=== PATIENT | male | born 1965 | race Caucasian/White ===

== ENCOUNTER → 2016-02-29 | Day surgery (SDC) | payer MEDICARE, OTHER ==
[2016-02-29 12:42] VITALS: BP 125/88; PULSE 89; RESP 16; TEMP 98.1
--- NOTE | 2016-02-29 13:18 | P.PN ---
Progress Note - Text PROCEDURE: Intrathecal pain pump analysis, programming and reprogramming, and intrathecal pain pump refill. PREOPERATIVE DIAGNOSES: 1. near empty intrathecal pain pump. 2. opioid tolerance 3. failed back surgery syndrome lumbar area POSTOPERATIVE DIAGNOSES: same ANESTHESIA: None. CONDITION: Stable. This is a 50-year-old patient with a long history of chronic pain secondary to postlaminectomy syndrome. Patient previously had an intrathecal pump placed, which is now close to empty, and patient presents for refill today. Patient denies any side effects of the intrathecal medication, including new weakness, new numbness, excessive drowsiness or sleepiness, nausea/vomiting, weight gain, or night sweats. Patient also denies suicidal ideation, and reports that the current pain medication is helping control the chronic pain and improve the patient's activities of daily living. Description of the procedure: After timeout to verify proper patient and allergies to medications, the intrathecal pain pump was analyzed electronically demonstrating that the patient currently has reservoir volume [7.5] mL. The patient is currently receiving medication morphine PF [6] mg/ ml, and bupivacaine concentration [4] mg/ml. Patient receiving daily dose of [3.1] mg/day and bupivacaine [2.07] mg/day. Pain has not been well-controlled at this dose recently, patient using medication for breakthrough pain [Percocet 10/325] orally no more than three times per day. The location of the pump (Left Buttock) was prepped with chlorhexidine x3. Then , the 22-gauge needle from [employer] was advanced through the pump port using blind technique, and a total of [11] ml was removed from the pump. The pump was then refilled with the new medication total volume [40] ml of a solution of morphine PF 6 mg/ml and bupivacaine 4 mg/ml after verification by physician and nursing staff.. We will increase the daily dose 10% to morphine [3.41] mg/day and bupivacaine [2.27] mg/day and patient will follow up with the pain clinic in approximately 2 months for refill; alarm date 05/04/2016. Plan: 1. Explanation: Opioid and psychological risk scores were reviewed. Diagnoses , prognoses, and multiple treatment options including but not limited to physical therapy, interventional therapies, adjuvant medical therapies, narcotic medication therapies, and surgery were discussed with the patient and all questions were answered to the patient's satisfaction. 2. Opioid agreement: Patient has previously signed narcotic agreement, and was orally counseled to not overuse, abuse, divert, or cell medications, and to take them as prescribed by only 1 healthcare provider. The patient was also counseled to store opioid medications in a safe and preferably locked location. Patient was also counseled against driving while using narcotic medications and also to not use alcohol or any illicit or recreational drugs. The patient verbalized understanding that lack of compliance with any of the above and likely result in failure to renew narcotic prescriptions, possible discharge from the clinic, and possible legal ramifications thereafter if indicated. 3. Counseling: The patient was counseled extensively on BODY MASS INDEX, EXERCISE. Specifically, the patient was instructed regarding the importance of obesity, and exercise in the context of both chronic pain and overall health. 4. Procedures: Intrathecal pump refilled today 5. Consultations: None 6. Investigations: none 7. Medications: Percocet #90 for March (1 month), pt counseled to use no more than 3 Percocet pills per day due to further risk of tolerance 8. Disposition: f/u for ITP refill 8-10 weeks. Residual volume has been higher than expected for last several refills, and patient complaining of increased pain today, but no bowel/bladder incontinence or worsening weakness. We will need to monitor residual volumes at next several pump fills. PQRS measures: 1-Patient's medications are documented in the chart. 2-Tobacco use is negative, counseling NOT given 3-Patient has had a pneumococcal vaccine. 4-Advanced care planning discussed, patient unable to give. 5-Opioid contract signed with the patient. 6-Pain positive, follow-up visit or procedure scheduled 7-Patient's blood pressure measured and documented, and patient will follow up with the primary care due to hypertension. 8-Patient's weight was measured, and body mass index within the normal limits. 9-Patient WAS NOT identified as an unhealthy alcohol user.
== END ==
LOC: PNWHC3 12:08
PROVIDERS: ATTEND Anesthesiology
DX: Z45.49 Encounter for adjustment and management of other implanted nervous system device (principal); G89.29 Other chronic pain; M96.1 Postlaminectomy syndrome, not elsewhere classified; Z79.891 Long term (current) use of opiate analgesic
CPT/HCPCS: 62367; 62370

== ENCOUNTER → 2016-04-25 | Day surgery (SDC) | payer MEDICARE, OTHER ==
[2016-04-25 11:41] VITALS: BP 122/82; PULSE 83; RESP 18; TEMP 98.3
--- NOTE | 2016-04-25 12:37 | P.PN ---
Progress Note - Text PROCEDURE: Intrathecal pain pump analysis, programming and reprogramming, and intrathecal pain pump refill. PREOPERATIVE DIAGNOSES: 1. near empty intrathecal pain pump. 2. opioid tolerance 3. failed back surgery syndrome lumbar area POSTOPERATIVE DIAGNOSES: same ANESTHESIA: None. CONDITION: Stable. This is a 50-year-old patient with a long history of chronic pain secondary to postlaminectomy syndrome. Patient previously had an intrathecal pump placed, which is now close to empty, and patient presents for refill today. Patient denies any side effects of the intrathecal medication, including new weakness, new numbness, excessive drowsiness or sleepiness, nausea/vomiting, weight gain, or night sweats. Patient also denies suicidal ideation, and reports that the current pain medication is helping control the chronic pain and improve the patient's activities of daily living. Description of the procedure: After timeout to verify proper patient and allergies to medications, the intrathecal pain pump was analyzed electronically demonstrating that the patient currently has reservoir volume [8.2] mL. The patient is currently receiving medication morphine PF [6] mg/ ml, and bupivacaine concentration [4] mg/ml. Patient receiving daily dose of [3.41] mg/day and bupivacaine [2.27] mg/day. Pain has not been well-controlled at this dose recently, patient using medication for breakthrough pain [Percocet 10/325] orally no more than three times per day. The location of the pump (Left Buttock) was prepped with chlorhexidine x3. Then , the 22-gauge needle from [employer] was advanced through the pump port using blind technique, and a total of [12] ml was removed from the pump. The pump was then refilled with the new medication total volume [40] ml of a solution of morphine PF 6 mg/ml and bupivacaine 4 mg/ml after verification by physician and nursing staff.. We will increase the daily dose 10% to morphine [3.74] mg/day and bupivacaine [2.5] mg/day and patient will follow up with the pain clinic in approximately 2 months for refill; alarm date 06/23/2016. Plan: 1. Explanation: Opioid and psychological risk scores were reviewed. Diagnoses , prognoses, and multiple treatment options including but not limited to physical therapy, interventional therapies, adjuvant medical therapies, narcotic medication therapies, and surgery were discussed with the patient and all questions were answered to the patient's satisfaction. 2. Opioid agreement: Patient has previously signed narcotic agreement, and was orally counseled to not overuse, abuse, divert, or cell medications, and to take them as prescribed by only 1 healthcare provider. The patient was also counseled to store opioid medications in a safe and preferably locked location. Patient was also counseled against driving while using narcotic medications and also to not use alcohol or any illicit or recreational drugs. The patient verbalized understanding that lack of compliance with any of the above and likely result in failure to renew narcotic prescriptions, possible discharge from the clinic, and possible legal ramifications thereafter if indicated. 3. Counseling: The patient was counseled extensively on BODY MASS INDEX, EXERCISE. Specifically, the patient was instructed regarding the importance of obesity, and exercise in the context of both chronic pain and overall health. 4. Procedures: Intrathecal pump refilled today 5. Consultations: None 6. Investigations: none 7. Medications: Percocet #90 for April (1 month), pt counseled to use no more than 3 Percocet pills per day due to further risk of tolerance 8. Disposition: will order CT scan of thoracic and lumbar spine to evaluate intrathecal pump and catheter tip given patient's worsening pain and increasing residual volumes (extra 3-3.5 ml for last several refills). Follow up one month ; patient may need dye study in the near future. PQRS measures: 1-Patient's medications are documented in the chart. 2-Tobacco use is negative, counseling NOT given 3-Patient has had a pneumococcal vaccine. 4-Advanced care planning discussed, patient unable to give. 5-Opioid contract signed with the patient. 6-Pain positive, follow-up visit or procedure scheduled 7-Patient's blood pressure measured and documented, and patient will follow up with the primary care due to hypertension. 8-Patient's weight was measured, and body mass index within the normal limits. 9-Patient WAS NOT identified as an unhealthy alcohol user.
[2016-04-25 13:49] LABS: Blood Urea Nitrogen 12 mg/dL (9-20); Non-African American GFR(MDRD) >60 (>60 ml/min/1.73 sqM)
--- NOTE | 2016-04-25 15:00 | CT ---
EXAMINATION TYPE: CT lumbar spine wo/w con DATE OF EXAM: 04/25/2016 2:48 PM COMPARISON: NONE HISTORY: Evaluate intrathecal cath and pump CT DLP: 2236 mGycm CONTRAST: Unenhanced CT of the lumbar spine is performed with IV Contrast, patient injected with of Omnipaque [address] of the lumbar spine was performed. Bone and soft tissue window settings are submitted as well as coronal and sagittal reconstructions. Intrathecal catheter is noted to enter the thecal sac at the L1 T12 level and extends cranially and i s only imaged for 2 cm. L1-L2: Normal disc space height. No disc herniation protrusion or central stenosis. No facet joint arthropathy. No evidence for foraminal encroachment. L2-L3: Mild to moderate degenerative disc space narrowing. Moderate circumferential disc bulge with e ffacement of the ventral thecal sac. There is hypertrophy of the ligamentum flavum and facet joint ar thropathy resulting in mild central stenosis. Spinal canal does appear to be congenitally diminutive in size. L3-L4: Mild to moderate degenerative disc space narrowing. Moderate circumferential disc bulge with e ffacement of the ventral thecal sac. There is hypertrophy of the ligamentum flavum and facet joint ar thropathy resulting in mild central stenosis. Spinal canal does appear to be congenitally diminutive in size. L4-L5: Changes of lumbar laminectomy with pedicular screws in place and intervertebral body spacers. Alignment appears anatomic. Streak artifact limits evaluation of this level. No obvious recurrent dis ease is seen with certainty at this time. L5-S1: Changes of lumbar laminectomy with pedicular screws in place and intervertebral body spacers. Alignment appears anatomic. Streak artifact limits evaluation of this level. No obvious recurrent dis ease is seen with certainty at this time. No paraspinal masses are identified. Lumbar segments are free if fracture. No pathologic enhancement identified. IMPRESSION: 1. Postoperative changes at L4-5 and L5-S1 as discussed above with anatomic alignment. Streak artifac t limits evaluation of these levels. 2. Degenerative disc disease with disc bulging at L2-3 and L3-4 with mild central stenosis present. S ee above.
== END ==
LOC: PNWHC3 11:13
PROVIDERS: ATTEND Anesthesiology
DX: Z45.1 Encounter for adjustment and management of infusion pump (principal); M96.1 Postlaminectomy syndrome, not elsewhere classified; Z79.891 Long term (current) use of opiate analgesic
CPT/HCPCS: 82565; 84520; 72133; 36415; 62370; Q9967

== ENCOUNTER → 2016-05-22 | Outpatient (CLI) | payer MEDICARE, OTHER ==
--- NOTE | 2016-06-12 08:16 | P.PN ---
Progress Note - Text Mr. Magana was not seen by a physician today. The MRI that was ordered to evaluate his pump covered only his lumbar spine and not his thoracic and lumbar spine. He was given a month's refill of his oral medications and will follow up to be seen after completion of the MRI of his thoracic spine.
== END ==
LOC: PNWHC3 13:28
PROVIDERS: ATTEND Anesthesiology

== ENCOUNTER → 2016-05-29 | Outpatient (CLI) | payer MEDICARE, OTHER ==
--- NOTE | 2016-05-30 08:36 | CT ---
EXAMINATION TYPE: CT thoracic spine wo/w con DATE OF EXAM: 05/29/2016 5:22 PM COMPARISON: NONE HISTORY: Per patient checking pain pump placement. Spondylosis without myelopathy or radiculopathy pe r order. CT DLP: 1278.8 mGycm Automated exposure control for dose reduction was used. CONTRAST: Performed without and with IV Contrast, patient injected with 100 mL of Omnipaque 300. FINDINGS: Localizer image shows surgical change in the mid to lower lumbar spine extending into the upper sacru m. There is partial visualization of pain pump overlying the left pelvis. Thoracic spine shows straightened alignment without evidence of acute fracture or dislocation. Verteb ral body heights and disc space heights are fairly well-maintained. Spinal canal is grossly preserved . There is a pain pump catheter entering the spinal canal at T12-L1 disc space posteriorly and ascendin g up the spinal canal along the anterior aspect with tip just posterior to the inferior T8 vertebra a re seen best on sagittal image 32. Catheter is also better seen on coronal images 34 and 35 coursing slightly to the left as it ascends. Because of small caliber of the catheter it is difficult to follo w but appears grossly intact. Significant artifact degradation is seen making evaluation suboptimal. Spinal canal is grossly preser ana. Visualized portion of both lungs is clear. Diffuse fatty infiltration of liver is present. Surgi kalyan sutures or clips epigastric region are seen. No worrisome fluid collection or enhancement is iden tified. Paraspinal muscle bulk is preserved. IMPRESSION: PAIN CATHETER POSITION DETAILED ABOVE
== END ==
LOC: RADCTMAIN 16:49
PROVIDERS: ATTEND Anesthesiology
DX: M47.814 Spondylosis without myelopathy or radiculopathy, thoracic region (principal); Z45.2 Encounter for adjustment and management of vascular access device
CPT/HCPCS: 72130; Q9967

== ENCOUNTER 2016-06-19 09:58 | Day surgery (SDC) | payer MEDICARE, OTHER ==
[2016-06-15 11:28] VITALS: BMI 38.4
[~2016-06-19 09:58] MED LIST: LACTATED RINGERS 1,000 ML IV SCH
[2016-06-19] MEDS ORDERED: LIDOCAINE 1% 20 ML VIAL (10MG/ML) FOR IV START INTRADERMA ONE (10:55)
[2016-06-19 10:58] LABS: Glucose,Whole Blood 158 mg/dL (75-99)
[2016-06-19 10:59] VITALS: RESP 18; TEMP 96.9
[2016-06-19] MEDS ORDERED: IOHEXOL 180 MG/ML 1 ML ML ONE (11:03)
--- NOTE | 2016-06-19 12:03 | FL ---
Fluoroscopy HISTORY: Pain 1 minute 33 seconds fluoroscopy time supplied to the referring clinician. 37 intraoperative C-arm im ages document the procedure. See dictated report from anesthesia.
[2016-06-19] MEDS ORDERED: IV FLUID CONTINUATION 1,000 ML IV ONE (12:10)
--- NOTE | 2016-06-19 12:15 | P.PCN ---
Date of Procedure: 06/19/16 Surgeon: Cheng Chen Pathology: none sent Condition: stable Disposition: PACU Description of Procedure: PROCEDURE: 1. Intrathecal pump analysis and myelogram (dye study). 2. Intrathecal pain pump analysis, programming and reprogramming, and intrathecal pain pump refill. PREOPERATIVE DIAGNOSES: 1. near empty intrathecal pain pump, possibly malfunctioning 2. opioid tolerance 3. failed back surgery syndrome lumbar area POSTOPERATIVE DIAGNOSES: same ANESTHESIA: None. CONDITION: Stable. This is a 50-year-old patient with a long history of chronic pain secondary to postlaminectomy syndrome. Patient previously had an intrathecal pump placed, which is now close to empty, and patient has been complaining of increasing pain over the last six months, and this has coincided with increasing residual volumes at each pump refill. CT scan of the thoracic and lumbar spine did not demonstrate any granuloma or catheter-tip mass. Thus, the patient presents today for pump evaluation via dye study and pump refill today. Patient denies any side effects of the intrathecal medication, including new weakness, new numbness, excessive drowsiness or sleepiness, nausea /vomiting, weight gain, or night sweats. Patient also denies suicidal ideation , and reports that the current pain medication is helping control the chronic pain and improve the patient's activities of daily living. Description of the procedure: The patient was seen and identified in the preoperative area. Risks, benefits, complications, and alternatives were discussed with the patient. The patient agreed to proceed with the procedure and signed the consent after all questions were answered. IV was started. Vital signs were stable throughout the procedure. The patient was brought to the procedure room. He was placed in the prone position on the procedure table. The location of the intrathecal pump (Left Buttock) was prepped with chlorhexidine x3 and draped with sterile towels. AP fluoroscopy was used to identify the intrathecal pump, which appeared to be intact, and AP fluoroscopy was also used to locate the catheter tip at approximately the T8 level. A sideport access kit was opened sterilely and a 24 -gauge 1.5 inch needle was inserted under fluoroscopic guidance into the side port of the pump. 2.5 ML's of clear fluid was extracted through the needle without any issues. Then, a total of 7 ml of Omnipaque 300 dye was injected through the catheter, and there was no extravasation of contrast surrounding the intrathecal pump itself. With the injection, an excellent myelogram was demonstrated in both AP and moreso lateral view in both the lumbar and thoracic spines. The catheter appeared to be intact and appeared to be functioning appropriately. A rotor study was then performed, which demonstrated appropriate counter clockwise rotation of the rotors in the intrathecal pump. The pump was then reprogrammed to deliver a priming bolus over 11 minutes and there was return to the regular settings as below After timeout to verify proper patient and allergies to medications, the intrathecal pain pump was analyzed electronically demonstrating that the patient currently has reservoir volume [5.9] mL. The patient is currently receiving medication morphine PF [6] mg/ ml, and bupivacaine concentration [4] mg/ml. Patient receiving daily dose of [3.74] mg/day and bupivacaine [2.5] mg/day. Pain has not been well-controlled at this dose recently, patient using medication for breakthrough pain [Percocet 10/325] orally no more than three times per day. Then, the 22-gauge needle from [employer] was advanced through the pump port using fluoroscopy, and a total of [10] ml was removed from the pump. The pump was then refilled with the new medication total volume [40] ml of a solution of morphine PF 6 mg/ml and bupivacaine 4 mg/ml after verification by physician and nursing staff.. We will continue the current dose of morphine [3.74] mg/day and bupivacaine [ 2.5] mg/day and patient will follow up with the pain clinic in approximately 2 months for refill; alarm date 08/17/2016. Plan: 1. Explanation: Opioid and psychological risk scores were reviewed. Diagnoses , prognoses, and multiple treatment options including but not limited to physical therapy, interventional therapies, adjuvant medical therapies, narcotic medication therapies, and surgery were discussed with the patient and all questions were answered to the patient's satisfaction. 2. Opioid agreement: Patient has previously signed narcotic agreement, and was orally counseled to not overuse, abuse, divert, or cell medications, and to take them as prescribed by only 1 healthcare provider. The patient was also counseled to store opioid medications in a safe and preferably locked location. Patient was also counseled against driving while using narcotic medications and also to not use alcohol or any illicit or recreational drugs. The patient verbalized understanding that lack of compliance with any of the above and likely result in failure to renew narcotic prescriptions, possible discharge from the clinic, and possible legal ramifications thereafter if indicated. 3. Counseling: The patient was counseled extensively on BODY MASS INDEX, EXERCISE. Specifically, the patient was instructed regarding the importance of obesity, and exercise in the context of both chronic pain and overall health. 4. Procedures: Intrathecal pump refilled today 5. Consultations: None 6. Investigations: none 7. Medications: Percocet #90 for June and July (2 months), pt counseled to use no more than 3 Percocet pills per day due to further risk of tolerance 8. Disposition: f/u for pump refill as scheduled, although patient has continued to complain of increased pain and has had increasing residual volumes in the pump. Dye and rotor studies were both normal. PQRS measures: 1-Patient's medications are documented in the chart. 2-Tobacco use is negative, counseling NOT given 3-Patient has had a pneumococcal vaccine. 4-Advanced care planning discussed, patient unable to give. 5-Opioid contract signed with the patient. 6-Pain positive, follow-up visit or procedure scheduled 7-Patient's blood pressure measured and documented, and patient will follow up with the primary care due to hypertension. 8-Patient's weight was measured, and body mass index within the normal limits. 9-Patient WAS NOT identified as an unhealthy alcohol user.
[2016-06-19 12:21] LABS: Glucose,Whole Blood 147 mg/dL (75-99)
[2016-06-19 12:33] VITALS: PULSE 75
[2016-06-19 13:06] VITALS: BP 122/81
== END 2016-06-19 13:22 | disposition home or self-care (01) ==
LOC: ORPAIN 09:58
PROVIDERS: ATTEND Anesthesiology
DX: Z45.49 Encounter for adjustment and management of other implanted nervous system device (principal); G89.29 Other chronic pain; M96.1 Postlaminectomy syndrome, not elsewhere classified; M54.5 Low back pain; Z79.891 Long term (current) use of opiate analgesic; Z88.1 Allergy status to other antibiotic agents; Z88.0 Allergy status to penicillin; Z88.8 Allergy status to other drugs, medicaments and biological substances; Z91.018 Allergy to other foods
CPT/HCPCS: 95990; Q9965

== ENCOUNTER → 2016-08-15 | Outpatient (CLI) | payer MEDICARE, OTHER ==
[2016-08-15 12:21] VITALS: BP 124/76; PULSE 87; RESP 16; TEMP 98.7
--- NOTE | 2016-08-15 12:49 | P.PN ---
Progress Note - Text PROCEDURE: Intrathecal pain pump analysis, programming and reprogramming, and intrathecal pain pump refill. PREOPERATIVE DIAGNOSES: 1. near empty intrathecal pain pump. 2. opioid tolerance 3. failed back surgery syndrome lumbar area POSTOPERATIVE DIAGNOSES: same ANESTHESIA: None. CONDITION: Stable. This is a 50-year-old patient with a long history of chronic pain secondary to postlaminectomy syndrome. Patient previously had an intrathecal pump placed, which is now close to empty, and patient presents for refill today. Patient denies any side effects of the intrathecal medication, including new weakness, new numbness, excessive drowsiness or sleepiness, nausea/vomiting, weight gain, or night sweats. Patient also denies suicidal ideation, and reports that the current pain medication is helping control the chronic pain and improve the patient's activities of daily living. Description of the procedure: After timeout to verify proper patient and allergies to medications, the intrathecal pain pump was analyzed electronically demonstrating that the patient currently has reservoir volume [4.4] mL. The patient is currently receiving medication morphine PF [6] mg/ ml, and bupivacaine concentration [4] mg/ml. Patient receiving daily dose of [3.74] mg/day and bupivacaine [2.5] mg/day. Pain has not been well-controlled at this dose recently, patient using medication for breakthrough pain [Percocet 10/325] orally no more than three times per day. The location of the pump (Left Buttock) was prepped with chlorhexidine x1. Then , the 22-gauge needle from [employer] was advanced through the pump port using blind technique, and a total of [9.8] ml was removed from the pump. The pump was then refilled with the new medication total volume [40] ml of a solution of morphine PF 6 mg/ml and bupivacaine 4 mg/ml after verification by physician and nursing staff.. We will continue the daily dose morphine [3.74] mg/day and bupivacaine [2.5] mg/day and patient will follow up with the pain clinic in approximately 2 months for refill; alarm date 10/13/2016. Plan: 1. Explanation: Opioid and psychological risk scores were reviewed. Diagnoses , prognoses, and multiple treatment options including but not limited to physical therapy, interventional therapies, adjuvant medical therapies, narcotic medication therapies, and surgery were discussed with the patient and all questions were answered to the patient's satisfaction. 2. Opioid agreement: Patient has previously signed narcotic agreement, and was orally counseled to not overuse, abuse, divert, or cell medications, and to take them as prescribed by only 1 healthcare provider. The patient was also counseled to store opioid medications in a safe and preferably locked location. Patient was also counseled against driving while using narcotic medications and also to not use alcohol or any illicit or recreational drugs. The patient verbalized understanding that lack of compliance with any of the above and likely result in failure to renew narcotic prescriptions, possible discharge from the clinic, and possible legal ramifications thereafter if indicated. 3. Counseling: The patient was counseled extensively on BODY MASS INDEX, EXERCISE. Specifically, the patient was instructed regarding the importance of weight control and exercise in the context of both chronic pain and overall health. 4. Procedures: intrathecal pump refilled today 5. Consultations: None 6. Investigations: none 7. Medications: Percocet 10/325 #90 with one refill 8. Disposition: Patient is still continuing to have high residual volumes but states that his pain has improved since pump study done previously. Will continue same dose and re-evaluate patient at next refill in two months. PQRS measures: 1-Patient's medications are documented in the chart. 2-Tobacco use is negative, counseling NOT given 3-Patient has had a pneumococcal vaccine. 4-Advanced care planning discussed, patient unable to give. 5-Opioid contract signed with the patient. 6-Pain positive, follow-up visit or procedure scheduled 7-Patient's blood pressure measured and documented, and patient will follow up with the primary care due to hypertension. 8-Patient's weight was measured, and body mass index > 35. Patient instructed to follow up with PCP re: weight loss strategies. 9-Patient WAS NOT identified as an unhealthy alcohol user.
== END | disposition home or self-care (01) ==
LOC: PNWHC3 11:38
PROVIDERS: ATTEND Anesthesiology
DX: M96.1 Postlaminectomy syndrome, not elsewhere classified (principal); G89.29 Other chronic pain; Z79.891 Long term (current) use of opiate analgesic; Z79.899 Other long term (current) drug therapy
CPT/HCPCS: 62370

== ENCOUNTER → 2016-10-03 | Day surgery (SDC) | payer MEDICARE, OTHER ==
[2016-10-03 12:40] VITALS: BP 115/74; PULSE 95; RESP 12; TEMP 98.6
--- NOTE | 2016-10-03 13:21 | P.PN ---
Progress Note - Text PROCEDURE: Intrathecal pain pump analysis, programming and reprogramming, and intrathecal pain pump refill. PREOPERATIVE DIAGNOSES: 1. near empty intrathecal pain pump. 2. opioid tolerance 3. failed back surgery syndrome lumbar area POSTOPERATIVE DIAGNOSES: same ANESTHESIA: None. CONDITION: Stable. This is a 50-year-old patient with a long history of chronic pain secondary to postlaminectomy syndrome. Patient previously had an intrathecal pump placed, which is now close to empty, and patient presents for refill today. Patient denies any side effects of the intrathecal medication, including new weakness, new numbness, excessive drowsiness or sleepiness, nausea/vomiting, weight gain, or night sweats. Patient also denies suicidal ideation, and reports that the current pain medication is helping control the chronic pain and improve the patient's activities of daily living. Description of the procedure: After timeout to verify proper patient and allergies to medications, the intrathecal pain pump was analyzed electronically demonstrating that the patient currently has reservoir volume [9.5] mL. The patient is currently receiving medication morphine PF [6] mg/ ml, and bupivacaine concentration [4] mg/ml. Patient receiving daily dose of [3.74] mg/day and bupivacaine [2.5] mg/day. Pain has not been well-controlled at this dose recently, patient using medication for breakthrough pain [Percocet 10/325] orally no more than three times per day. The location of the pump (Left Buttock) was prepped with chlorhexidine x1. Then , the 22-gauge needle from [employer] was advanced through the pump port using blind technique, and a total of [14] ml was removed from the pump. The pump was then refilled with the new medication total volume [40] ml of a solution of morphine PF 6 mg/ml and bupivacaine 4 mg/ml after verification by physician and nursing staff.. We will continue the daily dose morphine [3.74] mg/day and bupivacaine [2.5] mg/day and I will give the patient a 10% bolus today and patient will follow up with the pain clinic in approximately 2 months for refill; alarm date 2016. Plan: 1. Explanation: Opioid and psychological risk scores were reviewed. Diagnoses , prognoses, and multiple treatment options including but not limited to physical therapy, interventional therapies, adjuvant medical therapies, narcotic medication therapies, and surgery were discussed with the patient and all questions were answered to the patient's satisfaction. 2. Opioid agreement: Patient has previously signed narcotic agreement, and was orally counseled to not overuse, abuse, divert, or cell medications, and to take them as prescribed by only 1 healthcare provider. The patient was also counseled to store opioid medications in a safe and preferably locked location. Patient was also counseled against driving while using narcotic medications and also to not use alcohol or any illicit or recreational drugs. The patient verbalized understanding that lack of compliance with any of the above and likely result in failure to renew narcotic prescriptions, possible discharge from the clinic, and possible legal ramifications thereafter if indicated. 3. Counseling: The patient was counseled extensively on BODY MASS INDEX, EXERCISE. Specifically, the patient was instructed regarding the importance of weight control and exercise in the context of both chronic pain and overall health. 4. Procedures: intrathecal pump refilled today; will schedule right lumbar sympathetic block in 4 weeks for RLE CRPS after patient completes antibiotic course 5. Consultations: None 6. Investigations: none 7. Medications: Percocet 10/325 #90 with one refill 8. Disposition: Patient having severe R toe and left ankle pain and feels as though this pain is related to his CRPS. Will continue same dose, give IT bolus , and plan for right lumbar sympathetic block in 4 weeks; next refill in two months. PQRS measures: 1-Patient's medications are documented in the chart. 2-Tobacco use is negative 3-Patient has had a pneumococcal vaccine. 4-Advanced care planning discussed, patient unable to give. 5-Opioid contract signed with the patient. 6-Pain positive, follow-up visit or procedure scheduled 7-Patient's blood pressure measured and documented, and patient will follow up with the primary care due to hypertension. 8-Patient's weight was measured, and body mass index > 35. Patient instructed to follow up with PCP re: weight loss strategies. 9-Patient WAS NOT identified as an unhealthy alcohol user.
== END ==
LOC: PNWHC3 11:43
PROVIDERS: ATTEND Anesthesiology
DX: G89.29 Other chronic pain (principal); M96.1 Postlaminectomy syndrome, not elsewhere classified; Z79.891 Long term (current) use of opiate analgesic
CPT/HCPCS: 62370

== ENCOUNTER 2016-10-31 06:41 | Day surgery (SDC) | payer MEDICARE, OTHER ==
[2016-10-30 09:45] VITALS: BMI 37.3
[2016-10-31 07:21] VITALS: RESP 16; TEMP 98.8
[2016-10-31 07:27] LABS: Glucose,Whole Blood 137 mg/dL (75-99)
[2016-10-31] MEDS ORDERED: LIDOCAINE 1% 20 ML VIAL (10MG/ML) FOR IV START INTRADERMA ONE (07:29)
[2016-10-31] MEDS ORDERED: LACTATED RINGERS 1,000 ML IV ONE (07:29)
[2016-10-31] MEDS ORDERED: LACTATED RINGERS 1,000 ML IV SCH (07:30)
[2016-10-31 09:33] VITALS: BP 105/68; PULSE 89
[2016-10-31] MEDS ORDERED: IV FLUID CONTINUATION 1,000 ML IV ONE (09:40)
--- NOTE | 2016-10-31 10:08 | FL ---
Fluoroscopy HISTORY: Pain 47 seconds fluoroscopy time supplied to the referring clinician. 3 intraoperative C-arm images docum ent the procedure. See dictated report from anesthesia.
--- NOTE | 2016-10-31 11:07 | P.PCN ---
Date of Procedure: 10/31/16 Surgeon: Cheng Chen Pathology: none sent Condition: stable Disposition: PACU Description of Procedure: PREOPERATIVE DIAGNOSIS: complex regional pain syndrome. POSTOPERATIVE DIAGNOSIS: complex regional pain syndrome. PROCEDURE: right lumbar sympathetic block with fluoroscopic guidance. ANESTHESIA: Local with 1% lidocaine; IV sedation with Versed and fentanyl. EBL: None. PROCEDURE INDICATION: The patient with RLE CRPS with worsening pain uncontrolled by his intrathecal pump, who has had previous excellent relief from lumbar sympathetic blocks in the past. No use of blood thinners. PROCEDURE DESCRIPTION: The patient was seen and identified in the preoperative area. Risks, benefits, complications, and alternatives were discussed with the patient with risks including but not limited to bleeding, infection, nerve damage, incomplete pain relief, and allergic reactions to medications. The patient agreed to proceed with the procedure and signed the consent. IV was started, and vital signs were stable. Patient was taken to the OR and time out was completed to verify proper patient, laterality of pain, and allergies to medications. The patient was placed in the prone position on procedure table and a pillow was placed under the abdomen to reduce lumbar lordosis. The lumbosacral area was prepped and draped in the usual sterile fashion. Critical pause was taken. Vital signs were closely monitored during the procedure. Fluoroscopy was used to identify the L2 vertebra and target points were marked. 5 cc Lidocaine 1% was used with a 25 gauge needle to achieve adequate local anesthesia of the skin and subcutaneous tissue. A 22-gauge, 7-inch spinal needle was inserted through the skin at the lateral border of the L2 vertebral body and then advanced under fluoroscopic guidance in oblique, anterior, and lateral views. The needles were advanced to the karel-lateral border of the vertebra from the right side and 3cc of Omnipaque 300 was injected to confirm needle position. After satisfactory positioning of the needles, and negative aspiration of blood or CSF, 25 cc of 0.5 % preservative free bupivacaine and 1% lidocaine with epinephrine 1:200K was injected with intermittent aspiration. Needle was withdrawn intact. The temperature of the foot continued to rise. There was also vasodilatation in the RLE. COMPLICATIONS: None. COMMENTS: DISPOSITION / PLANS: The patient was placed in a supine position and transferred to the recovery area in a stable condition for observation and was discharged from the recovery room after meeting discharge criteria. Home discharge instructions given to the patient by the staff. The patient was reexamined prior to discharge and had significant relief. The patient will schedule a follow up in the clinic in 2-4 weeks for pump refill.
--- NOTE | 2016-11-02 16:01 | CDI ---
Dear Dr. Chen, More information is needed regarding the patient's diagnosis of complex regional pain syndrome. CRPS is divided into 2 categories: type I and type II. Does the patient have CRPS-I or CRPS-II? Please respond via an addendum to the encounter. Thank you Maggy OLSON
== END 2016-10-31 09:48 | disposition home or self-care (01) ==
LOC: ORPAIN 06:41
PROVIDERS: ATTEND Anesthesiology
DX: G90.521 Complex regional pain syndrome I of right lower limb (principal); Z79.891 Long term (current) use of opiate analgesic
CPT/HCPCS: 64520; J2250; J3301; Q9965; J3010; 62282; 99152; 99153

== ENCOUNTER → 2016-11-21 | Day surgery (SDC) | payer MEDICARE, OTHER ==
--- NOTE | 2016-11-21 12:20 | P.PN ---
Progress Note - Text Progress Note Date: 11/21/16 PROCEDURE: Intrathecal pain pump analysis, programming and reprogramming, and intrathecal pain pump refill. PREOPERATIVE DIAGNOSES: 1. near empty intrathecal pain pump. 2. opioid tolerance 3. failed back surgery syndrome lumbar area POSTOPERATIVE DIAGNOSES: same ANESTHESIA: None. CONDITION: Stable. This is a 50-year-old patient with a long history of chronic pain secondary to postlaminectomy syndrome. Patient previously had an intrathecal pump placed, which is now close to empty, and patient presents for refill today. Patient denies any side effects of the intrathecal medication, including new weakness, new numbness, excessive drowsiness or sleepiness, nausea/vomiting, weight gain, or night sweats. Patient also denies suicidal ideation, and reports that the current pain medication is helping control the chronic pain and improve the patient's activities of daily living. Patient had good relief from lumbar sympathetic block performed in October for two weeks. Description of the procedure: After timeout to verify proper patient and allergies to medications, the intrathecal pain pump was analyzed electronically demonstrating that the patient currently has reservoir volume [9.5] mL. The patient is currently receiving medication morphine PF [6] mg/ ml, and bupivacaine concentration [4] mg/ml. Patient receiving daily dose of [3.74] mg/day and bupivacaine [2.5] mg/day. Pain has not been well-controlled at this dose recently, patient using medication for breakthrough pain [Percocet 10/325] orally no more than three times per day. The location of the pump (Left Buttock) was prepped with chlorhexidine x1. Then , the 22-gauge needle from [employer] was advanced through the pump port using blind technique, and a total of [14.5] ml was removed from the pump. The pump was then refilled with the new medication total volume [40] ml of a solution of morphine PF 6 mg/ml and bupivacaine 4 mg/ml after verification by physician and nursing staff.. We will continue the daily dose morphine [3.74] mg/day and bupivacaine [2.5] mg/day and patient will follow up with the pain clinic in approximately 2 months for refill; alarm date 12/01/2016. Plan: 1. Explanation: Opioid and psychological risk scores were reviewed. Diagnoses , prognoses, and multiple treatment options including but not limited to physical therapy, interventional therapies, adjuvant medical therapies, narcotic medication therapies, and surgery were discussed with the patient and all questions were answered to the patient's satisfaction. 2. Opioid agreement: Patient has previously signed narcotic agreement, and was orally counseled to not overuse, abuse, divert, or cell medications, and to take them as prescribed by only 1 healthcare provider. The patient was also counseled to store opioid medications in a safe and preferably locked location. Patient was also counseled against driving while using narcotic medications and also to not use alcohol or any illicit or recreational drugs. The patient verbalized understanding that lack of compliance with any of the above and likely result in failure to renew narcotic prescriptions, possible discharge from the clinic, and possible legal ramifications thereafter if indicated. 3. Counseling: The patient was counseled extensively on BODY MASS INDEX, EXERCISE. Specifically, the patient was instructed regarding the importance of weight control and exercise in the context of both chronic pain and overall health. 4. Procedures: intrathecal pump refilled today 5. Consultations: None 6. Investigations: none 7. Medications: Percocet 10/325 #90 with one refill 8. Disposition: Patient continuing to have severe R toe and ankle pain and feels as though this pain is related to his CRPS. Will continue same dose, give IT bolus, and plan for repeat right lumbar sympathetic block in 4 weeks; next pump refill in two months. PQRS measures: 1-Patient's medications are documented in the chart. 2-Tobacco use is negative 3-Patient has had a pneumococcal vaccine. 4-Advanced care planning discussed, patient unable to give. 5-Opioid contract signed with the patient. 6-Pain positive, follow-up visit or procedure scheduled 7-Patient's blood pressure measured and documented, and patient will follow up with the primary care due to hypertension. 8-Patient's weight was measured, and body mass index > 35. Patient instructed to follow up with PCP re: weight loss strategies. 9-Patient WAS NOT identified as an unhealthy alcohol user.
== END ==
CPT/HCPCS: 62370

== ENCOUNTER → 2017-01-09 | Day surgery (SDC) | payer MEDICARE, OTHER ==
[2017-01-09 11:56] VITALS: BP 143/102; PULSE 92; RESP 16
--- NOTE | 2017-01-09 12:43 | P.PCN ---
Date of Procedure: 01/09/17 Preoperative Diagnosis: Failed back surgery syndrome Near empty intrathecal morphine pump Postoperative Diagnosis: Failed back surgery syndrome Procedure(s) Performed: refill and reprogramming of an intrathecal morphine pump Anesthesia: none Surgeon: Jennifer Horan Pathology: none sent Condition: stable Disposition: no change Description of Procedure: The patient assumed the right lateral decubitus position. The pump was palpated in the left upper buttock area and skin was prepped with ChloraPrep and draped in a sterile manner. 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 I used 22-gauge [employer] needle to go through the axis port of the pump and aspirated 13.5 MLS of the residual solution. I then injected a new 40 MLS of the new solution through a filter with increments of 5 MLS and frequent aspirations. The patient will be reprogrammed to provide 4 mg a day of morphine and also we will bolus with 0.2 mg over 30 minutes.
--- NOTE | 2017-01-09 12:45 | P.PN ---
Progress Note - Text Progress Note Date: 01/09/17 This is a 51-year-old male with history of failed back surgery syndrome and chronic lower back pain. The patient has possible complex regional pain syndrome in the right leg however he did not respond to lumbar sympathetic chain block previously. He has increasing lower back pain across his lower back but he denies any bowel or bladder dysfunction or any new weakness in his legs. By physical exam he is alert oriented 3 in no apparent distress. Neuro exam of the lower extremities showed decreased muscle strength bilaterally and symmetrically to 4 out of 5 for knee flexion and extension and hip flexion. He has normal hip adduction and abduction and normal ankle flexion and extension. He has decreased but symmetrical knee reflexes and absent ankle reflexes bilaterally. At this point I will reprogram his pump to infused 40 mg a day of morphine up from 3.7 mg a day and also will give him 0.2 mg bolus over the next 30 minutes. I will refill the patient's oral prescriptions I will see him 2 months from now.
== END ==
LOC: PNWHC3 11:39
PROVIDERS: ATTEND Anesthesiology
DX: G89.29 Other chronic pain (principal); Z45.1 Encounter for adjustment and management of infusion pump; M96.1 Postlaminectomy syndrome, not elsewhere classified; Z79.891 Long term (current) use of opiate analgesic
CPT/HCPCS: 62370

== ENCOUNTER → 2017-02-21 | Day surgery (SDC) | payer MEDICARE, OTHER ==
--- NOTE | 2017-02-21 13:34 | P.PCN ---
Date of Procedure: 02/21/17 Procedure(s) Performed: OPERATION: Intrathecal pain pump analysis, programming and reprogramming, and intrathecal pain pump refill. PREOPERATIVE DIAGNOSES: 1. near empty intrathecal pain pump time for refill. 2. opioid tolerance 3. failed back surgery syndrome lumbar area POSTOPERATIVE DIAGNOSES: 1. near empty intrathecal pain pump time for refill. 2. opioid tolerance 3. failed back surgery syndrome lumbar area ANESTHESIA: None. CONDITION: Stable. Description of the procedure; Intrathecal pain pump analysed ,it showed patient currently had reservoir txscon73.4 mL. The patient is receiving medication morphin 6 mg/ ml, and bupivacaine concentration [4 ] mg/ml. Patient receiving daily dose of 3.99 mg/day and bupivacaine [ 2.66 ] mg/day. Pain is well controlled , patient using medication for breakthrough pain [ percocet 10/325 ] orally . The location of the pump ( Left Buttuck ) Prepped with chlorhexidine x3 , then using 22-gauge needle [employer] kit advanced through the pump port, Total of 15 ml removed from the pump, the pump refills with the new medication total volume [40 ] ml . The concentration morphin sulfate 6 mg /ml , and the bupivacaine concentration [ 4 ] mg/ml. The patient will continue to see the daily dose morphin 3.99 mg/day and bupivacaine [ 2.66 ] mg/day and patient will follow up with the pain clinic in 3 months. Refill for Percocet 10/325 every 6 hours dispensed 90 with 2 refills given on Neurontin 800 mg 3 times a day dispense 90 with 2 refills.
[2017-02-21 16:39] VITALS: BP 142/82; PULSE 93; RESP 16
== END ==
LOC: PNWHC3 12:26
PROVIDERS: ATTEND Specialist
DX: M96.1 Postlaminectomy syndrome, not elsewhere classified (principal); Z45.1 Encounter for adjustment and management of infusion pump; Z79.891 Long term (current) use of opiate analgesic
CPT/HCPCS: 62370

== ENCOUNTER → 2017-04-10 | Day surgery (SDC) | payer MEDICARE, OTHER ==
[2017-04-10 12:27] VITALS: BP 153/93; PULSE 103; RESP 18
--- NOTE | 2017-04-10 12:57 | P.PN ---
Progress Note - Text Progress Note Date: 04/10/17 PROCEDURE: Intrathecal pain pump analysis, programming and reprogramming, and intrathecal pain pump refill. PREOPERATIVE DIAGNOSES: 1. near empty intrathecal pain pump. 2. opioid tolerance 3. failed back surgery syndrome lumbar area POSTOPERATIVE DIAGNOSES: same ANESTHESIA: None. CONDITION: Stable. This is a 51-year-old patient with a long history of chronic pain secondary to postlaminectomy syndrome. Patient previously had an intrathecal pump placed, which is now close to empty, and patient presents for refill today. Patient denies any side effects of the intrathecal medication, including new weakness, new numbness, excessive drowsiness or sleepiness, nausea/vomiting, weight gain, or night sweats. Patient also denies suicidal ideation, and reports that the current pain medication is helping control the chronic pain and improve the patient's activities of daily living. Patient had good relief from lumbar sympathetic block performed in October for two weeks. Description of the procedure: After timeout to verify proper patient and allergies to medications, the intrathecal pain pump was analyzed electronically demonstrating that the patient currently has reservoir volume [8.1] mL. The patient is currently receiving medication morphine PF [6] mg/ ml, and bupivacaine concentration [4] mg/ml. Patient receiving daily dose of [3.74] mg/day and bupivacaine [2.5] mg/day. Pain has not been well-controlled at this dose recently, patient using medication for breakthrough pain [Percocet 10/325] orally no more than three times per day. The location of the pump (Left Buttock) was prepped with chlorhexidine x1. Then , the 22-gauge needle from [employer] was advanced through the pump port using blind technique, and a total of [13] ml was removed from the pump. The pump was then refilled with the new medication total volume [40] ml of a solution of morphine PF 6 mg/ml and bupivacaine 4 mg/ml after verification by physician and nursing staff.. We will continue the daily dose morphine [3.99] mg/day and bupivacaine [2.98] mg/day and patient will follow up with the pain clinic in approximately 2 months for refill; alarm date 12/01/2016. Plan: 1. Explanation: Opioid and psychological risk scores were reviewed. Diagnoses , prognoses, and multiple treatment options including but not limited to physical therapy, interventional therapies, adjuvant medical therapies, narcotic medication therapies, and surgery were discussed with the patient and all questions were answered to the patient's satisfaction. 2. Opioid agreement: Patient has previously signed narcotic agreement, and was orally counseled to not overuse, abuse, divert, or cell medications, and to take them as prescribed by only 1 healthcare provider. The patient was also counseled to store opioid medications in a safe and preferably locked location. Patient was also counseled against driving while using narcotic medications and also to not use alcohol or any illicit or recreational drugs. The patient verbalized understanding that lack of compliance with any of the above and likely result in failure to renew narcotic prescriptions, possible discharge from the clinic, and possible legal ramifications thereafter if indicated. 3. Counseling: The patient was counseled extensively on BODY MASS INDEX, EXERCISE. Specifically, the patient was instructed regarding the importance of weight control and exercise in the context of both chronic pain and overall health. 4. Procedures: intrathecal pump refilled today 5. Consultations: None 6. Investigations: none 7. Medications: Percocet 10/325 #90 with one refill 8. Disposition: Patient with relief from previous LSB. Will continue same dose for now; next pump refill in two months. Residual volume today is 13 ml, 5 ml more than expected. PQRS measures: 1-Patient's medications are documented in the chart. 2-Tobacco use is negative 3-Patient has had a pneumococcal vaccine. 4-Advanced care planning discussed, patient unable to give. 5-Opioid contract signed with the patient. 6-Pain positive, follow-up visit or procedure scheduled 7-Patient's blood pressure measured and documented, and patient will follow up with the primary care due to hypertension. 8-Patient's weight was measured, and body mass index > 35. Patient instructed to follow up with PCP re: weight loss strategies. 9-Patient WAS NOT identified as an unhealthy alcohol user.
== END ==
LOC: PNWHC3 11:58
PROVIDERS: ATTEND Anesthesiology
DX: G89.29 Other chronic pain (principal); M96.1 Postlaminectomy syndrome, not elsewhere classified; Z45.1 Encounter for adjustment and management of infusion pump; Z79.891 Long term (current) use of opiate analgesic
CPT/HCPCS: 62370

== ENCOUNTER 2017-04-18 14:12 | Emergency (ER) | payer MEDICARE, OTHER ==
[2017-04-18 14:16] VITALS: BP 148/98; PULSE 102; RESP 18; TEMP 97.5
--- NOTE | 2017-04-18 14:39 | ED ---
General Adult HPI - General Chief complaint: Extremity Injury, Lower Stated complaint: Knee pain Time Seen by Provider: 04/18/17 14:24 Source: patient, RN notes reviewed Mode of arrival: ambulatory Limitations: no limitations - History of Present Illness Initial comments: Patient's a 51-year-old male who presents emergency room today with a chief complaint of right knee pain. He does admit that 2 days ago he was stepping a shower and his knee pop. He did go to the family doctor had x-rays obtained 2 days ago. Patient states that he's had pain and swelling locally to the right knee. He states he's had problems with this knee in the past. Patient states she's tried to see the orthopedic doctor but cannot get an appointment for 2 more weeks. Patient denies any other complaints or symptoms currently. Patient denies any recent fever, chills, shortness of breath, chest pain, back pain, abdominal pain, nausea or vomiting, numbness or tingling, headaches or visual changes, or any other complaints. - Related Data Home Medications Medication Instructions Recorded Confirmed Armodafinil [Nuvigil] 250 mg PO DAILY PRN 07/22/13 04/10/17 Esomeprazole Magnesium [NexIUM] 40 mg PO BID 07/22/13 04/10/17 Interthecal Pain Pump 4 mg INTRATHECA CONTINUOUS 07/22/13 04/10/17 Meclizine [Antivert] 12.5 mg PO BID 07/22/13 04/10/17 SUMAtriptan SUCCINATE [Imitrex] 100 mg PO BID PRN 07/22/13 04/10/17 levETIRAcetam [Keppra] 1,000 mg PO Q12HR 07/22/13 04/10/17 Multivitamins, Thera [Multivitamin] 1 tab PO DAILY 10/19/15 04/10/17 carBAMazepine [TEGretol] 200 mg PO BID 10/19/15 04/10/17 metFORMIN HCL [Glucophage] 500 mg PO BID 10/19/15 04/10/17 Aspirin 81 mg PO AC-BRKFST 04/25/16 04/10/17 [place]-3 Fatty Acids/Fish Oil [Fish 1 tab PO BID 04/25/16 04/10/17 Oil 1,000 mg Softgel] Previous Rx's Medication Instructions Recorded DULoxetine HCL [Cymbalta] 60 mg PO BID #180 capsule. 12/28/15 Gabapentin [Neurontin] 800 mg PO TID #90 tablet 11/21/16 oxyCODONE HCL/ACETAMINOPHEN 1 tab PO Q8HR PRN #90 tab 04/10/17 [Percocet 10-325 mg] oxyCODONE HCL/ACETAMINOPHEN 1 tab PO TID PRN #90 tab 04/10/17 [Percocet 10-325 mg] Allergies Allergy/AdvReac Type Severity Reaction Status Date / Time bupropion HCl Allergy Dyspnea Verified 04/18/17 14:16 [From Wellbutrin] cephalexin [Cephalexin] Allergy Dyspnea Verified 04/18/17 14:16 cephalexin monohydrate Allergy Dyspnea Verified 04/18/17 14:16 [From Keflex] penicillin G Allergy Rash/Hives Verified 04/18/17 14:16 onion Allergy Dyspnea Uncoded 04/18/17 14:16 Review of Systems ROS Statement: Those systems with pertinent positive or pertinent negative responses have been documented in the HPI. ROS Other: All systems not noted in ROS Statement are negative. 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 rt shoulder surgery x2, rt knee arthroscopy x2, rt clarical x 2 fron foot ball injury, Past Anesthesia/Blood Transfusion Reactions: Previous Problems w/ Anesthesia Additional Past Anesthesia/Blood Transfusion Reaction / Comment(s): "slow to come out due to narcolepsy" comes out with low oxygen level Past Psychological History: Anxiety Smoking Status: Never smoker Past Alcohol Use History: None Reported Past Drug Use History: None Reported - Past Family History Mother Family Medical History: Cancer Brother(s) Family Medical History: Deep Vein Thrombosis (DVT) General Exam - General Exam Comments Initial Comments: General: The patient is awake and alert, in no distress, and does not appear acutely ill. Neck: The neck is supple, there is no tenderness or JVD. Musculoskeletal: Patient does have moderate swelling to the right knee. He shows limited range of motion with extension -10-15 due to pain and swelling. There is no redness. Patient sensations are intact pulses equal bilaterally 2+. Neurological: A&O x 3. CN II-XII intact, There are no obvious motor or sensory deficits. Coordination appears grossly intact. Speech is normal. Skin: Skin is warm and dry and no rashes or lesions are noted. Psychiatric: Normal mood and affect. Limitations: no limitations Course Vital Signs 04/18/17 14:14 Temperature 97.5 F L Pulse Rate 102 H Respiratory 18 Rate Blood Pressure 148/98 O2 Sat by Pulse 98 Oximetry Procedures - Procedures Initial comment: Patient's right knee was prepped and cleaned with Betadine. 47-gauge needle was used to anesthetize with 1% lidocaine. 18-gauge was used to remove fluid. A total of 10 mL of clear fluid was removed. Patient admits to relief afterwards. Disposition Clinical Impression: Knee effusion, right Disposition: HOME SELF-CARE Condition: Good Instructions: Knee Pain (ED) Additional Instructions: Please continue ice elevate the affected area. Please follow-up orthopedics over the next 2 days. Please to the emergency room for any other concerns. Referrals: Renu Arias MD [Primary Care Provider] - 1-2 days Ligia Jackson DO [Doctor of Osteopathic Medicine] - 1-2 days Time of Disposition: 15:24
--- NOTE | 2017-04-18 15:47 | XR ---
EXAMINATION TYPE: XR knee complete RT DATE OF EXAM: 04/18/2017 CLINICAL HISTORY: Pain after slip and fall injury. TECHNIQUE: Three views of the right knee are obtained. COMPARISON: None. FINDINGS: There is no acute fracture/dislocation evident in right knee. There is mild joint space lo ss patellofemoral compartment. There is increased density suprapatellar level consistent with large s uprapatellar joint effusion. IMPRESSION: There is no acute fracture or dislocation in the right knee. Large suprapatellar joint e ffusion noted, nonspecific finding.
== END 2017-04-18 15:31 | disposition home or self-care (01) ==
LOC: EC 14:12
DX: M25.461 Effusion, right knee (principal); E11.9 Type 2 diabetes mellitus without complications; K21.9 Gastro-esophageal reflux disease without esophagitis; G47.30 Sleep apnea, unspecified; Z99.89 Dependence on other enabling machines and devices; F41.9 Anxiety disorder, unspecified; Z86.14 Personal history of Methicillin resistant Staphylococcus aureus infection; Z79.84 Long term (current) use of oral hypoglycemic drugs; Z79.82 Long term (current) use of aspirin; Z79.899 Other long term (current) drug therapy; Z88.1 Allergy status to other antibiotic agents; Z88.0 Allergy status to penicillin; Z88.8 Allergy status to other drugs, medicaments and biological substances; Z91.018 Allergy to other foods
CPT/HCPCS: 20610; 99283

== ENCOUNTER → 2017-07-17 | Day surgery (SDC) | payer MEDICARE, OTHER ==
[2017-07-17 12:33] VITALS: BP 153/104; PULSE 94; RESP 18; TEMP 98
--- NOTE | 2017-07-17 13:12 | P.PCN ---
Date of Procedure: 07/17/17 Anesthesia: none Surgeon: Jennifer Horan Description of Procedure: Description of Procedure: Procedure(s) Performed: OPERATION: Intrathecal pain pump analysis, programming and reprogramming, and intrathecal pain pump refill. PREOPERATIVE DIAGNOSES: 1. near empty intrathecal pain pump time for refill. 2. opioid tolerance 3. failed back surgery syndrome lumbar area POSTOPERATIVE DIAGNOSES: 1. near empty intrathecal pain pump time for refill. 2. opioid tolerance 3. failed back surgery syndrome lumbar area ANESTHESIA: None. CONDITION: Stable. Description of the procedure; Intrathecal pain pump analysed , expected volume was 8.1 mL actual reservoir volume was 12.1 mL. The patient is receiving medication morphine 6 mg/ ml, and bupivacaine concentration [4 ] mg/ml. Patient receiving daily dose of 3.99 mg/day and bupivacaine [ 2.66 ] mg/day. Pain is not as well controlled as it used to , patient using medication for breakthrough pain Percocet 10 mg/325 mg 6 times a day when necessary The location of the pump ( Lt Buttuck ) Prepped with chlorhexidine , then using 22-gauge needle [employer] kit advanced through the pump port, Total of 12.1 ml removed from the pump, the pump refills with the new medication total volume [40 ] ml . The concentration morphin sulfate 6 mg /ml , and the bupivacaine concentration [ 4 ] mg/ml. The patient will continue to see the daily dose morphin 3.99 mg/day and bupivacaine [ 2.66 ] mg/day and patient will follow up with the pain clinic in 3 months. And due to the higher than expected volume and the reservoir of the pump the patient may need pump study to rule out any malfunction or occlusion in the pump. Refill for Percocet 10/325 every 6 hours dispensed 90 with 2 refills.
--- NOTE | 2017-07-17 13:20 | P.PN ---
Subjective Progress Note Date: 07/17/17 Principal diagnosis: Lumbar post times a day pain syndrome This is a 51-year-old male with lumbar post of the pain syndrome and intrathecal morphine pump. The patient denies any new changes since last time he was in our clinic however he states that his pain has been getting worse lately. History he denies any new neurologic changes in the lower extremities or weakness. He denies any bowel or bladder dysfunction.. This pump refill today showed a 50% increase of the pump residual solution over expected. The same thing also happened with his last refill. Objective - Vital Signs Vital signs: Vital Signs Temp 98 F 07/17/17 12:26 Pulse 94 07/17/17 12:26 Resp 18 07/17/17 12:26 BP 153/104 07/17/17 12:26 Pulse Ox 94 L 07/17/17 12:26 Intake & Output 07/16/17 07/17/17 07/17/17 18:59 06:59 18:59 Weight 97.522 kg - Constitutional General appearance: Present: obese - EENT Eyes: Present: PERRLA - Respiratory Respiratory: bilateral: CTA - Cardiovascular Rhythm: regular - Neurologic Neurologic: Present: CNII-XII intact - Psychiatric Psychiatric: Present: appropriate affect, intact judgment & insight Assessment and Plan Plan: This is a 51-year-old male with lumbar post the pain syndrome and intrathecal morphine pump. We have been withdrawing more than expected of residual solution. With the patient complains of increasing pain I think we should plan on doing pump study in the near future. His pump refilled today and drawn at the same rate of morphine of 3.9 mg a day. However the patient had pump study one year ago which showed normal functioning. But given the above-mentioned information Galina to do a pump study one more time. The patient denies any neurologic changes in his lower extremities however if his pain continued to get worse then might need to order an MRI of the lumbar spine to rule out granuloma formation. For now we will schedule him for a pump study as soon as possible.
== END ==
LOC: PNWHC3 11:53
PROVIDERS: ATTEND Anesthesiology
DX: M96.1 Postlaminectomy syndrome, not elsewhere classified (principal); Z79.891 Long term (current) use of opiate analgesic
CPT/HCPCS: 62370

== ENCOUNTER 2017-09-04 08:48 | Day surgery (SDC) | payer MEDICARE, OTHER ==
[2017-09-02 12:29] VITALS: BMI 37.3
[2017-09-04 09:24] VITALS: RESP 16; TEMP 97.8
[2017-09-04] MEDS ORDERED: LIDOCAINE 1% 20 ML VIAL (10MG/ML) FOR IV START INTRADERMA ONE (09:32)
[2017-09-04 09:39] LABS: Glucose,Whole Blood 139 mg/dL (75-99)
[2017-09-04] MEDS ORDERED: IV FLUID CONTINUATION 1,000 ML IV ONE (10:56)
--- NOTE | 2017-09-04 11:22 | FL ---
Fluoroscopy HISTORY: Pain, pain pump study 1 minute 7 seconds fluoroscopy time supplied to the referring clinician. 4 intraoperative C-arm imag es document the procedure. See dictated report from anesthesia.
[2017-09-04 11:25] VITALS: BP 120/78; PULSE 94
--- NOTE | 2017-09-04 13:06 | P.PCN ---
Date of Procedure: 09/04/17 Procedure(s) Performed: OPERATION: Intrathecal pain pump analysis, programming and reprogramming, and intrathecal pain pump refill. Dye the of the intrathecal pain pump. Roller Study the intrathecal pain pump PREOPERATIVE DIAGNOSES: 1. near empty intrathecal pain pump time for refill. 2. opioid tolerance 3. failed back surgery syndrome lumbar area 4- malfunction of the intrathecal pain pump POSTOPERATIVE DIAGNOSES: 1. near empty intrathecal pain pump time for refill. 2. opioid tolerance 3. failed back surgery syndrome lumbar area. 4. migration (dislocation ) of the intrathecal pain pump catheter. ANESTHESIA: None. CONDITION: Stable. Description of the procedure; Intrathecal pain pump analysed , expected volume was 7.5 mL actual reservoir volume was 12.1 mL. The patient is receiving medication morphine 6 mg/ ml, and bupivacaine concentration [4 ] mg/ml. Patient receiving daily dose of 3.99 mg/day and bupivacaine [ 2.66 ] mg/day. Pain is not as well controlled as it used to , patient using medication for breakthrough pain Percocet 10 mg/325 mg 6 times a day when necessary The location of the pump ( Lt Buttuck ) Prepped with chlorhexidine , then using 22-gauge needle [employer] advanced through the pump port, Total of 12.1 ml removed from the pump, the pump refills with the new medication total volume [40 ] ml . The concentration morphin sulfate 6 mg /ml , and the bupivacaine concentration [ 4 ] mg/ml. The patient will continue to see the daily dose morphin 3.99 mg/day and bupivacaine [ 2.66 ] mg/day And due to the higher than expected volume and the reservoir of the pump the patient need pump dye study to rule out any malfunction or occlusion in the pump. Roller study description= fluoroscopy x-rays taken for the intrathecal pain pump that showed the location of the roller on the pump, and after 1 minute we compared the location of the roller , we compared the location of the liver which was different discussed that the intrathecal pain pump working appropriately. The dye study description= the buttock area prepped with with chlorhexidine 3 then under sterile technique using [employer] kit 22-gauge side-port. Advanced slowly under fluoroscopy and placed in the left side port. , Then I aspirated 3 ML of cerebrospinal fluid which was clear, then I injected 8 mL of Isovue 200 , which showed that the catheter was not in the intrathecal canal, the catheter located side the intrathecal canal,, and the patient to have intrathecal catheter revision, patient needs to be referred to neurosurgeon for revision of the catheter, and I kept the patient on the same does , patient currently has more withdrawal symptoms and is receiving a daily dose of morphine 3.9 mg per day, even though he is complaining of pain , but he has no withdrawal symptoms for this reason I will not change the daily dose, and the patient had the cast the revision and then we will reevaluate, patient will continue to use Percocet 10/625 for breakthrough pain
== END 2017-09-04 11:44 | disposition home or self-care (01) ==
LOC: ORPAIN 08:48
PROVIDERS: ATTEND Specialist
DX: T85.625A Displacement of other nervous system device, implant or graft, initial encounter (principal); M96.1 Postlaminectomy syndrome, not elsewhere classified
CPT/HCPCS: 62370; J2250; J3010; Q9966; 95991; 99152

== ENCOUNTER → 2017-10-29 | Outpatient (CLI) | payer MEDICARE, OTHER ==
--- NOTE | 2017-10-29 14:53 | CT ---
EXAMINATION TYPE: CT abdomen pelvis wo con DATE OF EXAM: 10/29/2017 HISTORY: Left lower quadrant pain. CT DLP: 1195 mGycm. Automated Exposure Control for Dose Reduction was Utilized. TECHNIQUE: CT scan of the abdomen and pelvis is performed with oral but without IV contrast. COMPARISON: CT abdomen pelvis January 28, 2012 FINDINGS: Within the limitations of a non-contrast study, the following observations are made. LUNG BASES: No significant abnormality is appreciated. LIVER/GB: Liver is diffusely low dense relative to spleen consistent with fatty infiltration. PANCREAS: No significant abnormality is seen. SPLEEN: No significant abnormality is seen. ADRENALS: No significant abnormality is seen. KIDNEYS: Left-sided pelvic phlebolith is redemonstrated. BOWEL: Oral contrast reaches level of cecum make evaluation distal bowel somewhat suboptimal. There i s no suspicious small or large bowel dilatation seen. There are few diverticula in the sigmoid colon. There is no CT evidence for acute diverticulitis. There is surgical change epigastric region at site of prior lap band. GENITAL ORGANS: No gross abnormality seen. LYMPH NODES: No greater than 1cm abdominal or pelvic lymph nodes are appreciated. OSSEOUS STRUCTURES: Postsurgical change L4-S1 levels is present. There is posterior stimulator device in the left gluteal region terminating in mid to lower anterior thoracic spinal canal. OTHER: There is mild calcified plaque of distal abdominal aorta extending into branch vessels. IMPRESSION: Interval removal of lap band. Mild sigmoid colonic diverticulosis without CT evidence for acute diverticulitis. Redemonstration of postsurgical changes lower lumbar spine. No new suspicious or acute finding identified to account for patient's symptoms of left lower quadrant pain.
== END | disposition home or self-care (01) ==
LOC: RADCTMAIN 12:33
PROVIDERS: ATTEND Family Medicine
DX: K57.30 Diverticulosis of large intestine without perforation or abscess without bleeding (principal); Z98.890 Other specified postprocedural states
CPT/HCPCS: 74176

== ENCOUNTER → 2017-12-04 | Day surgery (SDC) | payer MEDICARE, OTHER ==
[2017-12-03 15:38] VITALS: BMI 35.9
[2017-12-04 12:01] VITALS: BP 125/81; PULSE 79; RESP 19; TEMP 98.2
--- NOTE | 2017-12-04 12:47 | P.PCN ---
Date of Procedure: 12/04/17 Procedure(s) Performed: OPERATION: Intrathecal pain pump analysis, programming and reprogramming, and intrathecal pain pump refill. PREOPERATIVE DIAGNOSES: 1. near empty intrathecal pain pump time for refill. 2. opioid tolerance 3. failed back surgery syndrome lumbar area POSTOPERATIVE DIAGNOSES: Same as preoperative diagnosis. ANESTHESIA: None. CONDITION: Stable. Description of the procedure; Intrathecal pain pump analysed ,it showed patient currently had reservoir volume[7.2 ] mL. The patient is receiving medication morphine sulfate preservative free 6mg/ ml , and bupivacaine concentration 4 mg/ml. Patient receiving daily dose of [ 4 ] mg/day and bupivacaine [2.6 ] mg/day. Pain is not controlled , last procedure confirmed that the catheter outsid the intrathecal canal, and patient was referred to have a revision of intrathecal catheter to be done by neurosurgery, patient using medication Percocet 10/325 every 6 hours for breakthrough pain orally . The location of the pump ( Left Buttuck ) Prepped with chlorhexidine x3 , then using 22-gauge needle [employer] kit, advanced through the pump port, Total of [12 ] ml removed from the pump, the pump refills with the new medication total volume [40 ] ml . The concentration morphine sulfate[ 6] mg /ml , and the bupivacaine concentration [4 ] mg/ml. The patient will continue to see the daily dose [4.5 ] mg/day and bupivacaine [3 ] mg/day and patient will follow up with the pain clinic in 2 months. , and patient is already scheduled appointment with a neurosurgeon for revision of the intrathecal catheter, the intrathecal pump still have 21 months life expectancy Patient prescription refill for Percocet 10/325 every 8 hours dispense 90 with 1 refill
== END ==
LOC: PNWHC3 11:37
PROVIDERS: ATTEND Specialist
DX: M96.1 Postlaminectomy syndrome, not elsewhere classified (principal); Z45.1 Encounter for adjustment and management of infusion pump; Z79.891 Long term (current) use of opiate analgesic
CPT/HCPCS: 62370

== ENCOUNTER 2018-01-15 11:24 | Emergency (ER) | payer MEDICARE ==
[2018-01-15] MEDS ORDERED: MORPHINE SULFATE 4 MG/ML SYRINGE IVP PRN (11:54)
--- NOTE | 2018-01-15 11:57 | ED ---
General Adult HPI - General Chief complaint: Recheck/Abnormal Lab/Rx Stated complaint: morphine withdrawl Source: patient, EMS Mode of arrival: EMS Limitations: no limitations - History of Present Illness Initial comments: Dictation was produced using [employer] dictation software. please excuse any grammatical, word or spelling errors. Chief Complaint: 52-year-old male with past medical history of chronic pain, fibromyalgia, seizures, dyslipidemia presents with total body pain. History of Present Illness: Patient is a 52-year-old male presents with total body pain. Patient states he had a pain pump placed recently done in [place]. Patient presents today with papers. He states that he is having total body pain since yesterday. Patient states that procedure was performed successfully without any complications. He states that ever since the pain pump was placed he was weaned off pain medications. Patient states he has pain everywhere in his body from his legs only to his abdomen. Denies any numbness or paresthesias. Denies any constitutional symptoms. The ROS documented in this emergency department record has been reviewed and confirmed by me. Those systems with pertinent positive or negative responses have been documented in the HPI. All other systems are other negative and/or noncontributory. - Related Data Home Medications Medication Instructions Recorded Confirmed Armodafinil [Nuvigil] 250 mg PO DAILY PRN 07/22/13 12/04/17 Esomeprazole Magnesium [NexIUM] 40 mg PO BID 07/22/13 12/04/17 Interthecal Pain Pump 4 mg INTRATHECA CONTINUOUS 07/22/13 12/04/17 Meclizine [Antivert] 12.5 mg PO BID 07/22/13 12/04/17 SUMAtriptan SUCCINATE [Imitrex] 100 mg PO BID PRN 07/22/13 12/04/17 levETIRAcetam [Keppra] 1,000 mg PO Q12HR 07/22/13 12/04/17 Multivitamins, Thera [Multivitamin] 1 tab PO DAILY 10/19/15 12/04/17 carBAMazepine [TEGretol] 200 mg PO BID 10/19/15 12/04/17 metFORMIN HCL [Glucophage] 500 mg PO BID 10/19/15 12/04/17 Previous Rx's Medication Instructions Recorded DULoxetine HCL [Cymbalta] 60 mg PO BID #180 capsule. 12/28/15 Gabapentin [Neurontin] 800 mg PO TID #90 tablet 11/21/16 oxyCODONE HCL/ACETAMINOPHEN 1 tab PO Q8HR PRN #90 tab 04/10/17 [Percocet 10-325 mg] Allergies Allergy/AdvReac Type Severity Reaction Status Date / Time bupropion HCl Allergy Dyspnea Verified 12/04/17 11:56 [From Wellbutrin] cephalexin [Cephalexin] Allergy Dyspnea Verified 12/04/17 11:56 cephalexin monohydrate Allergy Dyspnea Verified 12/04/17 11:56 [From Keflex] penicillin G Allergy Rash/Hives Verified 12/04/17 11:56 onion Allergy Dyspnea Uncoded 12/04/17 11:56 Review of Systems ROS Statement: Those systems with pertinent positive or pertinent negative responses have been documented in the HPI. ROS Other: All systems not noted in ROS Statement are negative. 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 History of Any Multi-Drug Resistant Organisms: MRSA Date of last positivie culture/infection: 2008 MDRO Source:: wound in neck Past Surgical History: Adenoidectomy, Appendectomy, Back Surgery, Bariatric Surgery, Orthopedic Surgery, Tonsillectomy Additional Past Surgical History / Comment(s): Eyes/plastic surgery, tongue surgery, circumcision, Rt foot surgery, neck fusion, pain pump, lap band/later removed. rt shoulder surgery x2, rt knee arthroscopy x2, back surgery from previous football injury. Past Anesthesia/Blood Transfusion Reactions: Previous Problems w/ Anesthesia Additional Past Anesthesia/Blood Transfusion Reaction / Comment(s): "slow to come out due to narcolepsy" comes out with low oxygen level Past Psychological History: Anxiety Smoking Status: Never smoker Past Alcohol Use History: None Reported Past Drug Use History: None Reported - Past Family History Mother Family Medical History: Cancer Brother(s) Family Medical History: Deep Vein Thrombosis (DVT) General Exam - General Exam Comments Initial Comments: PHYSICAL EXAM: General Impression: Alert and oriented x3, not in acute distress HEENT: Normocephalic atraumatic, extra-ocular movements intact, pupils equal and reactive to light bilaterally, mucous membranes moist. Cardiovascular: Heart regular rate and rhythm, S1&S2 audible, no murmurs, rubs or gallops Chest: Lungs clear to auscultation bilaterally, no rhonchi, no wheeze, no rales Abdomen: Bowel sounds present, abdomen soft, non-tender, non-distended, no organomegaly Musculoskeletal: Pulses present and equal in all extremities, no peripheral edema Motor: Power 5/5 bilaterally, no focal deficits noted Neurological: CN II-XII grossly intact, no focal motor or sensory deficits noted Skin: Intact with no visualized rashes, surgical site clean dry and intact of his lower back and left gluteal region. Psych: Normal affect and mood Limitations: no limitations Course Vital Signs 01/15/18 11:34 Temperature 98.5 F Pulse Rate 92 Respiratory 20 Rate Blood Pressure 145/92 O2 Sat by Pulse 100 Oximetry Medical Decision Making - Medical Decision Making ED course: 52-year-old male presents with total body pain as a chief complaint. Patient had recent pain pump performed for his lower back. Mentation of the settings his pain pump were reviewed. Patient is of basal rate of bupivacaine and morphine. Vital signs upon arrival are within acceptable limits. Patient is afebrile. Clinical presentation is consistent with opiate withdrawal. Patient does have an appointment with his pain specialist tomorrow.Discussed patient case with Dr. Varela who is the pain specialist on his case. He directed me to call his pain clinic. They currently trying to return my call with the plan of care. He has a scheduled outpatient appointment tomorrow. He did arrive here by ambulance over his right just left to go to work. She has some IM morphine for control of his withdrawals. Discussed patient case with Dr. Varela and Dr. Jules. They request that he be sent to the clinic which is a short elevator ride upstairs. Patient understandable and agreeable to plan. He can have his pain pump adjusted upstairs. Disposition Clinical Impression: Opiate withdrawal Disposition: HOME SELF-CARE Condition: Good Additional Instructions: report directly to pain clinic upstairs Is patient prescribed a controlled substance at d/c from ED?: No Referrals: Renu Arias MD [Primary Care Provider] - 1-2 days Time of Disposition: 13:23
[2018-01-15] MEDS ORDERED: MORPHINE SULFATE 4 MG/ML SYRINGE IVP STA (12:24)
[2018-01-15] MEDS ORDERED: MORPHINE SULFATE 4 MG/ML SYRINGE IM STA (12:39)
[2018-01-15 14:01] VITALS: BP 150/90; PULSE 89; RESP 18; TEMP 99.8
== END 2018-01-15 13:57 | disposition home or self-care (01) ==
LOC: EC 11:24 → SUPCPDRO 11:24 → EC 13:57
DX: F11.23 Opioid dependence with withdrawal (principal); K21.9 Gastro-esophageal reflux disease without esophagitis; E11.9 Type 2 diabetes mellitus without complications; G40.909 Epilepsy, unspecified, not intractable, without status epilepticus; G47.30 Sleep apnea, unspecified; F41.9 Anxiety disorder, unspecified; Z88.0 Allergy status to penicillin; Z88.1 Allergy status to other antibiotic agents; Z88.8 Allergy status to other drugs, medicaments and biological substances; Z91.018 Allergy to other foods; Z79.84 Long term (current) use of oral hypoglycemic drugs; Z79.899 Other long term (current) drug therapy; Z86.14 Personal history of Methicillin resistant Staphylococcus aureus infection; Z97.8 Presence of other specified devices; Z98.1 Arthrodesis status; Z90.49 Acquired absence of other specified parts of digestive tract; Z98.84 Bariatric surgery status; Z98.890 Other specified postprocedural states; Z99.89 Dependence on other enabling machines and devices; Z53.8 Procedure and treatment not carried out for other reasons
CPT/HCPCS: 99284 ×2; 96372 ×2; 62370; J2270

== ENCOUNTER → 2018-02-06 | Outpatient (CLI) | payer MEDICARE ==
[2018-02-06 12:32] VITALS: BP 150/92; PULSE 105; RESP 20
--- NOTE | 2018-02-07 11:39 | P.PCN ---
Date of Procedure: 02/06/18 Procedure(s) Performed: Procedure: Intrathecal pump analysis and reprogramming, without pump refill Preoperative diagnosis: opioid tolerance, failed back surgery syndrome Postoperative diagnosis: Same Anesthesia: none Indication for procedure: This is a 52-year-old gentleman with a history of chronic pain who has is treated with intrathecal pump. He underwent revision of his intrathecal catheter recently, because catheter was outside the intrathecal canal, and previously we started him on low intrathecal infusion, and patient came in for follow-up visit to increase his intrathecal medication, the intrathecal pain pump analyzed and she'll patient currently on morphine sulfate concentration 6 mg per mL and bupivacaine concentration 4 mg per mL and patient receiving a daily dose of morphine 2.25 mg per day and bupivacaine 1.5 mg per day, patient denies any side effects of the medication but he reported that the current intrathecal dose is not controlling his pain at appropriately, he denies any motor or sensory deficits he denies any fever or night sweats, but the examination of the incision at the location of the catheter showed patient currently had some minimal redness but there is no discharge,, for this reason I gave the patient prescription for Levaquin 750 mg by mouth daily and local ointment as it does seem to be applied to over the back. The location of the catheter incision, patient reported that he will follow up with the neurosurgeon who implanted the pump, patient reported that he had the pain level about 5-6/10 for this reason I increase the intrathecal dose morphine sulfate 2.6 mg per day and the bupivacaine incresed to 1.73 mg per day .and this is equal to 16 percent increase in the daily dose of intrathecal medication
== END | disposition home or self-care (01) ==
LOC: PNWHC3 12:22
PROVIDERS: ATTEND Anesthesiology
DX: Z53.9 Procedure and treatment not carried out, unspecified reason (principal)

== ENCOUNTER → 2018-04-09 | Day surgery (SDC) | payer MEDICARE ==
[2018-04-09 13:13] VITALS: BP 144/65; PULSE 116; RESP 17; TEMP 98.3
--- NOTE | 2018-04-09 14:07 | P.PCN ---
Date of Procedure: 04/09/18 Surgeon: Eddie Jules Description of Procedure: Procedure: Intrathecal pump refill with analysis and reprogramming Preoperative diagnosis: Intractable chronic pain; low reservoir volume in intrathecal pump, history of previous back surgery and neck fusion Postoperative diagnosis: Same Surgeon: Eddie Jules M.D. Anesthesia: Skin local Indication for procedure:[] Procedure in detail: After potential risks and benefits reviewed the patient, the patient signed informed consent. The area over the intrathecal pump was then prepped and draped in the usual sterile fashion. The pump was accessed using the [employer] refill kit. Their refill protocol was followed. Contents of the pump were aspirated. The new solution was then verified in then injected through a bacteriostatic filter into the pump with aspiration occurring every 3-5 mL to confirm intrathecal placement. The needle was then withdrawn once the entire volume was injected and a Band-Aid was applied. Amount of fluid removed: 8.5 Current medications solution: Morphine 6 mg per mL Current medication dosage: bupivacaine 4 mg per mL Refill solution injected: 40 mL Elective replacement interval: 17 months Low reservoir refill date: 07/03/2018 Patient requested refills of his opiate medication, Percocet. I did review his maps report as well as his most recent urine drug screen and these revealed appropriate results therefore I have dispensed the refills.
== END ==
LOC: PNWHC3 12:47
PROVIDERS: ATTEND Pain Medicine Pain Medicine
DX: G89.29 Other chronic pain (principal); Z45.1 Encounter for adjustment and management of infusion pump; Z98.1 Arthrodesis status
CPT/HCPCS: 62370

== ENCOUNTER → 2018-06-25 | Day surgery (SDC) | payer MEDICARE, OTHER ==
[2018-06-25 10:59] VITALS: BP 138/86; PULSE 92; RESP 16
--- NOTE | 2018-06-25 11:28 | P.PCN ---
Date of Procedure: 06/25/18 Procedure(s) Performed: OPERATION: Intrathecal pain pump analysis, programming and reprogramming, and intrathecal pain pump refill. PREOPERATIVE DIAGNOSES: 1. near empty intrathecal pain pump time for refill. 2. opioid tolerance 3. failed back surgery syndrome lumbar area POSTOPERATIVE DIAGNOSES: 1. near empty intrathecal pain pump time for refill. 2. opioid tolerance 3. failed back surgery syndrome lumbar area ANESTHESIA: None. CONDITION: Stable. Description of the procedure; Intrathecal pain pump analysed ,it showed patient currently had reservoir volume 6.7 mL. The patient is receiving medication concentration [morphine 6 ] mg/ ml, and bupivacaine concentration 4 mg/ml. Patient receiving daily dose of 0.5 mg/day and bupivacaine 1.67 mg/day. Pain is well controlled , patient using medication for breakthrough pain Percocet 10/325 orally every 6 hours . The location of the pump ( Left Buttuck ) Prepped with chlorhexidine x3 then using 22-gauge needle [employer] kit advanced through the pump port, Total of [11 ] ml removed from the pump, the pump refills with the new medication total volume [40 ] ml . The concentration [morphine 6 ] mg /ml , and the bupivacaine concentration [4 ] mg/ml. The patient will continue to see the daily dose [2.6 ] mg/day and bupivacaine [1.73 ] mg/day and patient complaining of increased pain over the last few weeks he reported that his pain level always around 7/10, for this reason I will increase the intrathecal pain pump infusion to morphine 2.8 mg per day and bupivacaine 1.8 mg per day , Prescription refill for Percocet 10/325 every 6 hours dispense 90 with 1 refills, Patient will follow up with the pain clinic in 2 months
== END ==
LOC: PNWHC3 10:40
PROVIDERS: ATTEND Specialist
DX: Z45.1 Encounter for adjustment and management of infusion pump (principal)
CPT/HCPCS: 62370

== ENCOUNTER → 2018-09-10 | Day surgery (SDC) | payer MEDICARE, OTHER ==
[2018-09-10 11:59] VITALS: BP 123/75; PULSE 79; RESP 18
--- NOTE | 2018-09-10 13:23 | P.PCN ---
Date of Procedure: 09/10/18 Surgeon: Jennifer Horan Description of Procedure: OPERATION: Intrathecal pain pump analysis, programming and reprogramming, and intrathecal pain pump refill. PREOPERATIVE DIAGNOSES: 1. near empty intrathecal pain pump time for refill. 2. opioid tolerance 3. failed back surgery syndrome lumbar area POSTOPERATIVE DIAGNOSES: 1. near empty intrathecal pain pump time for refill. 2. opioid tolerance 3. failed back surgery syndrome lumbar area ANESTHESIA: None. CONDITION: Stable. Description of the procedure; Intrathecal pain pump analysed ,it showed patient currently had reservoir volume 4 mL. The patient is receiving medication concentration [morphine 6 ] mg/ ml, and bupivacaine concentration 4 mg/ml. Patient receiving daily dose of 2.8 mg/day and bupivacaine 1.67 mg/day. Pain is well controlled , patient using medication for breakthrough pain Percocet 10/325 orally every 6 hours . The location of the pump ( Left Buttuck ) Prepped with chlorhexidine x3 then using 22-gauge needle [employer] kit advanced through the pump port, Total of [8 ] ml removed from the pump, the pump refills with the new medication total volume [40 ] ml . The concentration [morphine 6 ] mg /ml , and the bupivacaine concentration [4 ] mg/ml. Due to the patient's increased pain will increase his daily dose of morphine to 2.9 mg a day and I will give him a bolus of 0.1 mg over 10 minutes today. Prescription refill for Percocet 10/325 every 6 hours dispense 90 with 1 refills, The patient denies any new weakness or paresthesia in the lower extremities. Patient will follow up with the pain clinic in 2 months His high residual volume is concerning to me, however the patient had a pump revision only a few months ago. If his pain continues to get worse over time then he might need to do a dye study on the pump.
== END ==
LOC: PNWHC3 11:36
PROVIDERS: ATTEND Anesthesiology
DX: Z45.49 Encounter for adjustment and management of other implanted nervous system device (principal); M96.1 Postlaminectomy syndrome, not elsewhere classified; Z79.891 Long term (current) use of opiate analgesic
CPT/HCPCS: 62370

== ENCOUNTER → 2018-11-20 | Day surgery (SDC) | payer MEDICARE, OTHER ==
[2018-11-20 11:40] VITALS: BP 169/85; PULSE 85; RESP 18
--- NOTE | 2018-11-20 12:15 | P.PCN ---
Description of Procedure: Patient Name: Dameon Magana Date of : 65 Attending Provider: Jennifer Horan Date: 11/20/18 Date of Procedure: 11/20/18 Surgeon: Jennifer Horan Description of Procedure: OPERATION: Intrathecal pain pump analysis, programming and reprogramming, and intrathecal pain pump refill. PREOPERATIVE DIAGNOSES: 1. near empty intrathecal pain pump time for refill. 2. opioid tolerance 3. failed back surgery syndrome lumbar area POSTOPERATIVE DIAGNOSES: 1. near empty intrathecal pain pump time for refill. 2. opioid tolerance 3. failed back surgery syndrome lumbar area ANESTHESIA: None. CONDITION: Stable. Description of the procedure; Intrathecal pain pump analysed ,it showed patient currently had reservoir volume 4 mL. The patient is receiving medication concentration [morphine 6 ] mg/ ml, and bupivacaine concentration 4 mg/ml. Patient receiving daily dose of 2.9 mg/day of morphine. Pain is well controlled , patient using medication for breakthrough pain Percocet 10/325 orally every 6 hours . The location of the pump ( Left Buttuck ) Prepped with chlorhexidine x3 then using 22-gauge needle [employer] kit advanced through the pump port, Total of [9 ] ml removed from the pump, the pump refills with the new medication total volume [40 ] ml . The concentration [morphine 6 ] mg /ml , and the bupivacaine concentration [4 ] mg/ml. Due to the patient's increased pain will increase his daily dose of morphine to 3 mg a day and I will give him a bolus of 0.1 mg over 10 minutes today. Prescription refill for Percocet 10/325 every 6 hours dispense 90 with 1 refills, The patient denies any new weakness or paresthesia in the lower extremities. Patient will follow up with the pain clinic in 2 months His high residual volume is concerning to me, however the patient had a pump revision only a few months ago. If his pain continues to get worse over time then he might need to do a dye study on the pump.
== END ==
LOC: PNWHC3 11:22
PROVIDERS: ATTEND Anesthesiology
DX: M96.1 Postlaminectomy syndrome, not elsewhere classified (principal); Z45.1 Encounter for adjustment and management of infusion pump; Z79.891 Long term (current) use of opiate analgesic
CPT/HCPCS: 62370

== ENCOUNTER → 2019-01-28 | Outpatient (CLI) | payer MEDICARE, OTHER ==
[2019-01-28 11:56] VITALS: BP 144/96; PULSE 94; RESP 18
--- NOTE | 2019-01-29 10:53 | P.PCN ---
Date of Procedure: 01/28/19 Procedure(s) Performed: OPERATION: Intrathecal pain pump analysis, programming and reprogramming, and intrathecal pain pump refill. PREOPERATIVE DIAGNOSES: 1. near empty intrathecal pain pump time for refill. 2. opioid tolerance 3. failed back surgery syndrome lumbar area POSTOPERATIVE DIAGNOSES: 1. near empty intrathecal pain pump time for refill. 2. opioid tolerance 3. failed back surgery syndrome lumbar area ANESTHESIA: None. CONDITION: Stable. Description of the procedure; Intrathecal pain pump analysed ,it showed patient currently had reservoir volume 5.6mL. The patient is receiving medication concentration [morphine 6 ] mg/ ml, and bupivacaine concentration 4 mg/ml. Patient receiving daily dose of 2.99 mg/day and bupivacaine 1.99 mg/day. Pain is well controlled , patient using medication for breakthrough pain Percocet 10/325 orally every 6 hours . The location of the pump ( Left Buttuck ) Prepped with chlorhexidine x3 then using 22-gauge needle [employer] kit advanced through the pump port, Total of [10 ] ml removed from the pump, the pump refills with the new medication total volume [40 ] ml . The concentration [morphine 6 ] mg /ml , and the bupivacaine concentration [4 ] mg/ml. The patient will continue to see the daily dose [3.3 ] mg/day and bupivacaine [2.19 ] mg/day and patient complaining of increased pain over the last few weeks he reported that his pain level always around 7/10, for this reason I increased the intrathecal pain pump infusion by 10 % Prescription refill for Percocet 10/325 every 6 hours dispense 90 with 1 refills,neurontin 800 mg po BID dispen #60 with one refile Patient will follow up with the pain clinic in 2 months - PQRS measures = - Patient's medications are documented in the chart. -Tobacco use is negative and counseling.Given. -Patient's has received pneumococcal vaccine. -Advanced care planning discussed, patient not eligible. -Opiate contract signed. -Pain positive and follow-up visit/procedure is scheduled. -Patient's blood pressure measured [ 144/96 ] elevated , and documented in the record ,and patient will follow up with the primary care. -Patient's weight was measured and body mass index [ 38 ] above the normal limits and counseling was done. and patient instructed to follow-up with the primary care physician. -Patient was not identified as an unhealthy alcohol user
== END | disposition home or self-care (01) ==
LOC: PNWHC3 11:39
PROVIDERS: ATTEND Specialist
DX: Z45.1 Encounter for adjustment and management of infusion pump (principal)
CPT/HCPCS: 62370

== ENCOUNTER → 2019-02-03 | Outpatient (CLI) | payer MEDICARE, OTHER ==
[2019-02-03 13:01] LABS: HCT 41.6 % (39.0-53.0); HGB 14.8 gm/dL (13.0-17.5); MCH 32.8 pg (25.0-35.0); MCHC 35.6 g/dL (31.0-37.0); MCV 92.2 fL (80.0-100.0); Mean Platelet Volume 6.7; Platelet Count 304 k/uL (150-450); RBC 4.51 m/uL (4.30-5.90); RDW 13.1 % (11.5-15.5); WBC 6.5 k/uL (3.8-10.6)
[2019-02-03 19:25] LABS: African American GFR (CKD) 124.9 (60.0-200.0); BUN/Creat Ratio 15.71 Ratio (12.00-20.00); Calcium 9.3 mg/dL (8.7-10.3); Carbon Dioxide 30.7 mmol/L (21.6-31.8); Chloride 96 mmol/L (96-109); Chol/HDL Ratio 11.06; Cholesterol 398 mg/dL (0-200); Glucose 264 mg/dL (70-110); Non-African American GFR(CKD) 107.7 (60.0-200.0); Potassium 4.4 mmol/L (3.5-5.5); Sodium 136 mmol/L (135-145); Triglycerides >1100.0 mg/dL (0.0-149.0)
[2019-02-03 19:26] LABS: ALT 35 U/L (10-49); AST 41 U/L (14-35)
[2019-02-03 22:26] LABS: Hemoglobin A1C 10.9 % (4.0-6.0)
== END | disposition home or self-care (01) ==
LOC: LABWHC1 12:06
PROVIDERS: ATTEND Nurse Practitioner
DX: E78.2 Mixed hyperlipidemia (principal); E11.9 Type 2 diabetes mellitus without complications
CPT/HCPCS: 36415; 80048; 80061; 83036; 83721; 84439; 84443; 84450; 84460; 85027

== ENCOUNTER → 2019-04-01 | Day surgery (SDC) | payer MEDICARE, OTHER ==
[2019-04-01 12:41] VITALS: BP 147/97; PULSE 92; RESP 18
--- NOTE | 2019-04-01 14:07 | P.PCN ---
Date of Procedure: 04/01/19 Procedure(s) Performed: OPERATION: Intrathecal pain pump analysis, programming and reprogramming, and intrathecal pain pump refill. PREOPERATIVE DIAGNOSES: 1. near empty intrathecal pain pump time for refill. 2. opioid tolerance 3. failed back surgery syndrome lumbar area POSTOPERATIVE DIAGNOSES: 1. near empty intrathecal pain pump time for refill. 2. opioid tolerance 3. failed back surgery syndrome lumbar area ANESTHESIA: None. CONDITION: Stable. Description of the procedure; Intrathecal pain pump analysed ,it showed patient currently had reservoir volume 5.4mL. The patient is receiving medication concentration [morphine 6 ] mg/ ml, and bupivacaine concentration 4 mg/ml. Patient receiving daily dose of 3.29 mg/day and bupivacaine 2.19 mg/day. Pain is well controlled , patient using medication for breakthrough pain Percocet 10/325 orally every 6 hours . The location of the pump ( Left Buttuck ) Prepped with chlorhexidine x3 then using 22-gauge needle [employer] kit advanced through the pump port, Total of [8 ] ml removed from the pump, the pump refills with the new medication total volume [40 ] ml . The concentration [morphine 6 ] mg /ml , and the bupivacaine concentration [4 ] mg/ml. I will increase the daily dose to [3.5 ] mg/day and bupivacaine [2.33 ] mg/day and patient complaining of increased pain over the last few weeks he reported that his pain level always around 7/10, which is equal to 6% increase Prescription refill for Percocet 10/325 every 6 hours dispense 90 with 1 refills,neurontin 800 mg po BID dispen #60 with one refile Patient will follow up with the pain clinic in 2 months - PQRS measures = - Patient's medications are documented in the chart. -Tobacco use is negative and counseling.Given. -Patient's has received pneumococcal vaccine. -Advanced care planning discussed, patient not eligible. -Opiate contract signed. -Pain positive and follow-up visit/procedure is scheduled. -Patient's blood pressure measured [ 147/97 ] elevated , and documented in the record ,and patient will follow up with the primary care. -Patient's weight was measured and body mass index [ 39.9 ] above the normal limits and counseling was done. and patient instructed to follow-up with the primary care physician. -Patient was not identified as an unhealthy alcohol user
== END ==
LOC: PNWHC3 11:52
PROVIDERS: ATTEND Specialist
DX: Z45.1 Encounter for adjustment and management of infusion pump (principal); M96.1 Postlaminectomy syndrome, not elsewhere classified; Z79.891 Long term (current) use of opiate analgesic; Z79.899 Other long term (current) drug therapy
CPT/HCPCS: 62370

== ENCOUNTER → 2019-05-19 | Day surgery (SDC) | payer MEDICARE, OTHER ==
[2019-05-18 14:46] VITALS: BMI 38.4
[2019-05-19 08:21] VITALS: BP 132/83; PULSE 84; RESP 16; TEMP 98.2
--- NOTE | 2019-05-19 09:02 | P.PCN ---
Date of Procedure: 05/19/19 Procedure(s) Performed: OPERATION: Intrathecal pain pump analysis, programming and reprogramming, and intrathecal pain pump refill. PREOPERATIVE DIAGNOSES: 1. near empty intrathecal pain pump time for refill. 2. opioid tolerance 3. failed back surgery syndrome lumbar area POSTOPERATIVE DIAGNOSES: 1. near empty intrathecal pain pump time for refill. 2. opioid tolerance 3. failed back surgery syndrome lumbar area ANESTHESIA: None. CONDITION: Stable. Description of the procedure; Intrathecal pain pump analysed ,it showed patient currently had reservoir volume 5.4mL. The patient is receiving medication concentration [morphine 6 ] mg/ ml, and bupivacaine concentration 4 mg/ml. Patient receiving daily dose of 3.5 mg/day and bupivacaine 2.33 mg/day. Pain is well controlled , patient using medication for breakthrough pain Percocet 10/325 orally every 6 hours . The location of the pump ( Left Buttuck ) Prepped with chlorhexidine x3 then using 22-gauge needle [employer] kit advanced through the pump port, Total of [15 ] ml removed from the pump, the pump refills with the new medication total volume [40 ] ml . The concentration [morphine 6 ] mg /ml , and the bupivacaine concentration [4 ] mg/ml. I will continue daily dose to [3.5 ] mg/day preservative-free morphine sulfate ,and bupivacaine [2.33 ] mg/day . Prescription refill for Percocet 10/325 every 6 hours dispense 90 with 1 refills,neurontin 800 mg po BID dispen #60 with one refile Patient will follow up with the pain clinic in 2 months
== END ==
LOC: PNWHC3 07:51
PROVIDERS: ATTEND Specialist
DX: Z45.1 Encounter for adjustment and management of infusion pump (principal); M96.1 Postlaminectomy syndrome, not elsewhere classified; Z79.891 Long term (current) use of opiate analgesic
CPT/HCPCS: 62370

== ENCOUNTER → 2019-07-16 | Day surgery (SDC) | payer MEDICARE, OTHER ==
--- NOTE | 2019-07-16 07:34 | P.PCN ---
Date of Procedure: 07/16/19 Procedure(s) Performed: OPERATION: Intrathecal pain pump analysis, programming and reprogramming, and intrathecal pain pump refill. PREOPERATIVE DIAGNOSES: 1. near empty intrathecal pain pump time for refill. 2. opioid tolerance 3. failed back surgery syndrome lumbar area POSTOPERATIVE DIAGNOSES: 1. near empty intrathecal pain pump time for refill. 2. opioid tolerance 3. failed back surgery syndrome lumbar area ANESTHESIA: None. CONDITION: Stable. Description of the procedure; Intrathecal pain pump analysed ,it showed patient currently had reservoir volume 6.3mL. The patient is receiving medication concentration [morphine 6 ] mg/ ml, and bupivacaine concentration 4 mg/ml. Patient receiving daily dose of 3.5 mg/day and bupivacaine 2.33 mg/day. Pain is well controlled , patient using medication for breakthrough pain Percocet 10/325 orally every 8 hours . The location of the pump ( Left Buttock ) Prepped with chlorhexidine x3 then using 22-gauge needle [employer] kit advanced through the pump port, Total of [9.3 ] ml removed from the pump, the pump refills with the new medication total volume [40 ] ml . The concentration [morphine 6 ] mg /ml , and the bupivacaine concentration [4 ] mg/ml. I will continue daily dose to [3.5 ] mg/day preservative-free morphine sulfate ,and bupivacaine [2.33 ] mg/day . Prescription refill for Percocet 10/325 every 8 hours dispense 90 with 2 refills, patient did not require Neurontin refilled today Patient will follow up with the pain clinic in 12 weeks
[2019-07-16 08:26] VITALS: BP 164/95; PULSE 77; RESP 16; TEMP 98.3
== END ==
LOC: PNWHC3 07:05
PROVIDERS: ATTEND Anesthesiology
DX: Z45.1 Encounter for adjustment and management of infusion pump (principal); M96.1 Postlaminectomy syndrome, not elsewhere classified; Z79.891 Long term (current) use of opiate analgesic
CPT/HCPCS: 62370

== ENCOUNTER → 2019-09-15 | Day surgery (SDC) | payer MEDICARE, OTHER ==
[2019-09-15 13:17] VITALS: BP 117/82; PULSE 73; RESP 20
--- NOTE | 2019-09-15 13:49 | P.PCN ---
Date of Procedure: 09/15/19 Procedure(s) Performed: OPERATION: Intrathecal pain pump analysis, programming and reprogramming, and intrathecal pain pump refill. PREOPERATIVE DIAGNOSES: 1. near empty intrathecal pain pump time for refill. 2. opioid tolerance 3. failed back surgery syndrome lumbar area POSTOPERATIVE DIAGNOSES: 1. near empty intrathecal pain pump time for refill. 2. opioid tolerance 3. failed back surgery syndrome lumbar area ANESTHESIA: None. CONDITION: Stable. Description of the procedure; Intrathecal pain pump analysed ,it showed patient currently had reservoir volume 4.4mL. The patient is receiving medication concentration [morphine 6 ] mg/ ml, and bupivacaine concentration 4 mg/ml. Patient receiving daily dose of 3.5 mg/day and bupivacaine 2.33 mg/day. Pain is well controlled , patient using medication for breakthrough pain Percocet 10/325 orally every 8 hours . The location of the pump ( Left Buttock ) Prepped with chlorhexidine x3 then using 22-gauge needle [employer] kit advanced through the pump port, Total of [7.5 ] ml removed from the pump, the pump refills with the new medication total volume [40 ] ml . The concentration [morphine 6 ] mg /ml , and the bupivacaine concentration [4 ] mg/ml. I will continue daily dose to [3.5 ] mg/day preservative-free morphine sulfate ,and bupivacaine [2.33 ] mg/day . Prescription refill for Percocet 10/325 every 8 hours dispense 90 with 2 refills, and Neurontin 800 mg two times a day with 2 refills given today Patient will follow up with the pain clinic in 12 weeks
== END ==
LOC: PNWHC3 12:40
PROVIDERS: ATTEND Anesthesiology
DX: Z45.1 Encounter for adjustment and management of infusion pump (principal); M96.1 Postlaminectomy syndrome, not elsewhere classified; Z79.891 Long term (current) use of opiate analgesic
CPT/HCPCS: 62370

== ENCOUNTER → 2019-11-18 | Day surgery (SDC) | payer MEDICARE, OTHER ==
[2019-11-18 12:19] VITALS: BP 112/71; PULSE 67; RESP 20; TEMP 97.8
--- NOTE | 2019-11-19 07:42 | P.PCN ---
Date of Procedure: 11/18/19 Procedure(s) Performed: OPERATION: Intrathecal pain pump analysis, programming and reprogramming, and intrathecal pain pump refill. PREOPERATIVE DIAGNOSES: 1. near empty intrathecal pain pump time for refill. 2. opioid tolerance 3. failed back surgery syndrome lumbar area POSTOPERATIVE DIAGNOSES: 1. near empty intrathecal pain pump time for refill. 2. opioid tolerance 3. failed back surgery syndrome lumbar area ANESTHESIA: None. CONDITION: Stable. Description of the procedure; Intrathecal pain pump analysed ,it showed patient currently had reservoir volume 2.9mL. The patient is receiving medication concentration [morphine 6 ] mg/ ml, and bupivacaine concentration 4 mg/ml. Patient receiving daily dose of 3.5 mg/day and bupivacaine 2.33 mg/day. Pain is well controlled , patient using medication for breakthrough pain Percocet 10/325 orally every 6 hours . The location of the pump ( Left Buttuck ) Prepped with chlorhexidine x3, then using 22-gauge needle [employer] kit advanced through the pump port, Total of [5 ] ml removed from the pump, the pump refills with the new medication total volume [40 ] ml . The concentration [morphine 6 ] mg /ml , and the bupivacaine concentration [4 ] mg/ml. I will continue daily dose to [3.5 ] mg/day preservative-free morphine sulfate ,and bupivacaine [2.33 ] mg/day . Prescription refill for Percocet 10/325 every 6 hours dispense 90 with 1 refills,neurontin 800 mg po BID dispen #60 with one refile Patient will follow up with the pain clinic next week ,he is scheduled for pain pump replacement
== END ==
LOC: PNWHC3 12:01
PROVIDERS: ATTEND Specialist
DX: Z45.1 Encounter for adjustment and management of infusion pump (principal); Z79.891 Long term (current) use of opiate analgesic; M96.1 Postlaminectomy syndrome, not elsewhere classified
CPT/HCPCS: 80307; 62370; G0482

== ENCOUNTER 2019-11-26 12:08 | Day surgery (SDC) | payer MEDICARE, OTHER ==
[2019-11-24 11:42] VITALS: BMI 35.4
[2019-11-26 12:28] VITALS: RESP 16; TEMP 97.7
[2019-11-26 12:39] LABS: Glucose,Whole Blood 133 mg/dL (75-99)
--- NOTE | 2019-11-26 12:41 | P.GSHP ---
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 migrianes, RSD rt leg and foot, History of Any Multi-Drug Resistant Organisms: MRSA Date of last positivie culture/infection: 2008 MDRO Source:: wound in neck Past Surgical History: Adenoidectomy, Appendectomy, Back Surgery, Bariatric Surgery, Orthopedic Surgery, Tonsillectomy Additional Past Surgical History / Comment(s): Eyes/plastic surgery, tongue surgery, circumcision, Rt foot surgeries(7) after injury, neck fusion, pain pump, lap band/later removed. rt shoulder surgery x 3, rt knee arthroscopy x2, multiple back surgeries from previous football injury. rt hand surgery rx fingers, left hand surgery for "cut tendons" Past Anesthesia/Blood Transfusion Reactions: Previous Problems w/ Anesthesia Additional Past Anesthesia/Blood Transfusion Reaction / Comment(s): "slow to come out due to narcolepsy" comes out with low oxygen level-pt denies this Smoking Status: Never smoker - Past Family History Mother Family Medical History: Cancer, Deep Vein Thrombosis (DVT), Pulmonary Embolus Brother(s) Family Medical History: Deep Vein Thrombosis (DVT) Medications and Allergies Home Medications Medication Instructions Recorded Confirmed Type Meclizine [Antivert] 12.5 mg PO TID 07/22/13 11/26/19 History levETIRAcetam [Keppra] 1,000 mg PO BID 07/22/13 11/26/19 History Morphine Pump 1 dose INTRATHECA CONTINUOUS MDD 01/15/18 11/26/19 History 2.3MG [place]-3 Fatty Acids/Fish Oil [Fish 1,000 mg PO BID 01/15/18 11/26/19 History Oil 1,000 mg Softgel] Testosterone [Androderm 4 mg Patch] 4 mg TRANSDERM Q24H 05/19/19 11/26/19 History Insulin Glargine,Hum.rec.anlog 24 unit SQ HS 07/16/19 11/26/19 History [Lantus Solostar] Gabapentin [Neurontin] 800 mg PO BID #60 tab 09/15/19 11/26/19 Rx LORazepam 0.5 mg PO BID 09/15/19 11/26/19 History carBAMazepine [TEGretol] 200 mg PO BID 09/15/19 11/26/19 History oxyCODONE HCL/ACETAMINOPHEN 1 tab PO Q8HR PRN 30 Days #90 tab 09/15/19 11/26/19 Rx [Percocet 10-325 mg] DULoxetine HCL [Cymbalta] 60 mg PO QAM 11/24/19 11/26/19 History Evolocumab [Repatha Syringe] 140 mg SQ Q14D 11/24/19 11/26/19 History Insulin Lispro [humaLOG Kwikpen] 0 units SQ AC-TID PRN 11/24/19 11/26/19 History Saxagliptin HCl [Onglyza] 5 mg PO QAM 11/24/19 11/26/19 History metFORMIN HCL [Glucophage] 500 mg PO TID 11/24/19 11/26/19 History Allergies Allergy/AdvReac Type Severity Reaction Status Date / Time bupropion HCl Allergy Dyspnea Verified 11/26/19 12:29 [From Wellbutrin] cephalexin [Cephalexin] Allergy Dyspnea Verified 11/26/19 12:29 cephalexin monohydrate Allergy Dyspnea,hiv Verified 11/26/19 12:29 [From Keflex] es penicillin G Allergy Rash/Hives Verified 11/26/19 12:29 onion Allergy Dyspnea,hiv Uncoded 11/26/19 12:29 es Surgical - Exam Vital Signs Temp Pulse Resp BP Pulse Ox 97.7 F 84 16 140/86 94 L 11/26/19 12:27 11/26/19 12:27 11/26/19 12:27 11/26/19 12:27 11/26/19 12:27 Physical Examinations : -Constitutiona : Cooperative , not in acute distress . -HEENT : nech : supple , no Lymphadenopathy , normal thyroid size . : eyes : no ptosis , no icterus, no photophobia . - Respiratory : Chest clear to auscultations Bilaterally , no wheezing , no Rhonchi . - Cardiovascula : regular rate and rhythem , S1 , S2 , no S3 , no S4. - Gastrointestina : abdomen soft no tenderness , bowel sounds , no organomegally . - Genitourinary : Defferred . - neurologic : Cranial nerve II to XII intact , no focal neurological deffecit . -psychatric : alert , oriented X 3 , appropriate affect , intact judgment and insight . -Lymphatic : no Lymphadenopathy . - musculoskeltal : Lumber spine moter stegnth lower extremities ,thigh and legs 5/5 Right side , 5/5 Left side Assessment and Plan Plan: Assessment and plan=5-jwy-ep-life of intrathecal pain pump time for placement we will replace the intrathecal pain pump today 2-opioid tolerance. 3-failed back surgery syndrome and lumbar area. Risk and benefit and alternatives of the procedure including but not limited to risk of infection ,bleeding, seromuscular formation, wound dehiscence discussed with the patient and he agreed with the preceding Time with Patient: Less than 30
[2019-11-26] MEDS ORDERED: PROPOFOL 10 MG/ML 20 ML VIAL IV ONE (13:47)
[2019-11-26] MEDS ORDERED: SUCCINYLCHOLINE CHLORIDE 100 MG/5 ML SYR IV ONE (13:47)
[2019-11-26] MEDS ORDERED: fentaNYL (PF) 50 MCG/ML 2 ML AMP ONE (13:47)
[2019-11-26] MEDS ORDERED: GLYCOPYRROLATE 0.2 MG/ML 2 ML VIAL ONE (13:47)
[2019-11-26] MEDS ORDERED: LIDOCAINE 1% INJ 10MG/ML (20 ML MDV) ONE (13:47)
[2019-11-26] MEDS ORDERED: PHENYLEPHRINE-0.9% NACL SYG 1 MG/10 ML SYRINGE ONE (13:47)
[2019-11-26] MEDS ORDERED: LIDOCAINE 1% INJ 10MG/ML (20 ML MDV) SQ ONE (13:51)
[2019-11-26] MEDS ORDERED: CLINDAMYCIN 150 MG/ML 4 ML VIAL IVPB ONE (14:07)
[2019-11-26 15:32] LABS: Glucose,Whole Blood 112 mg/dL (75-99)
[2019-11-26 16:23] VITALS: BP 124/82; PULSE 67
--- NOTE | 2019-11-26 18:25 | P.PCN ---
Date of Procedure: 11/26/19 Procedure(s) Performed: Procedure= 1-Replacement of permanent programmable intrathecal infusion pump. 2 -Electronic analysis of intrathecal pain pump. Preoperative diagnosis=1- end of life of programmable intrathecal pain pump and the 1-postlaminectomy pain syndrome lumbar area. 2-opioid tolerance. Postoperative diagnosis= same as preop diagnosis. Conditions= stable. Complications= none. Estimated blood loss= 5 ml Anesthesia= general endotracheal intubation. Indication for the procedure= patient with a history of chronic pain and history of postlaminectomy pain syndrome , patient failed conservative treatment, patient failed interventional pain management, patient had permanent intrathecal pain pump implanted several years ago , and now is the time to replace the programmable intrathecal pain pump because of end-of-life of the pump. Description of the procedure= patient was identified in the preop holding area risks and benefits and alternatives of the procedure discussed with the patient and her and they agreed with proceeding, all the questions answered, after induction of anesthesia, by anesthesia department, the patient was given 600 mg clindamycin of prophylactic antibiotics , patient placed in prone position, left buttock area prepped with the DuraPrep 3, then draped in the standard fashion, then local infiltration of the skin and subcu interstitial with the local infiltration with mixture of lidocaine 1 % 5 ml , the location of the pump , then after , he made skin incision ,dissection to the fascia under the skin, hemostasis obtained using cautery , and an adequate hemostasis obtained, using the cautery, and the old pump was removed, and the pocket area was irrigated with saline, a decreased hemostasis obtained using the cautery, and the new pump Medtronics II was filled with the medication that taken from the old pump and placed in the new pump, and a new pump placed in the old pocket in the left buttock area, there we made the connection between the catheter and the new pump, and after a aspirated 2 ml of cerebrospinal fluid from the catheter, ideally connected the catheter to the new Medtronic pump, ,, , then after that the pump pocket closed using 2-0 Vicryl for subcu 3-0 Vicryl and then, all this done after adequate hemostasis was obtained, was given priming bolus ,, patient seen in the recovery room and evaluated and she was in stable condition and for the awake and she was discharged home in stable condition and she will follow up in the pain clinic in a few days. Electronic analysis of intrathecal pain pump= then you'll intrathecal pain pump analyzed and short patient currently on intrathecal morphine concentration 6 mg per mL , bupivacaine 4 mg per mL , and patient receiving a daily dose of morphine 3.49 mg per day and daily dose of bupivacaine 2.33 mg per day and patient had residual volume 30 ML, patient giving priming bolus , and refill date will be 01/10/2020
== END 2019-11-26 16:36 | disposition home or self-care (01) ==
LOC: ORPAIN 12:08
PROVIDERS: ATTEND Specialist
DX: Z45.1 Encounter for adjustment and management of infusion pump (principal); G89.29 Other chronic pain; M96.1 Postlaminectomy syndrome, not elsewhere classified; Z79.891 Long term (current) use of opiate analgesic; G47.33 Obstructive sleep apnea (adult) (pediatric); M79.7 Fibromyalgia; G40.909 Epilepsy, unspecified, not intractable, without status epilepticus; G51.0 Bell's palsy; G43.909 Migraine, unspecified, not intractable, without status migrainosus; E11.9 Type 2 diabetes mellitus without complications; E78.5 Hyperlipidemia, unspecified; G47.419 Narcolepsy without cataplexy; Z88.1 Allergy status to other antibiotic agents; Z88.0 Allergy status to penicillin; Z88.8 Allergy status to other drugs, medicaments and biological substances; Z79.4 Long term (current) use of insulin; Z99.89 Dependence on other enabling machines and devices; Z79.890 Hormone replacement therapy; Z79.899 Other long term (current) drug therapy; Z90.49 Acquired absence of other specified parts of digestive tract; Z98.84 Bariatric surgery status; Z98.890 Other specified postprocedural states; Z86.14 Personal history of Methicillin resistant Staphylococcus aureus infection; Z98.1 Arthrodesis status; Z91.018 Allergy to other foods; Z82.49 Family history of ischemic heart disease and other diseases of the circulatory system; Z80.9 Family history of malignant neoplasm, unspecified
CPT/HCPCS: 62362; C1772; J2001; J3010; J2370; J0330; J2704

== ENCOUNTER → 2019-12-02 | Outpatient (CLI) | payer MEDICARE, OTHER ==
[2019-12-02 11:43] VITALS: BP 95/61; PULSE 86; RESP 18; TEMP 98.6
--- NOTE | 2019-12-02 11:48 | P.CON ---
Consult Note - . Consult date: 12/02/19 Assessment/Plan:: this is a 54-year-old gentleman with a history of failed back surgery syndrome and intrathecal morphine pump infusion for his chronic pain. The patient had his pump exchanged last week for end-of-life of the pump. He came today for a f ollow-up visit. the patient denies any fever, chills or any night sweats. he does feel mild pain around his new pump incision and itching. By physical exam he is alert oriented 3 in no apparent distress, his temperature is 98.6 today There is erythema around his incision but no drainage, although his old addressing was soaked as the nurse told me before she throws it away. wrist tenderness to palpation. The redness extends avout 1 inch from each side of the incision. I am concerned about the possibility of infection and a surgical point. I will try to get the patient in with an ID specialist today or at most tomorrow. the patient is to continue taking his antibiotics for now with no changes until he sees the ID specialist.
== END | disposition home or self-care (01) ==
LOC: PNWHC3 11:10
PROVIDERS: ATTEND Anesthesiology
DX: M96.1 Postlaminectomy syndrome, not elsewhere classified (principal); Z88.0 Allergy status to penicillin; Z88.1 Allergy status to other antibiotic agents
CPT/HCPCS: 62367

== ENCOUNTER → 2020-01-06 | Day surgery (SDC) | payer MEDICARE, OTHER ==
[2020-01-06 14:05] VITALS: BP 119/77; PULSE 78; RESP 18; TEMP 98.7
--- NOTE | 2020-01-06 14:19 | P.PCN ---
Date of Procedure: 01/06/20 Description of Procedure: OPERATION: Intrathecal pain pump analysis, programming and reprogramming, and intrathecal pain pump refill. PREOPERATIVE DIAGNOSES: 1. near empty intrathecal pain pump time for refill. 2. opioid tolerance 3. failed back surgery syndrome lumbar area POSTOPERATIVE DIAGNOSES: 1. near empty intrathecal pain pump time for refill. 2. opioid tolerance 3. failed back surgery syndrome lumbar area ANESTHESIA: None. CONDITION: Stable. Description of the procedure; Intrathecal pain pump analysed ,it showed patient currently had reservoir volume 5.9mL. The patient is receiving medication concentration [morphine 6 ] mg/ ml, and bupivacaine concentration 4 mg/ml. Patient receiving daily dose of 3.5 mg/day and bupivacaine 2.33 mg/day. Pain is well controlled , patient using medication for breakthrough pain Percocet 10/325 orally every 6 hours . The location of the pump ( Left Buttock ) Prepped with chlorhexidine x3, then using 22-gauge needle [employer] kit advanced through the pump port, Total of [5.9 ] ml removed from the pump, the pump refills with the new medication total volume [40 ] ml . The concentration [morphine 6 ] mg /ml , and the bupivacaine concentration [4 ] mg/ml. I will continue daily dose to [3.4927 ] mg/day preservative-free morphine sulfate ,and bupivacaine [2.33 ] mg/day . Prescription refill for Percocet 10/325 every 6 hours dispense 90 with 1 refills,neurontin 800 mg po BID dispen #60 with one refill Patient will follow up with the pain clinic next week ,he is scheduled for pain pump replacement
== END ==
LOC: PNWHC3 13:10
PROVIDERS: ATTEND Anesthesiology
DX: Z45.1 Encounter for adjustment and management of infusion pump (principal); M96.1 Postlaminectomy syndrome, not elsewhere classified; Z79.891 Long term (current) use of opiate analgesic
CPT/HCPCS: 62370

== ENCOUNTER → 2020-03-02 | Day surgery (SDC) | payer MEDICARE, OTHER ==
[2020-03-02 13:55] VITALS: BP 143/91; PULSE 74; RESP 18; TEMP 98
--- NOTE | 2020-03-02 15:15 | P.PCN ---
Date of Procedure: 03/02/20 Procedure(s) Performed: OPERATION: Intrathecal pain pump analysis, programming and reprogramming, and intrathecal pain pump refill. PREOPERATIVE DIAGNOSES: 1. near empty intrathecal pain pump time for refill. 2. opioid tolerance 3. failed back surgery syndrome lumbar area POSTOPERATIVE DIAGNOSES: 1. near empty intrathecal pain pump time for refill. 2. opioid tolerance 3. failed back surgery syndrome lumbar area ANESTHESIA: None. CONDITION: Stable. Description of the procedure; Intrathecal pain pump analysed ,it showed patient currently had reservoir volume 7.5 mL. The patient is receiving medication concentration [morphine 6 ] mg/ ml, and bupivacaine concentration 4 mg/ml. Patient receiving daily dose of 3.5 mg/day and bupivacaine 2.32 mg/day. Pain is well controlled , patient using medication for breakthrough pain Percocet 10/325 orally every 6 hours . The location of the pump ( Left Buttock ) Prepped with chlorhexidine x3, then using 22-gauge needle [employer] kit advanced through the pump port, Total of [7.5 ] ml removed from the pump, the pump refills with the new medication total volume [40 ] ml . The concentration [morphine 6 ] mg /ml , and the bupivacaine concentration [4 ] mg/ml. Patient complaining of increased pain and the I will increase daily dose to [3.73 ] mg/day preservative-free morphine sulfate ,and bupivacaine [2.49] mg/day . Which is equal to 70% increase Prescription refill for Percocet 10/325 every 6 hours dispense 90 with 1 refills,neurontin 800 mg po BID dispen #60 with one refill Patient will follow up with the pain clinic next week ,he is scheduled for pain pump replacement The incision over the pump area was appropriately there is no sign of infection no erythema and no discharge patient denies any side effects of the medication, patient denies any excessive drowsiness or sleepiness he denies any suicidal ideation. The labs was reviewed, and it was appropriate, prescription for 2 months After patient was discharged negative the phone call from the pharmacy at [facility], and they reported that the patient filled the prescription for Percocet on February 28, for this reason a cancel the prescription that is giving today, patient will have one prescription only for Percocet for the next month and then after that we'll see him next visit we will do urine drug screen
== END ==
LOC: PNWHC3 12:45
PROVIDERS: ATTEND Specialist
DX: Z45.1 Encounter for adjustment and management of infusion pump (principal); M96.1 Postlaminectomy syndrome, not elsewhere classified; Z79.891 Long term (current) use of opiate analgesic
CPT/HCPCS: 62370

== ENCOUNTER → 2020-04-27 | Day surgery (SDC) | payer MEDICARE, OTHER ==
[~2020-04-27] MED LIST changes: +BUPIVACAINE UP TO 8 MG/ML, 31-60 ML SYRINGE MC ONE; -LACTATED RINGERS 1,000 ML IV SCH; +MORPHINE FOR ANAZAO - PER 10 MG MISCELLANE ONE
--- NOTE | 2020-04-27 13:33 | P.PCN ---
Date of Procedure: 04/27/20 Description of Procedure: OPERATION: Intrathecal pain pump analysis, programming and reprogramming, and intrathecal pain pump refill. PREOPERATIVE DIAGNOSES: 1. near empty intrathecal pain pump time for refill. 2. opioid tolerance 3. failed back surgery syndrome lumbar area POSTOPERATIVE DIAGNOSES: 1. near empty intrathecal pain pump time for refill. 2. opioid tolerance 3. failed back surgery syndrome ANESTHESIA: None. CONDITION: Stable. Description of the procedure; Intrathecal pain pump analysed ,it showed patient currently had reservoir volume 7.5 mL. The patient is receiving medication concentration [morphine 6 ] mg/ ml, and bupivacaine concentration 4 mg/ml. Patient receiving daily dose of 3.73 mg/day and bupivacaine 2.49 mg/day. Pain is well controlled , patient using medication for breakthrough pain Percocet 10/325 orally every 6 hours . The location of the pump ( Left Buttock ) Prepped with chlorhexidine x3, then using 22-gauge needle [employer] kit advanced through the pump port, Total of [5 ] ml removed from the pump, the pump refills with the new medication total volume [40 ] ml . The concentration [morphine 6 ] mg /ml , and the bupivacaine concentration [4 ] mg/ml. Prescription refill for Percocet 10/325 every 6 hours dispense 90 with 1 refills,neurontin 800 mg po BID dispense #60 with one refill The incision over the pump area was appropriately there is no sign of infection no erythema and no discharge patient denies any side effects of the medication, patient denies any excessive drowsiness or sleepiness he denies any suicidal ideation. The labs was reviewed, and it was appropriate, prescription for 2 months
[2020-04-27 14:09] VITALS: BP 154/103; PULSE 101; RESP 16; TEMP 97.5
== END ==
LOC: PNWHC3 13:07
PROVIDERS: ATTEND Anesthesiology
DX: Z45.1 Encounter for adjustment and management of infusion pump (principal); Z79.891 Long term (current) use of opiate analgesic; M96.1 Postlaminectomy syndrome, not elsewhere classified
CPT/HCPCS: 80307; 62370; G0482; J2274

== ENCOUNTER → 2020-06-22 | Day surgery (SDC) | payer MEDICARE, OTHER ==
--- NOTE | 2020-06-22 13:34 | P.PCN ---
Date of Procedure: 06/22/20 Description of Procedure: OPERATION: Intrathecal pain pump analysis, programming and reprogramming, and intrathecal pain pump refill. PREOPERATIVE DIAGNOSES: 1. near empty intrathecal pain pump time for refill. 2. opioid tolerance 3. failed back surgery syndrome lumbar area POSTOPERATIVE DIAGNOSES: 1. near empty intrathecal pain pump time for refill. 2. opioid tolerance 3. failed back surgery syndrome ANESTHESIA: None. CONDITION: Stable. Description of the procedure; Intrathecal pain pump analysed ,it showed patient currently had reservoir volume 5.2mL. The patient is receiving medication concentration [morphine 6 ] mg/ ml, and bupivacaine concentration 4 mg/ml. Patient receiving daily dose of 3.73 mg/day and bupivacaine 2.49 mg/day. Pain is well controlled , patient using medication for breakthrough pain Percocet 10/325 orally every 6 hours . The location of the pump ( Left Buttock ) Prepped with chlorhexidine x3, then using 22-gauge needle [employer] kit advanced through the pump port, Total of [5.6 ] ml removed from the pump, the pump refills with the new medication total volume [40 ] ml . The concentration [morphine 6 ] mg /ml , and the bupivacaine concentration [4 ] mg/ml. Prescription refill for Percocet 10/325 every 6 hours dispense 90, neurontin 800 mg po BID dispense #60 The incision over the pump area was appropriately there is no sign of infection no erythema and no discharge patient denies any side effects of the medication, patient denies any excessive drowsiness or sleepiness he denies any suicidal ideation.
[2020-06-22 14:40] VITALS: BP 134/87; PULSE 88; RESP 18; TEMP 97.6
== END ==
LOC: PNWHC3 13:08
PROVIDERS: ATTEND Anesthesiology
DX: M96.1 Postlaminectomy syndrome, not elsewhere classified (principal); Z79.899 Other long term (current) drug therapy
CPT/HCPCS: 62370; J2274

== ENCOUNTER 2020-08-26 23:21 | Emergency (ER) | payer MEDICARE, OTHER ==
[2020-08-26 23:30] VITALS: TEMP 98.5
--- NOTE | 2020-08-27 00:08 | ED ---
Recheck HPI - General Chief Complaint: Recheck/Abnormal Lab/Rx Stated Complaint: Pain pump issues Time Seen by Provider: 08/26/20 23:32 Source: patient, RN notes reviewed, old records reviewed Mode of arrival: ambulatory - History of Present Illness Initial Comments: This is a 54-year-old male chronic pain patient has pain pump which has been beeping. He states the reason for the pain pump to stop and pain medication. He has been to this before. Patient's primary withdrawal. Patient here for pain control with no other complaints MD Complaint: wound re-check, medication refill request -: hour(s) Returns Today for: persistent/worsening pain related to initial visit Symptoms Since Prior Visit: worsening pain Context: ran out of medication Associated Symptoms: none Treatments Prior to Arrival: Given Pain Meds on - Related Data Home Medications Medication Instructions Recorded Confirmed Meclizine [Antivert] 12.5 mg PO TID 07/22/13 06/21/20 levETIRAcetam [Keppra] 1,000 mg PO BID 07/22/13 06/21/20 Morphine Pump 1 dose INTRATHECA CONTINUOUS MDD 01/15/18 06/21/20 2.3MG [place]-3 Fatty Acids/Fish Oil [Fish 1,000 mg PO BID 01/15/18 06/21/20 Oil 1,000 mg Softgel] Testosterone [Androderm 4 mg Patch] 4 mg TRANSDERM Q24H 05/19/19 06/21/20 Insulin Glargine,Hum.rec.anlog 25 unit SQ HS 07/16/19 06/21/20 [Lantus Solostar] LORazepam 0.5 mg PO BID 09/15/19 06/21/20 carBAMazepine [TEGretol] 200 mg PO BID 09/15/19 06/21/20 DULoxetine HCL [Cymbalta] 60 mg PO QAM 11/24/19 06/21/20 Evolocumab [Repatha Syringe] 140 mg SQ Q14D 11/24/19 06/21/20 Insulin Lispro [humaLOG Kwikpen] 0 units SQ AC-TID PRN 11/24/19 06/21/20 Saxagliptin HCl [Onglyza] 5 mg PO QAM 11/24/19 06/21/20 metFORMIN HCL [Glucophage] 500 mg PO TID 11/24/19 06/21/20 Previous Rx's Medication Instructions Recorded Gabapentin [Neurontin] 800 mg PO BID #60 tab 06/22/20 oxyCODONE HCL/ACETAMINOPHEN 1 tab PO Q8HR PRN 30 Days #90 tab 06/22/20 [Percocet 10-325 mg] oxyCODONE HCL/ACETAMINOPHEN 1 tab PO Q8HR PRN 30 Days #90 tab 06/22/20 [Percocet 10-325 mg] Allergies Allergy/AdvReac Type Severity Reaction Status Date / Time bupropion HCl Allergy Dyspnea Verified 08/26/20 23:30 [From Wellbutrin] cephalexin [Cephalexin] Allergy Dyspnea Verified 08/26/20 23:30 cephalexin monohydrate Allergy Dyspnea,hiv Verified 08/26/20 23:30 [From Keflex] es penicillin G Allergy Rash/Hives Verified 08/26/20 23:30 onion Allergy Dyspnea,hiv Uncoded 08/26/20 23:30 es Review of Systems ROS Statement: Those systems with pertinent positive or pertinent negative responses have been documented in the HPI. ROS Other: All systems not noted in ROS Statement are negative. 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 Past Anesthesia/Blood Transfusion Reactions: Previous Problems w/ Anesthesia Additional Past Anesthesia/Blood Transfusion Reaction / Comment(s): "slow to come out due to narcolepsy" comes out with low oxygen level-pt denies this Past Psychological History: No Psychological Hx Reported Smoking Status: Never smoker Past Alcohol Use History: None Reported Past Drug Use History: None Reported - Past Family History Mother Family Medical History: Cancer, Deep Vein Thrombosis (DVT), Pulmonary Embolus Brother(s) Family Medical History: Deep Vein Thrombosis (DVT) General Exam General appearance: alert, in no apparent distress Head exam: Present: atraumatic, normocephalic, normal inspection Eye exam: Present: normal appearance, PERRL, EOMI. Absent: scleral icterus, conjunctival injection, periorbital swelling ENT exam: Present: normal exam, mucous membranes moist Neck exam: Present: normal inspection. Absent: tenderness, meningismus, lymphadenopathy Respiratory exam: Present: normal lung sounds bilaterally. Absent: respiratory distress, wheezes, rales, rhonchi, stridor Cardiovascular Exam: Present: regular rate, normal rhythm, normal heart sounds. Absent: systolic murmur, diastolic murmur, rubs, gallop, clicks GI/Abdominal exam: Present: soft, normal bowel sounds. Absent: distended, tenderness, guarding, rebound, rigid Extremities exam: Present: normal inspection, full ROM, normal capillary refill. Absent: tenderness, pedal edema, joint swelling, calf tenderness Back exam: Present: normal inspection Neurological exam: Present: alert, oriented X3, CN II-XII intact Psychiatric exam: Present: normal affect, normal mood Skin exam: Present: warm, dry, intact, normal color. Absent: rash Course Vital Signs 08/26/20 08/27/20 23:23 01:00 Temperature 98.5 F Pulse Rate 100 90 Respiratory 17 18 Rate Blood Pressure 146/85 131/72 O2 Sat by Pulse 97 98 Oximetry - Reevaluation(s) Reevaluation #1: medical record is reviewed Patient symptoms are improved here in the ER Patient is in no acute distress In for results and questions have been answered Medical Decision Making - Medical Decision Making 54 male for pain management. Patient has history of chronic pain and thinks it is painful may be malfunctioning, patient given pain medication and discharged to follow-up with anesthesiology Disposition Clinical Impression: Chronic pain Disposition: HOME SELF-CARE Condition: Good Instructions (If sedation given, give patient instructions): Local Infusion Pain Management Pump (ED) Is patient prescribed a controlled substance at d/c from ED?: No Referrals: Austin Varela MD [STAFF PHYSICIAN] - 1-2 days
[2020-08-27] MEDS ORDERED: ACET/COD 300 MG/30 MG STARTER PACK 6 TAB BTL PO STA (00:53)
[2020-08-27 01:05] VITALS: BP 131/72; PULSE 90; RESP 18
== END 2020-08-27 01:00 | disposition home or self-care (01) ==
LOC: EC 23:21
DX: G89.29 Other chronic pain (principal); E11.9 Type 2 diabetes mellitus without complications; E78.5 Hyperlipidemia, unspecified; K21.9 Gastro-esophageal reflux disease without esophagitis; M79.7 Fibromyalgia; G25.81 Restless legs syndrome; Z79.4 Long term (current) use of insulin; Z79.899 Other long term (current) drug therapy; Z88.0 Allergy status to penicillin; Z88.1 Allergy status to other antibiotic agents
CPT/HCPCS: 99283

== ENCOUNTER → 2020-08-31 | Day surgery (SDC) | payer MEDICARE, OTHER ==
[2020-08-31 14:01] VITALS: BP 220/68; PULSE 68; RESP 20; TEMP 98.4
--- NOTE | 2020-08-31 14:32 | P.PCN ---
Date of Procedure: 08/31/20 Procedure(s) Performed: OPERATION: Intrathecal pain pump analysis, programming and reprogramming, and intrathecal pain pump refill. PREOPERATIVE DIAGNOSES: 1. empty intrathecal pain pump time for refill. 2. opioid tolerance 3. failed back surgery syndrome lumbar area POSTOPERATIVE DIAGNOSES: 1. near empty intrathecal pain pump time for refill. 2. opioid tolerance 3. failed back surgery syndrome lumbar area ANESTHESIA: None. CONDITION: Stable. Description of the procedure; Intrathecal pain pump analysed ,it showed patient currently had reservoir volume 0 mL. ( to report that pump Alarm was activated 3 days ago ) The patient is receiving medication concentration [morphine 6 ] mg/ ml, and bupivacaine concentration 4 mg/ml. Patient receiving daily dose of 3.73 mg/day and bupivacaine 2.49 mg/day. Pain is well controlled , patient using medication for breakthrough pain Percocet 10/325 orally every 6 hours . The location of the pump ( Left Buttock ) Prepped with chlorhexidine x3, then using 22-gauge needle [employer] kit advanced through the pump port, Total of [0 ] ml removed from the pump, the pump refills with the new medication total volume [40 ] ml . The concentration [morphine 6 ] mg /ml , and the bupivacaine concentration [4 ] mg/ml. Patient complaining of increased pain, over the last 3 days, because of the pump was empty, a gave the patient single bolus which is 0.75 mg of morphine, to be delivered over 10 minutes I will continue daily dose to [3.73 ] mg/day preservative-free morphine sulfate ,and bupivacaine [2.49] mg/day . Prescription refill for Percocet 10/325 every 6 hours dispense 90 with 1 refills,neurontin 800 mg po BID dispen #60 with one refill
== END ==
LOC: PNWHC3 13:52
PROVIDERS: ATTEND Specialist
DX: Z45.1 Encounter for adjustment and management of infusion pump (principal); M96.1 Postlaminectomy syndrome, not elsewhere classified; Z79.891 Long term (current) use of opiate analgesic
CPT/HCPCS: 62370; J2274

== ENCOUNTER → 2020-10-26 | Day surgery (SDC) | payer MEDICARE, OTHER ==
[2020-10-26 13:34] VITALS: BP 133/83; PULSE 85; RESP 18; TEMP 98.7
--- NOTE | 2020-10-26 14:11 | P.PCN ---
Date of Procedure: 10/26/20 Procedure(s) Performed: OPERATION: Intrathecal pain pump analysis, programming and reprogramming, and intrathecal pain pump refill. PREOPERATIVE DIAGNOSES: 1. near empty intrathecal pain pump time for refill. 2. opioid tolerance 3. failed back surgery syndrome lumbar area POSTOPERATIVE DIAGNOSES: 1. near empty intrathecal pain pump time for refill. 2. opioid tolerance 3. failed back surgery syndrome lumbar area ANESTHESIA: None. CONDITION: Stable. Description of the procedure; Intrathecal pain pump analysed ,it showed patient currently had reservoir volume 5.1mL. The patient is receiving medication concentration [morphine 6 ] mg/ ml, and bupivacaine concentration 4 mg/ml. Patient receiving daily dose of 3.73 mg/day and bupivacaine 2.49 mg/day. Pain is well controlled , patient using medication for breakthrough pain Percocet 10/325 orally every 6 hours . The location of the pump ( Left Buttuck ) Prepped with chlorhexidine x3 then using 22-gauge needle [employer] kit advanced through the pump port, Total of [5 ] ml removed from the pump, the pump refills with the new medication total volume [40 ] ml . The concentration [morphine 6 ] mg /ml , and the bupivacaine concentration [4 ] mg/ml. I will continue daily dose to [3.73 ] mg/day preservative-free morphine sulfate ,and bupivacaine [2.5 ] mg/day . Prescription refill for Percocet 10/325 every 6 hours dispense 90 with 1 refills,neurontin 800 mg po BID dispen #60 with one refile Patient will follow up with the pain clinic in 2 months
== END ==
LOC: PNWHC3 13:10
PROVIDERS: ATTEND Specialist
DX: Z45.1 Encounter for adjustment and management of infusion pump (principal); M96.1 Postlaminectomy syndrome, not elsewhere classified; Y83.8 Other surgical procedures as the cause of abnormal reaction of the patient, or of later complication, without mention of misadventure at the time of the procedure
CPT/HCPCS: 62370; J2274

== ENCOUNTER → 2020-12-22 | Day surgery (SDC) | payer MEDICARE, OTHER ==
[2020-12-20 15:15] VITALS: BMI 35.9
[~2020-12-22] MED LIST changes: +LACTATED RINGERS 1,000 ML IV SCH
[2020-12-22 10:53] VITALS: BP 140/81; PULSE 82; RESP 18; TEMP 972
[2020-12-22 10:54] LABS: Glucose,Whole Blood 219 mg/dL (75-99)
--- NOTE | 2020-12-22 11:33 | P.PCN ---
Date of Procedure: 12/22/20 Surgeon: Jennifer Horan Pathology: none sent Condition: stable Disposition: PACU Description of Procedure: Procedure: Intrathecal pain pump analysis, programming and reprogramming, intr athecal pain pump refill. PREOPERATIVE DIAGNOSES: 1. near empty intrathecal pain pump . 2. 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 failed back surgery syndrome lumbar area ANESTHESIA: None. CONDITION: Stable. Description of the procedure; The intrathecal opioid pump was analyzed and showed a current reservoir residual volume of 4.6 mls. Skin was prepped with ChloraPrep and draped in a sterile manner. I used 22- gauge needle found in the [employer] intrathecal access to go through the central pump port. 4 mls were withdrawn. Then the new medication was injected incrementally with frequent aspiration to ensure delivery of the new medication inside the pump reservoir. The new medication was infused inside the pump reservoir through a filter provided the [employer] kit. The new medication concentration is: Morphine 10 mg per mL and bupivacaine 4 mg per mL The pump then was reprogrammed for a new reservoir volume of 40 mls and the rate of morphine 4 mg/d. A bolus of 0.2 mg of morphine over 30 minutes was started. The patient tolerated the procedure well. The patient denies any new neurologic symptoms in the lower extremities.
== END ==
LOC: ORPAIN 10:03
PROVIDERS: ATTEND Anesthesiology
DX: Z45.1 Encounter for adjustment and management of infusion pump (principal); M96.1 Postlaminectomy syndrome, not elsewhere classified; Z79.891 Long term (current) use of opiate analgesic; Z88.0 Allergy status to penicillin; Z88.8 Allergy status to other drugs, medicaments and biological substances
CPT/HCPCS: 62370; J2274

== ENCOUNTER → 2021-03-17 | Day surgery (SDC) | payer MEDICARE, OTHER ==
[2021-03-08 16:06] VITALS: BMI 36.9
[~2021-03-17] MED LIST changes: -LACTATED RINGERS 1,000 ML IV SCH
--- NOTE | 2021-03-17 14:20 | P.PCN ---
Date of Procedure: 03/17/21 Procedure(s) Performed: Procedure: Intrathecal pain pump analysis, programming and reprogramming, intrathecal pain pump refill. PREOPERATIVE DIAGNOSES: 1. near empty intrathecal pain pump . 2. 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 failed back surgery syndrome lumbar area ANESTHESIA: None. CONDITION: Stable. Description of the procedure; The intrathecal opioid pump was analyzed and showed a current reservoir residual volume of 6 mls. Skin was prepped with ChloraPrep and draped in a sterile manner. I used 22- gauge needle found in the [employer] intrathecal access to go through the central pump port.6 mls were withdrawn. Then the new medication was injected incrementally with frequent aspiration to ensure delivery of the new medication inside the pump reservoir. The new medication was infused inside the pump reservoir through a filter provided the e-[employer] kit. The new medication concentration is: Morphine 10 mg per mL and bupivacaine 4 mg per mL The pump then was reprogrammed for a new reservoir volume of 40 mls and the rate of continue daily dose to morphin sulfate PF [3.73 ] mg/day ,and bupivacaine [2.5 ] mg/day . Prescription refill for Percocet 10/325 every 6 hours dispense 90 with 1 refills,neurontin 800 mg po BID dispen #60 with one refile Patient will follow up with the pain clinic in 3 months She denies any side effect of the medication and he reported the current seeking pain medication helping him to control his pain, and improve quality of life
== END ==
LOC: ORPAIN 03-14 10:14
PROVIDERS: ATTEND Specialist
DX: Z45.1 Encounter for adjustment and management of infusion pump (principal); M96.1 Postlaminectomy syndrome, not elsewhere classified; M79.7 Fibromyalgia; Z79.891 Long term (current) use of opiate analgesic; Z79.84 Long term (current) use of oral hypoglycemic drugs; Z79.4 Long term (current) use of insulin; Z79.899 Other long term (current) drug therapy; Z88.0 Allergy status to penicillin; Z88.8 Allergy status to other drugs, medicaments and biological substances
CPT/HCPCS: 62370; J2274

== ENCOUNTER → 2021-06-09 | Day surgery (SDC) | payer MEDICARE, OTHER ==
[2021-06-07 15:36] VITALS: BMI 36.9
[2021-06-09 10:40] VITALS: BP 136/77; PULSE 90; RESP 16; TEMP 96.8
--- NOTE | 2021-06-09 13:40 | P.PCN ---
Date of Procedure: 06/09/21 Procedure(s) Performed: Procedure: Intrathecal pain pump analysis, programming and reprogramming, intrathecal pain pump refill. PREOPERATIVE DIAGNOSES: 1. near empty intrathecal pain pump . 2. 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 failed back surgery syndrome lumbar area ANESTHESIA: None. CONDITION: Stable. Description of the procedure; The intrathecal opioid pump was analyzed and showed a current reservoir residual volume of 6.5 mls. Skin was prepped with ChloraPrep and draped in a sterile manner. I used 22- gauge needle found in the [employer] intrathecal access to go through the central pump port.7 mls were withdrawn. Then the new medication was injected incrementally with frequent aspiration to ensure delivery of the new medication inside the pump reservoir. The new medication was infused inside the pump reservoir through a filter provided the [employer] kit. The new medication concentration is: Morphine 10 mg per mL and bupivacaine 4 mg per mL The pump then was reprogrammed for a new reservoir volume of 40 mls and the rate of continue daily dose to morphin sulfate PF [3.73 ] mg/day ,and bupivacaine [2.5 ] mg/day . Prescription refill for Percocet 10/325 every 6 hours dispense 90 with 1 refills,neurontin 800 mg po BID dispen #60 with one refile Patient will follow up with the pain clinic in 3 months She denies any side effect of the medication and he reported the current seeking pain medication helping him to control his pain, and improve quality of life
== END ==
LOC: ORPAIN 10:09
PROVIDERS: ATTEND Specialist
DX: M54.50 Low back pain, unspecified (principal); Z98.890 Other specified postprocedural states
CPT/HCPCS: 62370; J2274

== ENCOUNTER 2021-09-01 11:18 | Day surgery (SDC) | payer MEDICARE, OTHER ==
[2021-08-31 12:14] VITALS: BMI 38.4
[2021-09-01] MEDS ORDERED: MORPHINE FOR ANAZAO - PER 10 MG MISCELLANE ONE (11:19)
[2021-09-01] MEDS ORDERED: BUPIVACAINE UP TO 8 MG/ML, 31-60 ML SYRINGE MC ONE (11:19)
[2021-09-01 11:34] VITALS: BP 140/92; PULSE 94; RESP 18; TEMP 97.2
[2021-09-01] MEDS ORDERED: LACTATED RINGERS 1,000 ML IV SCH (12:15)
--- NOTE | 2021-09-01 12:19 | P.PCN ---
Date of Procedure: 09/01/21 Description of Procedure: Preoperative diagnosis: Lumbar post laminectomy,, right lower extremity complex regional pain syndrome and chronic pain syndrome Status post intrathecal pump for chronic pain management Postoperative diagnosis: Lumbar post laminectomy, , right lower extremity complex pain regional syndrome and chronic pain syndrome Status post intrathecal pump for chronic pain management PROCEDURES: 1. Intrathecal pump analysis. 2. Intrathecal pump reprogramming. 3. Intrathecal pump refill ANESTHESIA: None. EBL: None. COMPLICATIONS: None. IV FLUIDS: None. PROCEDURE INDICATION: Patient is well known to pain clinic for management of intrathecal pump for chronic pain management. Patient denied any side effects with the medications. Rated his pain is 6-7 out of 10 in severity. On examination lower extremity muscle strength normal, no clonus. Patient came here for pump refill. PROCEDURE DESCRIPTION: The patient was seen and identified in the preoperative area. Risks, benefits, complications, and alternatives were discussed with the patient. The patient agreed to proceed with the procedure. Intrathecal pump was analyzed and displayed the following information: Type: SynchroMed Type II B Medication: Morphine 10mg /ml infusion at 3.997 mg/day Bupivacaine 4 MG per mL infusion at 1.5987 MG per day Pump Volume: 40 ml [place] Volume: 8 ml PTM: Disabled At this time, the area of the intrathecal pump was exposed, prepped with ChloraPrep x2 , and draped in the usual sterile fashion. After which, the [place] template was used to identify the area of the skin overlying the refill port. After which, a 22-gauge Schrader needle attached to an extension tubing, which was clamped, attached to a syringe and inserted through the skin into the refill port. At that point, 8 mL of clear fluid was aspirated. The tubing was reclamped. This was discarded. A new medication was then identified from pharmacy, . This was then attached to a filter, which was primed and subsequently injected into the pump in increments with intermittent aspiration to ensure placement into the intrathecal pump. At this point, the pump was reprogrammed. Type: SynchroMed Type II B Medication: Morphine 10mg /ml infusion at 3.997 mg/day Bupivacaine 5 MG per mL infusion at 1.5987 MG per day Pump Volume: 40 ml [place] Volume: 40 ml Lo [place] Alarm Date: 12 weeks PTM: Disabled The patient tolerated the procedure well and was sent home from the discharge area once meeting discharge criteria. Urine drug screen done today. We will follow-up for the confirmation test. Plan: The patient will follow up for further management and pump refills. Medications given : Neurontin 800 mg by mouth every 12 hours dispense 60 with 2 refills Percocet 10/325 by mouth every 12 hours to every 8 hours as needed dispense 90 with 2 refills Naloxone 4 mg intranasal for respiratory depression and dispense #2 Lorazepam 0.5 mg he woke every 8 hours 90 pills from her primary care physician for anxiety Had a lengthy discussion with the patient regarding narcotic medications, and lorazepam, intrathecal pain pump interactions. Discussed about all the complications including endocrinopathies, respiratory depression and . Patient clearly understood per patient he is taking this medicine for more than 10 years without any problem patient is well aware that he doesn't combine oral narcotic medication Neurontin along with lorazepam. Patient taken after 4 hours of the [place] & gabapentin dose. Patient counseled recommended to try gradually decreasing lorazepam, and oral narcotic medications. Patient counseled to decrease intrathecal pain pump medication patient refused at this time because his pain levels well controlled with the current pain medications. Currently has a better quality of life, unable to perform exercises, activities at home with the current pain resume.
== END 2021-09-01 11:52 | disposition home or self-care (01) ==
LOC: ORPAIN 11:18
DX: Z45.1 Encounter for adjustment and management of infusion pump (principal); M96.1 Postlaminectomy syndrome, not elsewhere classified; G90.50 Complex regional pain syndrome I, unspecified; F68.8 Other specified disorders of adult personality and behavior
CPT/HCPCS: 80307; 62370; G0482; J2274

== ENCOUNTER 2021-11-24 12:16 | Emergency (ER) | payer MEDICARE, OTHER ==
[2021-11-24 12:40] VITALS: RESP 18; TEMP 98.2
[2021-11-24 12:50] LABS: Glucose,Whole Blood 497 mg/dL (70-110)
[2021-11-24] MEDS ORDERED: SODIUM CHLORIDE 0.9% 1,000 ML IV STA (13:58)
[2021-11-24] MEDS ORDERED: INSULIN REGULAR 100 UNIT/ML VIAL (IM/SQ) SQ ONE ×2 (14:03→15:20)
[2021-11-24 15:11] LABS: Glucose,Whole Blood 383 mg/dL (70-110)
[2021-11-24 15:18] LABS: Basophils # (A) 0.1 k/uL (0-0.2); Basophils % (A) 1 %; Eosinophils # (A) 0.1 k/uL (0-0.7); Eosinophils % (A) 2 %; HCT 43.5 % (39.0-53.0); HGB 15.9 gm/dL (13.0-17.5); Lymphocytes % (A) 45 %; MCH 32.4 pg (25.0-35.0); MCHC 36.4 g/dL (31.0-37.0); Mean Platelet Volume 7.7; Monocytes # (A) 0.3 k/uL (0-1.0); Monocytes % (A) 4 %; Neutrophils # (A) 2.9 k/uL (1.3-7.7); Neutrophils % (A) 44 %; Platelet Count 298 k/uL (150-450); RBC 4.89 m/uL (4.30-5.90); RDW 13.3 % (11.5-15.5); WBC 6.6 k/uL (3.8-10.6)
[2021-11-24 15:22] LABS: Appearance,Urine Clear (Clear); Bilirubin,Urine Negative (Negative); Blood,Urine Negative (Negative); Color,Urine Light Yellow; Glucose,Urine (UA) 4+ (Negative); Ketones,Urine Trace (Negative); Leukocyte Esterase,Urine Negative (Negative); Nitrite,Urine Negative (Negative); PH, Urine 5.5 (5.0-8.0); Protein,Urine Negative (Negative); Specific Gravity,Urine 1.032 (1.001-1.035); Urobilinogen,Urine <2.0 mg/dL (<2.0)
[2021-11-24 15:30] LABS: ALT 31 U/L (4-49); AST 37 U/L (17-59); African American GFR (CKD) >90 (>60 ml/min/1.73 sqM); Alkaline Phosphatase 171 U/L (38-126); Anion Gap 16 mmol/L; Blood Urea Nitrogen 17 mg/dL (9-20); Calcium 9.8 mg/dL (8.4-10.2); Carbon Dioxide 23 mmol/L (22-30); Chloride 92 mmol/L (98-107); Glucose 430 mg/dL (74-99); Non-African American GFR(CKD) >90 (>60 ml/min/1.73 sqM); Potassium 4.8 mmol/L (3.5-5.1); Sodium 131 mmol/L (137-145); Total Bilirubin 0.4 mg/dL (0.2-1.3); Total Protein 7.5 g/dL (6.3-8.2)
--- NOTE | 2021-11-24 16:29 | ED ---
General Adult HPI - General Chief complaint: Recheck/Abnormal Lab/Rx Stated complaint: Blood sugar High Time Seen by Provider: 11/24/21 13:46 Source: patient Mode of arrival: ambulatory Limitations: no limitations - History of Present Illness Initial comments: A 56-year-old male with a past medical history of type 2 diabetes mellitus on insulin who presents since to the emergency department chief complaint elevated blood sugar. Patient was at [facility] this morning to get medication for his pain pump when his blood sugar was found to be in the 400s. Patient states he has been out of his diabetes medication for the past couple days. States he just m denise to the area and has not gotten a new primary care provider yet. Patient states he is currently filling out intake forms with a new primary care provider. Patient feels well and has no complaints besides increased thirst. He denies fever, chills, abdominal pain, nausea, vomiting, excessive urination. - Related Data Home Medications Medication Instructions Recorded Confirmed Meclizine [Antivert] 12.5 mg PO TID 07/22/13 11/24/21 Morphine Pump 1 dose INTRATHECA CONTINUOUS MDD 01/15/18 11/24/21 2.3MG Testosterone [Androderm 4 mg Patch] 1 patch TRANSDERM Q24H PRN 05/19/19 11/24/21 Insulin Glargine,Hum.rec.anlog 26 unit SQ HS 07/16/19 11/24/21 [Lantus Solostar] LORazepam 0.5 mg PO TID PRN 09/15/19 11/24/21 carBAMazepine [TEGretol] 200 mg PO BID 09/15/19 11/24/21 DULoxetine HCL [Cymbalta] 60 mg PO BID 11/24/19 11/24/21 Insulin Lispro [humaLOG Kwikpen] See Protocol SQ AC-TID PRN 11/24/19 11/24/21 Saxagliptin HCl [Onglyza] 5 mg PO DAILY 11/24/19 11/24/21 Multivitamins, Thera [Multivitamin 1 tab PO DAILY 10/21/20 11/24/21 (formulary)] levETIRAcetam [Keppra] 1,000 mg PO BID 11/24/21 11/24/21 Previous Rx's Medication Instructions Recorded oxyCODONE HCL/ACETAMINOPHEN 1 tab PO Q6HR PRN 30 Days #90 tab 06/09/21 [Percocet 10-325 mg] MDD 3 TABS Gabapentin [Neurontin] 800 mg PO BID 30 Days #60 tab 10/30/21 Insulin Aspart [NovoLOG] 4 units SQ ACHS 30 Days #6 ml 11/24/21 Insulin Glargine,Hum.rec.anlog 26 units SQ HS 30 Days #9 ml 11/24/21 [Insulin Glargine Solostar] Allergies Allergy/AdvReac Type Severity Reaction Status Date / Time bupropion HCl Allergy Dyspnea Verified 11/24/21 15:35 [From Wellbutrin] cephalexin [Cephalexin] Allergy Dyspnea Verified 11/24/21 15:35 cephalexin monohydrate Allergy Dyspnea,hiv Verified 11/24/21 15:35 [From Keflex] es penicillin G Allergy Rash/Hives Verified 11/24/21 15:35 onion Allergy Dyspnea,hiv Uncoded 11/24/21 11:27 es Review of Systems ROS Statement: Those systems with pertinent positive or pertinent negative responses have been documented in the HPI. ROS Other: All systems not noted in ROS Statement are negative. 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 RSD rt leg/feet, collapsed low back History of Any Multi-Drug Resistant Organisms: MRSA Date of last positivie culture/infection: 2008 MDRO Source:: wound in neck Past Surgical History: Adenoidectomy, Appendectomy, Back Surgery, Bariatric Surgery, Orthopedic Surgery, Tonsillectomy Additional Past Surgical History / Comment(s): Eyes/plastic surgery, tongue surgery, circumcision, Rt foot surgery, neck fusion, pain pump, lap band/later removed. 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 Past Anesthesia/Blood Transfusion Reactions: Previous Problems w/ Anesthesia Additional Past Anesthesia/Blood Transfusion Reaction / Comment(s): "slow to come out due to narcolepsy" comes out with low oxygen level-pt denies this Past Psychological History: No Psychological Hx Reported Smoking Status: Never smoker Past Alcohol Use History: None Reported Past Drug Use History: None Reported - Past Family History Father Family Medical History: CVA/TIA Additional Family Medical History / Comment(s): from "massive stroke" Mother Family Medical History: Cancer, Deep Vein Thrombosis (DVT), Pulmonary Embolus Brother(s) Family Medical History: Deep Vein Thrombosis (DVT) General Exam Limitations: no limitations General appearance: alert, in no apparent distress Head exam: Present: atraumatic, normocephalic, normal inspection ENT exam: Present: normal oropharynx, mucous membranes moist Respiratory exam: Present: normal lung sounds bilaterally. Absent: respiratory distress, wheezes, rales, rhonchi, stridor Cardiovascular Exam: Present: regular rate, normal rhythm, normal heart sounds. Absent: systolic murmur, diastolic murmur, rubs, gallop, clicks GI/Abdominal exam: Present: soft, normal bowel sounds. Absent: distended, tenderness, guarding, rebound, rigid Neurological exam: Present: alert, oriented X3, CN II-XII intact Psychiatric exam: Present: normal affect, normal mood Skin exam: Present: warm, dry, intact, normal color. Absent: rash Course Vital Signs 11/24/21 11/24/21 12:38 17:43 Temperature 98.2 F Pulse Rate 95 80 Respiratory 18 18 Rate Blood Pressure 129/76 125/7 O2 Sat by Pulse 95 95 Oximetry Medical Decision Making - Medical Decision Making This is a 56-year-old male presenting with hyperglycemia. Patient well-appe aring and in no apparent distress. Blood sugar initially 497. Laboratory studies obtained. No evidence of DKA. Patient was given insulin and fluids in the emergency department which improved blood sugar. Patient will be discharged with his insulin. He is encouraged to continue checking sugars at home. He is instructed to return to the emergency department for diabetes prescriptions if he is not able to see a primary care provider before they run out. He verbalizes understanding. Dr. Redd is my attending. - Lab Data Result diagrams: 11/24/21 14:25 11/24/21 14:25 Lab Results 11/24/21 11/24/21 11/24/21 Range/Units 12:38 14:25 14:25 WBC 6.6 (3.8-10.6) k/uL RBC 4.89 (4.30-5.90) m/uL Hgb 15.9 (13.0-17.5) gm/dL Hct 43.5 (39.0-53.0) % MCV 89.0 (80.0-100.0) fL MCH 32.4 (25.0-35.0) pg MCHC 36.4 (31.0-37.0) g/dL RDW 13.3 (11.5-15.5) % Plt Count 298 (150-450) k/uL MPV 7.7 Neutrophils % 44 % Lymphocytes % 45 % Monocytes % 4 % Eosinophils % 2 % Basophils % 1 % Neutrophils # 2.9 (1.3-7.7) k/uL Lymphocytes # 3.0 (1.0-4.8) k/uL Monocytes # 0.3 (0-1.0) k/uL Eosinophils # 0.1 (0-0.7) k/uL Basophils # 0.1 (0-0.2) k/uL Sodium (137-145) mmol/L Potassium (3.5-5.1) mmol/L Chloride (98-107) mmol/L Carbon Dioxide (22-30) mmol/L Anion Gap mmol/L BUN (9-20) mg/dL Creatinine (0.66-1.25) mg/dL Est GFR (CKD-EPI)AfAm (>60 ml/min/1.73 sqM) Est GFR (CKD-EPI)NonAf (>60 ml/min/1.73 sqM) Glucose (74-99) mg/dL POC Glucose (mg/dL) 497 H (70-110) mg/dL POC Glu [employer] ID Willing, Lesli Calcium (8.4-10.2) mg/dL Total Bilirubin (0.2-1.3) mg/dL AST (17-59) U/L ALT (4-49) U/L Alkaline Phosphatase (38-126) U/L Total Protein (6.3-8.2) g/dL Albumin (3.5-5.0) g/dL Urine Color Light Yellow Urine Appearance Clear (Clear) Urine pH 5.5 (5.0-8.0) Ur Specific [place] 1.032 (1.001-1.035) Urine Protein Negative (Negative) Urine Glucose (UA) 4+ H (Negative) Urine Ketones Trace H (Negative) Urine Blood Negative (Negative) Urine Nitrite Negative (Negative) Urine Bilirubin Negative (Negative) Urine Urobilinogen <2.0 (<2.0) mg/dL Ur Leukocyte Esterase Negative (Negative) Acetone, Qual (Negative) 11/24/21 11/24/21 11/24/21 Range/Units 14:25 15:10 16:34 WBC (3.8-10.6) k/uL RBC (4.30-5.90) m/uL Hgb (13.0-17.5) gm/dL Hct (39.0-53.0) % MCV (80.0-100.0) fL MCH (25.0-35.0) pg MCHC (31.0-37.0) g/dL RDW (11.5-15.5) % Plt Count (150-450) k/uL MPV Neutrophils % % Lymphocytes % % Monocytes % % Eosinophils % % Basophils % % Neutrophils # (1.3-7.7) k/uL Lymphocytes # (1.0-4.8) k/uL Monocytes # (0-1.0) k/uL Eosinophils # (0-0.7) k/uL Basophils # (0-0.2) k/uL Sodium 131 L (137-145) mmol/L Potassium 4.8 (3.5-5.1) mmol/L Chloride 92 L (98-107) mmol/L Carbon Dioxide 23 (22-30) mmol/L Anion Gap 16 mmol/L BUN 17 (9-20) mg/dL Creatinine 0.47 L (0.66-1.25) mg/dL Est GFR (CKD-EPI)AfAm >90 (>60 ml/min/1.73 sqM) Est GFR (CKD-EPI)NonAf >90 (>60 ml/min/1.73 sqM) Glucose 430 H (74-99) mg/dL POC Glucose (mg/dL) 383 H 351 H (70-110) mg/dL POC Glu [employer] Professional ID Ashley Barney Dylan Calcium 9.8 (8.4-10.2) mg/dL Total Bilirubin 0.4 (0.2-1.3) mg/dL AST 37 (17-59) U/L ALT 31 (4-49) U/L Alkaline Phosphatase 171 H (38-126) U/L Total Protein 7.5 (6.3-8.2) g/dL Albumin 4.0 (3.5-5.0) g/dL Urine Color Urine Appearance (Clear) Urine pH (5.0-8.0) Ur Specific [place] (1.001-1.035) Urine Protein (Negative) Urine Glucose (UA) (Negative) Urine Ketones (Negative) Urine Blood (Negative) Urine Nitrite (Negative) Urine Bilirubin (Negative) Urine Urobilinogen (<2.0) mg/dL Ur Leukocyte Esterase (Negative) Acetone, Qual Negative (Negative) 11/24/21 Range/Units 17:36 WBC (3.8-10.6) k/uL RBC (4.30-5.90) m/uL Hgb (13.0-17.5) gm/dL Hct (39.0-53.0) % MCV (80.0-100.0) fL MCH (25.0-35.0) pg MCHC (31.0-37.0) g/dL RDW (11.5-15.5) % Plt Count (150-450) k/uL MPV Neutrophils % % Lymphocytes % % Monocytes % % Eosinophils % % Basophils % % Neutrophils # (1.3-7.7) k/uL Lymphocytes # (1.0-4.8) k/uL Monocytes # (0-1.0) k/uL Eosinophils # (0-0.7) k/uL Basophils # (0-0.2) k/uL Sodium (137-145) mmol/L Potassium (3.5-5.1) mmol/L Chloride (98-107) mmol/L Carbon Dioxide (22-30) mmol/L Anion Gap mmol/L BUN (9-20) mg/dL Creatinine (0.66-1.25) mg/dL Est GFR (CKD-EPI)AfAm (>60 ml/min/1.73 sqM) Est GFR (CKD-EPI)NonAf (>60 ml/min/1.73 sqM) Glucose (74-99) mg/dL POC Glucose (mg/dL) 287 H (70-110) mg/dL POC Glu [employer] ID Ashley Barney Calcium (8.4-10.2) mg/dL Total Bilirubin (0.2-1.3) mg/dL AST (17-59) U/L ALT (4-49) U/L Alkaline Phosphatase (38-126) U/L Total Protein (6.3-8.2) g/dL Albumin (3.5-5.0) g/dL Urine Color Urine Appearance (Clear) Urine pH (5.0-8.0) Ur Specific [place] (1.001-1.035) Urine Protein (Negative) Urine Glucose (UA) (Negative) Urine Ketones (Negative) Urine Blood (Negative) Urine Nitrite (Negative) Urine Bilirubin (Negative) Urine Urobilinogen (<2.0) mg/dL Ur Leukocyte Esterase (Negative) Acetone, Qual (Negative) Disposition Clinical Impression: Hyperglycemia due to type 2 diabetes mellitus Disposition: HOME SELF-CARE Condition: Good Instructions (If sedation given, give patient instructions): Diabetic Hyperglycemia (ED) Additional Instructions: Take medication as directed. It is important to establish care with a new primary care provider as soon as possible who can manage your diabetes. If you are not able to visit with the primary care provider, please come back to the emergency department for more insulin before your prescription runs out. C ontinue checking blood sugar at home. Return to the emergency department experience new, concerning, or worsening symptoms. Prescriptions: Insulin Glargine,Hum.rec.anlog [Insulin Glargine Solostar] 26 units SQ HS 30 Days #9 ml Insulin Aspart [NovoLOG] 4 units SQ ACHS 30 Days #6 ml Is patient prescribed a controlled substance at d/c from ED?: No Referrals: None,Stated [Primary Care Provider] - 1-2 days Time of Disposition: 16:29
[2021-11-24 16:36] LABS: Glucose,Whole Blood 351 mg/dL (70-110)
[2021-11-24] MEDS ORDERED: INSULIN REGULAR 100 UNIT/ML VIAL (IV) IV ONE (16:42)
[2021-11-24 17:38] LABS: Glucose,Whole Blood 287 mg/dL (70-110)
[2021-11-24 17:50] VITALS: BP 125/7; PULSE 80
== END 2021-11-24 17:43 | disposition home or self-care (01) ==
LOC: EC 12:16
DX: E11.65 Type 2 diabetes mellitus with hyperglycemia (principal); K21.9 Gastro-esophageal reflux disease without esophagitis; E78.5 Hyperlipidemia, unspecified; Z88.8 Allergy status to other drugs, medicaments and biological substances; Z88.0 Allergy status to penicillin; Z91.018 Allergy to other foods; Z79.4 Long term (current) use of insulin
CPT/HCPCS: 36415; 80053; 81003; 82009; 85025; 96361; 96374; 99284

== ENCOUNTER 2022-02-16 10:58 | Day surgery (SDC) | payer MEDICARE, OTHER ==
[2022-02-16] MEDS ORDERED: BUPIVACAINE UP TO 8 MG/ML, 31-60 ML SYRINGE MC ONE (10:59)
[2022-02-16] MEDS ORDERED: MORPHINE FOR ANAZAO - PER 10 MG MISCELLANE ONE (10:59)
[2022-02-16 11:37] VITALS: BP 163/72; PULSE 92; RESP 18; TEMP 97
[2022-02-16 11:41] LABS: Glucose,Whole Blood 243 mg/dL (70-110)
--- NOTE | 2022-02-16 12:58 | P.PCN ---
Date of Procedure: 02/16/22 Anesthesia: none Surgeon: Jennifer Horan Pathology: none sent Condition: stable Disposition: PACU Description of Procedure: Procedure: Intrathecal pain pump analysis, programming and reprogramming, intrathecal pain pump refill. PREOPERATIVE DIAGNOSES: 1. near empty intrathecal pain pump . 2. 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 failed back surgery syndrome lumbar area ANESTHESIA: None. CONDITION: Stable. Description of the procedure; The intrathecal opioid pump was analyzed and showed a current reservoir residual volume of 6 mls. Skin was prepped with ChloraPrep and draped in a sterile manner. I used 22- gauge needle found in the [employer].fmtronic intrathecal access to go through the central pump port. 7 mls were withdrawn. Then the new medication was injected incrementally with frequent aspiration to ensure delivery of the new medication inside the pump reservoir. The new medication was infused inside the pump reservoir through a filter provided the Medtronic kit. The new medication concentration is: Preservative free Morphine 10 mg per mL and bupivacaine 4 mg per mL The pump then was reprogrammed for a new reservoir volume of 40 mls and the rate of morphine 4 mg/d. The patient tolerated the procedure well. The patient denies any new neurologic symptoms in the lower extremities. Oral opioids: Percocet 10 mg twice a day. The patient was given a prescription for 60 pills per month for 2 months. Patient also takes Neurontin 800 mg twice a day and he was given a prescription for 60 pills with 1 refill
== END 2022-02-16 13:06 | disposition home or self-care (01) ==
LOC: ORPAIN 10:58
PROVIDERS: ATTEND Anesthesiology
DX: T85.840A Pain due to nervous system prosthetic devices, implants and grafts, initial encounter (principal); F11.90 Opioid use, unspecified, uncomplicated; Z88.0 Allergy status to penicillin; Z88.8 Allergy status to other drugs, medicaments and biological substances; Z45.1 Encounter for adjustment and management of infusion pump
CPT/HCPCS: 62370; J2274

== ENCOUNTER 2022-05-11 10:50 | Day surgery (SDC) | payer MEDICARE, OTHER ==
[2022-05-11] MEDS ORDERED: MORPHINE FOR ANAZAO - PER 10 MG MISCELLANE ONE (10:51)
[2022-05-11] MEDS ORDERED: BUPIVACAINE UP TO 8 MG/ML, 31-60 ML SYRINGE MC ONE (10:51)
[2022-05-11 11:13] VITALS: BP 124/80; PULSE 94; RESP 16; TEMP 96
[2022-05-11 11:16] LABS: Glucose,Whole Blood 250 mg/dL (70-110)
--- NOTE | 2022-05-11 11:38 | P.PCN ---
Date of Procedure: 05/11/22 Procedure(s) Performed: Procedure: Intrathecal pain pump analysis, programming and reprogramming, intrathecal pain pump refill. PREOPERATIVE DIAGNOSES: 1. near empty intrathecal pain pump . 2. 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 failed back surgery syndrome lumbar area ANESTHESIA: None. CONDITION: Stable. Description of the procedure; The intrathecal opioid pump was analyzed and showed a current reservoir residual volume of 6.5 mls. Skin was prepped with ChloraPrep and draped in a sterile manner. I used 22- gauge needle found in the [employer] intrathecal access to go through the central pump port.7 mls were withdrawn. Then the new medication was injected incrementally with frequent aspiration to ensure delivery of the new medication inside the pump reservoir. The new medication was infused inside the pump reservoir through a filter provided the Datezr kit. The new medication concentration is: Morphine 10 mg per mL and bupivacaine 4 mg per mL The pump then was reprogrammed for a new reservoir volume of 40 mls and the rate of continue daily dose to morphin sulfate PF [4.2 ] mg/day ,and bupivacaine [1.71 ] mg/day . Prescription refill for Percocet 10/325 every 6 hours dispense 90 with 1 refills,neurontin 800 mg po BID dispen #60 with one refile Patient will follow up with the pain clinic in 3 months She denies any side effect of the medication and he reported the current seeking pain medication helping him to control his pain, and improve quality of life, showed complaining of significant increase of pain especially over the last few weeks for this reason I increase the intrathecal pain pump dose by 7%, and she was receiving a daily dose of morphine 3.9 mg per day and which was increased to 4.2 mg per day, and patient was receiving a daily dose of bupivacaine 1.59 mg per day and increased today to 1.7 mg per day
== END 2022-05-11 11:45 | disposition home or self-care (01) ==
LOC: ORPAIN 10:50
PROVIDERS: ATTEND Specialist
DX: T85.840A Pain due to nervous system prosthetic devices, implants and grafts, initial encounter (principal)
CPT/HCPCS: 62370; J2274

== ENCOUNTER 2022-08-03 11:18 | Day surgery (SDC) | payer MEDICARE, OTHER ==
[2022-08-03] MEDS ORDERED: MORPHINE FOR ANAZAO - PER 10 MG MISCELLANE ONE (11:19)
[2022-08-03] MEDS ORDERED: BUPIVACAINE UP TO 8 MG/ML, 31-60 ML SYRINGE MC ONE (11:19)
[2022-08-03 11:47] VITALS: BP 134/87; PULSE 94; RESP 16; TEMP 97.5
--- NOTE | 2022-08-03 12:01 | P.PCN ---
Date of Procedure: 08/03/22 Procedure(s) Performed: Procedure: Intrathecal pain pump analysis, programming and reprogramming, intrathecal pain pump refill. PREOPERATIVE DIAGNOSES: 1. near empty intrathecal pain pump . 2. 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 failed back surgery syndrome lumbar area ANESTHESIA: None. CONDITION: Stable. Description of the procedure; The intrathecal opioid pump was analyzed and showed a current reservoir residual volume of 4.1 mls. Skin was prepped with ChloraPrep and draped in a sterile manner. I used 22- gauge needle found in the [employer] intrathecal access to go through the central pump port.6 mls were withdrawn. Then the new medication was injected incrementally with frequent aspiration to ensure delivery of the new medication inside the pump reservoir. The new medication was infused inside the pump reservoir through a filter provided the [employer] kit. The new medication concentration is: Morphine 10 mg per mL and bupivacaine 4 mg per mL The pump then was reprogrammed for a new reservoir volume of 40 mls and the rate of continue daily dose to morphin sulfate PF [4.28 ] mg/day ,and bupivacaine [1.71 ] mg/day . Prescription refill for Percocet 10/325 every 6 hours dispense 90 with 1 refills,neurontin 800 mg po BID dispen #60 with one refile Patient will follow up with the pain clinic in 3 months Patient reported that he is complaining of increased low back pain with radiation to the lower extremity for this reason patient will be seen in the pain clinic in couple of weeks for evaluation, and will check if there is any need to do any MRI of the lumbar spine to evaluate that is any neurologic etiology causing his low back pain, because recently last visit we increased her ability to was by 7% and patient continued to have pain and numbness going to the lower extremity
== END 2022-08-03 11:58 | disposition home or self-care (01) ==
LOC: ORPAIN 11:18
PROVIDERS: ATTEND Specialist
DX: Z45.49 Encounter for adjustment and management of other implanted nervous system device (principal); M96.1 Postlaminectomy syndrome, not elsewhere classified; Z79.891 Long term (current) use of opiate analgesic
CPT/HCPCS: 62370; J2274

== ENCOUNTER → 2022-09-06 | Outpatient (CLI) | payer MEDICARE, OTHER ==
[2022-09-06 11:04] VITALS: BP 126/78; PULSE 87; RESP 16; TEMP 98.4
--- NOTE | 2022-09-06 14:04 | P.PAINPG ---
PQRS Measure Charge Sheet Comment: A 56 yr old male with a history of severe and chronic LBP secondary to lumbar DDD and spondylosis with facet arthropathy without myelopathy presents today for LBP. Pain level is provoked at 8/10 in intensity, constant, localized in the lumbar spine, sharp in character w shooting towards the R hip. Pain is provoked by bending, standing/ walking for periods of 10 min or more. Pain is alleviated with use of a cane for ambulatory assistance, medications, PT 13 yrs ago, heat, ice, repositioning and rest. Oswestry axial pain score at 35. Interventional pain procedures completed include LESIs, Morphine Pain Pump Patient is currently on Neurontin 800mg, Percocet 10/325mg #120 Patient denies any side effects of the medication(s), denies excessive drowsiness or sleepiness, denies suicidal ideation and reports that the current pain medication is helping to control the pain and improve activities of daily living. Patient denies any motor or sensory deficits. Patient denies any fever or night sweats, denies any change in the bowel movements or urination. Physical Examination: -Constitutional: Cooperative. Not in acute distress . - Neurologic: Cranial nerve II to XII intact. No focal neurological deficits. - Psychatric: Alert & oriented x 3. Matching mood & appropriate affect. Judgment and insight intact. - Musculoskeletal: Cervical spine: Muscle bulk/ tone/ strength in the bilateral upper extremities normal Vertebral body tenderness to palpation over Spurling test positive Distraction test positive Facet loading test positive TTP Thoracic spine Muscle bulk / tone/ strength in the bilateral paraspinal muscles normal Vertebral body tender to palpation over Facet loading test positive TTP Lumbar spine: Motor bulk/ tone/ strength lower extremities , thigh and legs : 5/5 Deep tendon reflexes : Normal Knee Jerk. Normal Ankle Jerk . Vertebral body tenderness to palpation over L3, L4, L5 Peña Test positive Lumbar Facet Loading Test positive Straight Leg Raise: positive at 30 degrees right side/ left side Gaenslen's Test positive Sacral spine : Severe tenderness over the Sacroiliac joint: right side / left side Range of motion: Flexion of the lumbar spine <60 degrees Range of motion: Extension of the lumbar spine <20 degrees Gaenslen's Test positive right side / left side Wilder test: positive right side / left side Thigh Thrust Test positive right side / left side Sacral Thrust Test positive right side / left side Assessment and plan: Chronic LBP secondary to lumbar DDD, spondylosis with facet arthropathy without myelopathy Chronic and current use of high-risk medication (Opioids). The patient was counseled about risk of opioid use, psychological risk associated with opioids and was orally counseled to not overuse , divert or sell medications. Pt is to store medication in a safe location. The patient is counseled against driving while using narcotic medications and also not to use alcohol or any illicit recreational drugs. Patient verbalized understanding that the lack of compliance will result in failure to renew narcotic prescription(s) as well as possible discharge from the clinic Diagnoses, prognosis and treatment options including but not limited to physical therapy, surgical interventions, interventional therapies and medication management including narcotics and adjuvant medication were discussed. All patient questions answered MAPS reviewed and it was appropriate. UDS collected today 09/06/22. Opiate / narcotic agreement signed . Prescription for Fentanyl 25mcg/hr 1 patch Q72H #10 w 1 RF. I have spent less than 30 minutes on patient care today. Dr Varela was available by phone for the evaluation of this patient. The time was used to review the medical records including relevant urine studies and Prescription history (MAPs), review of the available imaging, evaluation and examination of the patient, coordination of care with the medical staff and if applicable referring physicians, as well as creation of the medical record PQRS Narrative: Smoking Status Never smoker Narcotic Agreement Date Signed 10/26/20 Hx Alcohol Use (MH) No Home Medications: Ambulatory Orders Meclizine [Antivert] 12.5 mg PO TID 07/22/13 Morphine Pump 1 dose INTRATHECA CONTINUOUS MDD 2.3MG 01/15/18 LORazepam 0.5 mg PO TID PRN 09/15/19 carBAMazepine [TEGretol] 200 mg PO BID 09/15/19 DULoxetine HCL [Cymbalta] 60 mg PO BID 11/24/19 Insulin Lispro [humaLOG Kwikpen] See Protocol SQ AC-TID PRN 11/24/19 Saxagliptin HCl [Onglyza] 5 mg PO QAM 11/24/19 Multivitamins, Thera [Multivitamin (formulary)] 1 tab PO QAM 10/21/20 Insulin Glargine,Hum.rec.anlog [Insulin Glargine Solostar] 26 units SQ HS 30 Days #9 ml 11/24/21 levETIRAcetam [Keppra] 1,000 mg PO BID 11/24/21 Insulin Aspart [NovoLOG] 5 units SQ ACHS 05/10/22 Gabapentin [Neurontin] 800 mg PO BID 30 Days #60 tab 08/03/22 Testosterone [Testosterone 1.62% (2500 mg)] 2.5 gm TRANSDERM DAILY 08/03/22 oxyCODONE HCL/ACETAMINOPHEN [Percocet 10-325 mg Tablet] 1 each PO Q6HR PRN 30 Days #90 tab 08/03/22 oxyCODONE HCL/ACETAMINOPHEN [Percocet 10-325 mg] 1 tab PO Q6HR PRN 30 Days #90 tab 08/03/22 oxyCODONE HCL/ACETAMINOPHEN [Percocet 10-325 mg] 1 tab PO Q6HR PRN 30 Days #90 tab 08/03/22 oxyCODONE HCL/ACETAMINOPHEN [Percocet 10-325 mg] 1 tab PO Q6HR PRN 30 Days #90 tab MDD 3 TABS 08/03/22 fentaNYL 25MCG/HR PATCH [Duragesic 25MCG/HR] 25 mcg TRANSDERM Q72H 30 Days #10 patch 09/06/22 fentaNYL 25MCG/HR PATCH [Duragesic 25MCG/HR] 25 mcg TRANSDERM Q72H 30 Days #10 patch 09/06/22 Controlled Substance Measures - Controlled Substance Measures Is patient prescribed a controlled substance at discharge?: Yes When asked, does pt state using other controlled substances?: Yes If prescribed controlled substance>3 days was MAPS reviewed?: Yes If Rx opioid, was Start Talking consent form obtained?: Yes Was information provided regarding opioid addiction?: Yes
== END ==
LOC: PNWHC3 10:16
PROVIDERS: ATTEND Specialist
DX: M54.50 Low back pain, unspecified (principal); M51.36 Other intervertebral disc degeneration, lumbar region; M47.816 Spondylosis without myelopathy or radiculopathy, lumbar region; G89.29 Other chronic pain; Z79.891 Long term (current) use of opiate analgesic; Z88.1 Allergy status to other antibiotic agents; Z88.0 Allergy status to penicillin; Z91.018 Allergy to other foods; Z88.8 Allergy status to other drugs, medicaments and biological substances
CPT/HCPCS: 99212

== ENCOUNTER → 2022-10-26 | Day surgery (SDC) | payer MEDICARE, OTHER ==
[2022-10-26 11:23] LABS: Glucose,Whole Blood 248 mg/dL (70-110)
[2022-10-26 11:46] VITALS: BP 107/87; PULSE 107; RESP 16; TEMP 99.2
--- NOTE | 2022-10-29 09:24 | P.PCN ---
Date of Procedure: 10/26/22 Procedure(s) Performed: Procedure: Intrathecal pain pump analysis, programming and reprogramming, intrathecal pain pump refill. PREOPERATIVE DIAGNOSES: 1. near empty intrathecal pain pump . 2. 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 failed back surgery syndrome lumbar area ANESTHESIA: None. CONDITION: Stable. Description of the procedure; The intrathecal opioid pump was analyzed and showed a current reservoir residual volume of 4.1 mls. Skin was prepped with ChloraPrep and draped in a sterile manner. I used 22- gauge needle found in the [employer] intrathecal access to go through the central pump port.5 mls were withdrawn. Then the new medication was injected incrementally with frequent aspiration to ensure delivery of the new medication inside the pump reservoir. The new medication was infused inside the pump reservoir through a filter provided the [employer] kit. The new medication concentration is: Morphine 10 mg per mL and bupivacaine 4 mg per mL The pump then was reprogrammed for a new reservoir volume of 40 mls and the rate of continue daily dose to morphin sulfate PF [4.58 ] mg/day ,and bupivacaine [1.83 ] mg/day . , Which is increased 7% of ability does of intrathecal morphine because patient complaining of increased pain ,and also patient complaining of frequent muscle spasm, I will discontinue the fentanyl and patch to 25 g, patient was instructed to stop using the fentanyl patch, and a prescription for fentanyl patch was discontinued, patient will be started on Flexeril 5 mg every 8 hours. And for muscle spasm dispense 90 with 2 refills Prescription refill for Percocet 10/325 every 6 hours dispense 90 with 1 refills,neurontin 800 mg po BID dispen #60 with one refile Patient will follow up with the pain clinic in 3 months
== END ==
LOC: ORPAIN 11:02
PROVIDERS: ATTEND Specialist
DX: T85.695A Other mechanical complication of other nervous system device, implant or graft, initial encounter (principal); M96.1 Postlaminectomy syndrome, not elsewhere classified; F11.20 Opioid dependence, uncomplicated; Y83.8 Other surgical procedures as the cause of abnormal reaction of the patient, or of later complication, without mention of misadventure at the time of the procedure
CPT/HCPCS: 62370; J2274

== ENCOUNTER → 2023-01-15 | Day surgery (SDC) | payer MEDICARE, OTHER ==
[2023-01-15 15:10] VITALS: BP 116/58; PULSE 70; RESP 16; TEMP 97.6
[2023-01-15 15:14] LABS: Glucose,Whole Blood 232 mg/dL (70-110)
--- NOTE | 2023-01-15 15:43 | P.PCN ---
Description of Procedure: OPERATION: Intrathecal pain pump analysis, programming and reprogramming, and intrathecal pain pump refill. PREOPERATIVE DIAGNOSES: 1. near empty intrathecal pain pump time for refill. 2. opioid tolerance 3. failed back surgery syndrome lumbar area POSTOPERATIVE DIAGNOSES: Same as preoperative diagnosis. ANESTHESIA: None. CONDITION: Stable. Description of the procedure; Intrathecal pain pump analysed ,it showed patient currently had reservoir volume[ ] mL. The patient is receiving medication morphine sulfate/Dilaudid mg/ ml, and bupivacaine concentration mg/ml. Patient receiving daily dose of morphine sulfate mg/day and bupivacaine mg/day. Pain is well controlled , patient using medication for breakthrough pain orally . The location of the pump ( Left Buttuck ) Prepped with chlorhexidine x3 , then using 22-gauge needle [employer] kit advanced through the pump port, Total of 4 ml removed from the pump, expected volume2.9 ml , the pump refilled with the new medication total volume 40 ml . The concentration of morphine sulfate [10 ] mg /ml , and the bupivacaine concentration [4 ] mg/ml. The patient will continue to see the daily dose morphine sulfate [ ] mg/day and bupivacaine [ ] mg/day and patient will follow up with the pain clinic in 3 months. Prescription refill for was given to the patient
== END ==
LOC: ORPAIN 13:11
PROVIDERS: ATTEND Anesthesiology
DX: M96.1 Postlaminectomy syndrome, not elsewhere classified (principal)
CPT/HCPCS: 62367; J2274

== ENCOUNTER → 2023-04-11 | Day surgery (SDC) | payer MEDICARE, OTHER ==
[2023-04-11 10:20] LABS: Glucose,Whole Blood 211 mg/dL (70-110)
[2023-04-11 10:35] VITALS: BP 145/86; PULSE 99; RESP 18; TEMP 98.8
--- NOTE | 2023-04-11 11:08 | P.PCN ---
Date of Procedure: 04/11/23 Procedure(s) Performed: Procedure: Intrathecal pain pump analysis, programming and reprogramming, intrathecal pain pump refill. PREOPERATIVE DIAGNOSES: 1. near empty intrathecal pain pump . 2. 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 failed back surgery syndrome lumbar area ANESTHESIA: None. CONDITION: Stable. Description of the procedure; The intrathecal opioid pump was analyzed and showed a current reservoir residual volume of 0.7 mls. Skin was prepped with ChloraPrep and draped in a sterile manner. I used 22- gauge needle found in the [employer] intrathecal access to go through the central pump port.2 mls were withdrawn. Then the new medication was injected incrementally with frequent aspiration to ensure delivery of the new medication inside the pump reservoir. The new medication was infused inside the pump reservoir through a filter provided the [employer] kit. The new medication concentration is: Morphine 10 mg per mL and bupivacaine 4 mg per mL The pump then was reprogrammed for a new reservoir volume of 40 mls and the rate of continue daily dose to morphin sulfate PF [4.583 ] mg/day ,and bupivacaine [1.833 ] mg/day . Prescription refill for Percocet 10/325 every 6 hours dispense 90 with 2 refills,neurontin 800 mg po BID dispen #60 with 2 refile Patient will follow up with the pain clinic in 3 months
== END ==
LOC: ORPAIN 09:44
PROVIDERS: ATTEND Specialist
DX: Z51.81 Encounter for therapeutic drug level monitoring (principal); M96.1 Postlaminectomy syndrome, not elsewhere classified; Z88.0 Allergy status to penicillin; Z88.1 Allergy status to other antibiotic agents
CPT/HCPCS: 62367

== ENCOUNTER 2023-07-02 11:22 | Day surgery (SDC) | payer MEDICARE, OTHER ==
[2023-06-28 09:58] VITALS: BMI 36.9
[~2023-07-02 11:22] MED LIST changes: -BUPIVACAINE UP TO 8 MG/ML, 31-60 ML SYRINGE MC ONE; +LACTATED RINGERS 1,000 ML IV SCH; -MORPHINE FOR ANAZAO - PER 10 MG MISCELLANE ONE
[2023-07-02] MEDS ORDERED: BUPIVACAINE UP TO 8 MG/ML, 31-60 ML SYRINGE MC ONE (11:23)
[2023-07-02] MEDS ORDERED: MORPHINE FOR ANAZAO - PER 10 MG MISCELLANE ONE (11:23)
[2023-07-02 12:10] VITALS: BP 152/88; PULSE 69; RESP 18; TEMP 98.3
--- NOTE | 2023-07-02 12:45 | P.PCN ---
Date of Procedure: 07/02/23 Description of Procedure: PROCEDURE: Intrathecal pain pump analysis, programming and reprogramming, and intrathecal pain pump refill. PREOPERATIVE DIAGNOSES: 1. near empty intrathecal pain pump 2. opioid tolerance POSTOPERATIVE DIAGNOSES: 1. near empty intrathecal pain pump 2. opioid tolerance 3. failed back surgery syndrome lumbar area ANESTHESIA: None. CONDITION: Stable. DESCRIPTION OF PROCEDURE: Intrathecal pain pump analysed, it showed patient currently had reservoir volume 2.5 mL. The patient is receiving medication morphine 10mg/ ml, and bupivacaine concentration4 mg/ml. Patient receiving daily dose of 4.583 mg/day and bupivacaine 1.833 mg/day. Pain is well controlled , patient using medication for breakthrough pain The location of the pump left buttock Prepped with chlorhexidine x3 , then using 22-gauge needle [employer] kit advanced through the pump port, Total of 2.5 ml removed from the pump, the pump refills with the new medication total ml . The concentration 10mg /ml, and the bupivacaine concentration 4 mg/ml. The patient will continue to see the daily dose 4.583 mg/day and bupivacaine 1.8332 mg/day and patient will follow up with the pain clinic in 3 months.
[2023-07-02 13:15] LABS: Glucose,Whole Blood 282 mg/dL (70-110)
== END 2023-07-02 11:53 | disposition home or self-care (01) ==
LOC: ORPAIN 11:22
PROVIDERS: ATTEND Hospitalist
DX: Z51.81 Encounter for therapeutic drug level monitoring (principal); M96.1 Postlaminectomy syndrome, not elsewhere classified
CPT/HCPCS: 62370; J2274; 62367

== ENCOUNTER → 2023-08-14 | Outpatient (CLI) | payer MEDICARE, OTHER ==
[2023-08-14 12:59] VITALS: BP 125/83; PULSE 99; RESP 16
--- NOTE | 2023-08-14 14:52 | P.PAINPG ---
PQRS Measure Charge Sheet Comment: A 57 yr old male with a history of severe and chronic LBP secondary to lumbar DDD and spondylosis with facet arthropathy without myelopathy presents today for LBP. Pain level is provoked at 8/10 in intensity, constant, localized in the lumbar spine, sharp in character w shooting towards the R hip. Pain is provoked by bending, standing/ walking for periods of 10 min or more. Pain is alleviated with use of a cane for ambulatory assistance, medications, PT 13 yrs ago, heat, ice, repositioning and rest. Oswestry axial pain score at 35. Interventional pain procedures completed include LESIs, Morphine Pain Pump Patient is currently on Neurontin 800mg, Percocet 10/325mg #120 Patient denies any side effects of the medication(s), denies excessive drowsiness or sleepiness, denies suicidal ideation and reports that the current pain medication is helping to control the pain and improve activities of daily living. Patient denies any motor or sensory deficits. Patient denies any fever or night sweats, denies any change in the bowel movements or urination. Physical Examination: -Constitutional: Cooperative. Not in acute distress . - Neurologic: Cranial nerve II to XII intact. No focal neurological deficits. - Psychatric: Alert & oriented x 3. Matching mood & appropriate affect. Judgment and insight intact. - Musculoskeletal: Cervical spine: Muscle bulk/ tone/ strength in the bilateral upper extremities normal Vertebral body tenderness to palpation over Spurling test positive Distraction test positive Facet loading test positive TTP Thoracic spine Muscle bulk / tone/ strength in the bilateral paraspinal muscles normal Vertebral body tender to palpation over Facet loading test positive TTP Lumbar spine: Motor bulk/ tone/ strength lower extremities , thigh and legs : 5/5 Deep tendon reflexes : Normal Knee Jerk. Normal Ankle Jerk . Vertebral body tenderness to palpation over L3, L4, L5 Peña Test positive Lumbar Facet Loading Test positive Straight Leg Raise: positive at 30 degrees right side/ left side Gaenslen's Test positive Sacral spine : Severe tenderness over the Sacroiliac joint: right side / left side Range of motion: Flexion of the lumbar spine <60 degrees Range of motion: Extension of the lumbar spine <20 degrees Gaenslen's Test positive right side / left side Wilder test: positive right side / left side Thigh Thrust Test positive right side / left side Sacral Thrust Test positive right side / left side Assessment and plan: Chronic LBP secondary to lumbar DDD, spondylosis with facet arthropathy without myelopathy Chronic and current use of high-risk medication (Opioids). The patient was counseled about risk of opioid use, psychological risk associated with opioids and was orally counseled to not overuse , divert or sell medications. Pt is to store medication in a safe location. The patient is counseled against driving while using narcotic medications and also not to use alcohol or any illicit recreational drugs. Patient verbalized understanding that the lack of compliance will result in failure to renew narcotic prescription(s) as well as possible discharge from the clinic Diagnoses, prognosis and treatment options including but not limited to physical therapy, surgical interventions, interventional therapies and medication management including narcotics and adjuvant medication were discussed. All patient questions answered MAPS reviewed and it was appropriate. UDS collected today 08/14/23. Opiate / narcotic agreement signed today 08/14/23. Prescription for Percocet 10/325mg #90, Neruontin 800mg #90, Flexeril 10mg #60 w 1 RF. I have spent less than 30 minutes on patient care today. Dr Varela was available by phone for the evaluation of this patient. The time was used to review the medical records including relevant urine studies and Prescription history (MAPs), review of the available imaging, evaluation and examination of the patient, coordination of care with the medical staff and if applicable referring physicians, as well as creation of the medical record PQRS Narrative: Smoking Status Never smoker Narcotic Agreement Date Signed 02/16/22 Hx Alcohol Use (MH) No Home Medications: Ambulatory Orders Meclizine [Antivert] 12.5 mg PO TID 07/22/13 Morphine Pump 1 dose INTRATHECA CONTINUOUS MDD 2.3MG 01/15/18 LORazepam 0.5 mg PO TID PRN 09/15/19 carBAMazepine [TEGretol] 200 mg PO BID 09/15/19 Insulin Lispro [humaLOG Kwikpen] See Protocol SQ AC-TID PRN 11/24/19 Multivitamins, Thera [Multivitamin (formulary)] 1 tab PO QAM 10/21/20 levETIRAcetam [Keppra] 1,000 mg PO BID 11/24/21 Insulin Aspart [NovoLOG] 8 units SQ ACHS PRN 05/10/22 Testosterone [Testosterone 1.62% (2500 mg)] 2.5 gm TRANSDERM DAILY 08/03/22 DULoxetine HCL [Cymbalta] 60 mg PO BID 10/26/22 Ezetimibe [Zetia] 10 mg PO DAILY 10/26/22 Fish Oil/Dha/Epa [Fish Oil 1,200 mg Fish Oil] 1 each PO DAILY 10/26/22 Insulin Glargine,Hum.rec.anlog [Insulin Glargine Solostar] 90 units SQ HS 10/26/22 Saxagliptin HCl [Onglyza] 2.5 mg PO DAILY 10/26/22 clindamycin HCL [Cleocin] 150 mg PO Q6H 06/28/23 Clindamycin [Cleocin] 300 mg PO Q6H 07/02/23 Cyclobenzaprine [Flexeril] 5 mg PO TID PRN 30 Days #90 tablet 08/14/23 Gabapentin [Neurontin] 800 mg PO BID 30 Days #60 tab 08/14/23 oxyCODONE HCL/ACETAMINOPHEN [Percocet 10-325 mg] 1 tab PO TID PRN 30 Days #90 tab 08/14/23 oxyCODONE HCL/ACETAMINOPHEN [Percocet 10-325 mg] 1 tab PO TID PRN 30 Days #90 tab 08/14/23 Controlled Substance Measures - Controlled Substance Measures Is patient prescribed a controlled substance at discharge?: Yes When asked, does pt state using other controlled substances?: Yes If prescribed controlled substance>3 days was MAPS reviewed?: Yes If Rx opioid, was Start Talking consent form obtained?: Yes Was information provided regarding opioid addiction?: Yes
== END ==
LOC: PNWHC3 11:26
PROVIDERS: ATTEND Specialist
DX: M51.36 Other intervertebral disc degeneration, lumbar region (principal); M47.816 Spondylosis without myelopathy or radiculopathy, lumbar region; Z79.891 Long term (current) use of opiate analgesic; Z88.8 Allergy status to other drugs, medicaments and biological substances; Z88.1 Allergy status to other antibiotic agents; Z88.0 Allergy status to penicillin; Z91.018 Allergy to other foods
CPT/HCPCS: 99212

== ENCOUNTER → 2023-10-03 | Day surgery (SDC) | payer MEDICARE, OTHER ==
[~2023-10-03] MED LIST changes: +BUPIVACAINE UP TO 8 MG/ML, 31-60 ML SYRINGE MC ONE; -LACTATED RINGERS 1,000 ML IV SCH; +MORPHINE FOR ANAZAO - PER 10 MG MISCELLANE ONE
== END ==
LOC: ORPAIN 13:48
PROVIDERS: ATTEND Pain Medicine Interventional Pain Medicine
DX: M54.16 Radiculopathy, lumbar region (principal); M96.1 Postlaminectomy syndrome, not elsewhere classified; Z88.0 Allergy status to penicillin; Z88.1 Allergy status to other antibiotic agents; Z88.8 Allergy status to other drugs, medicaments and biological substances; Z91.018 Allergy to other foods
CPT/HCPCS: 62370

== ENCOUNTER → 2023-11-14 | Outpatient (CLI) | payer MEDICARE, OTHER ==
[2023-11-14 14:40] VITALS: BP 145/82; PULSE 77; RESP 16
--- NOTE | 2023-11-14 14:47 | P.PAINPG ---
Objective - Vital Signs Vital signs: Intake & Output 11/13/23 11/14/23 11/14/23 18:59 06:59 18:59 Weight 108.862 kg PQRS Measure Charge Sheet Comment: A 58 yr old male with a history of severe and chronic LBP secondary to radiculopathy, spondylosis with facet arthropathy without myelopathy presents today for medication refills. Pain level is provoked at 7 /10 in intensity, constant, localized in the lumbar spine, predominantly axial, sharp in character w shooting towards the R hip. Pain is provoked by bending, standing/ walking for periods of 10 min or more. Pain is alleviated with use of a cane for ambulatory assistance, medications, PT 13 yrs ago, heat, ice, repositioning and rest. Interventional pain procedures completed include LESIs, Morphine Pain Pump Patient is currently on Neurontin 800mg, Percocet 10/325mg #90 Patient denies any side effects of the medication(s), denies excessive drowsiness or sleepiness, denies suicidal ideation and reports that the current pain medication is helping to control the pain and improve activities of daily living. Patient denies any motor or sensory deficits. Patient denies any fever or night sweats, denies any change in the bowel movements or urination. Physical Examination: -Constitutional: Cooperative. Not in acute distress . - Neurologic: Cranial nerve II to XII intact. No focal neurological deficits. - Psychatric: Alert & oriented x 3. Matching mood & appropriate affect. Judgment and insight intact. - Musculoskeletal: Cervical spine: Muscle bulk/ tone/ strength in the bilateral upper extremities normal Vertebral body tenderness to palpation over Spurling test positive Distraction test positive Facet loading test positive TTP Thoracic spine Muscle bulk / tone/ strength in the bilateral paraspinal muscles normal Vertebral body tender to palpation over Facet loading test positive TTP Lumbar spine: Motor bulk/ tone/ strength lower extremities , thigh and legs : 5/5 Deep tendon reflexes : Normal Knee Jerk. Normal Ankle Jerk . Vertebral body tenderness to palpation over L3, L4, L5 Peña Test positive Lumbar Facet Loading Test positive Straight Leg Raise: positive at 30 degrees right side/ left side Gaenslen's Test positive Sacral spine : Severe tenderness over the Sacroiliac joint: right side / left side Range of motion: Flexion of the lumbar spine <60 degrees Range of motion: Extension of the lumbar spine <20 degrees Gaenslen's Test positive right side / left side Wilder test: positive right side / left side Thigh Thrust Test positive right side / left side Sacral Thrust Test positive right side / left side Assessment and plan: Chronic LBP secondary to radiculopathy, spondylosis with facet arthropathy without myelopathy Chronic and current use of high-risk medication (Opioids). The patient was counseled about risk of opioid use, psychological risk associated with opioids and was orally counseled to not overuse , divert or sell medications. Pt is to store medication in a safe location. The patient is counseled against driving while using narcotic medications and also not to use alcohol or any illicit recreational drugs. Patient verbalized understanding that the lack of compliance will result in failure to renew narcotic prescription(s) as well as possible discharge from the clinic Diagnoses, prognosis and treatment options including but not limited to physical therapy, surgical interventions, interventional therapies and medication management including narcotics and adjuvant medication were discussed. All patient questions answered MAPS reviewed and it was appropriate. UDS from 08/14/23 reviewed and consistent. Opiate / narcotic agreement signed today 08/14/23. Prescription for Percocet 10/325mg #90, Neurontin 800mg #90 w 1 RF. Wants Flexeril 10mg #60 discontinued. I have spent less than 30 minutes on patient care today. Dr Varela was available by phone for the evaluation of this patient. The time was used to review the medical records including relevant urine studies and Prescription history (MAPs), review of the available imaging, evaluation and examination of the patient, coordination of care with the medical staff and if applicable referring physicians, as well as creation of the medical record PQRS Narrative: Smoking Status Never smoker Narcotic Agreement Date Signed 08/14/23 Hx Alcohol Use (MH) No Home Medications: Ambulatory Orders Meclizine [Antivert] 12.5 mg PO TID 07/22/13 Morphine Pump 1 dose INTRATHECA CONTINUOUS MDD 2.3MG 01/15/18 LORazepam 0.5 mg PO TID PRN 09/15/19 carBAMazepine [TEGretol] 200 mg PO BID 09/15/19 levETIRAcetam [Keppra] 1,000 mg PO BID 11/24/21 Testosterone [Testosterone 1.62% (2500 mg)] 2.5 gm TRANSDERM DAILY 08/03/22 DULoxetine HCL [Cymbalta] 60 mg PO BID 10/26/22 Ezetimibe [Zetia] 10 mg PO DAILY 10/26/22 Cyclobenzaprine [Flexeril] 5 mg PO TID PRN 30 Days #90 tablet 11/14/23 DULoxetine HCL [Cymbalta] 60 % .ROUTE BID 11/14/23 Gabapentin [Neurontin] 800 mg PO BID 30 Days #60 tab 11/14/23 INSULIN LISPRO (For Pump) [humaLOG (For Pump)] 0.01 units SQ-PUMP CONTINUOUS 11/14/23 Ibuprofen 800 mg PO Q8H 11/14/23 Insulin Glargine [Lantus Vial] 100 % .ROUTE DAILY 11/14/23 Losartan [Cozaar] 25 % .ROUTE QID 11/14/23 Nystatin 100,000 Unit/gm Powd [Mycostatin Powder] 100,000 % BID 11/14/23 PARoxetine HCL [Paxil] 40 100ml.bag .ROUTE BID 11/14/23 carBAMazepine [Carbatrol] 200 11/14/23 oxyCODONE HCL/ACETAMINOPHEN [Percocet 10-325 mg] 1 tab PO TID PRN 30 Days #90 tab 11/14/23 oxyCODONE HCL/ACETAMINOPHEN [Percocet 10-325 mg] 1 tab PO TID PRN 30 Days #90 tab 11/14/23 Controlled Substance Measures - Controlled Substance Measures Is patient prescribed a controlled substance at discharge?: Yes When asked, does pt state using other controlled substances?: Yes If prescribed controlled substance>3 days was MAPS reviewed?: Yes
== END ==
LOC: PNWHC3 13:51
PROVIDERS: ATTEND Specialist
DX: M54.50 Low back pain, unspecified (principal); M54.16 Radiculopathy, lumbar region; M47.816 Spondylosis without myelopathy or radiculopathy, lumbar region; Z79.890 Hormone replacement therapy; Z88.8 Allergy status to other drugs, medicaments and biological substances; Z88.1 Allergy status to other antibiotic agents; Z88.0 Allergy status to penicillin; Z91.018 Allergy to other foods
CPT/HCPCS: 99211

== ENCOUNTER 2023-12-26 16:06 | Observation (INO) | payer MEDICARE, OTHER ==
[2023-12-26] MEDS ORDERED: DEXTROSE 50% SYRINGE 50 ML IVP PRN ×2 (16:53)
[2023-12-26] MEDS ORDERED: CYCLOBENZAPRINE 5 MG TAB PO PRN (17:12)
[2023-12-26 17:24] LABS: Glucose,Whole Blood 288 mg/dL (70-110)
--- NOTE | 2023-12-26 17:31 | P.HPIM ---
History of Present Illness H&P Date: 12/26/23 Chief Complaint: Morphine overdose This is a pleasant 58-year-old patient who follows with Dr. James Figueroa. Chronic stable medical conditions include diabetes, fibromyalgia, GERD, hyperlipidemia, seizure disorder, sleep apnea, restless leg syndrome, narcolepsy, RSD of the right leg. Patient does follow with Dr. Varela from pain management services. Has had a morphine pump for about 12 years. He came in for refill today. Dr. Adriano Griffin from anesthesia gave the patient about 40 cc of morphine concentrate. 10 mg /1 cc. There was extravasation. He managed to take out 22 cc. Patient has now been admitted in case patient has a morphine overdose. Close monitoring of vital signs. Patient is awake. Able to answer questions. Review of systems: GEN.: Tired EYES: None HEENT: None NECK: None RESPIRATORY: None CARDIOVASCULAR: None GASTROINTESTINAL: None GENITOURINARY: None MUSCULOSKELETAL: Right lateral extremity pain, some back] LYMPHATICS: None HEMATOLOGICAL: None PSYCHIATRY: None Social history: Lives alone. Denies any alcohol and smoking. Physical examination: VITAL SIGNS: Reviewed. BMI noted GENERAL: BMI 37.6, reclining in bed awake a bit tired. EYES: Pupils equal. Conjunctiva nawaf l. HEENT: External appearance of nose and ears normal, oral cavity grossly normal. NECK: JVD not raised; masses not palpable. HEART: First and second heart sounds are normal; no edema. LUNGS: Respiratory rate normal; clear to auscultation. ABDOMEN: Soft, nontender, liver spleen not palpable, no masses palpable. Morphine pain pump site lower back left PSYCH: Alert and oriented x3; mood and affect tired l. MUSCULOSKELETAL:No Clubbing/cyanosis;muscles-grossly intact NEUROLOGICAL: Cranial nerves grossly intact; no facial asymmetry, power and sensation grossly intact. LYMPHATICS: No lymph nodes palpable in the axilla and neck Investigations: CBC CMP pending Assessment plan: -Morphine IV form to be given intrathecally via pain pump extravasation. 40 cc were injected. 22 cc was removed. 18 cc at concentration of 10 mg/per cc. Since absorption of more physical to be erratic patient will be watched for change in mental status. If need be Narcan will be given. I did speak to Dr. Randolph from ICU, as a backup if need be. Currently no beds in the ICU. -Chronic pain syndrome including reflex sympathetic dystrophy Given morphine half-life is few hours and after discussion with Dr. Haily awad from pain management. Patient being started on fentanyl patch 50 mcg at 9 PM today. His procedure was done around 4 PM today. Patient has Percocet for as needed. Neurontin. Cymbalta -Chronic fibromyalgia with muscle spasms Flexeril as needed -Seizure disorder Keppra, carbamazepine -Essential hypertension Cozaar -Diabetes mellitus type 2, chronically insulin Lantus. Sliding scale with Humalog. -Hyperlipidemia Zetia -Full code Patient be placed into observation. Discussed with from anesthesia. He will follow along fall pain. Dr. Randolph from platform attendant, [facility]. 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 RSD rt leg/feet, collapsed VERTEBRA back, CURRENTLY ON ANTIBIOTICS FOR INFECTED TEETH History of Any Multi-Drug Resistant Organisms: MRSA Date of last positivie culture/infection: 2008 MDRO Source:: wound in neck Past Surgical History: Adenoidectomy, Appendectomy, Back Surgery, Bariatric Surgery, Orthopedic Surgery, Tonsillectomy Additional Past Surgical History / Comment(s): Eyes/plastic surgery, tongue surgery, circumcision, Rt foot surgeries, neck fusion, pain pump, lap band/later removed. 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 PAIN CLINIC PROCEDURES, Past Anesthesia/Blood Transfusion Reactions: Previous Problems w/ Anesthesia Additional Past Anesthesia/Blood Transfusion Reaction / Comment(s): "slow to c ome out due to narcolepsy" comes out with low oxygen level-pt denies this. Never had blood transfusion. Past Psychological History: No Psychological Hx Reported Additional Psychological History / Comment(s): Pt resides alone. Smoking Status: Never smoker Past Alcohol Use History: None Reported Past Drug Use History: None Reported - Past Family History Father Family Medical History: CVA/TIA Additional Family Medical History / Comment(s): from "massive stroke" Mother Family Medical History: Cancer, Deep Vein Thrombosis (DVT), Pulmonary Embolus Brother(s) Family Medical History: Deep Vein Thrombosis (DVT) Medications and Allergies Home Medications Medication Instructions Recorded Confirmed Type Meclizine [Antivert] 12.5 mg PO TID 07/22/13 12/26/23 History Morphine Pump 1 dose INTRATHECA CONTINUOUS MDD 01/15/18 12/26/23 History 2.3MG LORazepam 0.5 mg PO TID PRN 09/15/19 12/26/23 History carBAMazepine [TEGretol] 200 mg PO BID 09/15/19 12/26/23 History levETIRAcetam [Keppra] 800 mg PO BID 11/24/21 12/26/23 History Testosterone [Testosterone 1.62% 2.5 gm TRANSDERM DAILY 08/03/22 12/26/23 History (2500 mg)] DULoxetine HCL [Cymbalta] 60 mg PO BID 10/26/22 12/26/23 History Ezetimibe [Zetia] 10 mg PO DAILY 10/26/22 12/26/23 History Cyclobenzaprine [Flexeril] 5 mg PO TID PRN 30 Days #90 tablet 11/14/23 12/26/23 Rx Gabapentin [Neurontin] 800 mg PO BID 30 Days #60 tab 11/14/23 12/26/23 Rx Insulin Glargine [Lantus Vial] 90 units SQ 2230 11/14/23 12/26/23 History Losartan [Cozaar] 25 mg PO QID 11/14/23 12/26/23 History Nystatin 100,000 Unit/gm Powd 1 applic TOPICAL DIRECTED PRN 11/14/23 12/23/23 History [Mycostatin Powder] oxyCODONE HCL/ACETAMINOPHEN 1 tab PO TID PRN 30 Days #90 tab 11/14/23 12/26/23 Rx [Percocet 10-325 mg] INSULIN LISPRO (HumaLOG) [humaLOG] 50 units SQ 1730 12/23/23 12/26/23 History Allergies Allergy/AdvReac Type Severity Reaction Status Date / Time bupropion HCl Allergy Dyspnea Verified 12/26/23 13:17 [From Wellbutrin] cephalexin [Cephalexin] Allergy Dyspnea Verified 12/26/23 13:17 cephalexin monohydrate Allergy Dyspnea,hiv Verified 12/26/23 13:17 [From Keflex] es penicillin G Allergy Rash/Hives Verified 12/26/23 13:17 onion Allergy Dyspnea,hiv Uncoded 12/26/23 13:17 es Physical Exam Vitals: Intake and Output 12/26/23 12/26/23 12/26/23 06:59 14:59 22:59 Other: Weight 118.8 kg
[2023-12-26] MEDS: INSULIN ASPART (NovoLOG) 100 UNIT/ML VIAL SQ SCH ×2 (17:55→17:58)
[2023-12-26 17:59] LABS: HCT 48.8 % (39.0-53.0); HGB 16.2 gm/dL (13.0-17.5); MCH 31.1 pg (25.0-35.0); MCHC 33.1 g/dL (31.0-37.0); MCV 93.9 fL (80.0-100.0); Mean Platelet Volume 6.8; Platelet Count 265 k/uL (150-450); RDW 12.9 % (11.5-15.5); WBC 8.2 k/uL (3.8-10.6)
[2023-12-26] MEDS: LACTATED RINGERS 1,000 ML IV SCH (18:00)
[2023-12-26 18:09] LABS: ALT 54 U/L (4-49); AST 83 U/L (17-59); African American GFR (CKD) >90 (>60 ml/min/1.73 sqM); Albumin 3.9 g/dL (3.5-5.0); Alkaline Phosphatase 89 U/L (38-126); Anion Gap 8 mmol/L; Blood Urea Nitrogen 10 mg/dL (9-20); Calcium 9.3 mg/dL (8.4-10.2); Carbon Dioxide 27 mmol/L (22-30); Chloride 101 mmol/L (98-107); Glucose 330 mg/dL (74-99); Non-African American GFR(CKD) >90 (>60 ml/min/1.73 sqM); Potassium 4.4 mmol/L (3.5-5.1); Sodium 136 mmol/L (137-145); Total Bilirubin 0.5 mg/dL (0.2-1.3); Total Protein 7.2 g/dL (6.3-8.2)
[2023-12-26] MEDS: LOSARTAN 25 MG TAB PO SCH (18:57)
[2023-12-26] MEDS: NALOXONE 0.4 MG/ML 1 ML VIAL IVP PRN (19:42)
[2023-12-26 19:51] LABS: Glucose,Whole Blood 434 mg/dL (70-110)
[2023-12-26] MEDS: PROCHLORPERAZINE INJ 10 MG/2 ML VIAL IVP PRN (19:55)
[2023-12-26 20:26] LABS: Glucose,Whole Blood 283 mg/dL (70-110)
[2023-12-26] MEDS: NALOXONE (MDV) 2 MG in SODIUM CHLORIDE 0.9% 250 ML IV SCH (20:47)
[2023-12-26] MEDS: GABAPENTIN 400 MG CAP PO SCH (20:49)
[2023-12-26] MEDS: ONDANSETRON 4 MG/2 ML VIAL IVP PRN (20:57)
[2023-12-26] MEDS: INSULIN DETEMIR (LEVEMIR) 100 UNIT/ML SYR SQ SCH (21:42)
[2023-12-26] MEDS: MECLIZINE 12.5 MG TAB PO SCH (21:43)
[2023-12-26] MEDS: DULoxetine HCL 60 MG CAPSULE.DR PO SCH (23:16)
[2023-12-26] MEDS: carBAMazepine 200 MG TAB PO SCH (23:17)
[2023-12-26] MEDS: levETIRAcetam 500 MG TAB PO SCH (23:17)
[2023-12-26] MEDS: LORazepam 0.5 MG TAB PO PRN (23:19)
[2023-12-26] MEDS: oxyCODONE-APAP 10-325MG 1 EACH TAB PO PRN (23:37)
[2023-12-27 05:33] LABS: Basophils # (A) 0.1 k/uL (0-0.2); Basophils % (A) 1 %; Eosinophils # (A) 0.2 k/uL (0-0.7); Eosinophils % (A) 2 %; HCT 46.5 % (39.0-53.0); HGB 15.6 gm/dL (13.0-17.5); Lymphocytes # (A) 4.1 k/uL (1.0-4.8); Lymphocytes % (A) 44 %; MCHC 33.6 g/dL (31.0-37.0); MCV 92.1 fL (80.0-100.0); Monocytes # (A) 0.4 k/uL (0-1.0); Monocytes % (A) 4 %; Neutrophils # (A) 4.4 k/uL (1.3-7.7); Neutrophils % (A) 47 %; Platelet Count 258 k/uL (150-450); RBC 5.05 m/uL (4.30-5.90); RDW 13.2 % (11.5-15.5); WBC 9.3 k/uL (3.8-10.6)
[2023-12-27 05:50] LABS: African American GFR (CKD) >90 (>60 ml/min/1.73 sqM); Anion Gap 7 mmol/L; Blood Urea Nitrogen 11 mg/dL (9-20); Calcium 8.9 mg/dL (8.4-10.2); Carbon Dioxide 26 mmol/L (22-30); Chloride 102 mmol/L (98-107); Glucose 225 mg/dL (74-99); Non-African American GFR(CKD) >90 (>60 ml/min/1.73 sqM); Potassium 4.3 mmol/L (3.5-5.1); Sodium 135 mmol/L (137-145)
[2023-12-27 06:34] LABS: Glucose,Whole Blood 195 mg/dL (70-110)
[2023-12-27 09:01] VITALS: TEMP 98
[2023-12-27] MEDS: EZETIMIBE 10 MG TAB PO SCH (09:03)
[2023-12-27] MEDS: LOSARTAN 25 MG TAB PO SCH (09:03)
[2023-12-27] MEDS: ENOXAPARIN 40 MG/0.4 ML SYRINGE SQ SCH (09:04)
[2023-12-27] MEDS: TESTOSTERONE TRANSDERM SCH (09:05)
--- NOTE | 2023-12-27 09:21 | P.PAINCN ---
History of Present Illness - History of Present Illness Patient was admitted yesterday for observation following possible morphine tox icity. Please refer to my procedure note from 12/26/2023 Patient is sitting in the bed comfortably this morning. Vitals are stable. Complain of sedation or withdrawal. 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 RSD rt leg/feet, collapsed VERTEBRA back, CURRENTLY ON ANTIBIOTICS FOR INFECTED TEETH History of Any Multi-Drug Resistant Organisms: MRSA Year Discovered:: 2008 MDRO Source:: wound in neck Past Surgical History: Adenoidectomy, Appendectomy, Back Surgery, Bariatric Surgery, Orthopedic Surgery, Tonsillectomy Additional Past Surgical History / Comment(s): Eyes/plastic surgery, tongue surgery, circumcision, Rt foot surgeries, neck fusion, pain pump, lap band/later removed. 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 PAIN CLINIC PROCEDURES, Past Anesthesia/Blood Transfusion Reactions: Previous Problems w/ Anesthesia Additional Past Anesthesia/Blood Transfusion Reaction / Comm: "slow to come out due to narcolepsy" comes out with low oxygen level-pt denies this. Never had blood transfusion. Past Psychological History: No Psychological Hx Reported Additional Psychological History / Comment(s): Pt resides alone. Smoking Status: Never smoker Past Alcohol Use History: None Reported Past Drug Use History: None Reported - Past Family History Father Family Medical History: CVA/TIA Additional Family Medical History / Comment(s): from "massive stroke" Mother Family Medical History: Cancer, Deep Vein Thrombosis (DVT), Pulmonary Embolus Brother(s) Family Medical History: Deep Vein Thrombosis (DVT) Medications and Allergies Home Medications Medication Instructions Recorded Confirmed Type Meclizine [Antivert] 12.5 mg PO TID 07/22/13 12/26/23 History LORazepam 0.5 mg PO TID PRN 09/15/19 12/26/23 History carBAMazepine [TEGretol] 200 mg PO BID 09/15/19 12/26/23 History levETIRAcetam [Keppra] 1,000 mg PO BID 11/24/21 12/26/23 History DULoxetine HCL [Cymbalta] 60 mg PO BID 10/26/22 12/26/23 History Cyclobenzaprine [Flexeril] 5 mg PO TID PRN 30 Days #90 tablet 11/14/23 12/26/23 Rx Gabapentin [Neurontin] 800 mg PO BID 30 Days #60 tab 11/14/23 12/26/23 Rx Losartan [Cozaar] 25 mg PO DAILY 11/14/23 12/26/23 History oxyCODONE HCL/ACETAMINOPHEN 1 tab PO TID PRN 30 Days #90 tab 11/14/23 12/26/23 Rx [Percocet 10-325 mg] Insulin Glargine,Hum.rec.anlog 90 units SQ HS 12/26/23 12/26/23 History [Lantus Solostar Pen] Insulin Lispro [humaLOG Kwikpen] 40 unit SQ W/SUPPER 12/26/23 12/26/23 History Linagliptin [Tradjenta] 5 mg PO DAILY 12/26/23 12/26/23 History Patient Own Pump 0 bag 12/26/23 History Testosterone [Androgel 1.62%] 1 pump TRANSDERM DAILY 12/26/23 12/26/23 History Allergies Allergy/AdvReac Type Severity Reaction Status Date / Time bupropion HCl Allergy Dyspnea Verified 12/26/23 18:22 [From Wellbutrin] cephalexin [Cephalexin] Allergy Dyspnea Verified 12/26/23 18:22 cephalexin monohydrate Allergy Dyspnea,hiv Verified 12/26/23 18:22 [From Keflex] es penicillin G Allergy Rash/Hives Verified 12/26/23 18:22 onion Allergy Dyspnea,hiv Uncoded 12/26/23 13:17 es Physical Exam Vitals: Vital Signs Temp Pulse Pulse Resp BP BP Pulse Ox 12/27/23 08:00 98 F 76 12 121/79 94 L 12/27/23 07:00 84 23 129/78 96 12/27/23 06:00 81 14 111/63 94 L 12/27/23 05:00 87 13 138/80 95 12/27/23 04:00 98.0 F 95 13 146/80 96 12/27/23 03:00 84 12 134/74 95 12/27/23 02:00 101 H 12 141/80 95 12/27/23 01:00 100 11 L 132/92 95 12/27/23 00:00 99.5 F 104 H 14 140/81 95 12/26/23 23:30 110 H 15 87 L 12/26/23 23:00 105 H 19 155/96 94 L 12/26/23 22:30 97 13 148/88 95 12/26/23 22:00 98 13 132/74 95 12/26/23 21:30 96 10 L 143/75 96 12/26/23 21:00 94 13 161/93 91 L 12/26/23 20:47 10 L 12/26/23 20:30 99.0 F 100 14 161/93 91 L 12/26/23 19:46 101 H 10 L 114/81 97 12/26/23 19:42 10 L 12/26/23 19:06 120/78 12/26/23 18:36 86 120/83 12/26/23 18:21 92 13 111/77 94 L 12/26/23 18:06 79 14 131/83 95 12/26/23 17:51 85 15 124/84 95 12/26/23 17:27 97.7 F 76 17 143/74 98 Intake and Output 12/26/23 12/27/23 12/27/23 22:59 06:59 14:59 Intake Total 213 1158.75 530 Output Total 1000 825 Balance -787 333.75 530 Intake: IV 95 475 50 0.9% NS KVO 20 Lactated Ringers 1,000 ml 400 50 @ 50 mls/hr IV .Q20H [facility] Rx#:[id number] Naloxone (Mdv) 2 mg In 75 75 Sodium Chloride 0.9% 250 ml @ 0.6 MG/HR 75 mls/hr IV .Q3H20M [facility] Rx#: [id number] Intake, IV Titration 203.75 Amount Naloxone (Mdv) 2 mg In 203.75 Sodium Chloride 0.9% 250 ml @ 0.6 MG/HR 75 mls/hr IV .Q3H20M [facility] Rx#: [id number] Oral 118 480 480 Output: Urine 1000 825 Other: Voiding Method Urinal Urinal Weight 118.8 kg 118.8 kg Physical exam deferred at this time. - Constitutional Patient is awake, alert, oriented x 3 Results CBC & Chem 7: 12/27/23 05:08 12/27/23 05:08 Labs: Abnormal Lab Results - Last 24 Hours (Table) 12/26/23 12/26/23 12/26/23 Range/Units 17:23 17:43 19:50 Sodium 136 L (137-145) mmol/L Creatinine 0.48 L (0.66-1.25) mg/dL Glucose 330 H (74-99) mg/dL POC Glucose (mg/dL) 288 H 434 H (70-110) mg/dL AST 83 H (17-59) U/L ALT 54 H (4-49) U/L 12/26/23 12/27/23 12/27/23 Range/Units 20:25 05:08 06:32 Sodium 135 L (137-145) mmol/L Creatinine 0.52 L (0.66-1.25) mg/dL Glucose 225 H (74-99) mg/dL POC Glucose (mg/dL) 283 H 195 H (70-110) mg/dL AST (17-59) U/L ALT (4-49) U/L Assessment and Plan Assessment: Precautionary admission into the hospital secondary to anticipated opioid overdose. Plan: Patient did not go through opioid toxicity or withdrawal. He can go home this morning. As patient has chronic opioid dependence, to avoid going through withdrawal and pain controlled we will prescribe the following meds. Will give prescription for 1. Fentanyl transdermal patch 50 mcg/h to change every 3 days. 2. Percocet 10/325. 1 pill every 8 hours as needed. Patient was instructed to call pain clinic for refill of intrathecal pump. PQRS Measure Charge Sheet PQRS Narrative: Smoking Status Never smoker Narcotic Agreement Date Signed 08/14/23 Blood Pressure [Right Arm] 114/81 Blood Pressure 121/79 Pain Intensity [None] 0 Pain Intensity 8 Pain Scale Used Numeric (1 - 10) Scale Used Numeric (1 - 10) Hx Alcohol Use (MH) No Home Medications: Ambulatory Orders Meclizine [Antivert] 12.5 mg PO TID 07/22/13 LORazepam 0.5 mg PO TID PRN 09/15/19 carBAMazepine [TEGretol] 200 mg PO BID 09/15/19 levETIRAcetam [Keppra] 1,000 mg PO BID 11/24/21 DULoxetine HCL [Cymbalta] 60 mg PO BID 10/26/22 Cyclobenzaprine [Flexeril] 5 mg PO TID PRN 30 Days #90 tablet 11/14/23 Gabapentin [Neurontin] 800 mg PO BID 30 Days #60 tab 11/14/23 Losartan [Cozaar] 25 mg PO DAILY 11/14/23 oxyCODONE HCL/ACETAMINOPHEN [Percocet 10-325 mg] 1 tab PO TID PRN 30 Days #90 tab 11/14/23 Insulin Glargine,Hum.rec.anlog [Lantus Solostar Pen] 90 units SQ HS 12/26/23 Insulin Lispro [humaLOG Kwikpen] 40 unit SQ W/SUPPER 12/26/23 Linagliptin [Tradjenta] 5 mg PO DAILY 12/26/23 Patient Own Pump 0 bag 12/26/23 Testosterone [Androgel 1.62%] 1 pump TRANSDERM DAILY 12/26/23
[2023-12-27 13:02] VITALS: BP 137/86; PULSE 81; RESP 10
--- NOTE | 2023-12-27 14:21 | P.CNPUL ---
History of Present Illness Consult date: 12/27/23 Chief complaint: Morphine toxicity History of present illness: On 12/27/2023, the patient is being seen in consultation. I was involved in his care yesterday as the patient had an acute morphine toxicity/overdose. While having his morphine pump filled, the morphine infusion infiltrated under the skin and it was estimated that a total of 180 mg of morphine with subcutaneous. The patient felt drowsy. At that time, he had no significant respiratory suppression. He remains slightly drowsy. Overnight, the patient was given Narcan which resulted in significant nausea and dry heaving. Ultimately, the Narcan was discontinued and the patient is currently off Narcan. He is doing well. He is awake and alert. Pupils are round 5 mm in size and reactive. Breathing comfortable. Denies having any shortness of breath. 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 He also utilizes a combination of fentanyl patch 50 mcg every 72 hours and Percocets 10 3 times a day on an outpatient basis. He is known to have a combination of other comorbi dities. He states that he has obstructive sleep apnea and is not utilizing CPAP. He also states that he has narcolepsy and I do not see the patient on any treatment regarding this disorder. He has history of seizure disorder, currently inactive and stable. The patient has also chronic back pain, diabetes mellitus, fibromyalgia, acid reflux and hyperlipidemia. His white cell count is at 9.3, hemoglobin 15.6 and a platelet count of 258. BUN is 11 with a creatinine 0.5 and a sodium of is at 135. Awake and alert and communicating. Denies having any other new complaints for now. Review of Systems Constitutional: Reports daytime sleepiness, Reports fatigue, Reports weight gain Eyes: denies as per HPI, denies blurred vision, denies bulging eye, denies decreased vision, denies diplopia, denies discharge, denies dry eye, denies irritation, denies itching, denies pain, denies photophobia, denies loss of peripheral vision, denies loss of vision, denies tunnel vision/blind spots Ears: deny: decreased hearing, ear discharge, earache, tinnitus Ears, nose, mouth and throat: Reports as per HPI Breasts: absent: as per HPI, gynecomastia Cardiovascular: Reports as per HPI Respiratory: Reports as per HPI, Reports sleep apnea, Reports snoring Gastrointestinal: Reports as per HPI Genitourinary: Reports as per HPI Musculoskeletal: Reports as per HPI (Fibromyalgia, chronic pain, reflux sympathetic dystrophy over the right lower extremity with chronic pain), Reports low back pain, Reports shooting leg pain Musculoskeletal: absent: ankle pain, ankle stiffness, ankle swelling, as per HPI, elbow pain, elbow stiffness, elbow swelling, foot pain, foot stiffness, foot swelling, hand pain, hand stiffness, hand swelling, hip pain, hip stiffness, hip swelling, knee pain, knee stiffness, knee swelling, shoulder pain, shoulder stiffness, shoulder swelling, wrist pain, wrist stiffness, wrist swelling Integumentary: Reports as per HPI Neurological: Reports as per HPI Psychiatric: Reports as per HPI Endocrine: Reports as per HPI, Reports fatigue Hematologic/Lymphatic: Reports as per HPI Allergic/Immunologic: Reports as per HPI Past Medical History Past Medical History: Diabetes Mellitus, Fibromyalgia, GERD/Reflux, Hyperlipidemia, Seizure Disorder, Sleep Apnea/CPAP/BIPAP Additional Past Medical History / Comment(s): bells palsy, 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 RSD rt leg/feet, collapsed VERTEBRA back, CURRENTLY ON ANTIBIOTICS FOR INFECTED TEETH History of Any Multi-Drug Resistant Organisms: MRSA Date of last positivie culture/infection: 2008 MDRO Source:: wound in neck Past Surgical History: Adenoidectomy, Appendectomy, Back Surgery, Bariatric Surgery, Orthopedic Surgery, Tonsillectomy Additional Past Surgical History / Comment(s): Eyes/plastic surgery, tongue surgery, circumcision, Rt foot surgeries, neck fusion, pain pump, lap band/later removed. 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 PAIN CLINIC PROCEDURES, Past Anesthesia/Blood Transfusion Reactions: Previous Problems w/ Anesthesia Additional Past Anesthesia/Blood Transfusion Reaction / Comment(s): "slow to co me out due to narcolepsy" comes out with low oxygen level-pt denies this. Never had blood transfusion. Past Psychological History: No Psychological Hx Reported Additional Psychological History / Comment(s): Pt resides alone. Smoking Status: Never smoker Past Alcohol Use History: None Reported Past Drug Use History: None Reported - Past Family History Father Family Medical History: CVA/TIA Additional Family Medical History / Comment(s): from "massive stroke" Mother Family Medical History: Cancer, Deep Vein Thrombosis (DVT), Pulmonary Embolus Brother(s) Family Medical History: Deep Vein Thrombosis (DVT) Medications and Allergies Home Medications Medication Instructions Recorded Confirmed Type Meclizine [Antivert] 12.5 mg PO TID 07/22/13 12/26/23 History LORazepam 0.5 mg PO TID PRN 09/15/19 12/26/23 History carBAMazepine [TEGretol] 200 mg PO BID 09/15/19 12/26/23 History levETIRAcetam [Keppra] 1,000 mg PO BID 11/24/21 12/26/23 History DULoxetine HCL [Cymbalta] 60 mg PO BID 10/26/22 12/26/23 History Cyclobenzaprine [Flexeril] 5 mg PO TID PRN 30 Days #90 tablet 11/14/23 12/26/23 Rx Gabapentin [Neurontin] 800 mg PO BID 30 Days #60 tab 11/14/23 12/26/23 Rx Losartan [Cozaar] 25 mg PO DAILY 11/14/23 12/26/23 History oxyCODONE HCL/ACETAMINOPHEN 1 tab PO TID PRN 30 Days #90 tab 11/14/23 12/26/23 Rx [Percocet 10-325 mg] Insulin Glargine,Hum.rec.anlog 90 units SQ HS 12/26/23 12/26/23 History [Lantus Solostar Pen] Insulin Lispro [humaLOG Kwikpen] 40 unit SQ W/SUPPER 12/26/23 12/26/23 History Linagliptin [Tradjenta] 5 mg PO DAILY 12/26/23 12/26/23 History Patient Own Pump 0 bag 12/26/23 History Testosterone [Androgel 1.62%] 1 pump TRANSDERM DAILY 12/26/23 12/26/23 History Ezetimibe [Zetia] 10 mg PO DAILY tab 12/27/23 Rx fentaNYL 50MCG/HR PATCH [Duragesic 1 patch TRANSDERM Q72H patch 12/27/23 Rx 50MCG/HR] Allergies Allergy/AdvReac Type Severity Reaction Status Date / Time bupropion HCl Allergy Dyspnea Verified 12/26/23 18:22 [From Wellbutrin] cephalexin [Cephalexin] Allergy Dyspnea Verified 12/26/23 18:22 cephalexin monohydrate Allergy Dyspnea,hiv Verified 12/26/23 18:22 [From Keflex] es penicillin G Allergy Rash/Hives Verified 12/26/23 18:22 onion Allergy Dyspnea,hiv Uncoded 12/26/23 13:17 es Physical Exam Vitals: Vital Signs Temp Pulse Pulse Resp BP BP Pulse Ox 12/27/23 08:00 98 F 76 12 121/79 94 L 12/27/23 07:00 84 23 129/78 96 12/27/23 06:00 81 14 111/63 94 L 12/27/23 05:00 87 13 138/80 95 12/27/23 04:00 98.0 F 95 13 146/80 96 12/27/23 03:00 84 12 134/74 95 12/27/23 02:00 101 H 12 141/80 95 12/27/23 01:00 100 11 L 132/92 95 12/27/23 00:00 99.5 F 104 H 14 140/81 95 12/26/23 23:30 110 H 15 87 L 12/26/23 23:00 105 H 19 155/96 94 L 12/26/23 22:30 97 13 148/88 95 12/26/23 22:00 98 13 132/74 95 12/26/23 21:30 96 10 L 143/75 96 12/26/23 21:00 94 13 161/93 91 L 12/26/23 20:47 10 L 12/26/23 20:30 99.0 F 100 14 161/93 91 L 12/26/23 19:46 101 H 10 L 114/81 97 12/26/23 19:42 10 L 12/26/23 19:06 120/78 12/26/23 18:36 86 120/83 12/26/23 18:21 92 13 111/77 94 L 12/26/23 18:06 79 14 131/83 95 12/26/23 17:51 85 15 124/84 95 12/26/23 17:27 97.7 F 76 17 143/74 98 Intake and Output 12/26/23 12/27/23 12/27/23 22:59 06:59 14:59 Intake Total 213 1158.75 630 Output Total 1000 825 Balance -787 333.75 630 Intake: IV 95 475 150 0.9% NS KVO 20 Lactated Ringers 1,000 ml 400 150 @ 50 mls/hr IV .Q20H REJI Rx#:[id number] Naloxone (Mdv) 2 mg In 75 75 Sodium Chloride 0.9% 250 ml @ 0.6 MG/HR 75 mls/hr IV .Q3H20M REJI Rx#: [id number] Intake, IV Titration 203.75 Amount Naloxone (Mdv) 2 mg In 203.75 Sodium Chloride 0.9% 250 ml @ 0.6 MG/HR 75 mls/hr IV .Q3H20M REJI Rx#: [id number] Oral 118 480 480 Output: Urine 1000 825 Other: Voiding Method Urinal Urinal Weight 118.8 kg 118.8 kg The patient appeared well nourished and normally developed. Vital signs as documented. The patient carries a body mass index of 37.6 Head exam is unremarkable. No scleral icterus or corneal arcus noted. Neck is without jugular venous distension, thyromegaly, or carotid bruits. Carotid upstrokes are brisk bilaterally. The patient has a Mallampati class IV with significant degree posterior pharynx Lungs are clear to auscultation and percussion. Cardiac exam reveals the PMI to be normally sized and situated. Rhythm is regular. First and second heart sounds normal. No murmurs, rubs or gallops. Abdominal exam reveals normal bowel sounds, no masses, no organomegaly and no aortic enlargement. A morphine pump is located over his left flank area Extremities are nonedematous and both femoral and pedal pulses are normal. Examination of the skin revealed no evidence of significant rashes, suspicious appearing nevi or other concerning lesions. Neurologically, the patient is awake and alert and the patient does not have any focal neurological deficit. Cranial nerves are essentially intact. Pupils are 5 mm in size, reactive to light Results - Laboratory Findings CBC and BMP: 12/27/23 05:08 12/27/23 05:08 Abnormal lab findings: Abnormal Labs 12/26/23 12/26/23 12/26/23 17:23 17:43 19:50 Sodium 136 L Creatinine 0.48 L Glucose 330 H POC Glucose (mg/dL) 288 H 434 H AST 83 H ALT 54 H 12/26/23 12/27/23 12/27/23 20:25 05:08 06:32 Sodium 135 L Creatinine 0.52 L Glucose 225 H POC Glucose (mg/dL) 283 H 195 H AST ALT - Diagnostic Findings Chest x-ray: image reviewed Assessment and Plan Plan: Acute morphine toxicity related to examination of morphine into the subcutaneous tissue while filling the morphine pump. Estimated morphine extravasation is in the order of 180 mg. The patient had 40 cc of morphine concentrate infused and 22 cc was suctioned back. The morphine concentrate was 10 mg/cc. Narcan was given with side effects, probably causing some withdrawal symptoms as the patient experienced nausea Diminished level of consciousness, recovered and the patient is back to normal mentation. Pupils are equal reactive to light at around 5 mm. No signs of any respiratory suppression. Breathing comfortably, communicating, denies having any other new complaints. The patient is currently off Narcan. Chronic pain syndrome involving chronic back pain and reflexive leg dystrophy maintained on a combination of morphine pump, fentanyl patches 50 mcg and Percocet on outpatient basis. The patient is also on a combination of Neurontin and Cymbalta Fibromyalgia Seizure disorder maintained on a combination of Keppra and Tegretol Hypertension Diabetes mellitus type 2 Hyperlipidemia Obstructive sleep apnea, not utilizing CPAP therapy Questionable history of narcolepsy Plan Clinically stable, hemodynamically stable, neurologically stable. No signs of any clinical morphine toxicity. The patient can be moved out of the intensive care unit. Home medications have been resumed. Percocet and fentanyl patches have been resumed. CPAP therapy may need to be readdressed at a later stage should the patient has a confirmed diagnosis of obstructive sleep apnea.
--- NOTE | 2023-12-27 19:20 | P.DS ---
Providers Date of admission: 12/26/23 16:11 Expected date of discharge: 12/27/23 Attending physician: Lukas Westfall Consults: 12/26/23 16:44 Consult Physician Routine Consulting Provider: Hernandez Randolph Consult Reason/Comments: morphine overdose Do you want consulting provider notified?: Already Contacted Placement Type Exists?: Yes 12/26/23 17:20 Consult Physician Routine Consulting Provider: Yanick Johansen Consult Reason/Comments: Pain management Do you want consulting provider notified?: Already Contacted Primary care physician: James Figueroa [facility] Course: Chief Complaint: Morphine overdose This is a pleasant 58-year-old patient who follows with Dr. James Figueroa. Chronic stable medical conditions include diabetes, fibromyalgia, GERD, hyperlipidemia, seizure disorder, sleep apnea, restless leg syndrome, narcolepsy, RSD of the right leg. Patient does follow with Dr. Varela from pain management services. Has had a morphine pump for about 12 years. He came in for refill today. Dr. Adriano Griffin from anesthesia gave the patient about 40 cc of morphine concentrate. 10 mg /1 cc. There was extravasation. He managed to take out 22 cc. Patient has now been admitted in case patient has a morphine overdose. Close monitoring of vital signs. Patient is awake. Able to answer questions. December 26: Yesterday evening and went to see the patient again. Having sick with significant nausea vomiting. Bit lethargic. Because of intensity of nursing requirement patient had to be moved to the ICU. Patient then got a Narcan drip. Then had morphine withdrawal. Was given Percocet. And patient settle down. Patient doing well this morning. Fentanyl patch 50 as ordered by anesthesia. Did discuss with Dr. Randolph and anesthesia. Patient will return outpatient to have his morphine pump refilled [place]. No other change in medications. Discussion and discharge planning more than 35 minutes Social history: Lives alone. Denies any alcohol and smoking. Physical examination: VITAL SIGNS: 81, 10, 126 x 79, 96% room air GENERAL: BMI 37.6,, comfortable, awake EYES: Pupils equal. Conjunctiva nawaf l. HEENT: External appearance of nose and ears normal, oral cavity grossly normal. NECK: JVD not raised; masses not palpable. HEART: First and second heart sounds are normal; no edema. LUNGS: Respiratory rate normal; clear to auscultation. ABDOMEN: Soft, nontender, liver spleen not palpable, no masses palpable. Morphine pain pump site lower back left PSYCH: Alert and oriented x3; mood and affect tired l. MUSCULOSKELETAL:No Clubbing/cyanosis;muscles-grossly intact Investigations: White count 9.3 hemoglobin 15.6 platelets 258 potassium 4.3 creatinine 0.52 Assessment plan: -Morphine IV form to be given intrathecally via pain pump extravasation. 40 cc were injected. 22 cc was removed. 18 cc at concentration of 10 mg/per cc. Since absorption of more physical to be erratic patient will be watched for change in mental status. If need be Narcan will be given. I did speak to Dr. Randolph from ICU, as a backup if need be. Currently no beds in the ICU. Overnight patient did get a Narcan drip. Then went into morphine withdrawal. Then given Percocet. Resolved. -Chronic pain syndrome including reflex sympathetic dystrophy Given morphine half-life is few hours and after discussion with Dr. Haily awad from pain management. Patient being started on fentanyl patch 50 mcg at 9 PM today. His procedure was done around 4 PM today. Patient has Percocet for as needed. Neurontin. Cymbalta Being discharged on fentanyl patch 50 mcg. Will follow-up with anesthesia outpatient for morphine pump to be refilled. Medication [place] -Chronic fibromyalgia with muscle spasms Flexeril as needed -Seizure disorder Keppra, carbamazepine -Essential hypertension Cozaar -Diabetes mellitus type 2, chronically insulin Lantus. Sliding scale with Humalog. -Hyperlipidemia Zetia -Narcolepsy clinical diagnosis done by neurologist Dr. Cristina Rolon. No formal testing has been done. 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 RSD rt leg/feet, collapsed VERTEBRA back, CURRENTLY ON ANTIBIOTICS FOR INFECTED TEETH History of Any Multi-Drug Resistant Organisms: MRSA Date of last positivie culture/infection: 2009 MDRO Source:: wound in neck Past Surgical History: Adenoidectomy, Appendectomy, Back Surgery, Bariatric Surgery, Orthopedic Surgery, Tonsillectomy Additional Past Surgical History / Comment(s): Eyes/plastic surgery, tongue surgery, circumcision, Rt foot surgeries, neck fusion, pain pump, lap band/later removed. 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 PAIN CLINIC PROCEDURES, Past Anesthesia/Blood Transfusion Reactions: Previous Problems w/ Anesthesia Additional Past Anesthesia/Blood Transfusion Reaction / Comment(s): "slow to come out due to narcolepsy" comes out with low oxygen level-pt denies this. Never had blood transfusion. Past Psychological History: No Psychological Hx Reported Additional Psychological History / Comment(s): Pt resides alone. Smoking Status: Never smoker Past Alcohol Use History: None Reported Past Drug Use History: None Reported Plan - Discharge Summary Discharge Rx Participant: No New Discharge Prescriptions: New fentaNYL 50MCG/HR PATCH [Duragesic 50MCG/HR] 1 patch TRANSDERM Q72H patch Ezetimibe [Zetia] 10 mg PO DAILY tab Continue Meclizine [Antivert] 12.5 mg PO TID carBAMazepine [TEGretol] 200 mg PO BID LORazepam 0.5 mg PO TID PRN PRN Reason: Anxiety levETIRAcetam [Keppra] 1,000 mg PO BID DULoxetine HCL [Cymbalta] 60 mg PO BID Cyclobenzaprine [Flexeril] 5 mg PO TID PRN 30 Days #90 tablet PRN Reason: Muscle Spasm Gabapentin [Neurontin] 800 mg PO BID 30 Days #60 tab oxyCODONE HCL/ACETAMINOPHEN [Percocet 10-325 mg] 1 tab PO TID PRN 30 Days #90 tab PRN Reason: Pain Losartan [Cozaar] 25 mg PO DAILY Linagliptin [Tradjenta] 5 mg PO DAILY Testosterone [Androgel 1.62%] 1 pump TRANSDERM DAILY Insulin Glargine,Hum.rec.anlog [Lantus Solostar Pen] 90 units SQ HS Insulin Lispro [humaLOG Kwikpen] 40 unit SQ W/SUPPER Patient Own Pump 0 bag Discharge Medication List Meclizine [Antivert] 12.5 mg PO TID 07/22/13 [History] LORazepam 0.5 mg PO TID PRN 09/15/19 [History] carBAMazepine [TEGretol] 200 mg PO BID 09/15/19 [History] levETIRAcetam [Keppra] 1,000 mg PO BID 11/24/21 [History] DULoxetine HCL [Cymbalta] 60 mg PO BID 10/26/22 [History] Cyclobenzaprine [Flexeril] 5 mg PO TID PRN 30 Days #90 tablet 11/14/23 [Rx] Gabapentin [Neurontin] 800 mg PO BID 30 Days #60 tab 11/14/23 [Rx] Losartan [Cozaar] 25 mg PO DAILY 11/14/23 [History] oxyCODONE HCL/ACETAMINOPHEN [Percocet 10-325 mg] 1 tab PO TID PRN 30 Days #90 tab 11/14/23 [Rx] Insulin Glargine,Hum.rec.anlog [Lantus Solostar Pen] 90 units SQ HS 12/26/23 [History] Insulin Lispro [humaLOG Kwikpen] 40 unit SQ W/SUPPER 12/26/23 [History] Linagliptin [Tradjenta] 5 mg PO DAILY 12/26/23 [History] Patient Own Pump 0 bag 12/26/23 [History] Testosterone [Androgel 1.62%] 1 pump TRANSDERM DAILY 12/26/23 [History] Ezetimibe [Zetia] 10 mg PO DAILY tab 12/27/23 [Rx] fentaNYL 50MCG/HR PATCH [Duragesic 50MCG/HR] 1 patch TRANSDERM Q72H patch 12/27/23 [Rx] Follow up Appointment(s)/Referral(s): James Figueroa MD [Primary Care Provider] - 1 Week Patient Instructions/Handouts: Narcotic Safety (DC), Local Infusion Pain Management Pump (DC) Discharge Disposition: HOME SELF-CARE
== END 2023-12-27 17:00 | disposition home or self-care (01) ==
LOC: INTOOBSV 16:11 → 3SCARD 16:11 → 2SICU 20:14
PROVIDERS: ADMIT Hospitalist; ATTEND Hospitalist
DX: T40.2X1A Poisoning by other opioids, accidental (unintentional), initial encounter (principal); T85.9XXA Unspecified complication of internal prosthetic device, implant and graft, initial encounter; Y92.538 Other ambulatory health services establishments as the place of occurrence of the external cause; F11.23 Opioid dependence with withdrawal; G90.521 Complex regional pain syndrome I of right lower limb; E11.9 Type 2 diabetes mellitus without complications; G25.81 Restless legs syndrome; G47.419 Narcolepsy without cataplexy; G40.A09 Absence epileptic syndrome, not intractable, without status epilepticus; G47.33 Obstructive sleep apnea (adult) (pediatric); K21.9 Gastro-esophageal reflux disease without esophagitis; E78.5 Hyperlipidemia, unspecified; M79.7 Fibromyalgia; M54.9 Dorsalgia, unspecified; I10 Essential (primary) hypertension; Z79.4 Long term (current) use of insulin; Z79.84 Long term (current) use of oral hypoglycemic drugs; Z79.899 Other long term (current) drug therapy; Z88.0 Allergy status to penicillin; Z88.1 Allergy status to other antibiotic agents; Z88.8 Allergy status to other drugs, medicaments and biological substances; Z91.018 Allergy to other foods
CPT/HCPCS: 96375 ×2; 96372; 96365; 96366; 80053; 80048; 85025; 85027; G0378 ×4; J0780; J2310 ×2; J2405; J1650

== ENCOUNTER → 2023-12-26 | Day surgery (SDC) | payer MEDICARE, OTHER ==
[2023-12-26 13:23] LABS: Glucose,Whole Blood 422 mg/dL (70-110)
[2023-12-26 13:25] VITALS: TEMP 97.8
[2023-12-26 15:47] LABS: Glucose,Whole Blood 356 mg/dL (70-110)
--- NOTE | 2023-12-26 15:55 | P.PCN ---
Description of Procedure: OPERATION: Intrathecal pain pump analysis, programming and reprogramming, and intrathecal pain pump refill. PREOPERATIVE DIAGNOSES: 1. near empty intrathecal pain pump time for refill. 2. opioid tolerance 3. failed back surgery syndrome lumbar area POSTOPERATIVE DIAGNOSES: Same as preoperative diagnosis. ANESTHESIA: None. CONDITION: Stable. Description of the procedure; Intrathecal pain pump analysed ,it showed patient currently had reservoir volume[1 ] mL. The patient is receiving medication morphine sulfate mg/ ml, and bupivacaine concentration mg/ml. Patient receiving daily dose of morphine [id number] mg/day and bupivacaine 4 mg/day. Pain is well controlled , patient using medication for breakthrough pain orally . The location of the pump ( Left Buttuck ) Prepped with chlorhexidine x3 , then using 22-gauge needle [employer] kit advanced through the pump port, Total of 0 ml removed from the pump, expected volume 1 ml , the pump refilled with the new medication total volume 40 ml . The concentration of morphine sulfate [10 ] mg /ml , and the bupivacaine concentration [4 ] mg/ml. After infusing all 40 mL solution, noticed some subcutaneous swelling. At this point my suspicion was some of the medications has gone outside the pump into the tissue. Patient also complained some tension in the pump area. At this point I did an ultrasound scan over the pump and noticed fluid in between subcutaneous tissue In the pump. Out of 40 cc injected before. Under ultrasound, I aspirated fluid from subcutaneous tissue which was clear fluid about 19 mL in volume. I kept the documentation of ultrasound before and after aspiration. Then I introduced after sterile preparation needle through the pump port and withdrawal about 3 cc of clear solution. So, total 22 cc of solution was retrieved out of 40 mL injected earlier. I suspect remaining 18 mL of solution is subcutaneous and intra tissue in worst case scenario, if not within the pump This amount of solution will contain 180 mg of morphine. Considering this is a significant dose of morphine decided to admit the patient. Discussed the case with hospitalist and rim turning machine operator. It was decided to admit the patient under hospitalist in telemetry unit with close observation. If needed patient can be transferred to the ICU.
[2023-12-26 16:19] LABS: Basophils # (A) 0.1 k/uL (0-0.2); Basophils % (A) 1 %; Eosinophils # (A) 0.2 k/uL (0-0.7); Eosinophils % (A) 3 %; HCT 48.3 % (39.0-53.0); Lymphocytes # (A) 3.2 k/uL (1.0-4.8); Lymphocytes % (A) 47 %; MCH 30.7 pg (25.0-35.0); MCHC 33.2 g/dL (31.0-37.0); MCV 92.3 fL (80.0-100.0); Mean Platelet Volume 7.3; Monocytes # (A) 0.3 k/uL (0-1.0); Monocytes % (A) 5 %; Neutrophils # (A) 2.9 k/uL (1.3-7.7); Neutrophils % (A) 42 %; Platelet Count 253 k/uL (150-450); RBC 5.23 m/uL (4.30-5.90); RDW 13.3 % (11.5-15.5); WBC 6.8 k/uL (3.8-10.6)
[2023-12-26 16:43] LABS: ALT 52 U/L (4-49); AST 88 U/L (17-59); African American GFR (CKD) >90 (>60 ml/min/1.73 sqM); Albumin 3.8 g/dL (3.5-5.0); Alkaline Phosphatase 90 U/L (38-126); Anion Gap 7 mmol/L; Blood Urea Nitrogen 11 mg/dL (9-20); Calcium 9.2 mg/dL (8.4-10.2); Carbon Dioxide 26 mmol/L (22-30); Chloride 101 mmol/L (98-107); Glucose 368 mg/dL (74-99); Non-African American GFR(CKD) >90 (>60 ml/min/1.73 sqM); Potassium 4.7 mmol/L (3.5-5.1); Sodium 134 mmol/L (137-145); Total Bilirubin 0.6 mg/dL (0.2-1.3)
[2023-12-26 18:03] VITALS: RESP 14
[2023-12-26 18:06] VITALS: BP 98/62; PULSE 82
== END ==
LOC: ORPAIN 12:38
PROVIDERS: ATTEND Pain Medicine Interventional Pain Medicine
DX: Z45.1 Encounter for adjustment and management of infusion pump (principal); M96.1 Postlaminectomy syndrome, not elsewhere classified
CPT/HCPCS: 80053; 85025; 62370; J2274

== ENCOUNTER → 2023-12-31 | Day surgery (SDC) | payer MEDICARE, OTHER ==
[2023-12-31 14:34] VITALS: BP 147/94; PULSE 90; RESP 16; TEMP 97.8
[2023-12-31] MEDS: INSULIN ASPART (NovoLOG) 100 UNIT/ML VIAL SQ ONE (14:44)
[2023-12-31 14:52] LABS: Glucose,Whole Blood 318 mg/dL (70-110)
--- NOTE | 2023-12-31 15:13 | P.PCN ---
Date of Procedure: 12/31/23 Procedure(s) Performed: Procedure: Intrathecal pain pump analysis, programming and reprogramming, intrathecal pain pump refill. PREOPERATIVE DIAGNOSES: 1. near empty intrathecal pain pump . 2. 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 failed back surgery syndrome lumbar area ANESTHESIA: None. CONDITION: Stable. Description of the procedure; The intrathecal opioid pump was analyzed and showed a current reservoir residual volume of (7.7 ) mls. Skin was prepped with ChloraPrep and draped in a sterile manner. I used 22- gauge needle found in the [email or web address] intrathecal access to go through the central pump port.7.5 mls were withdrawn. Then the new medication was injected incrementally with frequent aspiration to ensure delivery of the new medication inside the pump reservoir. The new medication was infused inside the pump reservoir through a filter provided the [employer] kit. The new medication concentration is: Morphine 10 mg per mL and bupivacaine 4 mg per mL The pump then was reprogrammed for a new reservoir volume of 40 mls and the rate of continue daily dose to morphin sulfate PF [ 3 ] mg/day ,and bupivacaine [1.2 ] mg/day . Prescription refill for Percocet 10/325 every 6 hours ,neurontin 800 mg po Patient will follow up with the pain clinic in 10 days. Last visit patient had incident when they filled up the pump it was filled in the subcu tissue for this reason they removed the intrathecal pump medications and patient was eating infusion of normal saline in the pump, instead of morphine sulfate, patient was getting fentanyl patch 50 mcg every 72 hours, for this reason I decreased the intrathecal pain pump medication to 3 mg/day, previous dose was 4.5 mg/day, and patient will be seen in the pain clinic in 10 days for reevaluation and adjustment of intrathecal pain pump medications, patient was instructed to remove the end the Duragesic patch, and he can continue to use Percocet 10/325 as needed, and patient discharged home in stable condition
== END ==
LOC: ORPAIN 14:01
PROVIDERS: ATTEND Specialist
DX: M96.1 Postlaminectomy syndrome, not elsewhere classified (principal); F11.20 Opioid dependence, uncomplicated
CPT/HCPCS: 62370

== ENCOUNTER → 2024-01-09 | Outpatient (CLI) | payer MEDICARE, OTHER ==
[2024-01-09 13:13] VITALS: BP 100/66; PULSE 87; RESP 16
--- NOTE | 2024-01-09 14:21 | P.PAINPG ---
PQRS Measure Charge Sheet Comment: A 58 yr old male with a history of severe and chronic LBP secondary to radiculopathy, spondylosis with facet arthropathy without myelopathy presents today for medication refills. Pain level is provoked at 7 /10 in intensity, constant, localized in the lumbar spine, predominantly axial, sharp in character w shooting towards the R hip. Pain is provoked by bending, standing/ walking for periods of 10 min or more. Pain is alleviated with use of a cane for ambulatory assistance, medications, PT 13 yrs ago, heat, ice, repositioning and rest. Interventional pain procedures completed include LESIs, Morphine Pain Pump Patient is currently on Neurontin 800mg, Percocet 10/325mg #90 Patient denies any side effects of the medication(s), denies excessive drowsiness or sleepiness, denies suicidal ideation and reports that the current pain medication is helping to control the pain and improve activities of daily living. Patient denies any motor or sensory deficits. Patient denies any fever or night sweats, denies any change in the bowel movements or urination. Physical Examination: -Constitutional: Cooperative. Not in acute distress . - Neurologic: Cranial nerve II to XII intact. No focal neurological deficits. - Psychatric: Alert & oriented x 3. Matching mood & appropriate affect. Judgment and insight intact. - Musculoskeletal: Cervical spine: Muscle bulk/ tone/ strength in the bilateral upper extremities normal Vertebral body tenderness to palpation over Spurling test positive Distraction test positive Facet loading test positive TTP Thoracic spine Muscle bulk / tone/ strength in the bilateral paraspinal muscles normal Vertebral body tender to palpation over Facet loading test positive TTP Lumbar spine: Motor bulk/ tone/ strength lower extremities , thigh and legs : 5/5 Deep tendon reflexes : Normal Knee Jerk. Normal Ankle Jerk . Vertebral body tenderness to palpation over L3, L4, L5 Peña Test positive Lumbar Facet Loading Test positive Straight Leg Raise: positive at 30 degrees right side/ left side Gaenslen's Test positive Sacral spine : Severe tenderness over the Sacroiliac joint: right side / left side Range of motion: Flexion of the lumbar spine <60 degrees Range of motion: Extension of the lumbar spine <20 degrees Gaenslen's Test positive right side / left side Wilder test: positive right side / left side Thigh Thrust Test positive right side / left side Sacral Thrust Test positive right side / left side Assessment and plan: Chronic LBP secondary to radiculopathy, spondylosis with facet arthropathy without myelopathy Chronic and current use of high-risk medication (Opioids). The patient was counseled about risk of opioid use, psychological risk associated with opioids and was orally counseled to not overuse , divert or sell medications. Pt is to store medication in a safe location. The patient is counseled against driving while using narcotic medications and also not to use alcohol or any illicit recreational drugs. Patient verbalized understanding that the lack of compliance will result in failure to renew narcotic prescription(s) as well as possible discharge from the clinic Diagnoses, prognosis and treatment options including but not limited to physical therapy, surgical interventions, interventional therapies and medication management including narcotics and adjuvant medication were discussed. All patient questions answered MAPS reviewed and it was appropriate. UDS from 08/14/23 reviewed and consistent. Opiate / narcotic agreement signed 08/14/23. Prescription for Percocet 10/325mg #90, Neurontin 800mg #90 w 1 RF. I have spent less than 30 minutes on patient care today. Dr Varela was available by phone for the evaluation of this patient. The time was used to review the medical records including relevant urine studies and Prescription history (MAPs), review of the available imaging, evaluation and examination of the patient, coordination of care with the medical staff and if applicable referring physicians, as well as creation of the medical record PQRS Narrative: Smoking Status Never smoker Narcotic Agreement Date Signed 08/14/23 Hx Alcohol Use (MH) No Home Medications: Ambulatory Orders Meclizine [Antivert] 12.5 mg PO TID 07/22/13 LORazepam 0.5 mg PO TID PRN 09/15/19 carBAMazepine [TEGretol] 200 mg PO BID 09/15/19 levETIRAcetam [Keppra] 1,000 mg PO BID 11/24/21 DULoxetine HCL [Cymbalta] 60 mg PO BID 10/26/22 Cyclobenzaprine [Flexeril] 5 mg PO TID PRN 30 Days #90 tablet 11/14/23 Losartan [Cozaar] 25 mg PO DAILY 11/14/23 Insulin Glargine,Hum.rec.anlog [Lantus Solostar Pen] 90 units SQ HS 12/26/23 Insulin Lispro [humaLOG Kwikpen] 40 unit SQ W/SUPPER 12/26/23 Linagliptin [Tradjenta] 5 mg PO DAILY 12/26/23 Patient Own Pump 0 bag 12/26/23 Testosterone [Androgel 1.62%] 1 pump TRANSDERM DAILY 12/26/23 Ezetimibe [Zetia] 10 mg PO DAILY tab 12/27/23 fentaNYL 50MCG/HR PATCH [Duragesic 50MCG/HR] 1 patch TRANSDERM Q72H patch 12/27/23 fentaNYL 50MCG/HR PATCH [Duragesic 50MCG/HR] 1 patch TRANSDERM Q72H 3 Days #1 patch 12/30/23 fentaNYL 50MCG/HR PATCH [Duragesic 50MCG/HR] 50 mcg TRANSDERM Q72H 3 Days #1 patch 12/30/23 Gabapentin [Neurontin] 800 mg PO BID 30 Days #60 tab 01/09/24 oxyCODONE HCL/ACETAMINOPHEN [Percocet 10-325 mg] 1 tab PO TID PRN 30 Days #90 tab 01/09/24 oxyCODONE HCL/ACETAMINOPHEN [Percocet 10-325 mg] 1 tab PO TID PRN 30 Days #90 tab 01/09/24 Controlled Substance Measures - Controlled Substance Measures Is patient prescribed a controlled substance at discharge?: Yes When asked, does pt state using other controlled substances?: Yes If prescribed controlled substance>3 days was MAPS reviewed?: Yes
== END ==
LOC: PNWHC3 12:44
PROVIDERS: ATTEND Specialist
DX: M47.26 Other spondylosis with radiculopathy, lumbar region (principal); Z79.891 Long term (current) use of opiate analgesic; Z88.8 Allergy status to other drugs, medicaments and biological substances; Z88.1 Allergy status to other antibiotic agents; Z88.0 Allergy status to penicillin; Z91.018 Allergy to other foods
CPT/HCPCS: 99211

== ENCOUNTER 2024-02-14 12:21 | Inpatient (IN) | payer MEDICARE, OTHER ==
[2024-02-14] MEDS: SODIUM CHLORIDE 0.9% 1,000 ML IV STA ×2 (14:48→14:49)
[2024-02-14 15:08] LABS: Basophils % (A) 0 %; Eosinophils # (A) 0.2 k/uL (0-0.7); Eosinophils % (A) 2 %; HCT 48.7 % (39.0-53.0); HGB 16.7 gm/dL (13.0-17.5); Lymphocytes # (A) 1.1 k/uL (1.0-4.8); Lymphocytes % (A) 12 %; MCH 31.4 pg (25.0-35.0); MCHC 34.2 g/dL (31.0-37.0); MCV 91.8 fL (80.0-100.0); Mean Platelet Volume 6.6; Monocytes # (A) 0.3 k/uL (0-1.0); Monocytes % (A) 3 %; Neutrophils # (A) 7.6 k/uL (1.3-7.7); Neutrophils % (A) 82 %; Platelet Count 282 k/uL (150-450); RBC 5.31 m/uL (4.30-5.90); RDW 12.7 % (11.5-15.5); WBC 9.2 k/uL (3.8-10.6)
--- NOTE | 2024-02-14 15:19 | XR ---
EXAMINATION TYPE: XR chest 2V DATE OF EXAM: 02/14/2024 3:01 PM COMPARISON: 07/08/2012 CLINICAL INDICATION: Male, 58 years old with history of pneumonia, , TECHNIQUE: PA and lateral views FINDINGS: Heart limits of normal in size. Mild interstitial density. Some minimal strandy density at the periph nara of the left base, likely atelectasis. Partially visualized ACDF hardware. No pleural effusion. IMPRESSION: Mild interstitial density could reflect bronchitis, asthma, or subtle underlying atypical pneumonia. [facility], , 02/14/2024 3:17 PM
[2024-02-14 15:33] LABS: ALT 52 U/L (4-49); AST 161 U/L (17-59); African American GFR (CKD) >90 (>60 ml/min/1.73 sqM); Albumin 4.3 g/dL (3.5-5.0); Alkaline Phosphatase 113 U/L (38-126); Anion Gap 9 mmol/L; Blood Urea Nitrogen 13 mg/dL (9-20); C Reactive Protein 3.1 mg/dL (<1.0); Calcium 9.2 mg/dL (8.4-10.2); Carbon Dioxide 26 mmol/L (22-30); Chloride 99 mmol/L (98-107); Glucose 370 mg/dL (74-99); Non-African American GFR(CKD) >90 (>60 ml/min/1.73 sqM); Potassium 4.4 mmol/L (3.5-5.1); Sodium 134 mmol/L (137-145); Total Bilirubin 0.6 mg/dL (0.2-1.3); Total Protein 7.5 g/dL (6.3-8.2)
[2024-02-14] MEDS ORDERED: VANCOMYCIN IV PER PHARMACY 1 EACH MISC MISCELLANE PRN (15:49)
[2024-02-14 15:52] LABS: Mucus,Urine Rare /hpf; RBC,Urine <1 /hpf (0-5); WBC,Urine <1 /hpf (0-5)
[2024-02-14 16:04] LABS: Appearance,Urine Clear (Clear); Bilirubin,Urine Negative (Negative); Blood,Urine Negative (Negative); Color,Urine Light Yellow; Glucose,Urine (UA) 4+ (Negative); Ketones,Urine 1+ (Negative); Leukocyte Esterase,Urine Negative (Negative); Nitrite,Urine Negative (Negative); PH, Urine 5.5 (5.0-8.0); Protein,Urine 1+ (Negative); Specific Gravity,Urine 1.041 (1.001-1.035); Urobilinogen,Urine <2.0 mg/dL (<2.0)
[2024-02-14] MEDS: IBUPROFEN 600 MG TAB PO STA (16:13)
--- NOTE | 2024-02-14 16:23 | CT ---
EXAMINATION TYPE: CT abdomen pelvis w con DATE OF EXAM: 02/14/2024 4:17 PM COMPARISON: CT abdomen pelvis most recent from 10/29/2017 CLINICAL INDICATION: Male, 58 years old with history of fluctuance around pain pump site; Fluctuance around pain pump site. TECHNIQUE: Axial CT abdomen pelvis w con;Sagittal and coronal reformats were created on a separate w orkstation. Contrast used:100 ml mL of Isovue 300 with IV Contrast, (none if empty) Oral contrast used: without Oral Contrast (none if empty) CT DLP: 2526.5 mGycm, Automated exposure control for dose reduction was used. FINDINGS: LOWER CHEST: Unremarkable ABDOMEN LIVER: Diffusely hypoattenuating parenchyma. GALLBLADDER AND BILE DUCTS: The gallbladder without evidence for cholelithiasis. PANCREAS: Unremarkable. SPLEEN: Unremarkable. ADRENAL GLANDS: Unremarkable. KIDNEYS AND URETERS: Nonobstructing left 3 mm calculus no right renal calculi. PELVIS BLADDER: No evidence for wall thickening or mass given limitations of exam. REPRODUCTIVE: Unremarkable. ABDOMEN & PELVIS STOMACH AND BOWEL: No evidence of bowel obstruction. PERITONEUM/RETROPERITONEUM: No evidence of pneumoperitoneum or free fluid. VASCULATURE: No evidence of aortic aneurysm. MUSCULOSKELETAL: No acute osseous abnormalities, postsurgical changes to the L4-L5 and S1 vertebral l evels which appear intact. LYMPH NODES: No gross evidence for lymphadenopathy. SOFT TISSUE/ABDOMINAL WALL: Pain pump with poor visualization of the subcutaneous superficial soft ti ssues due to streak artifact. Cord terminates in the spine. IMPRESSION: 1. Pain pump with poor visualization of the soft tissues surrounding it due to streak artifact. Cons ider ultrasound evaluation. 2. No acute abdominal process. 3. Nonobstructing left renal calculus. 4. Moderate to severe hepatic steatosis. 5. Colonic diverticulosis. [facility], , 02/14/2024 4:20 PM
[2024-02-14] MEDS: VANCOMYCIN 2,000 MG in SODIUM CHLORIDE 0.9% 500 ML 500 ML IVPB STA (16:28)
[2024-02-14] MEDS: ONDANSETRON 4 MG/2 ML VIAL IVP STA (17:34)
--- NOTE | 2024-02-14 18:05 | ED ---
General Adult HPI - General Chief complaint: Skin/Abscess/Foreign Body Stated complaint: Fever Time Seen by Provider: 02/14/24 12:40 Source: patient Mode of arrival: wheelchair Limitations: no limitations - History of Present Illness Initial comments: 58-year-old male with past medical history of back pain with pain pump, diabetes, seizure disorder who presents emergency department with fever. He is currently under the care of Dr. Gilliland. He had his pain pump last filled 5 weeks ago. He reports that some of the medication went subcu and he required hospitalization for Narcan. Ever since then he has had some tenderness and redness around the site. He has been taking care of by the wound care clinic and his anesthesiologist. The anesthesiologist had him on Levaquin as he does have allergies to Rocephin. Patient is supposed to finish the medication today but noted that he had a high fever at home. He is unsure if this was due to infection from the pain pump site. He does admit that he is also had a cough and some shortness of breath. He denies any chest pain. No abdominal pain. No changes in his bowel or bladder habits. Denies any sick contacts with similar symptoms. He did not take any Motrin or Tylenol today for his fever. He called his anesthesiologist who recommended that he come to the hospital for evalua tion. - Related Data Home Medications Medication Instructions Recorded Confirmed Meclizine [Antivert] 12.5 mg PO TID 07/22/13 02/14/24 LORazepam 0.5 mg PO TID PRN 09/15/19 02/14/24 carBAMazepine [TEGretol] 200 mg PO BID 09/15/19 02/14/24 levETIRAcetam [Keppra] 1,000 mg PO BID 11/24/21 02/14/24 DULoxetine HCL [Cymbalta] 60 mg PO BID 10/26/22 02/14/24 Losartan [Cozaar] 25 mg PO DAILY 11/14/23 02/14/24 Insulin Glargine,Hum.rec.anlog 90 units SQ HS 12/26/23 02/14/24 [Lantus Solostar Pen] Insulin Lispro [humaLOG Kwikpen] 40 unit SQ W/SUPPER 12/26/23 02/14/24 Linagliptin [Tradjenta] 5 mg PO DAILY 12/26/23 02/14/24 Patient Own Pump 0 bag 12/26/23 Testosterone [Androgel 1.62%] 1 pump TRANSDERM DAILY 12/26/23 12/31/23 Previous Rx's Medication Instructions Recorded Cyclobenzaprine [Flexeril] 5 mg PO TID PRN 30 Days #90 tablet 11/14/23 Gabapentin 800 mg PO BID 30 Days #60 tab 01/09/24 oxyCODONE HCL/ACETAMINOPHEN 1 tab PO TID PRN 30 Days #90 tab 01/09/24 [Percocet 10-325 mg] Allergies Allergy/AdvReac Type Severity Reaction Status Date / Time bupropion HCl Allergy Dyspnea Verified 02/14/24 15:48 [From Wellbutrin] cephalexin [Cephalexin] Allergy Dyspnea Verified 02/14/24 15:48 cephalexin monohydrate Allergy Dyspnea,hiv Verified 02/14/24 15:48 [From Keflex] es penicillin G Allergy Rash/Hives Verified 02/14/24 15:48 onion Allergy Dyspnea,hiv Uncoded 02/14/24 15:48 es Review of Systems ROS Statement: Those systems with pertinent positive or pertinent negative responses have been documented in the HPI. ROS Other: All systems not noted in ROS Statement are negative. 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 RSD rt leg/feet, collapsed VERTEBRA back History of Any Multi-Drug Resistant Organisms: MRSA Date of last positivie culture/infection: 2008 MDRO Source:: wound in neck Past Surgical History: Adenoidectomy, Appendectomy, Back Surgery, Bariatric Surgery, Orthopedic Surgery, Tonsillectomy Additional Past Surgical History / Comment(s): Eyes/plastic surgery, tongue surgery, circumcision, Rt foot surgeries, neck fusion, pain pump, lap band/later removed. 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 PAIN CLINIC PROCEDURES, Past Anesthesia/Blood Transfusion Reactions: Previous Problems w/ Anesthesia Additional Past Anesthesia/Blood Transfusion Reaction / Comment(s): "slow to come out due to narcolepsy" comes out with low oxygen level-pt denies this. Never had blood transfusion. Past Psychological History: No Psychological Hx Reported Smoking Status: Never smoker Past Alcohol Use History: None Reported Past Drug Use History: None Reported - Past Family History Father Family Medical History: CVA/TIA Additional Family Medical History / Comment(s): from "massive stroke" Mother Family Medical History: Cancer, Deep Vein Thrombosis (DVT), Pulmonary Embolus Brother(s) Family Medical History: Deep Vein Thrombosis (DVT) General Exam Limitations: no limitations General appearance: alert, in no apparent distress Head exam: Present: atraumatic, normocephalic, normal inspection Eye exam: Present: normal appearance, PERRL, EOMI. Absent: scleral icterus, conjunctival injection, periorbital swelling ENT exam: Present: normal exam, mucous membranes moist Neck exam: Present: normal inspection. Absent: tenderness, meningismus, lymphadenopathy Respiratory exam: Present: normal lung sounds bilaterally. Absent: respiratory distress, wheezes, rales, rhonchi, stridor Cardiovascular Exam: Present: regular rate, normal rhythm, normal heart sounds. Absent: systolic murmur, diastolic murmur, rubs, gallop, clicks GI/Abdominal exam: Present: soft, normal bowel sounds, other (Patient has pain pump noted to his left flank. Overlying skin is erythematous. No fluctuance is appreciated. No drainage from the area). Absent: distended, tenderness, guarding, rebound, rigid Extremities exam: Present: normal inspection, full ROM, normal capillary refill. Absent: tenderness, pedal edema, joint swelling, calf tenderness Back exam: Present: normal inspection Neurological exam: Present: alert, oriented X3, CN II-XII intact Psychiatric exam: Present: normal affect, normal mood Skin exam: Present: warm, dry, intact, normal color. Absent: rash Course Vital Signs 02/14/24 02/14/24 02/14/24 12:37 17:21 19:56 Temperature 100.1 F H 100.7 F H 98.8 F Pulse Rate 133 H 120 H Respiratory 20 20 Rate Blood Pressure 118/81 111/71 O2 Sat by Pulse 94 L 96 Oximetry 02/14/24 02/15/24 02/15/24 21:56 01:00 02:20 Temperature Pulse Rate 110 H 105 H 108 H Respiratory 20 18 18 Rate Blood Pressure 104/60 124/70 144/85 O2 Sat by Pulse 90 L 99 90 L Oximetry 02/15/24 02/15/24 02/15/24 06:00 09:41 13:14 Temperature 98.8 F Pulse Rate 100 87 85 Respiratory 16 16 17 Rate Blood Pressure 114/68 130/71 128/80 O2 Sat by Pulse 95 97 96 Oximetry 02/15/24 17:28 Temperature 99.8 F H Pulse Rate 96 Respiratory 19 Rate Blood Pressure 136/78 O2 Sat by Pulse 95 Oximetry Medical Decision Making - Medical Decision Making Was pt. sent in by a medical professional or institution (, PA, SPECIAL PROJECTS MANAGER, urgent care, hospital, or skilled nursing...) When possible be specific @ -Patient sent in under the direction of Dr. Reid Did you speak to anyone other than the patient for history (EMS, parent, family, police, friend...)? What history was obtained from this source @ -Spoke with Dr. Reid who presents to the emergency department to evaluate the patient Did you review nursing and triage notes (agree or disagree)? Why? @ -I reviewed and agree with nursing and triage notes Were old charts reviewed (outside hosp., previous admission, EMS record, old EKG, old radiological studies, urgent care reports/EKG's, skilled nursing records)? Report findings @ -No old charts were reviewed Differential Diagnosis (chest pain, altered mental status, abdominal pain women, abdominal pain men, vaginal bleeding, weakness, fever, dyspnea, syncope, headache, dizziness, GI bleed, back pain, seizure, CVA, palpatations, mental health, musculoskeletal)? @ -Differential Fever: Pneumonia, viral URI, endocarditis, myocarditis, pericarditis, otitis, sinusitis, peritonsillar Abscess, retropharyngeal Abscess, epiglottitis, peritonitis, appendicitis, Mei cystitis, diverticulitis, hepatitis, colitis, UTI, PID, TOA, pyelonephritis, prostatitis, epididymitis, meningitis, encephalitis, pulmonary embolism, CVA, thyroid storm, pancreatitis, adrenal crisis, cavernous sinus thrombosis, this is not meant to be an all-inclusive list. EKG interpreted by me (3pts min.). @ -Not done X-rays interpreted by me (1pt min.). @ -Yes which demonstrates possible pneumonia on the chest x-ray CT interpreted by me (1pt min.). @ -Yes which does not demonstrate any intra-abdominal process or organized fluid collection around the pain pump site U/S interpreted by me (1pt. min.). @ -Does not demonstrate fluid collection around pain pump site What testing was considered but not performed or refused? (CT, X-rays, U/S, labs)? Why? @ -None What meds were considered but not given or refused? Why? @ -None Did you discuss the management of the patient with other professionals (professionals i.e. DrAleks, PA, SPECIAL PROJECTS MANAGER, lab, RT, psych nurse, social director, analyst market intelligence, teacher, credit risk review officer, machine adjuster leader case trim)? Give summary @ -Dr. Gilliland sent to the emergency department and evaluates the patient. He does not feel as if the infection is specifically coming from the area of the pain pump and therefore he does recommend a broader workup for infection Was smoking cessation discussed for >3mins.? @ -No Was critical care preformed (if so, how long)? @ -No Were there social determinants of health that impacted care today? How? (Homelessness, low income, unemployed, alcoholism, drug addiction, transportation, low edu. Level, literacy, decrease access to med. care, retirement, rehab)? @ -No Was there de-escalation of care discussed even if they declined (Discuss DNR or withdrawal of care, Hospice)? DNR status @ -No What co-morbidities impacted this encounter? (DM, HTN, Smoking, COPD, CAD, Cancer, CVA, ARF, Chemo, Hep., AIDS, mental health diagnosis, sleep apnea, morbid obesity)? @ -Chronic back pain Was patient admitted / discharged? Hospital course, mention meds given and route, prescriptions, significant lab abnormalities, going to OR and other pertinent info. @ -Upon arrival patient seen and evaluated in hallway 10. Dr. Jak Garcia does present to the ER and evaluated the patient. He recommends further workup for other signs of infection. Chest x-ray, laboratory studies and urinalysis are performed. Results of the testing are discussed with the patient. He does have allergies to Keflex and penicillin. Patient will be treated with vancomycin, aztreonam and azithromycin for possible lung and skin sources of his infection. Source of his infection is identified at 1519. He was initiated on 130 cc of normal saline per hour. He did not meet septic shock criteria. patient will be admitted with Dr. Zamarripa to consult. Spoke with dr singh for admission Undiagnosed new problem with uncertain prognosis? @ -No Drug Therapy requiring intensive monitoring for toxicity (Heparin, Nitro, Insulin, Cardizem)? @ -No Were any procedures done? @ -No Diagnosis/symptom? @ -Acute pyrexia, possible pneumonia, possible cellulitis overlying pain pump Acute, or Chronic, or Acute on Chronic? @ -Acute Uncomplicated (without systemic symptoms) or Complicated (systemic symptoms)? @ -Complicated Side effects of treatment? @ -No Exacerbation, Progression, or Severe Exacerbation? @ -No Poses a threat to life or bodily function? How? (Chest pain, [place], [place], pneumonia, PE, COPD, DKA, ARF, appy, cholecystitis, CVA, Diverticulitis, Homicidal, Suicidal, threat to staff... and all critical care pts) @ -No - Lab Data Result diagrams: 02/14/24 14:32 02/15/24 04:29 Lab Results 02/14/24 02/14/24 02/14/24 Range/Units 14:32 14:32 14:32 WBC 9.2 (3.8-10.6) k/uL RBC 5.31 (4.30-5.90) m/uL Hgb 16.7 (13.0-17.5) gm/dL Hct 48.7 (39.0-53.0) % MCV 91.8 (80.0-100.0) fL MCH 31.4 (25.0-35.0) pg MCHC 34.2 (31.0-37.0) g/dL RDW 12.7 (11.5-15.5) % Plt Count 282 (150-450) k/uL MPV 6.6 Neutrophils % 82 % Lymphocytes % 12 % Monocytes % 3 % Eosinophils % 2 % Basophils % 0 % Neutrophils # 7.6 (1.3-7.7) k/uL Lymphocytes # 1.1 (1.0-4.8) k/uL Monocytes # 0.3 (0-1.0) k/uL Eosinophils # 0.2 (0-0.7) k/uL Basophils # 0.0 (0-0.2) k/uL Sodium 134 L (137-145) mmol/L Potassium 4.4 (3.5-5.1) mmol/L Chloride 99 (98-107) mmol/L Carbon Dioxide 26 (22-30) mmol/L Anion Gap 9 mmol/L BUN 13 (9-20) mg/dL Creatinine 0.49 L (0.66-1.25) mg/dL Est GFR (CKD-EPI)AfAm >90 (>60 ml/min/1.73 sqM) Est GFR (CKD-EPI)NonAf >90 (>60 ml/min/1.73 sqM) Glucose 370 H (74-99) mg/dL Lactic Ac Sepsis Rflx Plasma Lactic Acid Mina (0.7-2.0) mmol/L Calcium 9.2 (8.4-10.2) mg/dL Total Bilirubin 0.6 (0.2-1.3) mg/dL AST 161 H (17-59) U/L ALT 52 H (4-49) U/L Alkaline Phosphatase 113 (38-126) U/L C-Reactive Protein 3.1 H (<1.0) mg/dL Total Protein 7.5 (6.3-8.2) g/dL Albumin 4.3 (3.5-5.0) g/dL Procalcitonin (0.02-0.50) ng/mL Urine Color Urine Appearance (Clear) Urine pH (5.0-8.0) Ur Specific [place] (1.001-1.035) Urine Protein (Negative) Urine Glucose (UA) (Negative) Urine Ketones (Negative) Urine Blood (Negative) Urine Nitrite (Negative) Urine Bilirubin (Negative) Urine Urobilinogen (<2.0) mg/dL Ur Leukocyte Esterase (Negative) Urine RBC (0-5) /hpf Urine WBC (0-5) /hpf Urine Mucus (None) /hpf Carbamazepine (4.0-12.0) UG/ML Heterophile Antibody Negative (Negative) Influenza Type A (PCR) (Not Detectd) Influenza Type B (PCR) (Not Detectd) Urine Legionella Ag (Negative) RSV (PCR) (Not Detectd) SARS-CoV-2 (PCR) (Not Detectd) 02/14/24 02/14/24 02/14/24 Range/Units 14:32 14:32 14:32 WBC (3.8-10.6) k/uL RBC (4.30-5.90) m/uL Hgb (13.0-17.5) gm/dL Hct (39.0-53.0) % MCV (80.0-100.0) fL MCH (25.0-35.0) pg MCHC (31.0-37.0) g/dL RDW (11.5-15.5) % Plt Count (150-450) k/uL MPV Neutrophils % % Lymphocytes % % Monocytes % % Eosinophils % % Basophils % % Neutrophils # (1.3-7.7) k/uL Lymphocytes # (1.0-4.8) k/uL Monocytes # (0-1.0) k/uL Eosinophils # (0-0.7) k/uL Basophils # (0-0.2) k/uL Sodium (137-145) mmol/L Potassium (3.5-5.1) mmol/L Chloride (98-107) mmol/L Carbon Dioxide (22-30) mmol/L Anion Gap mmol/L BUN (9-20) mg/dL Creatinine (0.66-1.25) mg/dL Est GFR (CKD-EPI)AfAm (>60 ml/min/1.73 sqM) Est GFR (CKD-EPI)NonAf (>60 ml/min/1.73 sqM) Glucose (74-99) mg/dL Lactic Ac Sepsis Rflx Plasma Lactic Acid Mina 2.9 H* (0.7-2.0) mmol/L Calcium (8.4-10.2) mg/dL Total Bilirubin (0.2-1.3) mg/dL AST (17-59) U/L ALT (4-49) U/L Alkaline Phosphatase (38-126) U/L C-Reactive Protein (<1.0) mg/dL Total Protein (6.3-8.2) g/dL Albumin (3.5-5.0) g/dL Procalcitonin (0.02-0.50) ng/mL Urine Color Light Yellow Urine Appearance Clear (Clear) Urine pH 5.5 (5.0-8.0) Ur Specific [place] 1.041 H (1.001-1.035) Urine Protein 1+ H (Negative) Urine Glucose (UA) 4+ H (Negative) Urine Ketones 1+ H (Negative) Urine Blood Negative (Negative) Urine Nitrite Negative (Negative) Urine Bilirubin Negative (Negative) Urine Urobilinogen <2.0 (<2.0) mg/dL Ur Leukocyte Esterase Negative (Negative) Urine RBC <1 (0-5) /hpf Urine WBC <1 (0-5) /hpf Urine Mucus Rare H (None) /hpf Carbamazepine (4.0-12.0) UG/ML Heterophile Antibody (Negative) Influenza Type A (PCR) Not Detected (Not Detectd) Influenza Type B (PCR) Not Detected (Not Detectd) Urine Legionella Ag (Negative) RSV (PCR) Not Detected (Not Detectd) SARS-CoV-2 (PCR) Not Detected (Not Detectd) 02/14/24 02/14/24 02/14/24 Range/Units 14:32 14:32 14:32 WBC (3.8-10.6) k/uL RBC (4.30-5.90) m/uL Hgb (13.0-17.5) gm/dL Hct (39.0-53.0) % MCV (80.0-100.0) fL MCH (25.0-35.0) pg MCHC (31.0-37.0) g/dL RDW (11.5-15.5) % Plt Count (150-450) k/uL MPV Neutrophils % % Lymphocytes % % Monocytes % % Eosinophils % % Basophils % % Neutrophils # (1.3-7.7) k/uL Lymphocytes # (1.0-4.8) k/uL Monocytes # (0-1.0) k/uL Eosinophils # (0-0.7) k/uL Basophils # (0-0.2) k/uL Sodium (137-145) mmol/L Potassium (3.5-5.1) mmol/L Chloride (98-107) mmol/L Carbon Dioxide (22-30) mmol/L Anion Gap mmol/L BUN (9-20) mg/dL Creatinine (0.66-1.25) mg/dL Est GFR (CKD-EPI)AfAm (>60 ml/min/1.73 sqM) Est GFR (CKD-EPI)NonAf (>60 ml/min/1.73 sqM) Glucose (74-99) mg/dL Lactic Ac Sepsis Rflx Plasma Lactic Acid Mina (0.7-2.0) mmol/L Calcium (8.4-10.2) mg/dL Total Bilirubin (0.2-1.3) mg/dL AST (17-59) U/L ALT (4-49) U/L Alkaline Phosphatase (38-126) U/L C-Reactive Protein (<1.0) mg/dL Total Protein (6.3-8.2) g/dL Albumin (3.5-5.0) g/dL Procalcitonin 0.56 H (0.02-0.50) ng/mL Urine Color Urine Appearance (Clear) Urine pH (5.0-8.0) Ur Specific [place] (1.001-1.035) Urine Protein (Negative) Urine Glucose (UA) (Negative) Urine Ketones (Negative) Urine Blood (Negative) Urine Nitrite (Negative) Urine Bilirubin (Negative) Urine Urobilinogen (<2.0) mg/dL Ur Leukocyte Esterase (Negative) Urine RBC (0-5) /hpf Urine WBC (0-5) /hpf Urine Mucus (None) /hpf Carbamazepine 6.2 (4.0-12.0) UG/ML Heterophile Antibody (Negative) Influenza Type A (PCR) (Not Detectd) Influenza Type B (PCR) (Not Detectd) Urine Legionella Ag Negative (Negative) RSV (PCR) (Not Detectd) SARS-CoV-2 (PCR) (Not Detectd) 02/14/24 02/14/24 02/14/24 Range/Units 15:24 17:51 18:27 WBC (3.8-10.6) k/uL RBC (4.30-5.90) m/uL Hgb (13.0-17.5) gm/dL Hct (39.0-53.0) % MCV (80.0-100.0) fL MCH (25.0-35.0) pg MCHC (31.0-37.0) g/dL RDW (11.5-15.5) % Plt Count (150-450) k/uL MPV Neutrophils % % Lymphocytes % % Monocytes % % Eosinophils % % Basophils % % Neutrophils # (1.3-7.7) k/uL Lymphocytes # (1.0-4.8) k/uL Monocytes # (0-1.0) k/uL Eosinophils # (0-0.7) k/uL Basophils # (0-0.2) k/uL Sodium (137-145) mmol/L Potassium (3.5-5.1) mmol/L Chloride (98-107) mmol/L Carbon Dioxide (22-30) mmol/L Anion Gap mmol/L BUN (9-20) mg/dL Creatinine (0.66-1.25) mg/dL Est GFR (CKD-EPI)AfAm (>60 ml/min/1.73 sqM) Est GFR (CKD-EPI)NonAf (>60 ml/min/1.73 sqM) Glucose (74-99) mg/dL Lactic Ac Sepsis Rflx Y Y Plasma Lactic Acid Mina 3.9 H* (0.7-2.0) mmol/L Calcium (8.4-10.2) mg/dL Total Bilirubin (0.2-1.3) mg/dL AST (17-59) U/L ALT (4-49) U/L Alkaline Phosphatase (38-126) U/L C-Reactive Protein (<1.0) mg/dL Total Protein (6.3-8.2) g/dL Albumin (3.5-5.0) g/dL Procalcitonin (0.02-0.50) ng/mL Urine Color Urine Appearance (Clear) Urine pH (5.0-8.0) Ur Specific [place] (1.001-1.035) Urine Protein (Negative) Urine Glucose (UA) (Negative) Urine Ketones (Negative) Urine Blood (Negative) Urine Nitrite (Negative) Urine Bilirubin (Negative) Urine Urobilinogen (<2.0) mg/dL Ur Leukocyte Esterase (Negative) Urine RBC (0-5) /hpf Urine WBC (0-5) /hpf Urine Mucus (None) /hpf Carbamazepine (4.0-12.0) UG/ML Heterophile Antibody (Negative) Influenza Type A (PCR) (Not Detectd) Influenza Type B (PCR) (Not Detectd) Urine Legionella Ag (Negative) RSV (PCR) (Not Detectd) SARS-CoV-2 (PCR) (Not Detectd) Disposition Clinical Impression: Pyrexia, Pneumonia Disposition: ADMITTED IP TO THIS HOSP Condition: Stable Is patient prescribed a controlled substance at d/c from ED?: No Time of Disposition: 18:04 Decision to Admit Reason: Admit from EC Decision Date: 02/14/24 Decision Time: 18:04
[2024-02-14] MEDS ORDERED: IPRATROPIUM-ALBUTEROL 3 ML NEB INHALATION PRN (18:36)
[2024-02-14] MEDS ORDERED: PNEUMONIA PROTOCOL UTILIZED 1 EACH MISC PO PRN (18:36)
[2024-02-14] MEDS: SODIUM CHLORIDE 0.9% 2,000 ML IV STA (18:45)
[2024-02-14] MEDS: ACETAMINOPHEN TAB 500 MG TAB PO STA (18:45)
[2024-02-14 19:42] LABS: Glucose,Whole Blood 262 mg/dL (70-110)
[2024-02-14] MEDS: INSULIN ASPART (NovoLOG) 100 UNIT/ML VIAL SQ SCH (19:49)
[2024-02-14] MEDS: AZTREONAM 2 GM in SODIUM CHLORIDE 0.9% 100 ML IVPB STA (19:50)
--- NOTE | 2024-02-14 20:09 | US ---
EXAMINATION TYPE: US mass soft tissue chest/back DATE OF EXAM: 02/14/2024 COMPARISON: NONE CLINICAL INDICATION: Male, 58 years old with history of left flank pain pump site for fluid collectio n; Right lower back lump at morphine pump site. TECHNIQUE: FINDINGS: No fluid collection visualized. However, exam severely limited due to artifact. IMPRESSION: No sonographic evidence of pathology in the region of interest within the limitations described above . [facility], , 02/14/2024 8:06 PM
[2024-02-14] MEDS: levETIRAcetam 500 MG TAB PO SCH (21:06)
[2024-02-14] MEDS: carBAMazepine 200 MG TAB PO SCH (21:06)
[2024-02-14] MEDS: DULoxetine HCL 60 MG CAPSULE.DR PO SCH (21:07)
[2024-02-14] MEDS: GABAPENTIN 400 MG CAP PO SCH (21:07)
[2024-02-14] MEDS: MECLIZINE 12.5 MG TAB PO SCH (21:07)
[2024-02-14] MEDS: oxyCODONE-APAP 10-325MG 1 EACH TAB PO PRN (21:12)
[2024-02-14] MEDS: AZITHROMYCIN 500 MG in SODIUM CHLORIDE 0.9% 250 ML IVPB STA (21:45)
[2024-02-14] MEDS: INSULIN DETEMIR (LEVEMIR) 100 UNIT/ML SYR SQ SCH (22:36)
[2024-02-15] MEDS: VANCOMYCIN 1,750 MG in SODIUM CHLORIDE 0.9% 500 ML 500 ML IVPB SCH (00:25)
[2024-02-15] MEDS: CYCLOBENZAPRINE 5 MG TAB PO PRN (00:32)
[2024-02-15] MEDS: LORazepam 0.5 MG TAB PO PRN (00:32)
[2024-02-15] MEDS: AZTREONAM 2 GM in SODIUM CHLORIDE 0.9% 100 ML IVPB SCH ×2 (05:22→23:00)
[2024-02-15 05:38] LABS: African American GFR (CKD) >90 (>60 ml/min/1.73 sqM); Non-African American GFR(CKD) >90 (>60 ml/min/1.73 sqM)
--- NOTE | 2024-02-15 07:38 | XR ---
EXAMINATION TYPE: XR chest 2V DATE OF EXAM: 02/15/2024 5:06 AM COMPARISON: Chest radiograph from one day prior. CLINICAL INDICATION: Male, 58 years old with history of pneumonia; TECHNIQUE: XR chest 2V Frontal and lateral views of the chest. FINDINGS: Lungs/Pleura: There is no evidence of pleural effusion, focal consolidation, or pneumothorax. Pulmonary vascularity: Unremarkable. Heart/mediastinum: Cardiomediastinal silhouette is unremarkable. Musculoskeletal: No acute osseous pathology. There is fixation hardware in the lower cervical spine. IMPRESSION: Stable exam no significant change.. [facility], , 02/15/2024 7:36 AM
[2024-02-15] MEDS: LINAGLIPTIN 5 MG TABLET PO SCH (09:45)
[2024-02-15] MEDS: LOSARTAN 25 MG TAB PO SCH (09:45)
[2024-02-15 09:47] LABS: Glucose,Whole Blood 146 mg/dL (70-110)
[2024-02-15] MEDS: NON FORMULARY DRUG (Testosterone [Androgel 1.62%] 75 GM Gel.Md.Pmp) TRANSDERM SCH (09:47)
[2024-02-15] MEDS ORDERED: DEXTROSE 50% SYRINGE 50 ML IVP PRN ×2 (15:59)
[2024-02-15 16:50] LABS: Glucose,Whole Blood 231 mg/dL (70-110)
[2024-02-15] MEDS: INSULIN ASPART (NovoLOG) 100 UNIT/ML VIAL SQ SCH (17:27)
[2024-02-15] MEDS: AZITHROMYCIN 500 MG in SODIUM CHLORIDE 0.9% 250 ML IVPB SCH (20:37)
[2024-02-15] MEDS: HEPARIN SODIUM,PORCINE 5,000 UNIT/ML 1 ML VIAL SQ SCH (20:39)
[2024-02-15 20:51] LABS: Glucose,Whole Blood 215 mg/dL (70-110)
[2024-02-15] MEDS: ONDANSETRON 4 MG/2 ML VIAL IVP PRN (23:40)
[2024-02-16] MEDS: VANCOMYCIN 1,750 MG in SODIUM CHLORIDE 0.9% 500 ML 500 ML IVPB SCH (02:56)
[2024-02-16 06:34] LABS: Glucose,Whole Blood 139 mg/dL (70-110)
[2024-02-16 07:14] LABS: African American GFR (CKD) >90 (>60 ml/min/1.73 sqM); Anion Gap 5 mmol/L; Blood Urea Nitrogen 8 mg/dL (9-20); Calcium 8.4 mg/dL (8.4-10.2); Carbon Dioxide 32 mmol/L (22-30); Chloride 101 mmol/L (98-107); Glucose 145 mg/dL (74-99); Non-African American GFR(CKD) >90 (>60 ml/min/1.73 sqM); Potassium 4.1 mmol/L (3.5-5.1); Sodium 138 mmol/L (137-145)
--- NOTE | 2024-02-16 07:17 | P.CONS ---
History of Present Illness - Reason for Consult Consult date: 02/15/24 Atypical pyrexia possible pneumonia Requesting physician: Gina Keane - Chief Complaint Pain redness to the pain pump site x 1 day - History of Present Illness Patient is a 58-year-old male with a past medical history significant for diabetes mellitus hyperlipidemia seizure disorder fibromyalgia patient did have a chronic lower back pain for which the patient did have a pain pump placement patient apparently had recently did have extravasation of the pain medication while attempting to fill of the pain pump and requiring multiple aspiration to remove the extravasated medication, patient subsequently developing more pain swelling to the pain pump site for the patient presented to the hospital patient was also complaining of some shortness of breath patient denies having any chest pain or significant cough denies having any URI symptoms no nausea no vomiting no abdominal pain or diarrhea patient describing pain to the pain pump site to be mostly sharp moderate intensity without any radiation patient did have a temperature of 100.7 F on arrival to the ER patient was tachycardic but not hypotensive mildly hypoxic currently on 2 L nasal cannula o xygen patient did have a white count of 9.2 creatinine 0.49 liver isms mildly elevated urine has been negative influenza RSV COVID testing negative patient did have allergy to penicillin and Keflex has been started on Zithromax history of M and vancomycin infectious he was consulted for further management of antibiotic therapy patient did have a chest x-ray mild insufficient density could reflect bronchitis asthma or underlying atypical pneumonia abdominal pelvis CT lower chest was unremarkable pain pump with poor visualization of the soft tissue surrounding it due to streak artifact no acute abdominal process Review of Systems Positive point and negatives has been mentioned in the HPI, complete review of systems was performed and all other systems are negative Past Medical History Past Medical History: Diabetes Mellitus, Fibromyalgia, GERD/Reflux, Hyperlipidemia, Seizure Disorder, Sleep Apnea/CPAP/BIPAP Additional Past Medical History / Comment(s): bells palsy, 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 RSD rt leg/feet, collapsed VERTEBRA back History of Any Multi-Drug Resistant Organisms: MRSA Year Discovered:: 2008 MDRO Source:: wound in neck Past Surgical History: Adenoidectomy, Appendectomy, Back Surgery, Bariatric Surgery, Orthopedic Surgery, Tonsillectomy Additional Past Surgical History / Comment(s): Eyes/plastic surgery, tongue surgery, circumcision, Rt foot surgeries, neck fusion, pain pump, lap band/later removed. 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 PAIN CLINIC PROCEDURES, Past Anesthesia/Blood Transfusion Reactions: Previous Problems w/ Anesthesia Additional Past Anesthesia/Blood Transfusion Reaction / Comm: "slow to come out due to narcolepsy" comes out with low oxygen level-pt denies this. Never had blood transfusion. Past Psychological History: No Psychological Hx Reported Smoking Status: Never smoker Past Alcohol Use History: None Reported Past Drug Use History: None Reported - Past Family History Father Family Medical History: CVA/TIA Additional Family Medical History / Comment(s): from "massive stroke" Mother Family Medical History: Cancer, Deep Vein Thrombosis (DVT), Pulmonary Embolus Brother(s) Family Medical History: Deep Vein Thrombosis (DVT) Medications and Allergies Home Medications Medication Instructions Recorded Confirmed Type Meclizine [Antivert] 12.5 mg PO TID 07/22/13 02/14/24 History LORazepam 0.5 mg PO TID PRN 09/15/19 02/14/24 History carBAMazepine [TEGretol] 200 mg PO BID 09/15/19 02/14/24 History levETIRAcetam [Keppra] 1,000 mg PO BID 11/24/21 02/14/24 History DULoxetine HCL [Cymbalta] 60 mg PO BID 10/26/22 02/14/24 History Cyclobenzaprine [Flexeril] 5 mg PO TID PRN 30 Days #90 tablet 11/14/23 02/14/24 Rx Losartan [Cozaar] 25 mg PO DAILY 11/14/23 02/14/24 History Insulin Glargine,Hum.rec.anlog 90 units SQ HS 12/26/23 02/14/24 History [Lantus Solostar Pen] Insulin Lispro [humaLOG Kwikpen] 40 unit SQ W/SUPPER 12/26/23 02/14/24 History Linagliptin [Tradjenta] 5 mg PO DAILY 12/26/23 02/14/24 History Patient Own Pump 0 bag 12/26/23 History Testosterone [Androgel 1.62%] 1 pump TRANSDERM DAILY 12/26/23 12/31/23 History Gabapentin 800 mg PO BID 30 Days #60 tab 01/09/24 02/14/24 Rx oxyCODONE HCL/ACETAMINOPHEN 1 tab PO TID PRN 30 Days #90 tab 01/09/24 02/14/24 Rx [Percocet 10-325 mg] Allergies Allergy/AdvReac Type Severity Reaction Status Date / Time bupropion HCl Allergy Dyspnea Verified 02/14/24 15:48 [From Wellbutrin] cephalexin [Cephalexin] Allergy Dyspnea Verified 02/14/24 15:48 cephalexin monohydrate Allergy Dyspnea,hiv Verified 02/14/24 15:48 [From Keflex] es penicillin G Allergy Rash/Hives Verified 02/14/24 15:48 onion Allergy Dyspnea,hiv Uncoded 02/14/24 15:48 es Physical Exam Vitals: Vital Signs Temp Pulse Resp BP Pulse Ox 02/15/24 09:41 98.8 F 87 16 130/71 97 02/15/24 06:00 100 16 114/68 95 02/15/24 02:20 108 H 18 144/85 90 L 02/15/24 01:00 105 H 18 124/70 99 02/14/24 21:56 110 H 20 104/60 90 L 02/14/24 19:56 98.8 F 02/14/24 17:21 100.7 F H 120 H 20 111/71 96 02/14/24 12:37 100.1 F H 133 H 20 118/81 94 L GENERAL DESCRIPTION: Middle-aged male lying in bed, no distress. No tachypnea or accessory muscle of respiration use. HEENT: Shows Pallor , no scleral icterus. Oral mucous membrane is dry. NECK: Trachea central, no thyromegaly. LUNGS: Unlabored breathing. Decreased breath sound at the base HEART: S1, S2, regular rate and rhythm. No loud murmur ABDOMEN: Soft, no tenderness , guarding or rigidity, no organomegaly EXTREMITIES: No edema of feet. SKIN: Lower back pain pump site with minimal swelling and erythema NEUROLOGICAL: The patient is awake, alert, oriented x3, mood and affect normal. Results CBC & Chem 7: 02/14/24 14:32 02/15/24 04:29 Labs: Abnormal Lab Results - Last 24 Hours (Table) 02/14/24 02/14/24 02/14/24 Range/Units 14:32 14:32 14:32 Sodium 134 L (137-145) mmol/L Creatinine 0.49 L (0.66-1.25) mg/dL Glucose 370 H (74-99) mg/dL POC Glucose (mg/dL) (70-110) mg/dL Plasma Lactic Acid Mina 2.9 H* (0.7-2.0) mmol/L AST 161 H (17-59) U/L ALT 52 H (4-49) U/L C-Reactive Protein 3.1 H (<1.0) mg/dL Procalcitonin (0.02-0.50) ng/mL Ur Specific [place] 1.041 H (1.001-1.035) Urine Protein 1+ H (Negative) Urine Glucose (UA) 4+ H (Negative) Urine Ketones 1+ H (Negative) Urine Mucus Rare H (None) /hpf 02/14/24 02/14/24 02/14/24 Range/Units 14:32 17:51 19:41 Sodium (137-145) mmol/L Creatinine (0.66-1.25) mg/dL Glucose (74-99) mg/dL POC Glucose (mg/dL) 262 H (70-110) mg/dL Plasma Lactic Acid Mina 3.9 H* (0.7-2.0) mmol/L AST (17-59) U/L ALT (4-49) U/L C-Reactive Protein (<1.0) mg/dL Procalcitonin 0.56 H (0.02-0.50) ng/mL Ur Specific [place] (1.001-1.035) Urine Protein (Negative) Urine Glucose (UA) (Negative) Urine Ketones (Negative) Urine Mucus (None) /hpf 02/14/24 02/15/24 02/15/24 Range/Units 21:24 00:14 04:29 Sodium (137-145) mmol/L Creatinine 0.48 L (0.66-1.25) mg/dL Glucose (74-99) mg/dL POC Glucose (mg/dL) (70-110) mg/dL Plasma Lactic Acid Mina 4.0 H* 2.4 H* (0.7-2.0) mmol/L AST (17-59) U/L ALT (4-49) U/L C-Reactive Protein (<1.0) mg/dL Procalcitonin (0.02-0.50) ng/mL Ur Specific [place] (1.001-1.035) Urine Protein (Negative) Urine Glucose (UA) (Negative) Urine Ketones (Negative) Urine Mucus (None) /hpf 02/15/24 02/15/24 Range/Units 04:29 09:45 Sodium (137-145) mmol/L Creatinine (0.66-1.25) mg/dL Glucose (74-99) mg/dL POC Glucose (mg/dL) 146 H (70-110) mg/dL Plasma Lactic Acid Mina 2.4 H* (0.7-2.0) mmol/L AST (17-59) U/L ALT (4-49) U/L C-Reactive Protein (<1.0) mg/dL Procalcitonin (0.02-0.50) ng/mL Ur Specific [place] (1.001-1.035) Urine Protein (Negative) Urine Glucose (UA) (Negative) Urine Ketones (Negative) Urine Mucus (None) /hpf Assessment and Plan (1) Cellulitis Current Visit: Yes Status: Acute Code(s): L03.90 - CELLULITIS, UNSPECIFIED SNOMED Code(s): 613742587 (2) Allergy to multiple antibiotics Current Visit: Yes Status: Acute Code(s): Z88.1 - ALLERGY STATUS TO OTHER ANTIBIOTIC AGENTS SNOMED Code(s): 257727144 (3) Pyrexia Current Visit: Yes Status: Acute Code(s): R50.9 - FEVER, UNSPECIFIED SNOMED Code(s): 539095581 Plan: 1patient presented to hospital with increasing pain and swelling to his pain pu mp site with associated shortness of breath concerning for cellulitis at the pain pump site in this patient who recently did have extravasation of the medication 1 trying to fill up the pain pump with subsequent multiple aspiration noticed to have some erythema CT abdominal pelvis did not show any evidence of abscess and no need to cover for the gram-positive skin wayne to the likely pathogen clinically doubt pneumonia 2-patient with multiple antibiotic ALLERGIES that would limit the number of a ntibiotic safe to use 3-we will empirically cover with vancomycin pharmacy to dose and Azactam while waiting for the culture to finalize We will follow on clinical condition and cultures to further adjust medication if needed Thank you for this consultation we will follow the patient along with you Dictation was produced using [employer] dictation software. please excuse any grammatical, word or spelling errors. Time with Patient: Greater than 30
[2024-02-16] MEDS: VANCOMYCIN TROUGH DUE 1 EACH MISC MISCELLANE ONE (09:08)
[2024-02-16 09:54] LABS: Basophils # (A) 0.03 X 10*3/uL (0.00-0.10); Basophils % (A) 0.5 %; Eosinophils # (A) 0.16 X 10*3/uL (0.04-0.35); Eosinophils % (A) 2.6 %; HCT 45.1 % (39.6-50.0); HGB 14.7 g/dL (13.0-17.0); Lymphocytes # (A) 2.54 X 10*3/uL (0.90-5.00); Lymphocytes % (A) 41.9 %; MCH 30.5 pg (27.0-32.0); MCHC 32.6 g/dL (32.0-37.0); MCV 93.6 FL (80.0-97.0); Mean Platelet Volume 9.2 FL (9.5-12.2); Monocytes # (A) 0.72 X 10*3/uL (0.20-1.00); Monocytes % (A) 11.9 %; NRBC Per 100 WBC 0 X 10*3/uL (0.00-0.01); Neutrophils # (A) 2.59 X 10*3/uL (1.80-7.70); Neutrophils % (A) 42.8 %; Platelet Count 255 X 10*3/uL (140-440); RBC 4.82 X 10*6/uL (4.40-5.60); RDW 12.9 % (11.5-14.5); WBC 6.06 X 10*3/uL (4.50-10.00)
[2024-02-16] MEDS: VANCOMYCIN 1,500 MG in SODIUM CHLORIDE 0.9% 500 ML 500 ML IVPB SCH (10:54)
[2024-02-16 11:26] LABS: Glucose,Whole Blood 228 mg/dL (70-110)
--- NOTE | 2024-02-16 13:47 | US ---
EXAMINATION TYPE: US mass soft tissue chest/back DATE OF EXAM: 02/16/2024 COMPARISON: US 2 days prior CLINICAL INDICATION: Male, 58 years old with history of lower back for infection pain pump; worsening symptoms from scan two days prior TECHNIQUE: several images taken at area of concern with grayscale and color Doppler imaging. FINDINGS: there is skin thickening and edema noted around the pump. Soundwaves unable to penetrate t hrough the pump to visualize beneath it. Limited study. no fluid collections seen IMPRESSION: Phlegmonous change with subjacent edema no discrete organizing fluid collection at this t [facility], , 02/16/2024 1:44 PM
--- NOTE | 2024-02-16 14:55 | P.PN ---
Subjective Progress Note Date: 02/16/24 Principal diagnosis: Reason for follow-up is fever/pain pump site cellulitis Patient is a 58-year-old male with a past medical history significant for diabetes mellitus hyperlipidemia seizure disorder fibromyalgia patient did have a chronic lower back pain for which the patient did have a pain pump with recent extravasation followed by repeat aspiration now presented to hospital with increasing pain swelling redness to the pain pump site along with shortness of breath. On today's evaluation that is 02/16/2024, Patient did have resolution of his fever and is afebrile this morning patient is currently on room air and breathing more comfortably no chest pain shortness of breath or cough no abdominal pain or diarrhea still complaining of pain to the lower back pain pump site. Patient white count is 6.06, creatinine 0.48 Objective - Vital Signs Vital signs: Vital Signs Temp 98.3 F 02/16/24 12:39 Pulse 67 02/16/24 12:39 Resp 16 02/16/24 12:39 BP 143/78 02/16/24 12:39 Pulse Ox 94 L 02/16/24 12:39 FiO2 Intake & Output 02/15/24 02/16/24 02/16/24 18:59 06:59 18:59 Intake Total 1560 Balance 1560 Weight 120.202 kg Intake: Oral 1560 Other: Voiding Method Toilet # Voids 3 - Exam GENERAL DESCRIPTION: Middle-age male lying in bed in no distress RESPIRATORY SYSTEM: Unlabored breathing , decreased breath sounds at bases HEART: S1 S2 regular rate and rhythm , ABDOMEN: Soft , no tenderness SKIN: No open back pain pump site did have erythema but no drainage EXTREMITIES: No edema feet - Labs CBC & Chem 7: 02/16/24 06:33 02/16/24 06:33 Labs: Abnormal Lab Results - Last 24 Hours (Table) 02/15/24 02/15/24 02/16/24 Range/Units 16:49 20:49 06:32 MPV (9.5-12.2) FL Carbon Dioxide (22-30) mmol/L BUN (9-20) mg/dL Creatinine (0.66-1.25) mg/dL Glucose (74-99) mg/dL POC Glucose (mg/dL) 231 H 215 H 139 H (70-110) mg/dL Hemoglobin A1c (<=6.0) % 02/16/24 02/16/24 02/16/24 Range/Units 06:33 06:33 06:33 MPV 9.2 L (9.5-12.2) FL Carbon Dioxide 32 H (22-30) mmol/L BUN 8 L (9-20) mg/dL Creatinine 0.48 L (0.66-1.25) mg/dL Glucose 145 H (74-99) mg/dL POC Glucose (mg/dL) (70-110) mg/dL Hemoglobin A1c 11.9 H (<=6.0) % 02/16/24 Range/Units 11:25 MPV (9.5-12.2) FL Carbon Dioxide (22-30) mmol/L BUN (9-20) mg/dL Creatinine (0.66-1.25) mg/dL Glucose (74-99) mg/dL POC Glucose (mg/dL) 228 H (70-110) mg/dL Hemoglobin A1c (<=6.0) % Microbiology - Last 24 Hours (Table) 02/14/24 14:32 Blood Culture - Preliminary Blood 02/14/24 14:32 Blood Culture - Preliminary Blood Assessment and Plan (1) Cellulitis Current Visit: Yes Status: Acute Code(s): L03.90 - CELLULITIS, UNSPECIFIED SNOMED Code(s): 296521929 (2) Allergy to multiple antibiotics Current Visit: Yes Status: Acute Code(s): Z88.1 - ALLERGY STATUS TO OTHER ANTIBIOTIC AGENTS SNOMED Code(s): 177162107 (3) Pyrexia Current Visit: Yes Status: Acute Code(s): R50.9 - FEVER, UNSPECIFIED SNOMED Code(s): 223000129 Plan: 1patient presented to hospital with increasing pain and swelling to his pain pump site with associated shortness of breath concerning for cellulitis at the pain pump site in this patient who recently did have extravasation of the medication 1 trying to fill up the pain pump with subsequent multiple aspiration noticed to have some erythema CT abdominal pelvis did not show any evidence of abscess and no need to cover for the gram-positive skin wayne to the likely pathogen clinically doubt pneumonia 2-patient with multiple antibiotic ALLERGIES that would limit the number of antibiotic safe to use 3-patient did have ultrasound of the brain from slightly shows phlegmon changes but no drainable abscess if the area started to drain less is appropriate culture for now continue with the azithromycin and vancomycin he should 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 dictation software. please excuse any grammatical, word or spelling errors. Time with Patient: Less than 30
[2024-02-16 16:24] LABS: Glucose,Whole Blood 281 mg/dL (70-110)
[2024-02-16 20:10] LABS: Glucose,Whole Blood 247 mg/dL (70-110)
[2024-02-17 06:37] LABS: Glucose,Whole Blood 173 mg/dL (70-110)
--- NOTE | 2024-02-17 09:09 | HP ---
HISTORY AND PHYSICAL CHIEF COMPLAINT: Fever. HISTORY OF PRESENT ILLNESS: This is a 58-year-old gentleman with a past medical history of diabetes type 2, is on insulin drip. The patient is complaining of fever and possible pneumonia. The patient also has some erythema of the left flank, pain at pump site. There is no history of any fever, rigors, or chills at this time. PAST MEDICAL HISTORY: Reviewed included diabetes mellitus type 2, fibromyalgia. Rest of the chart is also reviewed. HOME MEDICATIONS: Reviewed include Ativan pain pump. Doses and the rest of the medications are reviewed. ALLERGIES: Reviewed include cephalexin. FAMILY HISTORY: History of DVT, family. SOCIAL HISTORY: No history of smoking or alcohol. REVIEW OF SYSTEMS: Fourteen-point review of systems is negative except as mentioned earlier. PHYSICAL EXAMINATION: VITAL SIGNS: Pulse is 85, blood pressure n, respirations 17. HEENT: Conjunctivae normal. NECK: No JVD. CARDIOVASCULAR: S1, S2. RESPIRATIONS: Breath sounds diminished at the bases. ABDOMEN: Soft, obese. LEGS: No edema. NERVOUS SYSTEM: Nonfocal. LABORATORY DATA: Lactic acid is 4, glucose 370. ASSESSMENT: 1. Fever, possible pneumonia. 2. Rule out pain pump site infection. 3. Diabetes mellitus type 2, uncontrolled, hyperglycemia. 4. Morbid obesity. 5. Elevated lactic acid. 6. Fibromyalgia. 7. Seizure disorder. 8. History of bariatric surgery. 9. Multiple complex medical issues. RECOMMENDATIONS AND DISCUSSION: This is a 58-year-old gentleman who presented with multiple complex medical issues, we will monitor the patient closely. The patient most likely with some infection, either pneumonia or pain pump site infection. Aztreonam has been initiated. We will closely monitor. Obtain cultures. Monitor blood sugars closely. Infectious Disease evaluation. Prognosis guarded because of multiple complex medical conditions. Chest x- ray reviewed personally. See orders for details. DVT prophylaxis. MMODL / IJN: [id number] / MTDD
[2024-02-17 09:19] LABS: Basophils # (A) 0.03 X 10*3/uL (0.00-0.10); Basophils % (A) 0.5 %; Eosinophils # (A) 0.29 X 10*3/uL (0.04-0.35); Eosinophils % (A) 4.9 %; HGB 14.1 g/dL (13.0-17.0); Lymphocytes # (A) 2.86 X 10*3/uL (0.90-5.00); Lymphocytes % (A) 48.1 %; MCH 30.9 pg (27.0-32.0); MCHC 33.6 g/dL (32.0-37.0); MCV 92.1 FL (80.0-97.0); Monocytes # (A) 0.55 X 10*3/uL (0.20-1.00); Monocytes % (A) 9.3 %; NRBC Per 100 WBC 0 X 10*3/uL (0.00-0.01); Neutrophils # (A) 2.19 X 10*3/uL (1.80-7.70); Neutrophils % (A) 36.9 %; Platelet Count 240 X 10*3/uL (140-440); RBC 4.56 X 10*6/uL (4.40-5.60); RDW 12.9 % (11.5-14.5); WBC 5.94 X 10*3/uL (4.50-10.00)
[2024-02-17 09:45] LABS: Blood Urea Nitrogen 7.3 mg/dL (9.0-27.0); Calcium 8.3 mg/dL (8.7-10.3); Carbon Dioxide 29.2 mmol/L (21.6-31.8); Chloride 102 mmol/L (96-109); Glucose 230 mg/dL (70-110); Potassium 4.3 mmol/L (3.5-5.5); Sodium 140 mmol/L (135-145)
--- NOTE | 2024-02-17 09:53 | PN ---
PROGRESS NOTE DATE OF SERVICE: 02/16/2024 SUBJECTIVE: This is a 58-year-old gentleman, who was admitted with significant infection and sepsis, is being closely monitored. The patient is on broad-spectrum IV antibiotics. The cultures are negative. Dr. Zamarripa recommended ultrasound also. PAST MEDICAL HISTORY: Reviewed. REVIEW OF SYSTEMS: A 14-point review of systems is negative. CURRENT MEDICATIONS: Reviewed. PHYSICAL EXAMINATION: VITAL SIGNS: Pulse is 67, blood pressure n respirations 16. CHEST: scattered rhonchi. ABDOMEN: Soft. NERVOUS SYSTEM: Nonfocal erythema present. LABORATORY DATA: Accu-Cheks noted. ASSESSMENT: 1. Possible sepsis from pain from insertion site infection and cellulitis. 2. Diabetes mellitus, type 2, uncontrolled. 3. Fibromyalgia. 4. Hyperlipidemia. 5. Seizure disorder. 7. Multiple complex medical issues. RECOMMENDATIONS: 1. This 58-year-old gentleman presented with multiple complex medical issues, we will monitor the patient closely, continue the current medications, symptomatic treatment, otherwise, at this time, I would also recommend closely follow . 2. We will evaluate to rule out the possibility of pneumonia as well. Prognosis guarded. Further recommendations to follow. MMODL / IJN: [id number] / MTDD
[2024-02-17 11:08] LABS: Glucose,Whole Blood 240 mg/dL (70-110)
[2024-02-17 14:24] VITALS: BMI 39.1
[2024-02-17 16:17] LABS: Glucose,Whole Blood 250 mg/dL (70-110)
--- NOTE | 2024-02-17 20:07 | P.PN ---
Progress Note - Text Progress Note Date: 02/17/24 This 58 years old male with the very well-known to the pain services, patient had intrathecal pain pump implanted more than 10 years ago, and over the last few weeks patient developed cellulitis at the pump site, no drainage at the pump area, there is some redness at the medial border of the pump area, patient had allergy to cephalexin and he is currently on antibiotics as per infectious disease services and he is currently on vancomycin and aztreonam, blood culture is negative for 48 hours, patient currently on infusion through intrathecal pain pump, and he is currently also on Percocet 10/325 for breakthrough pain and Neurontin 800 mg twice a day and Flexeril 5 mg 3 times daily, patient reported that his pain under control and he denies any side effect of the pain medication, patient was admitted to [facility] secondary to fever, possible pneumonia, and currently under 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
[2024-02-17 20:52] LABS: Glucose,Whole Blood 255 mg/dL (70-110)
--- NOTE | 2024-02-17 21:44 | PN ---
PROGRESS NOTE DATE OF SERVICE: 02/17/2024 This is a 58-year-old gentleman who was admitted with fever and possible pneumonia. He is also being evaluated for to rule out the possibility of pain pump site infection with phlegmonous changes noted. PHYSICAL EXAMINATION: VITAL SIGNS: Pulse is 75, blood pressure /91, respirations 16. CARDIOVASCULAR: S1, S2. ABDOMEN: Soft, obese. LEGS: No edema. NERVOUS SYSTEM: Nonfocal. LABS: CBC normal. ASSESSMENT: 1. Fever, possibly pneumonia. 2. Possible pain pump site infection with phlegmon. 3. Diabetes mellitus, type 2, uncontrolled with hyperglycemia. 4. Morbid obesity. 5. Elevated lactic acid. 6. Multiple medical issues. RECOMMENDATIONS: Recommend to continue current management and symptomatic treatment. Dr. Varela has inserted the pain pump. We will closely follow with Infectious Disease. Antibiotics. Cultures are negative so far. Guarded prognosis. Further recommendations to follow. MMODL / IJN: [id number] /
[2024-02-18 06:53] LABS: Glucose,Whole Blood 276 mg/dL (70-110)
[2024-02-18 08:53] LABS: African American GFR (CKD) >90 (>60 ml/min/1.73 sqM); Non-African American GFR(CKD) >90 (>60 ml/min/1.73 sqM)
[2024-02-18 09:19] LABS: ALT 32 U/L (10-49); AST 40 U/L (14-35); Albumin 3.3 g/dL (3.8-4.9); Albumin/Globulin Ratio 1.32 Ratio (1.60-3.17); Alkaline Phosphatase 80 U/L (41-126); Bilirubin, Conjugated <0.20 mg/dL (0.20-0.40); Bilirubin,Unconjugated >0 mg/dL (0.20-1.00); Blood Urea Nitrogen 7.8 mg/dL (9.0-27.0); Calcium 8.4 mg/dL (8.7-10.3); Chloride 99 mmol/L (96-109); Globulin 2.5 g/dL (1.6-3.3); Glucose 268 mg/dL (70-110); Potassium 3.8 mmol/L (3.5-5.5); Sodium 137 mmol/L (135-145); Total Bilirubin 0.2 mg/dL (0.3-1.2); Total Protein 5.8 g/dL (6.2-8.2)
[2024-02-18] MEDS: VANCOMYCIN TROUGH DUE 1 EACH MISC MISCELLANE ONE (10:51)
[2024-02-18 11:25] LABS: Glucose,Whole Blood 252 mg/dL (70-110)
--- NOTE | 2024-02-18 12:49 | P.PN ---
Subjective This is a pleasant 58 years old male who presents with pain pump infection at his bedside, his pain today is 4/10, he is dressing in place Denies any other complaint pain medicine are following with also the patient Currently patient has been covered with antibiotics per ID team with his return home and IV vancomycin given his drug allergy His proCalcitonin was elevated 0.56 on admission Blood cultures pending Soft ultrasound showing no abscess Chest x-ray is negative for acute process CT of the abdomen pelvis showing pain pump with poor visualized area Objective - Vital Signs Vital signs: Vital Signs Temp 97.8 F 02/18/24 07:05 Pulse 77 02/18/24 07:05 Resp 18 02/18/24 07:05 BP 130/73 02/18/24 07:05 Pulse Ox 92 L 02/18/24 07:05 FiO2 Intake & Output 02/17/24 02/18/24 02/18/24 18:59 06:59 18:59 Weight 120.202 kg Other: Voiding Method Toilet # Voids 5 5 # Bowel Movements 2 - Exam GENERAL: The patient is alert and oriented x3, not in any acute distress. Well developed, well nourished. HEENT: Pupils are round and equally reacting to light. EOMI. No scleral icterus. No conjunctival pallor. Normocephalic, atraumatic. No pharyngeal erythema. No thyromegaly. CARDIOVASCULAR: S1 and S2 present. No murmurs, rubs, or gallops. PULMONARY: Chest is clear to auscultation, no wheezing , no crackles. ABDOMEN: Soft, nontender, nondistended, normoactive bowel sounds. No palpable organomegaly. -MUSCULOSKELETAL: No joint swelling or deformity. Left lower back infection site at the pain pump site with a dressing in place EXTREMITIES: No cyanosis, clubbing, or pedal edema. NEUROLOGICAL: Gross neurological examination did not reveal any focal deficits. SKIN: No rashes. no petechiae. - Labs CBC & Chem 7: 02/17/24 03:47 02/18/24 08:34 Labs: Abnormal Lab Results - Last 24 Hours (Table) 02/17/24 02/17/24 02/18/24 Range/Units 16:15 20:50 02:47 BUN 7.8 L (9.0-27.0) mg/dL Creatinine 0.5 L (0.6-1.5) mg/dL Glucose 268 H (70-110) mg/dL POC Glucose (mg/dL) 250 H 255 H (70-110) mg/dL Calcium 8.4 L (8.7-10.3) mg/dL Total Bilirubin 0.2 L (0.3-1.2) mg/dL Unconjugated Bilirubin >0 L (0.20-1.00) mg/dL AST 40 H (14-35) U/L Total Protein 5.8 L (6.2-8.2) g/dL Albumin 3.3 L (3.8-4.9) g/dL Albumin/Globulin Ratio 1.32 L (1.60-3.17) Ratio 02/18/24 02/18/24 02/18/24 Range/Units 06:51 08:34 11:23 BUN (9.0-27.0) mg/dL Creatinine 0.44 L (0.6-1.5) mg/dL Glucose (70-110) mg/dL POC Glucose (mg/dL) 276 H 252 H (70-110) mg/dL Calcium (8.7-10.3) mg/dL Total Bilirubin (0.3-1.2) mg/dL Unconjugated Bilirubin (0.20-1.00) mg/dL AST (14-35) U/L Total Protein (6.2-8.2) g/dL Albumin (3.8-4.9) g/dL Albumin/Globulin Ratio (1.60-3.17) Ratio Microbiology - Last 24 Hours (Table) 02/14/24 14:32 Blood Culture - Preliminary Blood 02/14/24 14:32 Blood Culture - Preliminary Blood Assessment and Plan Assessment: Acute cellulitis of the pump site in the left lower back History of seizure Obesity with BMI 39.1 Plan: Continue with IV antibiotics per ID team, currently on aztreonam and IV vancomycin Pain medicine consult Pain management uncontrolled Follow-up blood culture results Labs and medication were reviewed.. Continue same treatment. Continue with symptomatic treatment. Resume home medication. Monitor labs and vitals. DVT and GI prophylaxis. Further recommendations as per clinical course of the patient DVT prophylaxis: Subcutaneous heparin GI Prophylaxis: Pepcid Prognosis is guarded
--- NOTE | 2024-02-18 16:15 | P.PN ---
Subjective Progress Note Date: 02/17/24 Principal diagnosis: Reason for follow-up is fever/pain pump site cellulitis Patient is a 58-year-old male with a past medical history significant for diabetes mellitus hyperlipidemia seizure disorder fibromyalgia patient did have a chronic lower back pain for which the patient did have a pain pump with recent extravasation followed by repeat aspiration now presented to hospital with increasing pain swelling redness to the pain pump site along with shortness of breath. On today's evaluation that is 02/17/2024, patient has been afebrile, patient is breathing comfortably and is currently on room air, patient denies having any significant cough no chest pain, patient denies nausea vomiting or diarrhea and no abdominal pain, the patient pain to the lower back at the pain pump site has decreased in intensity. Patient did have a white count of 5.94, creatinine 0.5 Objective - Vital Signs Vital signs: Vital Signs Temp 97.6 F 02/17/24 07:22 Pulse 69 02/17/24 07:22 Resp 15 02/17/24 07:22 BP 131/78 02/17/24 07:22 Pulse Ox 93 L 02/17/24 07:22 FiO2 Intake & Output 02/16/24 02/17/24 02/17/24 18:59 06:59 18:59 Intake Total 300 2397 Balance 300 2397 Intake: Oral 300 2397 Other: Voiding Method Toilet Toilet # Voids 3 6 - Exam GENERAL DESCRIPTION: Middle-age male lying in bed in no distress RESPIRATORY SYSTEM: Unlabored breathing , decreased breath sounds at bases HEART: S1 S2 regular rate and rhythm , ABDOMEN: Soft , no tenderness SKIN: No open back pain pump site did have erythema but no drainage EXTREMITIES: No edema feet - Labs CBC & Chem 7: 02/17/24 03:47 02/18/24 08:34 Labs: Abnormal Lab Results - Last 24 Hours (Table) 02/16/24 02/16/24 02/17/24 Range/Units 16:22 20:09 03:47 MPV 9.0 L (9.5-12.2) FL BUN (9.0-27.0) mg/dL Creatinine (0.6-1.5) mg/dL Glucose (70-110) mg/dL POC Glucose (mg/dL) 281 H 247 H (70-110) mg/dL Calcium (8.7-10.3) mg/dL 02/17/24 02/17/24 02/17/24 Range/Units 03:47 06:36 11:06 MPV (9.5-12.2) FL BUN 7.3 L (9.0-27.0) mg/dL Creatinine 0.5 L (0.6-1.5) mg/dL Glucose 230 H (70-110) mg/dL POC Glucose (mg/dL) 173 H 240 H (70-110) mg/dL Calcium 8.3 L (8.7-10.3) mg/dL Microbiology - Last 24 Hours (Table) 02/14/24 14:32 Blood Culture - Preliminary Blood 02/14/24 14:32 Blood Culture - Preliminary Blood Assessment and Plan (1) Cellulitis Current Visit: Yes Status: Acute Code(s): L03.90 - CELLULITIS, UNSPECIFIED SNOMED Code(s): 248491266 (2) Allergy to multiple antibiotics Current Visit: Yes Status: Acute Code(s): Z88.1 - ALLERGY STATUS TO OTHER ANTIBIOTIC AGENTS SNOMED Code(s): 346520985 (3) Pyrexia Current Visit: Yes Status: Acute Code(s): R50.9 - FEVER, UNSPECIFIED SNOMED Code(s): 999032157 Plan: 1patient presented to hospital with increasing pain and swelling to his pain pump site with associated shortness of breath concerning for cellulitis at the pain pump site in this patient who recently did have extravasation of the medication 1 trying to fill up the pain pump with subsequent multiple aspiration noticed to have some erythema CT abdominal pelvis did not show any evidence of abscess and no need to cover for the gram-positive skin wayne to the likely pathogen clinically doubt pneumonia 2-patient with multiple antibiotic ALLERGIES that would limit the number of antibiotic safe to use 3-patient did have ultrasound of the brain from slightly shows phlegmon changes but no drainable abscess, for now continue with Azactam and the vancomycin await evaluation by the pain specialist Dictation was produced using [employer] dictation software. please excuse any grammatical, word or spelling errors. Time with Patient: Less than 30
--- NOTE | 2024-02-18 16:16 | P.PN ---
Subjective Progress Note Date: 02/18/24 Principal diagnosis: Reason for follow-up is fever/pain pump site cellulitis Patient is a 58-year-old male with a past medical history significant for diabetes mellitus hyperlipidemia seizure disorder fibromyalgia patient did have a chronic lower back pain for which the patient did have a pain pump with recent extravasation followed by repeat aspiration now presented to hospital with increasing pain swelling redness to the pain pump site along with shortness of breath. On today's evaluation that is 02/18/2024, Patient is afebrile this morning patient denies having any chest pain shortness of breath or cough, the patient is currently on room air, patient denies any abdominal pain no diarrhea no nausea no vomiting, the patient pain to the pain pump site has decreased in intensity and denies having any drainage. Patient did have a creatinine 0.44 no CBC was done today culture has been negative Objective - Vital Signs Vital signs: Vital Signs Temp 98.2 F 02/18/24 13:40 Pulse 74 02/18/24 13:40 Resp 18 02/18/24 13:40 BP 137/78 02/18/24 13:40 Pulse Ox 93 L 02/18/24 13:40 FiO2 Intake & Output 02/17/24 02/18/24 02/18/24 18:59 06:59 18:59 Weight 120.202 kg Other: Voiding Method Toilet # Voids 5 5 # Bowel Movements 2 - Exam GENERAL DESCRIPTION: Middle-age male lying in bed in no distress RESPIRATORY SYSTEM: Unlabored breathing , decreased breath sounds at bases HEART: S1 S2 regular rate and rhythm , ABDOMEN: Soft , no tenderness SKIN: No open back pain pump site did have erythema but no drainage EXTREMITIES: No edema feet - Labs CBC & Chem 7: 02/17/24 03:47 02/18/24 08:34 Labs: Abnormal Lab Results - Last 24 Hours (Table) 02/17/24 02/17/24 02/18/24 Range/Units 16:15 20:50 02:47 BUN 7.8 L (9.0-27.0) mg/dL Creatinine 0.5 L (0.6-1.5) mg/dL Glucose 268 H (70-110) mg/dL POC Glucose (mg/dL) 250 H 255 H (70-110) mg/dL Calcium 8.4 L (8.7-10.3) mg/dL Total Bilirubin 0.2 L (0.3-1.2) mg/dL Unconjugated Bilirubin >0 L (0.20-1.00) mg/dL AST 40 H (14-35) U/L Total Protein 5.8 L (6.2-8.2) g/dL Albumin 3.3 L (3.8-4.9) g/dL Albumin/Globulin Ratio 1.32 L (1.60-3.17) Ratio 02/18/24 02/18/24 02/18/24 Range/Units 06:51 08:34 11:23 BUN (9.0-27.0) mg/dL Creatinine 0.44 L (0.6-1.5) mg/dL Glucose (70-110) mg/dL POC Glucose (mg/dL) 276 H 252 H (70-110) mg/dL Calcium (8.7-10.3) mg/dL Total Bilirubin (0.3-1.2) mg/dL Unconjugated Bilirubin (0.20-1.00) mg/dL AST (14-35) U/L Total Protein (6.2-8.2) g/dL Albumin (3.8-4.9) g/dL Albumin/Globulin Ratio (1.60-3.17) Ratio Microbiology - Last 24 Hours (Table) 02/14/24 14:32 Blood Culture - Preliminary Blood 02/14/24 14:32 Blood Culture - Preliminary Blood Assessment and Plan (1) Cellulitis Current Visit: Yes Status: Acute Code(s): L03.90 - CELLULITIS, UNSPECIFIED SNOMED Code(s): 330259967 (2) Allergy to multiple antibiotics Current Visit: Yes Status: Acute Code(s): Z88.1 - ALLERGY STATUS TO OTHER ANTIBIOTIC AGENTS SNOMED Code(s): 906799912 (3) Pyrexia Current Visit: Yes Status: Acute Code(s): R50.9 - FEVER, UNSPECIFIED SNOMED Code(s): 874864922 Plan: 1patient presented to hospital with increasing pain and swelling to his pain pump site with associated shortness of breath concerning for cellulitis at the pain pump site in this patient who recently did have extravasation of the medication 1 trying to fill up the pain pump with subsequent multiple aspiration noticed to have some erythema CT abdominal pelvis did not show any evidence of abscess and no need to cover for the gram-positive skin wayne to the likely pathogen clinically doubt pneumonia 2-patient with multiple antibiotic ALLERGIES that would limit the number of antibiotic safe to use 3-patient did have ultrasound of the brain from slightly shows phlegmon changes but no drainable abscess, has been evaluated by pain specialist and not recommending any intervention at this point 4I will continue the patient on vancomycin however discontinue Azactam Dictation was produced using [employer] dictation software. please excuse any grammatical, word or spelling errors. Time with Patient: Less than 30
[2024-02-18 16:44] LABS: Glucose,Whole Blood 231 mg/dL (70-110)
[2024-02-18 20:32] LABS: Glucose,Whole Blood 180 mg/dL (70-110)
[2024-02-18] MEDS: FAMOTIDINE 20 MG/2 ML VIAL IV SCH (21:08)
[2024-02-18] MEDS: VANCOMYCIN 1,500 MG in SODIUM CHLORIDE 0.9% 500 ML 500 ML IVPB SCH (22:45)
[2024-02-19 06:23] LABS: Glucose,Whole Blood 214 mg/dL (70-110)
[2024-02-19 11:22] LABS: Glucose,Whole Blood 262 mg/dL (70-110)
[2024-02-19] MEDS: polyethylene glycoL 3350 17 GM POWD.PACK PO STA (14:34)
--- NOTE | 2024-02-19 15:59 | P.PN ---
Subjective Progress Note Date: 02/19/24 Principal diagnosis: Reason for follow-up is fever/pain pump site cellulitis Patient is a 58-year-old male with a past medical history significant for diabetes mellitus hyperlipidemia seizure disorder fibromyalgia patient did have a chronic lower back pain for which the patient did have a pain pump with recent extravasation followed by repeat aspiration now presented to hospital with increasing pain swelling redness to the pain pump site along with shortness of breath. On today's evaluation that is 02/19/2024,the patient denies any fever or any chills, patient is breathing comfortably on room air, the patient denies chest pain shortness of breath and no significant cough, patient denies abdominal pain, no nausea vomiting or diarrhea. Patient pain to the lower back the site of the pain pump is decreased in intensity no drainage. No new lab has been obtained today blood culture currently pending Objective - Vital Signs Vital signs: Vital Signs Temp 98.3 F 02/19/24 13:03 Pulse 71 02/19/24 13:03 Resp 17 02/19/24 13:03 BP 138/86 02/19/24 13:03 Pulse Ox 94 L 02/19/24 13:03 FiO2 Intake & Output 02/18/24 02/19/24 02/19/24 18:59 06:59 18:59 Intake Total 2740 Balance 2740 Intake: Oral 2740 Other: # Voids 2 5 - Exam GENERAL DESCRIPTION: Middle-age male lying in bed in no distress RESPIRATORY SYSTEM: Unlabored breathing , decreased breath sounds at bases HEART: S1 S2 regular rate and rhythm , ABDOMEN: Soft , no tenderness SKIN: No open back pain pump site did have erythema but no drainage EXTREMITIES: No edema feet - Labs CBC & Chem 7: 02/17/24 03:47 02/18/24 08:34 Labs: Abnormal Lab Results - Last 24 Hours (Table) 02/18/24 02/18/24 02/19/24 Range/Units 16:43 20:29 06:21 POC Glucose (mg/dL) 231 H 180 H 214 H (70-110) mg/dL 02/19/24 Range/Units 11:21 POC Glucose (mg/dL) 262 H (70-110) mg/dL Assessment and Plan (1) Cellulitis Current Visit: Yes Status: Acute Code(s): L03.90 - CELLULITIS, UNSPECIFIED SNOMED Code(s): 981902854 (2) Allergy to multiple antibiotics Current Visit: Yes Status: Acute Code(s): Z88.1 - ALLERGY STATUS TO OTHER ANTIBIOTIC AGENTS SNOMED Code(s): 046047409 (3) Pyrexia Current Visit: Yes Status: Acute Code(s): R50.9 - FEVER, UNSPECIFIED SNOMED Code(s): 131588274 Plan: 1patient presented to hospital with increasing pain and swelling to his pain pump site with associated shortness of breath concerning for cellulitis at the pain pump site in this patient who recently did have extravasation of the medication 1 trying to fill up the pain pump with subsequent multiple aspiration noticed to have some erythema CT abdominal pelvis did not show any evidence of abscess and no need to cover for the gram-positive skin wayne to the likely pathogen clinically doubt pneumonia 2-patient with multiple antibiotic ALLERGIES that would limit the number of antibiotic safe to use 3-patient did have ultrasound of the brain from slightly shows phlegmon changes but no drainable abscess, has been evaluated by pain specialist and not recommending any intervention at this point 4patient be continued vancomycin follow-up 24-hour before transition to oral antibiotic Dictation was produced using [employer] dictation software. please excuse any gra mmatical, word or spelling errors. Time with Patient: Less than 30
[2024-02-19 16:24] LABS: Glucose,Whole Blood 299 mg/dL (70-110)
--- NOTE | 2024-02-19 19:57 | P.PN ---
Subjective This is a pleasant 58 years old male who presents with pain pump infection at his bedside, his pain today is 4/10, he is dressing in place Denies any other complaint pain medicine are following with also the patient Currently patient has been covered with antibiotics per ID team with his return home and IV vancomycin given his drug allergy His proCalcitonin was elevated 0.56 on admission Blood cultures pending Soft ultrasound showing no abscess Chest x-ray is negative for acute process CT of the abdomen pelvis showing pain pump with poor visualized area 02/19/24 Patient was seen walking in the hallway with no difficulty Still complaining from lower back pain at the infection site rated about 6-7/10 in severity Remains on azithromycin and IV vancomycin Objective - Vital Signs Vital signs: Vital Signs Temp 98.3 F 02/19/24 13:03 Pulse 71 02/19/24 13:03 Resp 17 02/19/24 13:03 BP 138/86 02/19/24 13:03 Pulse Ox 94 L 02/19/24 13:03 FiO2 Intake & Output 02/19/24 02/19/24 02/20/24 06:59 18:59 06:59 Intake Total 2740 Balance 2740 Intake: Oral 2740 Other: # Voids 5 3 - Exam GENERAL: The patient is alert and oriented x3, not in any acute distress. Well developed, well nourished. HEENT: Pupils are round and equally reacting to light. EOMI. No scleral icterus. No conjunctival pallor. Normocephalic, atraumatic. No pharyngeal erythema. No thyromegaly. CARDIOVASCULAR: S1 and S2 present. No murmurs, rubs, or gallops. PULMONARY: Chest is clear to auscultation, no wheezing , no crackles. ABDOMEN: Soft, nontender, nondistended, normoactive bowel sounds. No palpable o rganomegaly. -MUSCULOSKELETAL: No joint swelling or deformity. Left lower back infection site at the pain pump site with a dressing in place EXTREMITIES: No cyanosis, clubbing, or pedal edema. NEUROLOGICAL: Gross neurological examination did not reveal any focal deficits. SKIN: No rashes. no petechiae. - Labs CBC & Chem 7: 02/17/24 03:47 02/18/24 08:34 Labs: Abnormal Lab Results - Last 24 Hours (Table) 02/18/24 02/19/2425 Range/Units 20:29 06:21 11:21 POC Glucose (mg/dL) 180 H 214 H 262 H (70-110) mg/dL 02/19/24 Range/Units 16:17 POC Glucose (mg/dL) 299 H (70-110) mg/dL Assessment and Plan Assessment: Acute cellulitis of the pump site in the left lower back History of seizure Obesity with BMI 39.1 Plan: Continue with IV antibiotics per ID team, currently on aztreonam and IV vancomycin Pain medicine consult Pain management uncontrolled Follow-up blood culture results Labs and medication were reviewed.. Continue same treatment. Continue with symptomatic treatment. Resume home medication. Monitor labs and vitals. DVT and GI prophylaxis. Further recommendations as per clinical course of the blanca goel DVT prophylaxis: Subcutaneous heparin GI Prophylaxis: Pepcid Prognosis is guarded
[2024-02-19 20:52] LABS: Glucose,Whole Blood 258 mg/dL (70-110)
[2024-02-19] MEDS: DOCUSATE 100 MG CAP PO SCH (21:55)
[2024-02-20 06:21] LABS: Glucose,Whole Blood 208 mg/dL (70-110)
[2024-02-20 08:02] VITALS: RESP 18
[2024-02-20 09:22] LABS: Basophils # (A) 0.07 X 10*3/uL (0.00-0.10); Eosinophils # (A) 0.27 X 10*3/uL (0.04-0.35); HCT 40.2 % (39.6-50.0); HGB 13.7 g/dL (13.0-17.0); Lymphocytes # (A) 3.72 X 10*3/uL (0.90-5.00); Lymphocytes % (A) 54.5 %; MCH 30.7 pg (27.0-32.0); MCHC 34.1 g/dL (32.0-37.0); MCV 90.1 FL (80.0-97.0); Mean Platelet Volume 8.8 FL (9.5-12.2); Monocytes # (A) 0.46 X 10*3/uL (0.20-1.00); Monocytes % (A) 6.7 %; NRBC Per 100 WBC 0 X 10*3/uL (0.00-0.01); Neutrophils # (A) 2.26 X 10*3/uL (1.80-7.70); Neutrophils % (A) 33.2 %; Platelet Count 275 X 10*3/uL (140-440); RBC 4.46 X 10*6/uL (4.40-5.60); RDW 12.5 % (11.5-14.5); WBC 6.82 X 10*3/uL (4.50-10.00)
[2024-02-20 09:38] LABS: ALT 44 U/L (10-49); AST 50 U/L (14-35); Albumin 3.5 g/dL (3.8-4.9); Albumin/Globulin Ratio 1.25 Ratio (1.60-3.17); Alkaline Phosphatase 85 U/L (41-126); Blood Urea Nitrogen 8.5 mg/dL (9.0-27.0); Calcium 9.2 mg/dL (8.7-10.3); Carbon Dioxide 30.9 mmol/L (21.6-31.8); Chloride 99 mmol/L (96-109); Globulin 2.8 g/dL (1.6-3.3); Glucose 246 mg/dL (70-110); Potassium 4.2 mmol/L (3.5-5.5); Sodium 139 mmol/L (135-145); Total Bilirubin <0.2 mg/dL (0.3-1.2); Total Protein 6.3 g/dL (6.2-8.2)
[2024-02-20 10:49] LABS: Erythrocyte Sedimentation Rate 27 mm/Hr (0-20)
[2024-02-20 11:46] LABS: Glucose,Whole Blood 256 mg/dL (70-110)
[2024-02-20 15:25] VITALS: BP 128/79; PULSE 69; TEMP 98
[2024-02-20] MEDS ORDERED: NYSTAT-TRIAMCIN 100,000-0.1 UNIT/GM-% CREAM 30 GM TUBE TOPICAL SCH (15:28)
--- NOTE | 2024-02-20 15:32 | P.PN ---
Subjective Progress Note Date: 02/20/24 Principal diagnosis: Reason for follow-up is fever/pain pump site cellulitis Patient is a 58-year-old male with a past medical history significant for diabetes mellitus hyperlipidemia seizure disorder fibromyalgia patient did have a chronic lower back pain for which the patient did have a pain pump with recent extravasation followed by repeat aspiration now presented to hospital with increasing pain swelling redness to the pain pump site along with shortness of breath. On today's evaluation that is 02/20/2024,the patient remains to be afebrile, patient is on room air not requiring supplemental oxygen and denies any shortness of breath no chest pain or cough.Patient denies having any nausea or vomiting, no abdominal pain and no diarrhea and pain to the left lower back site of the pain, pain decreased. Blood culture have been negative white count 6.82 creatinine 0.5 Objective - Vital Signs Vital signs: Vital Signs Temp 98.0 F 02/20/24 14:38 Pulse 69 02/20/24 14:38 Resp 18 02/20/24 14:38 BP 128/79 02/20/24 14:38 Pulse Ox 92 L 02/20/24 14:38 FiO2 Intake & Output 02/19/24 02/20/24 02/20/24 18:59 06:59 18:59 Output Total 1 Balance -1 Output: Stool 1 Other: # Voids 3 3 - Exam GENERAL DESCRIPTION: Middle-age male lying in bed in no distress RESPIRATORY SYSTEM: Unlabored breathing , decreased breath sounds at bases HEART: S1 S2 regular rate and rhythm , ABDOMEN: Soft , no tenderness SKIN: No open back pain pump site did have erythema but no drainage EXTREMITIES: No edema feet - Labs CBC & Chem 7: 02/20/24 04:23 02/20/24 04:23 Labs: Abnormal Lab Results - Last 24 Hours (Table) 02/19/24 02/19/24 02/20/24 Range/Units 16:17 20:51 04:23 MPV 8.8 L (9.5-12.2) FL ESR 27 H (0-20) mm/Hr BUN (9.0-27.0) mg/dL Creatinine (0.6-1.5) mg/dL Glucose (70-110) mg/dL POC Glucose (mg/dL) 299 H 258 H (70-110) mg/dL Total Bilirubin (0.3-1.2) mg/dL AST (14-35) U/L Albumin (3.8-4.9) g/dL Albumin/Globulin Ratio (1.60-3.17) Ratio 02/20/24 02/20/24 02/20/24 Range/Units 04:23 06:20 11:45 MPV (9.5-12.2) FL ESR (0-20) mm/Hr BUN 8.5 L (9.0-27.0) mg/dL Creatinine 0.5 L (0.6-1.5) mg/dL Glucose 246 H (70-110) mg/dL POC Glucose (mg/dL) 208 H 256 H (70-110) mg/dL Total Bilirubin <0.2 L (0.3-1.2) mg/dL AST 50 H (14-35) U/L Albumin 3.5 L (3.8-4.9) g/dL Albumin/Globulin Ratio 1.25 L (1.60-3.17) Ratio Microbiology - Last 24 Hours (Table) 02/19/24 00:55 Gram Stain - Preliminary Sputum Sputum Culture - Preliminary 02/14/24 14:32 Blood Culture - Final Blood 02/14/24 14:32 Blood Culture - Final Blood Assessment and Plan (1) Cellulitis Current Visit: Yes Status: Acute Code(s): L03.90 - CELLULITIS, UNSPECIFIED SNOMED Code(s): 767201780 (2) Allergy to multiple antibiotics Current Visit: Yes Status: Acute Code(s): Z88.1 - ALLERGY STATUS TO OTHER ANTIBIOTIC AGENTS SNOMED Code(s): 069130859 (3) Pyrexia Current Visit: Yes Status: Acute Code(s): R50.9 - FEVER, UNSPECIFIED SNOMED Code(s): 453985268 Plan: 1patient presented to hospital with increasing pain and swelling to his pain pump site with associated shortness of breath concerning for cellulitis at the pain pump site in this patient who recently did have extravasation of the medication 1 trying to fill up the pain pump with subsequent multiple aspiration noticed to have some erythema CT abdominal pelvis did not show any evidence of abscess and no need to cover for the gram-positive skin wayne to the likely pathogen clinically doubt pneumonia 2-patient with multiple antibiotic ALLERGIES that would limit the number of antibiotic safe to use 3-patient did have ultrasound of the pain pump site shows phlegmon changes but no drainable abscess, has been evaluated by pain specialist and not recommending any intervention at this point 4patient currently on vancomycin finishing therapy with the doxycycline and we will apply Mycolog cream to the area and close outpatient follow-up prescription sent Dictation was produced using [employer] dictation software. please excuse any grammatical, word or spelling errors. Time with Patient: Less than 30
[2024-02-20] MEDS: NYSTATIN 100,000UNIT/GM CREAM 30 GM TUBE TOPICAL SCH (16:59)
[2024-02-20] MEDS: TRIAMCINOLONE 0.1% CREAM 80 GM TUBE TOPICAL SCH (16:59)
--- NOTE | 2024-02-20 22:58 | P.DS ---
Providers Date of admission: 02/14/24 18:36 Attending physician: Monty Wilcox MD Consults: 02/14/24 18:36 Consult Physician Routine Consulting Provider: Austin Varela Consult Reason/Comments: back pain with pain pump Do you want consulting provider notified?: Already Contacted 02/14/24 18:37 Consult Physician Routine Consulting Provider: Alise Felix Consult Reason/Comments: acute pyrexia, possible pneumonia, possible pain pump site infection Do you want consulting provider notified?: Yes Primary care physician: James Figueroa Hospital Course: Diagnoses: Acute cellulitis of the pump site in the left lower back History of seizure Obesity with BMI 39.1 Hospital course: This is a pleasant 58 years old male who presents with pain pump infection at his bedside, his pain today is 4/10, he is dressing in place Denies any other complaint pain medicine are following with also the patient Currently patient has been covered with antibiotics per ID team with his return home and IV vancomycin given his drug allergy His proCalcitonin was elevated 0.56 on admission Blood cultures show no growth Patient showed interval improvement Clinically doing well with no new symptom Patient agreeable to be discharged home Patient was cleared for discharge by ID team. He will be discharged on 10 days of doxycycline as per ID team Pain management service evaluated the patient, pain pump was discontinued Pain is controlled with current pain management Patient agreeable for discharge Problems and management plan were discussed with the patient and he verbalized understanding and acceptance Patient was found stable and can be discharged home in guarded prognosis however he needs follow-up as an outpatient. Patient was instructed to follow up with PCP Dr. Figueroa within one week and patient agrees Patient was instructed to follow-up with Dr. Felix from ID in 1 week as well as with pain service in 1 week as an outpatient basis and he agrees to call and make appointment Physical exam Gen: patient is a AAOx3, no distress CVS: S1-S2, RRR, no murmur Lungs: B/L CTA, no wheezing Abdomen: soft, no distention, no tenderness, positive bowel sounds Extremity: no leg edema or induration Time spent more than 35 minutes on Patient Condition at Discharge: Stable Plan - Discharge Summary Discharge Rx Participant: No New Discharge Prescriptions: New Docusate [Colace] 100 mg PO BID 7 Days #14 cap Ondansetron [Zofran] 4 mg PO Q8HR PRN 10 Days #3 tab PRN Reason: Nausea And Vomiting Doxycycline [Vibramycin] 100 mg PO BID 10 Days #20 capsule Nystatin/Triamcin Cream [Mycolog 100,000-0.1 Unit/gm-% Cream] 1 applic TOPICAL Q12HR #15 gm Continue Meclizine [Antivert] 12.5 mg PO TID carBAMazepine [TEGretol] 200 mg PO BID LORazepam 0.5 mg PO TID PRN PRN Reason: Anxiety levETIRAcetam [Keppra] 1,000 mg PO BID DULoxetine HCL [Cymbalta] 60 mg PO BID Cyclobenzaprine [Flexeril] 5 mg PO TID PRN 30 Days #90 tablet PRN Reason: Muscle Spasm Losartan [Cozaar] 25 mg PO DAILY Linagliptin [Tradjenta] 5 mg PO DAILY Testosterone [Androgel 1.62%] 1 pump TRANSDERM DAILY Insulin Glargine,Hum.rec.anlog [Lantus Solostar Pen] 90 units SQ HS Insulin Lispro [humaLOG Kwikpen] 40 unit SQ W/SUPPER oxyCODONE HCL/ACETAMINOPHEN [Percocet 10-325 mg] 1 tab PO TID PRN 30 Days #90 tab PRN Reason: Pain Gabapentin 800 mg PO BID 30 Days #60 tab Discontinued Patient Own Pump 0 bag Discharge Medication List Meclizine [Antivert] 12.5 mg PO TID 07/22/13 [History] LORazepam 0.5 mg PO TID PRN 09/15/19 [History] carBAMazepine [TEGretol] 200 mg PO BID 09/15/19 [History] levETIRAcetam [Keppra] 1,000 mg PO BID 11/24/21 [History] DULoxetine HCL [Cymbalta] 60 mg PO BID 10/26/22 [History] Cyclobenzaprine [Flexeril] 5 mg PO TID PRN 30 Days #90 tablet 11/14/23 [Rx] Losartan [Cozaar] 25 mg PO DAILY 11/14/23 [History] Insulin Glargine,Hum.rec.anlog [Lantus Solostar Pen] 90 units SQ HS 12/26/23 [History] Insulin Lispro [humaLOG Kwikpen] 40 unit SQ W/SUPPER 12/26/23 [History] Linagliptin [Tradjenta] 5 mg PO DAILY 12/26/23 [History] Testosterone [Androgel 1.62%] 1 pump TRANSDERM DAILY 12/26/23 [History] Gabapentin 800 mg PO BID 30 Days #60 tab 01/09/24 [Rx] oxyCODONE HCL/ACETAMINOPHEN [Percocet 10-325 mg] 1 tab PO TID PRN 30 Days #90 tab 01/09/24 [Rx] Docusate [Colace] 100 mg PO BID 7 Days #14 cap 02/20/24 [Rx] Doxycycline [Vibramycin] 100 mg PO BID 10 Days #20 capsule 02/20/24 [Rx] Nystatin/Triamcin Cream [Mycolog 100,000-0.1 Unit/gm-% Cream] 1 applic TOPICAL Q12HR #15 gm 02/20/24 [Rx] Ondansetron [Zofran] 4 mg PO Q8HR PRN 10 Days #3 tab 02/20/24 [Rx] Follow up Appointment(s)/Referral(s): James Figueroa MD [Primary Care Provider] - 1-2 days Alise Felix MD [STAFF PHYSICIAN] - 1 Week Activity/Diet/Wound Care/Special Instructions: Heart healthy diet Activity as tolerated Discharge Disposition: HOME SELF-CARE
== END 2024-02-20 17:15 | disposition home or self-care (01) | DRG 91 ==
LOC: EC 12:21 → 5NMEDONC 18:36 → 3SCARD 02-15 03:09 → 4SSUR 02-15 11:04
PROVIDERS: ADMIT Internal Medicine; ATTEND Internal Medicine
DX: T85.738A Infection and inflammatory reaction due to other nervous system device, implant or graft, initial encounter (principal); A41.9 Sepsis, unspecified organism; E87.20 Acidosis, unspecified; L03.312 Cellulitis of back [any part except buttock and flank]; E11.65 Type 2 diabetes mellitus with hyperglycemia; E66.01 Morbid (severe) obesity due to excess calories; E78.5 Hyperlipidemia, unspecified; G25.81 Restless legs syndrome; Y83.1 Surgical operation with implant of artificial internal device as the cause of abnormal reaction of the patient, or of later complication, without mention of misadventure at the time of the procedure; M79.7 Fibromyalgia; Z68.39 Body mass index [BMI] 39.0-39.9, adult; Z79.4 Long term (current) use of insulin; Z79.84 Long term (current) use of oral hypoglycemic drugs; Z79.899 Other long term (current) drug therapy; Z88.1 Allergy status to other antibiotic agents; Z98.84 Bariatric surgery status
CPT/HCPCS: 36415; 71046; 74177; 80048; 80053; 80076; 80156; 80202; 81001; 82565; 83036; 83605; 84145; 85025; 85652; 86140; 86308; 87040; 87070; 87205; 87449; 87636; 96361; 96365; 96366; 96367; 96368; 96375; 99285

== ENCOUNTER 2024-04-10 13:36 | Day surgery (SDC) | payer MEDICARE, OTHER ==
[2024-04-07 12:21] VITALS: BMI 37.6
[2024-04-10] MEDS ORDERED: BUPIVACAINE UP TO 8 MG/ML, 31-60 ML SYRINGE MC ONE (13:37)
[2024-04-10] MEDS ORDERED: MORPHINE FOR ANAZAO - PER 10 MG MISCELLANE ONE (13:37)
[2024-04-10 14:31] VITALS: BP 154/79; PULSE 92; RESP 16; TEMP 97.4
[2024-04-10 14:32] LABS: Glucose,Whole Blood 351 mg/dL (70-110)
[2024-04-10] MEDS: INSULIN LISPRO (HumaLOG) 100 UNIT/ML 10 mL VL SQ ONE (14:43)
[2024-04-10 15:26] LABS: Glucose,Whole Blood 316 mg/dL (70-110)
--- NOTE | 2024-04-10 16:13 | P.PCN ---
Date of Procedure: 04/10/24 Procedure(s) Performed: Procedure: Intrathecal pain pump analysis, programming and reprogramming, intrathecal pain pump refill. PREOPERATIVE DIAGNOSES: 1. near empty intrathecal pain pump . 2. 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 failed back surgery syndrome lumbar area ANESTHESIA: None. CONDITION: Stable. Description of the procedure; The intrathecal opioid pump was analyzed and showed a current reservoir residual volume of (9.7) mls. Skin was prepped with ChloraPrep and draped in a sterile manner. I used 22- gauge needle found in the [employer] intrathecal access to go through the central pump port.8 mls were withdrawn. Then the new medication was injected incrementally with frequent aspiration to ensure delivery of the new medication inside the pump reservoir. The new medication was infused inside the pump reservoir through a filter provided the [employer] kit. The new medication concentration is: Morphine 10 mg per mL and bupivacaine 4 mg per mL The pump then was reprogrammed for a new reservoir volume of 40 mls and the rate of continue daily dose to morphin sulfate PF [ 3 ] mg/day ,and bupivacaine [1.2 ] mg/day . Patient will continue to use Percocet 10/325 every 6 hours ,neurontin 800 mg po Patient will follow up with the pain clinic in 3 months. Patient continued to have redness on the skin area around the pump, has been following the infectious disease specialist, and he was antibiotic for few weeks and currently he is stopped taking an antibiotic patient denies any fever or night sweats
== END 2024-04-10 15:27 | disposition home or self-care (01) ==
LOC: ORPAIN 13:36
PROVIDERS: ATTEND Specialist
DX: Z45.1 Encounter for adjustment and management of infusion pump (principal); M96.1 Postlaminectomy syndrome, not elsewhere classified
CPT/HCPCS: 62370

== ENCOUNTER → 2024-05-25 | Outpatient (CLI) | payer MEDICARE, OTHER ==
[2024-05-25 14:04] VITALS: BP 176/90; PULSE 72; RESP 16
--- NOTE | 2024-05-25 15:56 | P.PAINPG ---
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 Pain level is provoked at 7 /10 in intensity, constant, localized in the lumbar spine, predominantly axial, sharp in character w shooting towards the R hip. Pain is provoked by bending, standing/ walking for periods of 10 min or more. Pain is alleviated with use of a cane for ambulatory assistance, medications, PT 13 yrs ago, heat, ice, repositioning and rest. Interventional pain procedures completed include LESIs, Morphine Pain Pump Patient is currently on Ibu 800mg #90, Neurontin 800mg #90, Percocet 10/325mg #90 Patient denies any side effects of the medication(s), denies excessive drowsiness or sleepiness, denies suicidal ideation and reports that the current pain medication is helping to control the pain and improve activities of daily living. Patient denies any motor or sensory deficits. Patient denies any fever or night sweats, denies any change in the bowel movements or urination. Physical Examination: -Constitutional: Cooperative. Not in acute distress . - Neurologic: Cranial nerve II to XII intact. No focal neurological deficits. - Psychatric: Alert & oriented x 3. Matching mood & appropriate affect. Judgment and insight intact. - Musculoskeletal: Cervical spine: Muscle bulk/ tone/ strength in the bilateral upper extremities normal Vertebral body tenderness to palpation over Spurling test positive Distraction test positive Facet loading test positive TTP Thoracic spine Muscle bulk / tone/ strength in the bilateral paraspinal muscles normal Vertebral body tender to palpation over Facet loading test positive TTP Lumbar spine: Motor bulk/ tone/ strength lower extremities , thigh and legs : 5/5 Deep tendon reflexes : Normal Knee Jerk. Normal Ankle Jerk . Vertebral body tenderness to palpation over L3, L4, L5 Peña Test positive Lumbar Facet Loading Test positive Straight Leg Raise: positive at 30 degrees right side/ left side Gaenslen's Test positive Sacral spine : Severe tenderness over the Sacroiliac joint: right side / left side Range of motion: Flexion of the lumbar spine <60 degrees Range of motion: Extension of the lumbar spine <20 degrees Gaenslen's Test positive right side / left side Wilder test: positive right side / left side Thigh Thrust Test positive right side / left side Sacral Thrust Test positive right side / left side Assessment and plan: Chronic LBP secondary to radiculopathy, spondylosis with facet arthropathy without myelopathy Chronic and current use of high-risk medication (Opioids). The patient was counseled about risk of opioid use, psychological risk associated with opioids and was orally counseled to not overuse , divert or sell medications. Pt is to store medication in a safe location. The patient is counseled against driving while using narcotic medications and also not to use alcohol or any illicit recreational drugs. Patient verbalized understanding that the lack of compliance will result in failure to renew narcotic prescription(s) as well as possible discharge from the clinic Diagnoses, prognosis and treatment options including but not limited to physical therapy, surgical interventions, interventional therapies and medication management including narcotics and adjuvant medication were discussed. All patient questions answered MAPS reviewed and it was appropriate. UDS from 03/30/24 reviewed and consistent. Opiate / narcotic agreement signed 08/14/23. Prescription for Percocet 10/325mg #90, Neurontin 800mg #90, Ibu 800mg #90 w 1 RF I have spent less than 30 minutes on patient care today. Dr Varela was available by phone for the evaluation of this patient. The time was used to review the medical records including relevant urine studies and Prescription history (MAPs), review of the available imaging, evaluation and examination of the patient, coordination of care with the medical staff and if applicable referring physicians, as well as creation of the medical record - Pain Location Bilateral Lower Back Non-Pharmacological Interventions: Ice, Inactivity, Position/Reposition, Sitting Pharmacological Interventions: Block, Epidural, Pain Pump, Scheduled Medication, Topical Medication PQRS Narrative: Smoking Status Never smoker Narcotic Agreement Date Signed 08/14/23 Blood Pressure 176/90 Pain Intensity [Bilateral 6 Lower Back] Scale Used Numeric (1 - 10) Hx Alcohol Use (MH) No Home Medications: Ambulatory Orders Meclizine [Antivert] 12.5 mg PO TID 07/22/13 LORazepam 0.5 mg PO TID PRN 09/15/19 carBAMazepine [TEGretol] 200 mg PO BID 09/15/19 levETIRAcetam [Keppra] 1,000 mg PO BID 11/24/21 DULoxetine HCL [Cymbalta] 60 mg PO BID 10/26/22 Cyclobenzaprine [Flexeril] 5 mg PO TID PRN 30 Days #90 tablet 11/14/23 Losartan [Cozaar] 25 mg PO DAILY 11/14/23 Insulin Glargine,Hum.rec.anlog [Lantus Solostar Pen] 90 units SQ HS 12/26/23 Insulin Lispro [humaLOG Kwikpen] 40 unit SQ W/SUPPER 12/26/23 Linagliptin [Tradjenta] 5 mg PO DAILY 12/26/23 Testosterone [Androgel 1.62%] 1 pump TRANSDERM DAILY 12/26/23 Docusate [Colace] 100 mg PO BID 7 Days #14 cap 02/20/24 Doxycycline [Vibramycin] 100 mg PO BID 10 Days #20 capsule 02/20/24 Nystatin/Triamcin Cream [Mycolog 100,000-0.1 Unit/gm-% Cream] 1 applic TOPICAL Q12HR #15 gm 02/20/24 Ondansetron [Zofran] 4 mg PO Q8HR PRN 10 Days #3 tab 02/20/24 Pain Pump 04/07/24 Gabapentin [Neurontin] 800 mg PO BID 30 Days #60 tab 05/25/24 Ibuprofen 800 mg PO Q8H PRN 30 Days #90 tab 05/25/24 oxyCODONE-APAP 10-325MG [Percocet 10-325 mg] 1 tab PO Q8HR PRN 30 Days #90 tab 05/25/24 Controlled Substance Measures - Controlled Substance Measures Is patient prescribed a controlled substance at discharge?: Yes When asked, does pt state using other controlled substances?: No If prescribed controlled substance>3 days was MAPS reviewed?: Yes
== END ==
LOC: PNWHC3 13:49
PROVIDERS: ATTEND Specialist
DX: M47.26 Other spondylosis with radiculopathy, lumbar region (principal); Z88.8 Allergy status to other drugs, medicaments and biological substances; Z91.018 Allergy to other foods; Z88.0 Allergy status to penicillin; Z88.1 Allergy status to other antibiotic agents; Z79.891 Long term (current) use of opiate analgesic
CPT/HCPCS: 99211

== ENCOUNTER 2024-06-09 14:04 | Inpatient (IN) | payer MEDICARE, OTHER ==
[2024-06-09 15:38] LABS: Basophils # (A) 0.08 10*3/uL (0.00-0.10); Basophils % (A) 1.1 %; Eosinophils # (A) 0.13 10*3/uL (0.04-0.35); Eosinophils % (A) 1.7 %; HCT 44.3 % (39.6-50.0); HGB 15.9 g/dL (13.0-17.0); Lymphocytes # (A) 2.48 10*3/uL (0.90-5.00); Lymphocytes % (A) 33.1 %; MCH 30.9 pg (27.0-32.0); MCHC 35.9 g/dL (32.0-37.0); MCV 86.2 fL (80.0-97.0); Mean Platelet Volume 8.6 fL (9.5-12.2); Monocytes # (A) 0.44 10*3/uL (0.20-1.00); Monocytes % (A) 5.9 %; Neutrophils # (A) 4.34 10*3/uL (1.80-7.70); Neutrophils % (A) 57.8 %; Platelet Count 325 10*3/uL (140-440); RBC 5.14 10*6/uL (4.40-5.60); RDW 12.4 % (11.5-14.5)
--- NOTE | 2024-06-09 15:40 | ED ---
General Adult HPI - General Source: patient Mode of arrival: ambulatory <GoodCarmita macedo - Last Filed: 06/09/24 20:56> <Gavin Stephens - Last Filed: 06/12/24 19:45> - General Chief complaint: Recheck/Abnormal Lab/Rx Stated complaint: Fever,Dizziness Time Seen by Provider: 06/09/24 14:28 - History of Present Illness Initial comments: 58-year-old male with past medical history of diabetes, hyperlipidemia, seizure disorder, fibromyalgia, chronic pain with pain pump placed by Dr. Varela, presents to the ER with pain and swelling surrounding. Patient reports he had a fever for the last 2 days. Patient reports this happened before in January and he was admitted for IV antibiotics. Denies any other complaints at this time. (Carmita Good) - Related Data Home Medications Medication Instructions Recorded Confirmed Meclizine [Antivert] 12.5 mg PO TID 07/22/13 06/09/24 LORazepam 0.5 mg PO TID 09/15/19 06/09/24 carBAMazepine [TEGretol] 200 mg PO BID 09/15/19 06/09/24 levETIRAcetam [Keppra] 1,000 mg PO BID 11/24/21 06/09/24 DULoxetine HCL [Cymbalta] 60 mg PO BID 10/26/22 06/09/24 Losartan [Cozaar] 25 mg PO HS 11/14/23 06/09/24 Insulin Glargine,Hum.rec.anlog 90 units SQ HS@2230 12/26/23 06/09/24 [Lantus Solostar Pen] Insulin Lispro [humaLOG Kwikpen] 30 unit SQ W/SUPPER@1730 12/26/23 06/09/24 Linagliptin [Tradjenta] 5 mg PO DAILY 12/26/23 06/09/24 Testosterone [Androgel 1.62%] 1 pump TRANSDERM DAILY 12/26/23 06/09/24 Chlorhexidine Gluconate [Peridex] 15 ml PO BID 06/09/24 06/09/24 Cyclobenzaprine [Flexeril] 5 mg PO TID 06/09/24 06/09/24 Nystatin 100,000 Unit/gm Powd 1 applic TOPICAL BID 06/09/24 06/09/24 [Mycostatin Powder] Patient Own Pump 0 bag 06/09/24 06/09/24 oxyCODONE-APAP 10-325MG [Percocet 1 tab PO TID 06/09/24 06/09/24 10-325 mg] Previous Rx's Medication Instructions Recorded Gabapentin [Neurontin] 800 mg PO BID 30 Days #60 tab 06/12/24 Ibuprofen [Motrin] 800 mg PO TID PRN #0 tab 06/12/24 fentaNYL 50MCG/HR PATCH [Duragesic 1 patch TRANSDERM Q72H 30 Days #10 06/12/24 50MCG/HR] patch Allergies Allergy/AdvReac Type Severity Reaction Status Date / Time bupropion HCl Allergy Dyspnea Verified 06/09/24 17:44 [From Wellbutrin] cephalexin [Cephalexin] Allergy Dyspnea Verified 06/09/24 17:44 cephalexin monohydrate Allergy Dyspnea,hiv Verified 06/09/24 17:44 [From Keflex] es penicillin G Allergy Rash/Hives Verified 06/09/24 17:44 onion Allergy Dyspnea,hiv Uncoded 06/09/24 17:44 es Review of Systems ROS Other: All systems not noted in ROS Statement are negative. Constitutional: Reports: fever. Denies: chills Respiratory: Denies: cough, dyspnea, wheezes Cardiovascular: Denies: chest pain, palpitations Gastrointestinal: Denies: abdominal pain, nausea, vomiting <Carmita Good - Last Filed: 06/09/24 20:56> ROS Other: All systems not noted in ROS Statement are negative. <Gavin Stephens - Last Filed: 06/12/24 19:45> ROS Statement: Those systems with pertinent positive or pertinent negative responses have been documented in the HPI. 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 RSD rt leg/feet, collapsed VERTEBRA back, STILL SOME REDNESS AROUND PAIN PUMP INSERTION SITE History of Any Multi-Drug Resistant Organisms: MRSA Date of last positivie culture/infection: 2008 MDRO Source:: wound in neck Past Surgical History: Adenoidectomy, Appendectomy, Back Surgery, Bariatric Surgery, Orthopedic Surgery, Tonsillectomy Additional Past Surgical History / Comment(s): Eyes/plastic surgery, tongue surgery, circumcision, Rt foot surgeries, neck fusion, pain pump, lap band/later removed. 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 PAIN CLINIC PROCEDURES, Past Anesthesia/Blood Transfusion Reactions: Previous Problems w/ Anesthesia Additional Past Anesthesia/Blood Transfusion Reaction / Comment(s): "slow to come out due to narcolepsy" comes out with low oxygen level-pt denies this. Never had blood transfusion. Past Psychological History: No Psychological Hx Reported Smoking Status: Never smoker Past Alcohol Use History: None Reported Past Drug Use History: None Reported - Past Family History Father Family Medical History: CVA/TIA Additional Family Medical History / Comment(s): from "massive stroke" Mother Family Medical History: Cancer, Deep Vein Thrombosis (DVT), Pulmonary Embolus Brother(s) Family Medical History: Deep Vein Thrombosis (DVT) <FlorentinoCarmita - Last Filed: 06/09/24 20:56> General Exam General appearance: alert, in no apparent distress (11) Back exam: Present: tenderness (Left flank surrounding pain location), other (Erythema surrounding location of pain pump, no fluctuance or drainage noted) Neurological exam: Present: alert, oriented X3 Psychiatric exam: Present: normal affect, normal mood <FlorentinoCarmita - Last Filed: 06/09/24 20:56> Course Vital Signs 06/09/24 06/09/24 06/09/24 14:20 16:30 18:34 Temperature 98.5 F 97.8 F Pulse Rate 105 H 77 80 Respiratory 18 18 18 Rate Blood Pressure 135/84 137/76 146/91 O2 Sat by Pulse 96 94 L 98 Oximetry 06/10/24 06/10/24 06/10/24 00:00 02:00 04:00 Temperature 98.8 F Pulse Rate 89 78 69 Respiratory 18 18 18 Rate Blood Pressure 126/96 149/81 161/88 O2 Sat by Pulse 98 97 98 Oximetry 06/10/24 05:34 Temperature Pulse Rate 72 Respiratory 18 Rate Blood Pressure 135/72 O2 Sat by Pulse 95 Oximetry Medical Decision Making - Lab Data Result diagrams: 06/09/24 15:19 06/09/24 15:19 <Carmita Good - Last Filed: 06/09/24 20:56> - Lab Data Result diagrams: 06/12/24 03:47 06/12/24 03:47 <Gavin Stephens - Last Filed: 06/12/24 19:45> - Medical Decision Making Was pt. sent in by a medical professional or institution (, [facility], AQUATIC INSTRUCTOR, urgent care, hospital, or fci...) When possible be specific @ -No Did you speak to anyone other than the patient for history (EMS, parent, family, police, friend...)? What history was obtained from this source @ -No Did you review nursing and triage notes (agree or disagree)? Why? @ -I reviewed and agree with nursing and triage notes Were old charts reviewed (outside hosp., previous admission, EMS record, old EKG, old radiological studies, urgent care reports/EKG's, fci records)? Report findings @ -No old charts were reviewed Differential Diagnosis? @ -Cellulitis, bacteremia, pain pump malfunction EKG interpreted by me (3pts min.). @ -As above X-rays interpreted by me (1pt min.). @ -None done CT interpreted by me (1pt min.). @ -None done U/S interpreted by me (1pt. min.). @ -None done What testing was considered but not performed or refused? (CT, X-rays, U/S, labs)? Why? @ -None What meds were considered but not given or refused? Why? @ -None Did you discuss the management of the patient with other professionals (anitha treviño i.e. , PA, AQUATIC INSTRUCTOR, lab, RT, psych nurse, administrator social welfare, drop forger helper, teacher, aoc director intelligence officer, keycase assembler)? Give summary @ -Case was discussed with the ED attending Dr. Stephens. Was smoking cessation discussed for >3mins.? @ -No Was critical care preformed (if so, how long)? @ -No Were there social determinants of health that impacted care today? How? (Homelessness, low income, unemployed, alcoholism, drug addiction, transportation, low edu. Level, literacy, decrease access to med. care, nursing home, rehab)? @ -No Was there de-escalation of care discussed even if they declined (Discuss DNR or withdrawal of care, Hospice)? DNR status @ -No What co-morbidities impacted this encounter? (DM, HTN, Smoking, COPD, CAD, Cancer, CVA, ARF, Chemo, Hep., AIDS, mental health diagnosis, sleep apnea, morbi d obesity)? @ -None Was patient admitted / discharged? Hospital course, mention meds given and route , prescriptions, significant lab abnormalities, going to OR and other pertinent info. @ -Patient received broad-spectrum antibiotics in the ER. Case was discussed with [facility] DAV[facility] Boykin who accepted admission. Dr. Varela was consulted. Infectious disease was consulted. Undiagnosed new problem with uncertain prognosis? @ -No Drug Therapy requiring intensive monitoring for toxicity (Heparin, Nitro, Insulin, Cardizem)? @ -No Were any procedures done? @ -No Diagnosis/symptom? @ -Cellulitis surrounding pain pump, pyrexia Acute, or Chronic, or Acute on Chronic? @ -Acute Uncomplicated (without systemic symptoms) or Complicated (systemic symptoms)? @ -Default Side effects of treatment? @ -No Exacerbation, Progression, or Severe Exacerbation? @ -No Poses a threat to life or bodily function? How? (Chest pain, USA, VT, pneumonia, PE, COPD, DKA, ARF, appy, cholecystitis, CVA, Diverticulitis, Homicidal, Suicidal, threat to staff... and all critical care pts) @ -No (Carmita Good) I personally saw the patient and performed the critical portion of the service. I discussed the patient care with the resident. I directed management, care planning and final disposition of the patient. This includes, but not limited to, review of all lab work, radiological studies, EKG's, consultations, vital signs, and nursing notes. EKG interpreted by me (3pts min.) @As above X-Rays interpreted by me (1 pt min.) @None CT interpreted by me ( 1pt min.) @None U/S interpreted by me (1 pt min.) @None Critical care time of 0 minutes excluding separately billable procedures was spent in conjunction with critical care activities provided by the Resident and Attending simultaneously. I was present during no procedures for all critical portions of the procedure and as immediately available to furnish service during the entire procedure. (Gavin Stephens) - Lab Data Lab Results 06/09/24 06/09/24 06/09/24 Range/Units 15:19 15:19 15:19 WBC 7.50 (4.50-10.00) 10*3/uL RBC 5.14 (4.40-5.60) 10*6/uL Hgb 15.9 (13.0-17.0) g/dL Hct 44.3 (39.6-50.0) % MCV 86.2 (80.0-97.0) fL MCH 30.9 (27.0-32.0) pg MCHC 35.9 (32.0-37.0) g/dL Plt Count 325 (140-440) 10*3/uL MPV 8.6 L (9.5-12.2) fL Immature Gran % (Auto) 0.4 % Neutrophils % 57.8 % Lymphocytes % 33.1 % Monocytes % 5.9 % Eosinophils % 1.7 % Basophils % 1.1 % Immature Gran # 0.03 (0.00-0.04) 10*3/uL Neutrophils # 4.34 (1.80-7.70) 10*3/uL Lymphocytes # 2.48 (0.90-5.00) 10*3/uL Monocytes # 0.44 (0.20-1.00) 10*3/uL Eosinophils # 0.13 (0.04-0.35) 10*3/uL Basophils # 0.08 (0.00-0.10) 10*3/uL Sodium 138 (137-145) mmol/L Potassium 4.0 (3.5-5.1) mmol/L Chloride 100 (98-107) mmol/L Carbon Dioxide 29 (22-30) mmol/L Anion Gap 9 mmol/L BUN 10 (9-20) mg/dL Creatinine 0.56 L (0.66-1.25) mg/dL Est GFR (CKD-EPI)AfAm >90 (>60 ml/min/1.73 sqM) Est GFR (CKD-EPI)NonAf >90 (>60 ml/min/1.73 sqM) Glucose 272 H (74-99) mg/dL Plasma Lactic Acid Mina 3.0 H* (0.7-2.0) mmol/L Calcium 10.2 (8.4-10.2) mg/dL Total Bilirubin 0.6 (0.2-1.3) mg/dL AST 51 (17-59) U/L ALT 34 (4-49) U/L Alkaline Phosphatase 110 (38-126) U/L Total Protein 8.0 (6.3-8.2) g/dL Albumin 4.4 (3.5-5.0) g/dL Lipase 59 (23-300) U/L Disposition Decision Date: 06/09/24 Decision Time: 18:00 <Carmita Good - Last Filed: 06/09/24 20:56> <Gavin Stephens - Last Filed: 06/12/24 19:45> Clinical Impression: Pyrexia, Cellulitis Disposition: ADMITTED IP TO THIS HOSP
[2024-06-09 15:48] LABS: ALT 34 U/L (4-49); AST 51 U/L (17-59); African American GFR (CKD) >90 (>60 ml/min/1.73 sqM); Albumin 4.4 g/dL (3.5-5.0); Alkaline Phosphatase 110 U/L (38-126); Anion Gap 9 mmol/L; Blood Urea Nitrogen 10 mg/dL (9-20); Calcium 10.2 mg/dL (8.4-10.2); Carbon Dioxide 29 mmol/L (22-30); Chloride 100 mmol/L (98-107); Glucose 272 mg/dL (74-99); Lipase 59 U/L (23-300); Non-African American GFR(CKD) >90 (>60 ml/min/1.73 sqM); Sodium 138 mmol/L (137-145); Total Bilirubin 0.6 mg/dL (0.2-1.3)
[2024-06-09] MEDS ORDERED: NALOXONE 0.4 MG/ML 1 ML VIAL IV PRN (16:17)
[2024-06-09] MEDS: SODIUM CHLORIDE 0.9% 1,000 ML IV ONE (16:32)
[2024-06-09 16:36] LABS: Appearance,Urine Clear (Clear); Bilirubin,Urine Negative (Negative); Blood,Urine Negative (Negative); Color,Urine Light Yellow; Glucose,Urine (UA) 4+ (Negative); Hyaline Casts,Urine 3 /lpf (0-2); Ketones,Urine Negative (Negative); Leukocyte Esterase,Urine Negative (Negative); Mucus,Urine Rare /hpf; Nitrite,Urine Negative (Negative); PH, Urine 5.5 (5.0-8.0); Protein,Urine 2+ (Negative); RBC,Urine <1 /hpf (0-5); Specific Gravity,Urine 1.017 (1.001-1.035); Urobilinogen,Urine <2.0 mg/dL (<2.0); WBC,Urine <1 /hpf (0-5)
[2024-06-09] MEDS ORDERED: VANCOMYCIN IV PER PHARMACY 1 EACH MISC MISCELLANE PRN (17:23)
[2024-06-09] MEDS: LEVOFLOXACIN 750MG-D5W PMX 750 MG in DEXTROSE/WATER 1 150ML.BAG IVPB STA (18:31)
[2024-06-09 19:31] LABS: Glucose,Whole Blood 217 mg/dL (70-110)
[2024-06-09] MEDS: VANCOMYCIN 2,000 MG in SODIUM CHLORIDE 0.9% 500 ML 500 ML IVPB ONE (20:47)
[2024-06-10 04:08] LABS: African American GFR (CKD) >90 (>60 ml/min/1.73 sqM); Non-African American GFR(CKD) >90 (>60 ml/min/1.73 sqM)
[2024-06-10] MEDS: VANCOMYCIN 1,500 MG in SODIUM CHLORIDE 0.9% 500 ML 500 ML IVPB SCH (06:04)
[2024-06-10 06:19] LABS: Glucose,Whole Blood 154 mg/dL (70-110)
[2024-06-10] MEDS: ACETAMINOPHEN TAB 325 MG TAB PO PRN (06:27)
[2024-06-10] MEDS: ENOXAPARIN 40 MG/0.4 ML SYRINGE SQ SCH (08:20)
[2024-06-10] MEDS ORDERED: DEXTROSE 50% SYRINGE 50 ML IVP PRN ×2 (09:56)
[2024-06-10] MEDS: LINAGLIPTIN 5 MG TABLET PO SCH (10:21)
[2024-06-10] MEDS: levETIRAcetam 500 MG TAB PO SCH (10:21)
[2024-06-10] MEDS: CYCLOBENZAPRINE 5 MG TAB PO SCH (10:21)
[2024-06-10] MEDS: GABAPENTIN 400 MG CAP PO SCH (10:21)
[2024-06-10] MEDS: DULoxetine HCL 60 MG CAPSULE.DR PO SCH (10:21)
[2024-06-10 11:53] LABS: Glucose,Whole Blood 263 mg/dL (70-110)
[2024-06-10] MEDS: NYSTATIN 100,000 UNIT/GM POWD 15 GM TOPICAL SCH (12:49)
[2024-06-10] MEDS: carBAMazepine 200 MG TAB PO SCH (12:50)
[2024-06-10] MEDS: INSULIN LISPRO (HumaLOG) 100 UNIT/ML 10 mL VL SQ SCH ×2 (12:50→17:47)
--- NOTE | 2024-06-10 12:55 | US ---
EXAMINATION TYPE: US mass soft tissue chest/back DATE OF EXAM: 06/10/2024 COMPARISON: NONE CLINICAL INDICATION: Male, 58 years old with history of Left lower back, rule out fluid collection; Scott weinstein has history of pain pump in left lower back, he has developed large swollen, bruised area sinc e Jan 2024, pain superior to pump TECHNIQUE: Soft tissue scan FINDINGS: Soft tissue swelling superior and inferior to pump, at the site of pump there is a mild po cket of free fluid seen, unknown if that is normal for procedure versus other etiology. The source of this is uncertain. It is unclear whether this could be related to the procedure such as hematoma or if this is fluid from the pump itself. This appears anechoic without a discrete wall sug gesting abscess to be less likely. IMPRESSION: There is a hypoechoic collection which appears to be fluid at the level of the pump site . [facility], Workstation: [facility], 06/10/2024 12:53 PM
--- NOTE | 2024-06-10 15:42 | P.HPIM ---
History of Present Illness H&P Date: 06/10/24 This is a pleasant 58-year-old male with medical history significant for diabetes mellitus, fibromyalgia, acid reflux, hyperlipidemia, seizure disorder, sleep apnea. Patient also with history of narcolepsy and multiple orthopedic surgeries. Patient has had a pain pump implanted in his left lower back states that Dr. Varela did the surgery around 13 years ago. Patient was sent over to the hospital from his family doctor with concerns for redness and swelling at the pain pump implantation site with a area of induration towards the spine on the left lower back. There is tenderness to touch. Patient denies having any fever and chills. He does note that he has had numbness in his 5th and 4th digit on his right hand over the last week and states that he is having some difficulty with [id number] rotation of his neck. We will do an cervical x-ray to evaluate this. Dr. Jackson is his surgeon. Per medical records patient had his pain pump filled back in March [address] Varela there was evidence at that time per the note that the patient had redness on the skin area around the pump. Patient had soft tissue ultrasound of the left lower back showing a hypoechoic collection appears to fluid at the level of the pump site. Unsure whether this is normal for procedure or fluid from the pump itself versus other. Appears to be less likely of an abscess. White blood cell count is 7.50, BUN of 10 creatinine of 0.56. Blood glucose is significant elevated in the 200s lactic acid of 3.0. Urinalysis is not suggestive of infection. Patient was admitted to the hospital for consult placed to infectious disease and anesthesia services for evaluation of the pain pump. He was started empirically on IV antibiotics in the form of vancomycin. Patient did receive a dose of levo floxacin while in the ER as well as a 1 L fluid bolus. REVIEW OF SYSTEMS: CONSTITUTIONAL: No fever, no malaise, no fatigue. HEENT: No recent visual problems or hearing problems. Denied any sore throat. CARDIOVASCULAR: No chest pain, orthopnea, PND, no palpitations, no syncope. PULMONARY: No shortness of breath, no cough, no hemoptysis. GASTROINTESTINAL: No diarrhea, no nausea, no vomiting, no abdominal pain. NEUROLOGICAL: No headaches, no weakness, no numbness. HEMATOLOGICAL: Denies any bleeding or petechiae. GENITOURINARY: Denies any burning micturition, frequency, or urgency. MUSCULOSKELETAL/RHEUMATOLOGICAL: Denies any joint pain, swelling, or any muscle pain. ENDOCRINE: Denies any polyuria or polydipsia. The rest of the 14-point review of systems is negative. PHYSICAL EXAMINATION: GENERAL: The patient is alert and oriented x3, not in any acute distress. Well developed, well nourished. HEENT: Pupils are round and equally reacting to light. EOMI. No scleral icterus. No conjunctival pallor. Normocephalic, atraumatic. No pharyngeal erythema. No thyromegaly. CARDIOVASCULAR: S1 and S2 present. No murmurs, rubs, or gallops. PULMONARY: Chest is clear to auscultation, no wheezing or crackles. ABDOMEN: Soft, nontender, nondistended, normoactive bowel sounds. No palpable organomegaly. MUSCULOSKELETAL: No joint swelling or deformity. EXTREMITIES: No cyanosis, clubbing, or pedal edema. NEUROLOGICAL: Gross neurological examination did not reveal any focal deficits. SKIN: No rashes. Redness surrounding the pain pump with area of induration Assessment and Plan Cellulitis of the left lower back at the site of pain pump Parasthesias of the right 4 and 5 digit likely a cervical radiculopathy hx of lumbar spine stenosis with failed lumbar surgery and continued pain Lactic acidosis History of seizure disorder Diabetes Mellitus type 2 with hyperglycemia Fibromyalgia History of bariatric surgery Gastroesophageal reflux disease Sleep apnea Narcolepsy Restless leg syndrome DVT prophylaxis Lovenox Full Code Plan ID consultation Cervical neck xray resume home medications Patient has been started empirically on IV vancomycin Pending blood cultures Pending consultation from Dr Varela regarding the cellulitis at the pain pump site The impression and plan of care has been dictated by Ellie Rea Nurse Practitioner as directed. Dr. Geronimo MD I have performed a history and physical examination and medical decision making of this patient, discussed the same with the dictator, and agree with the dictators assessment and plan as written, documented as a scribe. Based on total visit time, I have performed more than 50% of this visit. 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 RSD rt leg/feet, collapsed VERTEBRA back, STILL SOME REDNESS AROUND PAIN PUMP INSERTION SITE History of Any Multi-Drug Resistant Organisms: MRSA Date of last positivie culture/infection: 2008 MDRO Source:: wound in neck Past Surgical History: Adenoidectomy, Appendectomy, Back Surgery, Bariatric Surgery, Orthopedic Surgery, Tonsillectomy Additional Past Surgical History / Comment(s): Eyes/plastic surgery, tongue surgery, circumcision, Rt foot surgeries, neck fusion, pain pump, lap band/later removed. 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 PAIN CLINIC PROCEDURES, Past Anesthesia/Blood Transfusion Reactions: Previous Problems w/ Anesthesia Additional Past Anesthesia/Blood Transfusion Reaction / Comment(s): "slow to come out due to narcolepsy" comes out with low oxygen level-pt denies this. Never had blood transfusion. Past Psychological History: No Psychological Hx Reported Additional Psychological History / Comment(s): Pt resides alone. Smoking Status: Never smoker Past Alcohol Use History: None Reported Past Drug Use History: None Reported - Past Family History Father Family Medical History: CVA/TIA Additional Family Medical History / Comment(s): from "massive stroke" Mother Family Medical History: Cancer, Deep Vein Thrombosis (DVT), Pulmonary Embolus Brother(s) Family Medical History: Deep Vein Thrombosis (DVT) Medications and Allergies Home Medications Medication Instructions Recorded Confirmed Type Meclizine [Antivert] 12.5 mg PO TID 07/22/13 06/09/24 History LORazepam 0.5 mg PO TID 09/15/19 06/09/24 History carBAMazepine [TEGretol] 200 mg PO BID 09/15/19 06/09/24 History levETIRAcetam [Keppra] 1,000 mg PO BID 11/24/21 06/09/24 History DULoxetine HCL [Cymbalta] 60 mg PO BID 10/26/22 06/09/24 History Losartan [Cozaar] 25 mg PO HS 11/14/23 06/09/24 History Insulin Glargine,Hum.rec.anlog 90 units SQ HS@2230 12/26/23 06/09/24 History [Lantus Solostar Pen] Insulin Lispro [humaLOG Kwikpen] 30 unit SQ W/SUPPER@1730 12/26/23 06/09/24 History Linagliptin [Tradjenta] 5 mg PO DAILY 12/26/23 06/09/24 History Testosterone [Androgel 1.62%] 1 pump TRANSDERM DAILY 12/26/23 06/09/24 History Gabapentin [Neurontin] 800 mg PO BID 30 Days #60 tab 05/25/24 06/09/24 Rx Chlorhexidine Gluconate [Peridex] 15 ml PO BID 06/09/24 06/09/24 History Cyclobenzaprine [Flexeril] 5 mg PO TID 06/09/24 06/09/24 History Ibuprofen 800 mg PO TID 06/09/24 06/09/24 History Nystatin 100,000 Unit/gm Powd 1 applic TOPICAL BID 06/09/24 06/09/24 History [Mycostatin Powder] Patient Own Pump 0 bag 06/09/24 06/09/24 History oxyCODONE-APAP 10-325MG [Percocet 1 tab PO TID 06/09/24 06/09/24 History 10-325 mg] Allergies Allergy/AdvReac Type Severity Reaction Status Date / Time bupropion HCl Allergy Dyspnea Verified 06/09/24 17:44 [From Wellbutrin] cephalexin [Cephalexin] Allergy Dyspnea Verified 06/09/24 17:44 cephalexin monohydrate Allergy Dyspnea,hiv Verified 06/09/24 17:44 [From Keflex] es penicillin G Allergy Rash/Hives Verified 06/09/24 17:44 onion Allergy Dyspnea,hiv Uncoded 06/09/24 17:44 es Physical Exam Vitals: Vital Signs Temp Pulse Pulse Resp BP BP Pulse Ox 06/10/24 07:03 98.7 F 73 19 158/88 97 06/10/24 06:08 98.1 F 75 18 156/105 97 06/10/24 05:34 72 18 135/72 95 06/10/24 04:00 69 18 161/88 98 06/10/24 02:00 78 18 149/81 97 06/10/24 00:00 98.8 F 89 18 126/96 98 06/09/24 18:34 80 18 146/91 98 06/09/24 16:30 97.8 F 77 18 137/76 94 L 06/09/24 14:20 98.5 F 105 H 18 135/84 96 Intake and Output 06/09/24 06/10/24 06/10/24 22:59 06:59 14:59 Intake Total 240 Output Total 1340 Balance -1100 Intake: Oral 240 Output: Urine 1340 Other: Voiding Method Toilet Urinal Weight 113.398 kg Results CBC & Chem 7: 06/09/24 15:19 06/10/24 03:22 Labs: Abnormal Lab Results - Last 24 Hours (Table) 06/09/24 06/09/24 06/09/24 Range/Units 15:19 15:19 15:19 MPV 8.6 L (9.5-12.2) fL Creatinine 0.56 L (0.66-1.25) mg/dL Glucose 272 H (74-99) mg/dL POC Glucose (mg/dL) (70-110) mg/dL Plasma Lactic Acid Mina 3.0 H* (0.7-2.0) mmol/L Urine Protein (Negative) Urine Glucose (UA) (Negative) Hyaline Casts (0-2) /lpf Urine Mucus (None) /hpf 06/09/24 06/09/24 06/09/24 Range/Units 15:57 18:20 19:29 MPV (9.5-12.2) fL Creatinine (0.66-1.25) mg/dL Glucose (74-99) mg/dL POC Glucose (mg/dL) 217 H (70-110) mg/dL Plasma Lactic Acid Mina 2.8 H* (0.7-2.0) mmol/L Urine Protein 2+ H (Negative) Urine Glucose (UA) 4+ H (Negative) Hyaline Casts 3 H (0-2) /lpf Urine Mucus Rare H (None) /hpf 06/09/24 06/10/24 06/10/24 Range/Units 21:39 00:25 03:22 MPV (9.5-12.2) fL Creatinine 0.47 L (0.66-1.25) mg/dL Glucose (74-99) mg/dL POC Glucose (mg/dL) (70-110) mg/dL Plasma Lactic Acid Mina 2.7 H* 2.4 H* (0.7-2.0) mmol/L Urine Protein (Negative) Urine Glucose (UA) (Negative) Hyaline Casts (0-2) /lpf Urine Mucus (None) /hpf 06/10/24 Range/Units 06:17 MPV (9.5-12.2) fL Creatinine (0.66-1.25) mg/dL Glucose (74-99) mg/dL POC Glucose (mg/dL) 154 H (70-110) mg/dL Plasma Lactic Acid Mina (0.7-2.0) mmol/L Urine Protein (Negative) Urine Glucose (UA) (Negative) Hyaline Casts (0-2) /lpf Urine Mucus (None) /hpf Thrombosis Risk Factor Assmnt - Choose All That Apply Each Factor Represents 1 point: Age 41-60 years, Obesity (BMI >25) Other Risk Factors: No Other congenital or acquired thrombophilia - If yes, enter type in comment: No Thrombosis Risk Factor Assessment Total Risk Factor Score: 2 Thrombosis Risk Factor Assessment Level: Low Risk Assessment and Plan Time with Patient: Less than 30
--- NOTE | 2024-06-10 15:50 | XR ---
EXAMINATION TYPE: XR cervical spine comp DATE OF EXAM: 06/10/2024 3:46 PM INDICATION: Patient age:Male; 58 years old; Reason for study: parasthesias right hand; PHH, pain COMPARISON: None TECHNIQUE: The cervical spine was imaged in 4 projections. Frontal, lateral, odontoid and bilateral o blique. FINDINGS: Straightening of the cervical spine. Post surgical changes from ACDF C4-C6. Hardware appears intact w ith appropriate alignment. Large anterior osteophytosis at C3-C4 and C6-C7. Mild disc space narrowing at these levels. Pedicles are intact. Soft tissues are within normal limits. The odontoid appears i ntact. IMPRESSION: 1. No fracture or dislocation. 2. Postsurgical changes from ACDF C4-C6. Hardware appears intact. 3. Mild to moderate degenerative disc disease above and below the fusion. [facility], , 06/10/2024 3:48 PM
[2024-06-10 16:54] LABS: Glucose,Whole Blood 299 mg/dL (70-110)
[2024-06-10 20:37] LABS: Glucose,Whole Blood 205 mg/dL (70-110)
[2024-06-10] MEDS: LOSARTAN 25 MG TAB PO SCH (20:54)
[2024-06-10] MEDS: IBUPROFEN 800 MG TAB PO PRN (20:55)
[2024-06-10] MEDS: INSULIN GLARGINE (LANTUS) 100 UNIT/ML SYR SQ SCH (22:36)
[2024-06-10] MEDS: oxyCODONE-APAP 10-325MG 1 EACH TAB PO PRN (22:36)
[2024-06-11] MEDS: VANCOMYCIN TROUGH DUE 1 EACH MISC MISCELLANE ONE (05:35)
[2024-06-11 06:18] LABS: Glucose,Whole Blood 178 mg/dL (70-110)
[2024-06-11 06:50] LABS: African American GFR (CKD) >90 (>60 ml/min/1.73 sqM); Anion Gap 12 mmol/L; Blood Urea Nitrogen 12 mg/dL (9-20); Calcium 9.3 mg/dL (8.4-10.2); Carbon Dioxide 23 mmol/L (22-30); Chloride 99 mmol/L (98-107); Glucose 185 mg/dL (74-99); Non-African American GFR(CKD) >90 (>60 ml/min/1.73 sqM); Potassium 4.1 mmol/L (3.5-5.1); Sodium 134 mmol/L (137-145)
--- NOTE | 2024-06-11 07:50 | P.CONS ---
History of Present Illness - Reason for Consult Consult date: 06/10/24 Cellulitis at pain pump site Requesting physician: Carmita Good - Chief Complaint Pain and swelling at the pain pump site x days - History of Present Illness Patient is a 58-year-old male with a past medical history significant for Diabetes Mellitus, Fibromyalgia, GERD/Reflux, Hyperlipidemia, Seizure Disorder, Sleep Apnea/CPAP/BIPAP did have a pain pump to the lower back area previous admission to the hospital with cellulitis/infiltration of the medication into the pain pump subcutaneous area that was treated with oral by therapy and the patient did well patient pain pump has been filled about a month ago and is now present to the hospital complaining of increasing pain swelling and redness of the pain pump site of the last few days and the patient mention has been running a fever at home as high as 101 F patient describes the pain to be mostly dull aching to sharp moderate to severe intensity without any radiation with associated swelling there has been no drainage on presentation to the hospital the patient was afebrile and no fever have been called subsequently patient was nontachycardic hypotensive or hypoxic patient did have a white count of 7.50 creatinine 0.56 lactic acid was 2.7 subsequent normalized liver enzymes were normal blood cultures obtained which are currently pending, patient was started on vancomycin infectious disease was consulted for further management of antibiotic therapy Review of Systems Positive point and negatives has been mentioned in the HPI, complete review of systems was performed and all other systems are negative Past Medical History Past Medical History: Diabetes Mellitus, Fibromyalgia, GERD/Reflux, Hyperlipidemia, Seizure Disorder, Sleep Apnea/CPAP/BIPAP Additional Past Medical History / Comment(s): bells palsy, 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 RSD rt leg/feet, collapsed VERTEBRA back, STILL SOME REDNESS AROUND PAIN PUMP INSERTION SITE History of Any Multi-Drug Resistant Organisms: MRSA Year Discovered:: 2008 MDRO Source:: wound in neck Past Surgical History: Adenoidectomy, Appendectomy, Back Surgery, Bariatric Surgery, Orthopedic Surgery, Tonsillectomy Additional Past Surgical History / Comment(s): Eyes/plastic surgery, tongue surgery, circumcision, Rt foot surgeries, neck fusion, pain pump, lap band/later removed. 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 PAIN CLINIC PROCEDURES, Past Anesthesia/Blood Transfusion Reactions: Previous Problems w/ Anesthesia Additional Past Anesthesia/Blood Transfusion Reaction / Comm: "slow to come out due to narcolepsy" comes out with low oxygen level-pt denies this. Never had blood transfusion. Past Psychological History: No Psychological Hx Reported Additional Psychological History / Comment(s): Pt resides alone. Smoking Status: Never smoker Past Alcohol Use History: None Reported Past Drug Use History: None Reported - Past Family History Father Family Medical History: CVA/TIA Additional Family Medical History / Comment(s): from "massive stroke" Mother Family Medical History: Cancer, Deep Vein Thrombosis (DVT), Pulmonary Embolus Brother(s) Family Medical History: Deep Vein Thrombosis (DVT) Medications and Allergies Home Medications Medication Instructions Recorded Confirmed Type Meclizine [Antivert] 12.5 mg PO TID 07/22/13 06/09/24 History LORazepam 0.5 mg PO TID 09/15/19 06/09/24 History carBAMazepine [TEGretol] 200 mg PO BID 09/15/19 06/09/24 History levETIRAcetam [Keppra] 1,000 mg PO BID 11/24/21 06/09/24 History DULoxetine HCL [Cymbalta] 60 mg PO BID 10/26/22 06/09/24 History Losartan [Cozaar] 25 mg PO HS 11/14/23 06/09/24 History Insulin Glargine,Hum.rec.anlog 90 units SQ HS@2230 12/26/23 06/09/24 History [Lantus Solostar Pen] Insulin Lispro [humaLOG Kwikpen] 30 unit SQ W/SUPPER@1730 12/26/23 06/09/24 History Linagliptin [Tradjenta] 5 mg PO DAILY 12/26/23 06/09/24 History Testosterone [Androgel 1.62%] 1 pump TRANSDERM DAILY 12/26/23 06/09/24 History Gabapentin [Neurontin] 800 mg PO BID 30 Days #60 tab 05/25/24 06/09/24 Rx Chlorhexidine Gluconate [Peridex] 15 ml PO BID 06/09/24 06/09/24 History Cyclobenzaprine [Flexeril] 5 mg PO TID 06/09/24 06/09/24 History Ibuprofen 800 mg PO TID 06/09/24 06/09/24 History Nystatin 100,000 Unit/gm Powd 1 applic TOPICAL BID 06/09/24 06/09/24 History [Mycostatin Powder] Patient Own Pump 0 bag 06/09/24 06/09/24 History oxyCODONE-APAP 10-325MG [Percocet 1 tab PO TID 06/09/24 06/09/24 History 10-325 mg] Allergies Allergy/AdvReac Type Severity Reaction Status Date / Time bupropion HCl Allergy Dyspnea Verified 06/09/24 17:44 [From Wellbutrin] cephalexin [Cephalexin] Allergy Dyspnea Verified 06/09/24 17:44 cephalexin monohydrate Allergy Dyspnea,hiv Verified 06/09/24 17:44 [From Keflex] es penicillin G Allergy Rash/Hives Verified 06/09/24 17:44 onion Allergy Dyspnea,hiv Uncoded 06/09/24 17:44 es Physical Exam Vitals: Vital Signs Temp Pulse Pulse Resp BP BP Pulse Ox 06/10/24 07:40 73 19 06/10/24 07:03 98.7 F 73 19 158/88 97 06/10/24 06:08 98.1 F 75 18 156/105 97 06/10/24 05:34 72 18 135/72 95 06/10/24 04:00 69 18 161/88 98 06/10/24 02:00 78 18 149/81 97 06/10/24 00:00 98.8 F 89 18 126/96 98 06/09/24 18:34 80 18 146/91 98 06/09/24 16:30 97.8 F 77 18 137/76 94 L 06/09/24 14:20 98.5 F 105 H 18 135/84 96 Intake and Output 06/09/24 06/10/24 06/10/24 22:59 06:59 14:59 Intake Total 240 Output Total 1340 Balance -1100 Intake: Oral 240 Output: Urine 1340 Other: Voiding Method Toilet Toilet Urinal Urinal Weight 113.398 kg GENERAL DESCRIPTION: Middle-age male up in the chair, no distress. No tachypnea or accessory muscle of respiration use. HEENT: Shows Pallor , no scleral icterus. Oral mucous membrane is dry. No pharyngeal erythema or thrush NECK: Trachea central, no thyromegaly. LUNGS: Unlabored breathing. Clear to auscultation anteriorly. No wheeze or crackle. HEART: S1, S2, regular rate and rhythm. No loud murmur ABDOMEN: Soft, no tenderness , guarding or rigidity, no organomegaly EXTREMITIES: No edema of feet. SKIN: Swelling redness and fluctuation at the pain pump site NEUROLOGICAL: The patient is awake, alert, oriented x3, mood and affect normal. Results CBC & Chem 7: 06/09/24 15:19 06/11/24 05:10 Labs: Abnormal Lab Results - Last 24 Hours (Table) 06/09/24 06/09/24 06/09/24 Range/Units 15:19 15:19 15:19 MPV 8.6 L (9.5-12.2) fL Creatinine 0.56 L (0.66-1.25) mg/dL Glucose 272 H (74-99) mg/dL POC Glucose (mg/dL) (70-110) mg/dL Plasma Lactic Acid Mina 3.0 H* (0.7-2.0) mmol/L Urine Protein (Negative) Urine Glucose (UA) (Negative) Hyaline Casts (0-2) /lpf Urine Mucus (None) /hpf 06/09/24 06/09/24 06/09/24 Range/Units 15:57 18:20 19:29 MPV (9.5-12.2) fL Creatinine (0.66-1.25) mg/dL Glucose (74-99) mg/dL POC Glucose (mg/dL) 217 H (70-110) mg/dL Plasma Lactic Acid Mina 2.8 H* (0.7-2.0) mmol/L Urine Protein 2+ H (Negative) Urine Glucose (UA) 4+ H (Negative) Hyaline Casts 3 H (0-2) /lpf Urine Mucus Rare H (None) /hpf 06/09/24 06/10/24 06/10/24 Range/Units 21:39 00:25 03:22 MPV (9.5-12.2) fL Creatinine 0.47 L (0.66-1.25) mg/dL Glucose (74-99) mg/dL POC Glucose (mg/dL) (70-110) mg/dL Plasma Lactic Acid Mina 2.7 H* 2.4 H* (0.7-2.0) mmol/L Urine Protein (Negative) Urine Glucose (UA) (Negative) Hyaline Casts (0-2) /lpf Urine Mucus (None) /hpf 06/10/24 Range/Units 06:17 MPV (9.5-12.2) fL Creatinine (0.66-1.25) mg/dL Glucose (74-99) mg/dL POC Glucose (mg/dL) 154 H (70-110) mg/dL Plasma Lactic Acid Mina (0.7-2.0) mmol/L Urine Protein (Negative) Urine Glucose (UA) (Negative) Hyaline Casts (0-2) /lpf Urine Mucus (None) /hpf Assessment and Plan (1) Cellulitis of lower back Current Visit: Yes Status: Acute Code(s): L03.312 - CELLULITIS OF BACK [ANY PART EXCEPT BUTTOCK] SNOMED Code(s): 79742615 (2) Allergy to multiple antibiotics Current Visit: No Status: Acute Code(s): Z88.1 - ALLERGY STATUS TO OTHER ANTIBIOTIC AGENTS SNOMED Code(s): 715999484 Plan: 1patient presented to hospital with the pain swelling redness at the pain pump site and is also been complaining of fever at home in this patient who did have some fluctuation to the pinpoint site concerning for possible abscess likely from gram-positive skin wayne. 2patient with multiple antibiotic ALLERGIES that would limit the number of antibiotic safe to use. 3we will obtain ultrasound of the pain pump site if positive for fluid will get IR drainage of the fluid and if confirmed the abscess will need removal of the pain pump in order to completely cure this infection this has been discussed in detail with the patient 4-for now we will treat with vancomycin pharmacy to dose while watching his kidney function closely We will follow on clinical condition and cultures to further adjust medication if needed Thank you for this consultation we will follow the patient along with you Dictation was produced using [employer] dictation software. please excuse any grammatical, word or spelling errors. Time with Patient: Greater than 30
--- NOTE | 2024-06-11 08:31 | P.PAINCN ---
History of Present Illness - Reason for Consult Consult date: 06/11/24 - History of Present Illness This is 58 years old male with a history of chronic low back pain had intrathecal pain pump implanted several years ago, and few months ago he developed cellulitis at the pump area, patient been getting antibiotics for started IV antibiotic later on switched to oral antibiotics, condition improved significantly and patient did well and last months we filled the pump, over the last few days patient ported that he had fever and redness at the pump site area, patient admitted to [facility] secondary to infection at the pump site, patient been following with infectious disease specialist, and currently he was on IV antibiotic vancomycin, patient temperature at home was 101 Fahrenheit but currently it is within normal limit . 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 RSD rt leg/feet, collapsed VERTEBRA back, STILL SOME REDNESS AROUND PAIN PUMP INSERTION SITE History of Any Multi-Drug Resistant Organisms: MRSA Year Discovered:: 2008 MDRO Source:: wound in neck Past Surgical History: Adenoidectomy, Appendectomy, Back Surgery, Bariatric Surg nara, Orthopedic Surgery, Tonsillectomy Additional Past Surgical History / Comment(s): Eyes/plastic surgery, tongue surgery, circumcision, Rt foot surgeries, neck fusion, pain pump, lap band/later removed. 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 PAIN CLINIC PROCEDURES, Past Anesthesia/Blood Transfusion Reactions: Previous Problems w/ Anesthesia Additional Past Anesthesia/Blood Transfusion Reaction / Comm: "slow to come out due to narcolepsy" comes out with low oxygen level-pt denies this. Never had blood transfusion. Past Psychological History: No Psychological Hx Reported Additional Psychological History / Comment(s): Pt resides alone. Smoking Status: Never smoker Past Alcohol Use History: None Reported Past Drug Use History: None Reported - Past Family History Father Family Medical History: CVA/TIA Additional Family Medical History / Comment(s): from "massive stroke" Mother Family Medical History: Cancer, Deep Vein Thrombosis (DVT), Pulmonary Embolus Brother(s) Family Medical History: Deep Vein Thrombosis (DVT) Medications and Allergies Home Medications Medication Instructions Recorded Confirmed Type Meclizine [Antivert] 12.5 mg PO TID 07/22/13 06/09/24 History LORazepam 0.5 mg PO TID 09/15/19 06/09/24 History carBAMazepine [TEGretol] 200 mg PO BID 09/15/19 06/09/24 History levETIRAcetam [Keppra] 1,000 mg PO BID 11/24/21 06/09/24 History DULoxetine HCL [Cymbalta] 60 mg PO BID 10/26/22 06/09/24 History Losartan [Cozaar] 25 mg PO HS 11/14/23 06/09/24 History Insulin Glargine,Hum.rec.anlog 90 units SQ HS@2230 12/26/23 06/09/24 History [Lantus Solostar Pen] Insulin Lispro [humaLOG Kwikpen] 30 unit SQ W/SUPPER@1730 12/26/23 06/09/24 History Linagliptin [Tradjenta] 5 mg PO DAILY 12/26/23 06/09/24 History Testosterone [Androgel 1.62%] 1 pump TRANSDERM DAILY 12/26/23 06/09/24 History Gabapentin [Neurontin] 800 mg PO BID 30 Days #60 tab 05/25/24 06/09/24 Rx Chlorhexidine Gluconate [Peridex] 15 ml PO BID 06/09/24 06/09/24 History Cyclobenzaprine [Flexeril] 5 mg PO TID 06/09/24 06/09/24 History Ibuprofen 800 mg PO TID 06/09/24 06/09/24 History Nystatin 100,000 Unit/gm Powd 1 applic TOPICAL BID 06/09/24 06/09/24 History [Mycostatin Powder] Patient Own Pump 0 bag 06/09/24 06/09/24 History oxyCODONE-APAP 10-325MG [Percocet 1 tab PO TID 06/09/24 06/09/24 History 10-325 mg] Allergies Allergy/AdvReac Type Severity Reaction Status Date / Time bupropion HCl Allergy Dyspnea Verified 06/09/24 17:44 [From Wellbutrin] cephalexin [Cephalexin] Allergy Dyspnea Verified 06/09/24 17:44 cephalexin monohydrate Allergy Dyspnea,hiv Verified 06/09/24 17:44 [From Keflex] es penicillin G Allergy Rash/Hives Verified 06/09/24 17:44 onion Allergy Dyspnea,hiv Uncoded 06/09/24 17:44 es Physical Exam Vitals: Vital Signs Temp Pulse Resp BP Pulse Ox 06/11/24 01:24 97.6 F 63 16 117/70 94 L 06/10/24 20:54 72 16 06/10/24 20:35 98.2 F 72 16 148/81 95 06/10/24 13:22 98.3 F 72 18 143/78 97 Intake and Output 06/10/24 06/11/24 06/11/24 22:59 06:59 14:59 Other: Voiding Method Toilet Urinal # Voids 2 1 GENERAL DESCRIPTION: Middle-age male up in the chair, no distress. No tachypnea or accessory muscle of respiration use. HEENT: Shows Pallor , no scleral icterus. Oral mucous membrane is dry. No pharyngeal erythema or thrush NECK: Trachea central, no thyromegaly. LUNGS: Unlabored breathing. Clear to auscultation anteriorly. No wheeze or crackle. HEART: S1, S2, regular rate and rhythm. No loud murmur ABDOMEN: Soft, no tenderness , guarding or rigidity, no organomegaly EXTREMITIES: No edema of feet. SKIN: Swelling redness, and fluctuation at the pain pump site, tenderness over the left buttock area at the location of the pump, NEUROLOGICAL: The patient is awake, alert, oriented x3, mood and affect normal. Results CBC & Chem 7: 06/09/24 15:19 06/11/24 05:10 Labs: Abnormal Lab Results - Last 24 Hours (Table) 06/10/24 06/10/24 06/10/24 Range/Units 11:49 16:52 20:35 Sodium (137-145) mmol/L Creatinine (0.66-1.25) mg/dL Glucose (74-99) mg/dL POC Glucose (mg/dL) 263 H 299 H 205 H (70-110) mg/dL 06/11/24 06/11/24 Range/Units 05:10 06:17 Sodium 134 L (137-145) mmol/L Creatinine 0.50 L (0.66-1.25) mg/dL Glucose 185 H (74-99) mg/dL POC Glucose (mg/dL) 178 H (70-110) mg/dL Microbiology - Last 24 Hours (Table) 06/09/24 15:19 Blood Culture - Preliminary Blood Assessment and Plan Plan: Assessment and plan: 1-cellulitis of the left pec area at the location of the intrathecal pain pump. I discussed with the patient the need for the intrathecal pain pump to be removed. I will consult spine surgery to remove the intrathecal pain pump and catheter. Infectious disease specialist already on consult and patient on IV antibiotic Time with Patient: Less than 30 PQRS Measure Charge Sheet - Pain Location Generalized Non-Pharmacological Interventions: Darkened Room, Distraction Pain Comment: see PRN pain med in APR for pain assessment PQRS Narrative: Smoking Status Never smoker Narcotic Agreement Date Signed 08/14/23 Blood Pressure [Right Arm] 117/70 Blood Pressure 135/72 Pain Intensity [Generalized] 6 Pain Intensity 6 Pain Scale Used Numeric (1 - 10) Scale Used Numeric (1 - 10) Hx Alcohol Use (MH) No Home Medications: Ambulatory Orders Meclizine [Antivert] 12.5 mg PO TID 07/22/13 LORazepam 0.5 mg PO TID 09/15/19 carBAMazepine [TEGretol] 200 mg PO BID 09/15/19 levETIRAcetam [Keppra] 1,000 mg PO BID 11/24/21 DULoxetine HCL [Cymbalta] 60 mg PO BID 10/26/22 Losartan [Cozaar] 25 mg PO HS 11/14/23 Insulin Glargine,Hum.rec.anlog [Lantus Solostar Pen] 90 units SQ HS@2230 12/26/23 Insulin Lispro [humaLOG Kwikpen] 30 unit SQ W/SUPPER@1730 12/26/23 Linagliptin [Tradjenta] 5 mg PO DAILY 12/26/23 Testosterone [Androgel 1.62%] 1 pump TRANSDERM DAILY 12/26/23 Gabapentin [Neurontin] 800 mg PO BID 30 Days #60 tab 05/25/24 Chlorhexidine Gluconate [Peridex] 15 ml PO BID 06/09/24 Cyclobenzaprine [Flexeril] 5 mg PO TID 06/09/24 Ibuprofen 800 mg PO TID 06/09/24 Nystatin 100,000 Unit/gm Powd [Mycostatin Powder] 1 applic TOPICAL BID 06/09/24 Patient Own Pump 0 bag 06/09/24 oxyCODONE-APAP 10-325MG [Percocet 10-325 mg] 1 tab PO TID 06/09/24
[2024-06-11 08:39] LABS: HGB 14.6 g/dL (13.0-17.0); MCH 30.7 pg (27.0-32.0); MCV 90.5 FL (80.0-97.0); Mean Platelet Volume 9.4 FL (9.5-12.2); NRBC Per 100 WBC 0 X 10*3/uL (0.00-0.01); Platelet Count 315 X 10*3/uL (140-440); RBC 4.75 X 10*6/uL (4.40-5.60); RDW 12.9 % (11.5-14.5); WBC 8.03 X 10*3/uL (4.50-10.00)
[2024-06-11 08:40] LABS: Basophils # (A) 0.13 X 10*3/uL (0.00-0.10); Basophils % (A) 1.6 %; Eosinophils # (A) 0.28 X 10*3/uL (0.04-0.35); Eosinophils % (A) 3.5 %; Lymphocytes # (A) 4.18 X 10*3/uL (0.90-5.00); Lymphocytes % (A) 52.1 %; Monocytes # (A) 0.56 X 10*3/uL (0.20-1.00); Neutrophils # (A) 2.86 X 10*3/uL (1.80-7.70); Neutrophils % (A) 35.6 %
[2024-06-11 11:28] LABS: Prothrombin Time 11.1 sec (10.0-12.5)
--- NOTE | 2024-06-11 12:07 | P.CNOR ---
History of Present Illness - [facility] Consult date: 06/11/24 Requesting physician: Austin Varela Consult reason: other (Pain pump infection) History of present illness: Patient is a pleasant 58-year-old male who is seen examined at the bedside for further evaluation of his left buttock at placement of a pain pump. Patient is known to have an intrathecal pain pump implanted several years ago. He developed cellulitis a few months ago. He initially began on IV antibiotics and was later transitioned to oral antibiotics. Initially his condition had improved significantly over the past couple months. His pump was refilled last month and over the past few days the pump site has been red and indurated representing cellulitis and the patient has had a fever. He was admitted to [facility] for further evaluation due to the infection at the pump site. He has been following with Dr. Felix and infectious disease. He is currently on IV antibiotics with vancomycin. Dr. Reid contacted Dr. Tae Jackson today to discuss the patient in significant detail and to request proceeding forward with irrigation and debridement with removal of pain pump in the operating room. Patient does admit to pain at his left buttock at the pain pump location site. Patient received Lovenox this morning. He is currently n.p.o. status. We are currently planning for surgical intervention with irrigation and debridement of the left buttock with removal of pain pump today, 06/11/2024, at approximately 1700 hrs. Infectious disease was planning for aspiration by interventional radiology. This is not currently necessary as the patient is scheduled for surgical intervention today. Patient has a history of multiple surgical interventions at his lumbar spine. He has followed with pain management at [facility]. He has ongoing chronic low back pain. He currently denies any lower extremity weakness or radiculopathy bilaterally. Patient states he does have RSD in his right lower extremity. Ultrasound of the pain pump location was performed today. 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 RSD rt leg/feet, collapsed VERTEBRA back, STILL SOME REDNESS AROUND PAIN PUMP INSERTION SITE History of Any Multi-Drug Resistant Organisms: MRSA Year Discovered:: 2008 MDRO Source:: wound in neck Past Surgical History: Adenoidectomy, Appendectomy, Back Surgery, Bariatric Surgery, Orthopedic Surgery, Tonsillectomy Additional Past Surgical History / Comment(s): Eyes/plastic surgery, tongue surgery, circumcision, Rt foot surgeries, neck fusion, pain pump, lap band/later removed. 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 PAIN CLINIC PROCEDURES, Past Anesthesia/Blood Transfusion Reactions: Previous Problems w/ Anesthesia Additional Past Anesthesia/Blood Transfusion Reaction / Comm: "slow to come out due to narcolepsy" comes out with low oxygen level-pt denies this. Never had blood transfusion. Past Psychological History: No Psychological Hx Reported Additional Psychological History / Comment(s): Pt resides alone. Smoking Status: Never smoker Past Alcohol Use History: None Reported Past Drug Use History: None Reported - Past Family History Father Family Medical History: CVA/TIA Additional Family Medical History / Comment(s): from "massive stroke" Mother Family Medical History: Cancer, Deep Vein Thrombosis (DVT), Pulmonary Embolus Brother(s) Family Medical History: Deep Vein Thrombosis (DVT) Medications and Allergies Home Medications Medication Instructions Recorded Confirmed Type Meclizine [Antivert] 12.5 mg PO TID 07/22/13 06/09/24 History LORazepam 0.5 mg PO TID 09/15/19 06/09/24 History carBAMazepine [TEGretol] 200 mg PO BID 09/15/19 06/09/24 History levETIRAcetam [Keppra] 1,000 mg PO BID 11/24/21 06/09/24 History DULoxetine HCL [Cymbalta] 60 mg PO BID 10/26/22 06/09/24 History Losartan [Cozaar] 25 mg PO HS 11/14/23 06/09/24 History Insulin Glargine,Hum.rec.anlog 90 units SQ HS@2230 12/26/23 06/09/24 History [Lantus Solostar Pen] Insulin Lispro [humaLOG Kwikpen] 30 unit SQ W/SUPPER@0570 12/26/23 06/09/24 History Linagliptin [Tradjenta] 5 mg PO DAILY 12/26/23 06/09/24 History Testosterone [Androgel 1.62%] 1 pump TRANSDERM DAILY 12/26/23 06/09/24 History Gabapentin [Neurontin] 800 mg PO BID 30 Days #60 tab 05/25/24 06/09/24 Rx Chlorhexidine Gluconate [Peridex] 15 ml PO BID 06/09/24 06/09/24 History Cyclobenzaprine [Flexeril] 5 mg PO TID 06/09/24 06/09/24 History Ibuprofen 800 mg PO TID 06/09/24 06/09/24 History Nystatin 100,000 Unit/gm Powd 1 applic TOPICAL BID 06/09/24 06/09/24 History [Mycostatin Powder] Patient Own Pump 0 bag 06/09/24 06/09/24 History oxyCODONE-APAP 10-325MG [Percocet 1 tab PO TID 06/09/24 06/09/24 History 10-325 mg] Allergies Allergy/AdvReac Type Severity Reaction Status Date / Time bupropion HCl Allergy Dyspnea Verified 06/09/24 17:44 [From Wellbutrin] cephalexin [Cephalexin] Allergy Dyspnea Verified 06/09/24 17:44 cephalexin monohydrate Allergy Dyspnea,hiv Verified 06/09/24 17:44 [From Keflex] es penicillin G Allergy Rash/Hives Verified 06/09/24 17:44 onion Allergy Dyspnea,hiv Uncoded 06/09/24 17:44 es Physical Examination Osteopathic Statement: *. No significant issues noted on an osteopathic structural exam other than those noted in the History and Physical/Consult. Physical exam: Patient is awake, alert, and oriented 3 Vital signs stable Good chest excursion with deep inspiration and expiration Examination of lumbar spine reveals skin is intact with no abrasions, lacerations, or bruises; no erythema, purulence or signs of infection Evidence of large well-healed midline incision lumbar spine Examination of the left buttock shows evidence of incision site with pain pump Left buttock pain pump location is firm, warm, and indurated with evidence of cellulitis Some pain with palpation laterally to the pain pump Dorsiflexion, plantarflexion, and extensor hallucis longus positive sustained bilaterally Lower extremity strength 5/5 bilaterally Straight leg test negative bilateral lower extremities No signs or symptoms of DVT; no calf pain Neurovascularly intact. Results Pertinent studies: Ultrasound of mass at the left low back/buttock area taken on 06/10/2024: Hypoechoic collection which appears to be fluid at the level of the pump site - Labs Labs: Abnormal Lab Results - Last 24 Hours (Table) 06/10/24 06/10/24 06/11/24 Range/Units 16:52 20:35 05:10 MPV (9.5-12.2) FL Basophils # (0.00-0.10) X 10*3/uL Sodium 134 L (137-145) mmol/L Creatinine 0.50 L (0.66-1.25) mg/dL Glucose 185 H (74-99) mg/dL POC Glucose (mg/dL) 299 H 205 H (70-110) mg/dL Hemoglobin A1c (<=6.0) % 06/11/24 06/11/24 06/11/24 Range/Units 05:26 05:26 06:17 MPV 9.4 L (9.5-12.2) FL Basophils # 0.13 H (0.00-0.10) X 10*3/uL Sodium (137-145) mmol/L Creatinine (0.66-1.25) mg/dL Glucose (74-99) mg/dL POC Glucose (mg/dL) 178 H (70-110) mg/dL Hemoglobin A1c 12.0 H (<=6.0) % Microbiology - Last 24 Hours (Table) 06/09/24 15:19 Blood Culture - Preliminary Blood H & H 06/09/24 06/11/24 Range/Units 15:19 05:26 Hgb 15.9 14.6 (13.0-17.0) g/dL Hct 44.3 43.0 (39.6-50.0) % Coagulation 06/11/24 Range/Units 10:49 INR 1.0 (<1.2) Result Diagrams: 06/11/24 05:26 06/11/24 05:10 Assessment and Plan Assessment: Assessment: Pain pump infection Cellulitis of the left buttock area at the pain pump site Left buttock pain pump incision site pain Fever at presentation History of multiple surgical interventions at his lumbar spine History of seizure disorder Diabetes mellitus type 2 with hyperglycemia Fibromyalgia History of bariatric surgery Right lower extremity RSD (1) History of lumbar surgery Current Visit: Yes Status: Acute Code(s): Z98.890 - OTHER SPECIFIED POSTPROCEDURAL STATES SNOMED Code(s): 021799047 (2) Chronic low back pain Current Visit: Yes Status: Acute Code(s): M54.50 - LOW BACK PAIN, UNSPECIFIED; G89.29 - OTHER CHRONIC PAIN SNOMED Code(s): 833708705 (3) RSD (reflex sympathetic dystrophy) Current Visit: Yes Status: Acute Code(s): G90.50 - COMPLEX REGIONAL PAIN SYNDROME I, UNSPECIFIED SNOMED Code(s): 096109537 (4) Diabetes mellitus Current Visit: Yes Status: Acute Code(s): E11.9 - TYPE 2 DIABETES MELLITUS WITHOUT COMPLICATIONS SNOMED Code(s): 38804537 (5) Seizure disorder Current Visit: Yes Status: Acute Code(s): G40.909 - EPILEPSY, UNSP, NOT INTRACTABLE, WITHOUT STATUS EPILEPTICUS SNOMED Code(s): 366349205 (6) Fibromyalgia Current Visit: Yes Status: Acute Code(s): M79.7 - FIBROMYALGIA SNOMED Code(s): 460662308 (7) History of bariatric surgery Current Visit: Yes Status: Acute Code(s): Z98.84 - BARIATRIC SURGERY STATUS SNOMED Code(s): 805245230 (8) Cellulitis Current Visit: Yes Status: Acute Code(s): L03.90 - CELLULITIS, UNSPECIFIED SNOMED Code(s): 764936130 (9) Cellulitis of lower back Current Visit: Yes Status: Acute Code(s): L03.312 - CELLULITIS OF BACK [ANY PART EXCEPT BUTTOCK] SNOMED Code(s): 28670337 (10) Pyrexia Current Visit: Yes Status: Acute Code(s): R50.9 - FEVER, UNSPECIFIED SNOMED Code(s): 774216594 Plan: Plan: 1. Patient has been discussed in significant detail between Dr. Reid and Dr. Tae Jackson. Patient was seen examined the bedside by myself. Patient has evidence of infection and his pain pump location site at the left upper buttock area. Patient has been on long-term antibiotics with both IV and oral antibiotic medications. His symptoms have worsened over the past several days following a refill of his pain pump. He had presented with fevers. His fever has improved. After further discussion, we will currently plan for surgical intervention today for irrigation and debridement with pain pump removal at the pain pump surgical site at the left upper buttock area. Patient is currently n.p.o. in anticipation for surgical intervention. Patient received Lovenox this morning. We would be willing to proceed for surgical intervention today. Patient is currently planning for surgical intervention at 1700 hrs. Patient will remain NPO. He will sign informed consent for surgical intervention. Infectious disease was planning for aspiration by interventional radiology. This is not currently necessary as the patient is scheduled for surgical interve ntion today. I discussed these issues with the patient at length and I answered all of their questions to the best of my ability and the patient understands. I discussed the risk of surgical intervention and alternative treatment options. The risk of surgical intervention was explained to the patient in detail including but not limited to risk of bleeding, risk of infection, risk and need for further surgery, risk of decreased loss of motion of function, malunion, nonunion, hardware failure, nerve damage, paralysis, heart attack, , as well as the fact that surgery may not alleviate her symptoms. I answered all the patient's questions the best of my ability. The patient would like to proceed forward with surgical intervention and will sign informed consent. 2. Patient will continue be seen and examined by infectious disease and medicine The patient is seen and examined. I agree with the above. He has infection at the site of his pain pump at his left buttock. There does not appear to be infectious process at his spine. We need to remove the pain pump itself. We will tie off the pump at the sterile position and then remove the pump and washout the deep space at the site of the reservoir. I discussed the issue at length with him I discussed the risk complications alternatives benefits. I discussed the possibility of need for further surgery, repeated washouts, as well as the possibility of issues with infectious process at his spinal column and spinal cord itself. He understands these issues and we will proceed with the surgery for removal of the pain pump and irrigation and debridement. Time with Patient: Greater than 30
[2024-06-11 12:13] LABS: Glucose,Whole Blood 237 mg/dL (70-110)
--- NOTE | 2024-06-11 14:13 | P.PN ---
Subjective Progress Note Date: 06/11/24 Principal diagnosis: Reason for follow-up is pain pump site cellulitis abscess Patient is a 58-year-old male with a past medical history significant for Diabetes Mellitus, Fibromyalgia, GERD/Reflux, Hyperlipidemia, Seizure Disorder, Sleep Apnea/CPAP/BIPAP did have a pain pump to the lower back area previous admission to the hospital with cellulitis, now presenting back to the hospital with worsening pain swelling and redness concerning for pain pump site infection. On today's evaluation that is 06/11/2024,the patient remains to be afebrile, patient is on room air not requiring supplemental oxygen and denies any shortness of breath no chest pain or cough.Patient denies having any nausea or vomiting, no abdominal pain and no diarrhea, pain to the pain pump site about the same. Patient white count is 8.03, creatinine 0.50 blood cultures pending Objective - Vital Signs Vital signs: Vital Signs Temp 98.0 F 06/11/24 08:35 Pulse 70 06/11/24 08:35 Resp 16 06/11/24 08:35 BP 147/78 06/11/24 08:35 Pulse Ox 95 06/11/24 08:35 FiO2 Intake & Output 06/10/24 06/11/24 06/11/24 18:59 06:59 18:59 Intake Total 200 Balance 200 Intake: Oral 200 Other: Voiding Method Toilet Toilet Urinal Urinal # Voids 2 1 1 - Exam GENERAL DESCRIPTION: An elderly male lying in bed in no distress RESPIRATORY SYSTEM: Unlabored breathing , decreased breath sounds at bases HEART: S1 S2 regular rate and rhythm , ABDOMEN: Soft , no tenderness Lower back pain pump site erythema about the same - Labs CBC & Chem 7: 06/11/24 05:26 06/11/24 05:10 Labs: Abnormal Lab Results - Last 24 Hours (Table) 06/10/24 06/10/24 06/10/24 Range/Units 11:49 16:52 20:35 MPV (9.5-12.2) FL Basophils # (0.00-0.10) X 10*3/uL Sodium (137-145) mmol/L Creatinine (0.66-1.25) mg/dL Glucose (74-99) mg/dL POC Glucose (mg/dL) 263 H 299 H 205 H (70-110) mg/dL Hemoglobin A1c (<=6.0) % 06/11/24 06/11/24 06/11/24 Range/Units 05:10 05:26 05:26 MPV 9.4 L (9.5-12.2) FL Basophils # 0.13 H (0.00-0.10) X 10*3/uL Sodium 134 L (137-145) mmol/L Creatinine 0.50 L (0.66-1.25) mg/dL Glucose 185 H (74-99) mg/dL POC Glucose (mg/dL) (70-110) mg/dL Hemoglobin A1c 12.0 H (<=6.0) % 06/11/24 Range/Units 06:17 MPV (9.5-12.2) FL Basophils # (0.00-0.10) X 10*3/uL Sodium (137-145) mmol/L Creatinine (0.66-1.25) mg/dL Glucose (74-99) mg/dL POC Glucose (mg/dL) 178 H (70-110) mg/dL Hemoglobin A1c (<=6.0) % Microbiology - Last 24 Hours (Table) 06/09/24 15:19 Blood Culture - Preliminary Blood Assessment and Plan (1) Cellulitis of lower back Current Visit: Yes Status: Acute Code(s): L03.312 - CELLULITIS OF BACK [ANY PART EXCEPT BUTTOCK] SNOMED Code(s): 06552855 (2) Allergy to multiple antibiotics Current Visit: No Status: Acute Code(s): Z88.1 - ALLERGY STATUS TO OTHER ANTIBIOTIC AGENTS SNOMED Code(s): 364809397 Plan: 1patient presented to hospital with the pain swelling redness at the pain pump site and is also been complaining of fever at home in this patient who did have some fluctuation to the pinpoint site concerning for possible abscess likely from gram-positive skin wayne. 2patient with multiple antibiotic ALLERGIES that would limit the number of antibiotic safe to use. 3ultrasound was suggestive of possible fluid/abscess at the pain pump site orthopedic has been consulted for removal of the pain pump, culture should be obtained for now continue with vancomycin Dictation was produced using [employer] dictation software. please excuse any grammatical, word or spelling errors. Time with Patient: Less than 30
--- NOTE | 2024-06-11 15:59 | P.PN ---
Subjective Progress Note Date: 06/11/24 This is a pleasant 58-year-old male with medical history significant for diabetes mellitus, fibromyalgia, acid reflux, hyperlipidemia, seizure disorder, sleep apnea. Patient also with history of narcolepsy and multiple orthopedic surgeries. Patient has had a pain pump implanted in his left lower back states that Dr. Varela did the surgery around 13 years ago. Patient was sent over to the hospital from his family doctor with concerns for redness and swelling at the pain pump implantation site with a area of induration towards the spine on the left lower back. There is tenderness to touch. Patient denies having any fever and chills. He does note that he has had numbness in his 5th and 4th dig it on his right hand over the last week and states that he is having some difficulty with [id number] rotation of his neck. We will do an cervical x-ray to evaluate this. Dr. Jackson is his surgeon. Per medical records patient had his pain pump filled back in March [address] Varela there was evidence at that time per the note that the patient had redness on the skin area around the pump. Patient had soft tissue ultrasound of the left lower back showing a hypoechoic collection appears to fluid at the level of the pump site. Unsure whether this is normal for procedure or fluid from the pump itself versus other. Appears to be less likely of an abscess. White blood cell count is 7.50, BUN of 10 creatinine of 0.56. Blood glucose is significant elevated in the 200s lactic acid of 3.0. Urinalysis is not suggestive of infection. Patient was admitted to the hospital for consult placed to infectious disease and anesthesia services for evaluation of the pain pump. He was started empirically on IV antibiotics in the form of vancomycin. Patient did receive a dose of levofloxac in while in the ER as well as a 1 L fluid bolus. 06/11/2024 She is eval seen in follow-up sitting up in the chair at the medical floor. He was evaluated by anesthesia services and they are recommending for the pain pump to be removed. Dr. Jackson was consulted and is planning for surgical irrigation and debridement of left buttock with removal of pain pump. Lovenox will be discontinued. Patient continues on IV vancomycin with ID following closely. Blood cultures are negative so far. Hemoglobin A1c found to be 12.0. Patient is currently afebrile at this time. REVIEW OF SYSTEMS: CONSTITUTIONAL: No fever, no malaise, no fatigue. HEENT: No recent visual problems or hearing problems. Denied any sore throat. CARDIOVASCULAR: No chest pain, orthopnea, PND, no palpitations, no syncope. PULMONARY: No shortness of breath, no cough, no hemoptysis. GASTROINTESTINAL: No diarrhea, no nausea, no vomiting, no abdominal pain. NEUROLOGICAL: No headaches, no weakness, no numbness. PHYSICAL EXAMINATION: GENERAL: The patient is alert and oriented x3, not in any acute distress. Well developed, well nourished. HEENT: Pupils are round and equally reacting to light. EOMI. No scleral icterus. No conjunctival pallor. Normocephalic, atraumatic. No pharyngeal erythema. No thyromegaly. CARDIOVASCULAR: S1 and S2 present. No murmurs, rubs, or gallops. PULMONARY: Chest is clear to auscultation, no wheezing or crackles. ABDOMEN: Soft, nontender, nondistended, normoactive bowel sounds. No palpable organomegaly. MUSCULOSKELETAL: No joint swelling or deformity. EXTREMITIES: No cyanosis, clubbing, or pedal edema. NEUROLOGICAL: Gross neurological examination did not reveal any focal deficits. SKIN: No rashes. Redness surrounding the pain pump with area of induration Assessment and Plan Cellulitis of the left lower back at the site of pain pump Parasthesias of the right 4 and 5 digit likely a cervical radiculopathy hx of lumbar spine stenosis with failed lumbar surgery and continued pain Lactic acidosis History of seizure disorder Diabetes Mellitus type 2 with hyperglycemia Fibromyalgia History of bariatric surgery Gastroesophageal reflux disease Sleep apnea Narcolepsy Restless leg syndrome DVT prophylaxis Lovenox Full Code Plan Continue humalog sliding scale insulin with scheduled meal time insulin and lantus 90 units at HS patients blood glucose remains elevated and hemoglobin A1C comes back 12.0. ID consultation Cervical neck xray reviewed and this can be follow up with Dr Jackson on an outpatient basis. resume home medications Patient has been started empirically on IV vancomycin Pending blood cultures Hold lovenox Patient will be going for I & D of left buttock with removal of pain pump tomorrow 06/12/[address] Jackson He will be NPO after midnight. The impression and plan of care has been dictated by Ellie Rea, Nurse Practitioner as directed. Dr. Geronimo MD I have performed a history and physical examination and medical decision making of this patient, discussed the same with the dictator, and agree with the dictators assessment and plan as written, documented as a scribe. Based on total visit time, I have performed more than 50% of this visit. Objective - Vital Signs Vital signs: Vital Signs Temp 98.0 F 06/11/24 08:35 Pulse 70 06/11/24 08:35 Resp 16 06/11/24 08:35 BP 147/78 06/11/24 08:35 Pulse Ox 95 06/11/24 08:35 FiO2 Intake & Output 06/10/24 06/11/24 06/11/24 18:59 06:59 18:59 Intake Total 200 Balance 200 Intake: Oral 200 Other: Voiding Method Toilet Toilet Urinal Urinal # Voids 2 1 - Labs CBC & Chem 7: 06/11/24 05:26 06/11/24 05:10 Labs: Abnormal Lab Results - Last 24 Hours (Table) 06/10/24 06/10/24 06/10/24 Range/Units 11:49 16:52 20:35 MPV (9.5-12.2) FL Basophils # (0.00-0.10) X 10*3/uL Sodium (137-145) mmol/L Creatinine (0.66-1.25) mg/dL Glucose (74-99) mg/dL POC Glucose (mg/dL) 263 H 299 H 205 H (70-110) mg/dL Hemoglobin A1c (<=6.0) % 06/11/24 06/11/24 06/11/24 Range/Units 05:10 05:26 05:26 MPV 9.4 L (9.5-12.2) FL Basophils # 0.13 H (0.00-0.10) X 10*3/uL Sodium 134 L (137-145) mmol/L Creatinine 0.50 L (0.66-1.25) mg/dL Glucose 185 H (74-99) mg/dL POC Glucose (mg/dL) (70-110) mg/dL Hemoglobin A1c 12.0 H (<=6.0) % 06/11/24 Range/Units 06:17 MPV (9.5-12.2) FL Basophils # (0.00-0.10) X 10*3/uL Sodium (137-145) mmol/L Creatinine (0.66-1.25) mg/dL Glucose (74-99) mg/dL POC Glucose (mg/dL) 178 H (70-110) mg/dL Hemoglobin A1c (<=6.0) % Microbiology - Last 24 Hours (Table) 06/09/24 15:19 Blood Culture - Preliminary Blood Assessment and Plan Time with Patient: Less than 30
[2024-06-11] MEDS: FAMOTIDINE 20 MG/2 ML VIAL IV STA (16:41)
[2024-06-11] MEDS: METOCLOPRAMIDE 5 MG/ML 2 ML VIAL IVP STA (16:41)
[2024-06-11] MEDS: IV FLUID CONTINUATION 1,000 ML IV ONE (16:42)
[2024-06-11] MEDS ORDERED: ePHEDrine 50 MG/ML 1 ML VIAL ONE (16:54)
[2024-06-11] MEDS ORDERED: PHENYLEPHRINE-0.9% NACL SYG 1,000 MCG/10 ML SYRINGE ONE (16:54)
[2024-06-11] MEDS ORDERED: SUCCINYLCHOLINE CHLORIDE 200 MG/10 ML VIAL IV ONE (16:54)
[2024-06-11] MEDS ORDERED: NEOSTIGMINE 1 MG/ML 10 ML VIAL ONE (16:54)
[2024-06-11] MEDS ORDERED: fentaNYL (PF) 50 MCG/ML 2 ML AMP ONE (16:54)
[2024-06-11] MEDS ORDERED: ROCURONIUM 10 MG/ML (5 ML VIAL) IV ONE (16:54)
[2024-06-11] MEDS ORDERED: PROPOFOL 10 MG/ML 20 ML VIAL IV ONE (16:54)
[2024-06-11] MEDS ORDERED: LIDOCAINE 1% INJ 10MG/ML (20 ML MDV) ONE (16:54)
[2024-06-11] MEDS ORDERED: GLYCOPYRROLATE 0.2 MG/ML 2 ML VIAL ONE (16:54)
[2024-06-11] MEDS ORDERED: MIDAZOLAM 2 MG/2 ML VIAL ONE (16:54)
[2024-06-11 16:55] LABS: Glucose,Whole Blood 175 mg/dL (70-110)
[2024-06-11] MEDS: SODIUM CHLORIDE 0.9% 100 ML with ceFAZolin 3,000 MG IV ONE (17:56)
[2024-06-11] MEDS ORDERED: HYDROcodone/APAP 10-325MG 1 EACH TAB PO PRN (18:37)
--- NOTE | 2024-06-11 18:52 | P.OP ---
Date of Procedure: 06/11/24 Preoperative Diagnosis: Infected pain pump site at the left gluteal area History of failed back surgery syndrome 12-year history of pain pump use with revision placed in 2020 History of lumbar spinal fusion L4-S1 Postoperative Diagnosis: Same Anesthesia: GETA Pathology: other (Products of debridement at pain pump site sent to pathology and deep pain pump site cultures sent to microbiology x 2) Condition: stable Disposition: PACU Description of Procedure: BRIEF OPERATIVE NOTE Preoperative Diagnosis:Infected pain pump site at the left gluteal area History of failed back surgery syndrome 12-year history of pain pump use with revision placed in 2020 History of lumbar spinal fusion L4-S1 Postoperative Diagnosis: Same with ligation of pain pump tubing behind L3 and cutting the tubing and then irrigation and excisional debridement through a separate incision at the left gluteal area at the pain pump reservoir site Procedure: Ligation and cutting of pain pump tubing at the subcutaneous tissue of L3 through a separate incision Irrigation and extensive excisional debridement and removal of pain pump at the left gluteal area Surgeon: Dr. Jackson Clerk Of [address] Court: anesthesiologist assistant Anesthesia: General anesthesia per Dr. Walter Estimated blood loss: Approximately 50 cc Complications: None apparent Components implanted: I used 2 surgical clips to ligate the tubing behind L3 and left the tubing in place from L3 and above. I did place iodoform gauze at the wound site at the left gluteal area which will be removed We removed the [employer] pain pump from left gluteal area with tubing removed from L3 and below. Disposition: To recovery room in good stable condition. OPERATIVE INDICATIONS The patient has longstanding history of lumbar issues. More than 12 years ago he underwent decompression and fusion from L4-S1 but did not have strong results. He ultimately had failed back surgery syndrome and was involved in interventional pain management. About 12 years ago he had intrathecal pain pump placed and had good results with this. He has been using this for the past 12 years. In 2020 he had end-of-life of the pain pump and had revision of the pain pump with Dr. Reid. He has continued management for this and feels that he has done fairly well with it. For the past several months he has been having issues at the pain pump site. He has had swelling and redness. He is tried conservative treatment and active management with infectious disease with limited results. He continues's to have swelling and redness around pain pump s ite. He was not having neurologic change. He is not having new headaches or changes with his neurologic structure or his spine specifically but had primarily issues at his pain pump site. They have been treating him for cellulitis at the site. This morning he received a call from Dr. Jak Garcia in regards to this issue and he described the process of what has been going on with cellulitis around the pain pump and felt the need to remove the pain pump itself. We discussed establishing the space at a clean site behind L2-3 and ligating the tubing and then removing the pain pump from the infected site while leaving the clean tubing intact at the intrathecal space behind L3. I felt that this was a good plan for him and I discussed this at length with the patient. We discussed the fact that he may need further surgery. This would not alleviate pain symptoms and it is difficult to predict if he would be able to have further pain pumps in the future. We also discussed the possibility of dural tear or spinal fluid leak at the site and the possible need for further surgery. We discussed various treatment options including surgery, and the patient wishes to proceed with surgery We discussed the risk, patient's alternatives and benefits of surgery including but not limited to, risk of bleeding risk of infection, risk of need for further surgery, risk of decreased, loss of motion, loss of function, nerve damage, paralysis, heart attack, blindness and . OPERATIVE SUMMARY After discussing all the risks, patient alternatives and benefits at length, the patient elected to proceed with surgical intervention, signed informed consent, and presented for their procedure. The patient was seen and examined in the preoperative holding area and the surgical site was marked. The patient was given antibiotics and brought to the operating room. The patient was sedated and intubated by anesthesia in standard fashion. The patient was positioned on to the operating room table in a prone position on the appropriate frame which was well-padded and well molded. We were careful to pad any bony prominences and pressure points. We were careful to maintain the patient's cervical spine and good neutral alignment and position throughout. The patient was prepped and draped in a normal standard fashion. An appropriate timeout and keystone protocol performed. We were able to proceed with the surgery. Based on the imaging, and the prior incision sites I was able to establish an incision at approximately L3 at the midline. I was able to dissect down and subcutaneous tissue and easily find the subcutaneous tubing and connection site. The area was cleaned. There is no purulence there is no evidence of infection at the site. I was able to raise the tubing. I tied #1 Ethibond around the tubing x 2 and then cut the tubing itself. There was some evidence of cerebrospinal fluid leak at that area. I then used a surgical ligature clamps x 2 and placed them at the tubing. This completely stopped any evidence of any leakage. There is no evidence of any cerebral spinal fluid leak. The distal tubing toward the pump was mobilized. I left the rostral tubing intact. That area was copiously irrigated and suctioned dry. Good hemostasis was maintained without any evidence of dural leak. I proceeded with closure at that site. 2-0 Vicryl was used for the deep and subcutaneous tissue. [place] were used for the skin. I then turned my attention to the area over the left gluteal area where there was obvious erythema and swelling over the pain pump and reservoir. Utilizing the prior incision I establish incision over the pain pump and dissected down. There is great deal of thickening of the tissue and significant induration. There is a large pseudocapsule which was thickened and well- developed around the area. I was able to easily expose the pump itself. Large portions of denuded tissue and pseudocapsule was sloughed off. It was not obviously purulent and there is no active pus but the tissue was quite denuded and light green pale sloughing tissue. I was able to remove the reservoir pump in total. All the tubing was pulled out from the subcutaneous area and removed appropriately. There is a thickened pseudocapsule and this was debrided and removed extensively. With that removed I debrided further tissue to get clean surfaces. The wound was copiously irrigated and suctioned dry with greater than 3 L of saline. There is no purulence left. I had taken deep cultures x 2 prior to the irrigation. I also removed the denuded tissue and sent it to pathology. The polyp was removed as stated above. I was able to proceed with closure. Some of the deep tissue was closed with 2-0 Prolene. The deep tissue was also packed with iodoform gauze. Subcutaneous tissue was closed with 2-0 Prolene and skin was closed with jasmin. The midline incision was approximately 3 cm and the gluteal incision was approximately 12 cm. The wound was cleaned and dried and dressed with the appropriate dressing. The drapes were broken down. The patient was gently rolled back onto their hospital bed being careful to maintain their cervical spine and good neutral alignment and position. They were woken up by anesthesia, extubated, and brought to the recovery room in good stable condition. The patient will be admitted to the hospital for observation and for appropriate postoperative care, medical management and monitoring. We will continue to follow them closely about the postoperative course.
[2024-06-11 20:47] LABS: Glucose,Whole Blood 178 mg/dL (70-110)
[2024-06-11] MEDS: SODIUM CHLORIDE 0.9% 1,000 ML IV SCH (22:31)
[2024-06-12 04:41] LABS: Basophils # (A) 0.08 10*3/uL (0.00-0.10); Basophils % (A) 0.9 %; Eosinophils # (A) 0.17 10*3/uL (0.04-0.35); HCT 39.4 % (39.6-50.0); HGB 13.7 g/dL (13.0-17.0); Lymphocytes # (A) 2.76 10*3/uL (0.90-5.00); Lymphocytes % (A) 31.9 %; MCH 30.8 pg (27.0-32.0); MCHC 34.8 g/dL (32.0-37.0); MCV 88.5 fL (80.0-97.0); Mean Platelet Volume 9.1 fL (9.5-12.2); Monocytes # (A) 0.61 10*3/uL (0.20-1.00); Monocytes % (A) 7.1 %; Neutrophils # (A) 4.99 10*3/uL (1.80-7.70); Neutrophils % (A) 57.8 %; Platelet Count 239 10*3/uL (140-440); RBC 4.45 10*6/uL (4.40-5.60); RDW 12.7 % (11.5-14.5); WBC 8.64 10*3/uL (4.50-10.00)
[2024-06-12 04:53] LABS: African American GFR (CKD) >90 (>60 ml/min/1.73 sqM); Anion Gap 7 mmol/L; Blood Urea Nitrogen 9 mg/dL (9-20); Carbon Dioxide 28 mmol/L (22-30); Chloride 101 mmol/L (98-107); Glucose 255 mg/dL (74-99); Non-African American GFR(CKD) >90 (>60 ml/min/1.73 sqM); Potassium 4.1 mmol/L (3.5-5.1); Sodium 136 mmol/L (137-145)
[2024-06-12 06:03] LABS: Glucose,Whole Blood 240 mg/dL (70-110)
[2024-06-12] MEDS: LORazepam 0.5 MG TAB PO PRN (08:20)
[2024-06-12] MEDS: HYDROmorphone 2 MG/ML 1 ML SYRINGE IVP PRN ×2 (10:10→16:44)
[2024-06-12 10:53] VITALS: BMI 36.9
--- NOTE | 2024-06-12 11:57 | P.PN ---
Progress Note - Text Progress Note Date: 06/12/24 Orthopedic spine: History of present illness: Patient is a pleasant 58-year-old male who is seen examined at the bedside for follow-up evaluation of his left buttock at placement of a pain pump. Patient is known to have an intrathecal pain pump implanted several years ago. He developed cellulitis a few months ago. He initially began on IV antibiotics and was later transitioned to oral antibiotics. Initially his condition had improved significantly over the past couple months. His pump was refilled last month and over the past few days the pump site has been red and indurated representing cellulitis and the patient has had a fever. He was admitted to [facility] for further evaluation due to the infection at the pump site. He has been following with Dr. Felix and infectious disease. He is currently on IV antibiotics with vancomycin. Dr. Reid contacted Dr. Tae Jackson today to discuss the patient in significant detail and to request proceeding forward with irrigation and debridement with removal of pain pump in the operating room. Patient does admit to pain at his left buttock at the pain pump location site. Yesterday he underwent incision and debridement with removal of pain pump with ligation of pain pump tubing. He currently has dressing intact at his lumbar spine. Iodoform gauze is intact at the left surgical site. This morning the patient states he has some pain but that pain is controlled. Most signi ficantly, he is going through morphine withdrawal following removal of his pain pump. Nursing has contacted pain management. They have placed an order for morphine. His postoperative pain will need to be controlled by pain management. Patient is shaking significantly at the bedside. He removed his IV on accident due to his shaking. He also has a bloody nose. He has no neurovascular changes in his lower extremities. Patient continues with antibiotics per infectious disease. Cultures were taken during surgical intervention to remove his pain pump. These results are pending. Antibiotics may be changed based on recommendations by infectious disease. Patient has a history of multiple surgical interventions at his lumbar spine. He has followed with pain management at [facility]. He has ongoing chronic low back pain. He currently denies any lower extremity weakness or radiculopathy bilaterally. Patient states he does have RSD in his right lower extremity. Patient will continue be seen examined by medicine as well. Physical exam: Patient is awake, alert, and oriented 3 Patient is visibly uneasy and currently shaking significantly and is diaphoretic Good chest excursion with deep inspiration and expiration Examination of lumbar spine reveals skin is intact with no abrasions, lacerations, or bruises; no erythema, purulence or signs of infection Evidence of large well-healed midline incision lumbar spine Evidence of small midline lumbar incision closed with jasmin which is dry and intact Evidence of incision over the left buttock area at the incision site of the irrigation and debridement with pain pump removal Iodoform gauze is intact at the incision site near the left buttock with 6 inches of iodoform gauze removed Dressings are reapplied over the midline of the lumbar spine and over the left buttock area Left buttock pain pump location is firm, warm, and indurated with evidence of cellulitis Some pain with palpation laterally to the pain pump Dorsiflexion, plantarflexion, and extensor hallucis longus positive sustained bilaterally Lower extremity strength 5/5 bilaterally Straight leg test negative bilateral lower extremities No signs or symptoms of DVT; no calf pain Neurovascularly intact. Pertinent studies: Ultrasound of mass at the left low back/buttock area taken on 06/10/2024: Hy poechoic collection which appears to be fluid at the level of the pump site Assessment: Status post incision and debridement with removal of pain pump with tubal ligation of the pain pump Morphine withdrawal Pain pump infection Cellulitis of the left buttock area at the pain pump site Left buttock pain pump incision site pain Fever at presentation History of multiple surgical interventions at his lumbar spine History of seizure disorder Diabetes mellitus type 2 with hyperglycemia Fibromyalgia History of bariatric surgery Right lower extremity RSD Plan: 1. Patient is status post incision and debridement with removal of pain pump with tubal ligation of the pain pump. His postoperative pain is currently fairly well-controlled. Partial iodoform gauze has been removed over the incision site near the left buttock. This will remain intact until tomorrow. We will continue with dressing changes as needed over his surgical sites. [place] remain intact. We are not planning for any further surgical intervention currently in regards to his pain pump removal. Patient may ambulate to his tolerance. 2. Patient is currently experiencing morphine withdrawal following removal of his pain pump. Nursing has contacted pain management. They have placed an order for morphine. His IV will be replaced. We did discuss in significant detail his postoperative pain control will need to be managed by pain management. 3. Cultures were taken during surgical intervention. These results are pending. Patient will continue with antibiotics per infectious disease. These may be changed based upon culture results. 4. Patient will be cleared for discharge from an orthopedic spine standpoint once cleared by other providers. Patient may follow-up with Titus Ramey PA-C or Dr. Tae Jackson at [facility] in 1 week following discharge. 5. Patient will continue be seen and examined by medicine
--- NOTE | 2024-06-12 12:06 | P.PN ---
Progress Note - Text Progress Note Date: 06/12/24 Patient's status post explantation of the intrathecal pain pump, secondary to cellulitis at the pump site, patient been on intrathecal pain therapy for long- term, and the last dose of intrathecal morphine was 3 mg/day, and currently he is on Percocet 10/325 every 6 hours, , and patient received also Neurontin 800 mg twice a day, because of the intrathecal pain pump therapy stopped, because of explantation of the pump, patient will be started on Duragesic patch 50 mcg/h, and to prevent the withdrawal symptoms patient will be getting Dilaudid IV 1 mg q. half an hour, patient currently feel very irritable and he feel withdrawal symptoms, and patient pain increased significantly, his pain score 10/10 be after we remove the pump, because of the fentanyl needs few hours to start working, will load him up with the IV Dilaudid, until the withdrawal symptoms improved, patient will be on Duragesic patch 50 mcg/h after discharge and Percocet 10/325 every 4-6 hours as needed, and will continue Dilaudid IV 1 mg as needed every every 1/2 hour.
[2024-06-12 12:12] LABS: Glucose,Whole Blood 194 mg/dL (70-110)
[2024-06-12] MEDS ORDERED: HYDROmorphone 2 MG/ML 1 ML SYRINGE IVP PRN ×2 (12:44→15:06)
--- NOTE | 2024-06-12 15:38 | P.PN ---
Subjective Progress Note Date: 06/12/24 Principal diagnosis: Reason for follow-up is pain pump site cellulitis abscess Patient is a 58-year-old male with a past medical history significant for Diabetes Mellitus, Fibromyalgia, GERD/Reflux, Hyperlipidemia, Seizure Disorder, Sleep Apnea/CPAP/BIPAP did have a pain pump to the lower back area previous admission to the hospital with cellulitis, now presenting back to the hospital with worsening pain swelling and redness concerning for pain pump site infection.Patient is status post removal of the pain pump procedure completed on 06/11/2024 On today's evaluation that is 06/12/2024, the patient did have a low-grade fever of 99.9 F this morning the patient is afebrile this afternoon, the patient is on room air and breathing comfortably, the Pt denies having any chest pain or cough, the patient denies having any abdominal pain no vomiting or any diarrhea, has been complaining of pain to the lower back and also concerned about withdrawal symptoms. Patient white count is 8.64, creatinine 0.53 cultures are currently pending Objective - Vital Signs Vital signs: Vital Signs Temp 99.9 F H 06/12/24 08:10 Pulse 112 H 06/12/24 08:10 Resp 17 06/12/24 07:05 BP 183/83 06/12/24 08:10 Pulse Ox 98 06/12/24 08:10 FiO2 Intake & Output 06/11/24 06/12/24 06/12/24 18:59 06:59 18:59 Intake Total 1100 480 Output Total 50 500 Balance 1050 -20 Weight 113.398 kg 113.398 kg 113.398 kg Intake: IV 900 Oral 200 480 Output: Urine 500 Estimated Blood Loss 50 Other: Voiding Method Toilet Toilet Urinal Urinal # Voids 1 2 1 - Exam GENERAL DESCRIPTION: An elderly male lying in bed in no distress RESPIRATORY SYSTEM: Unlabored breathing , decreased breath sounds at bases HEART: S1 S2 regular rate and rhythm , ABDOMEN: Soft , no tenderness Lower back pain pump extraction site is currently dressed - Labs CBC & Chem 7: 06/12/24 03:47 06/12/24 03:47 Labs: Abnormal Lab Results - Last 24 Hours (Table) 06/11/24 06/11/24 06/12/24 Range/Units 16:53 20:45 03:47 Hct (39.6-50.0) % MPV (9.5-12.2) fL Sodium 136 L (137-145) mmol/L Creatinine 0.53 L (0.66-1.25) mg/dL Glucose 255 H (74-99) mg/dL POC Glucose (mg/dL) 175 H 178 H (70-110) mg/dL 06/12/24 06/12/24 06/12/24 Range/Units 03:47 06:01 12:11 Hct 39.4 L (39.6-50.0) % MPV 9.1 L (9.5-12.2) fL Sodium (137-145) mmol/L Creatinine (0.66-1.25) mg/dL Glucose (74-99) mg/dL POC Glucose (mg/dL) 240 H 194 H (70-110) mg/dL Microbiology - Last 24 Hours (Table) 06/09/24 15:19 Blood Culture - Preliminary Blood Assessment and Plan (1) Cellulitis of lower back Current Visit: Yes Status: Acute Code(s): L03.312 - CELLULITIS OF BACK [ANY PART EXCEPT BUTTOCK] SNOMED Code(s): 43831112 (2) Allergy to multiple antibiotics Current Visit: No Status: Acute Code(s): Z88.1 - ALLERGY STATUS TO OTHER AN TIBIOTIC AGENTS SNOMED Code(s): 428148189 Plan: 1patient presented to hospital with the pain swelling redness at the pain pump site and is also been complaining of fever at home in this patient who did have some fluctuation to the pinpoint site concerning for possible abscess likely from gram-positive skin wayne. 2patient with multiple antibiotic ALLERGIES that would limit the number of antibiotic safe to use. 3patient is status post removal of the infected pain pump and deep culture which are currently pending 4for now continue with vancomycin while waiting for the culture to finalize Dictation was produced using [employer] software. please excuse any grammatical, word or spelling errors. Time with Patient: Less than 30
[2024-06-12 16:34] LABS: Glucose,Whole Blood 224 mg/dL (70-110)
[2024-06-12] MEDS ORDERED: NALOXONE 0.4 MG/ML 1 ML VIAL IV PRN (16:50)
[2024-06-12] MEDS: MORPHINE PCA 50 MG/50 ML BAG IV PRN (17:42)
[2024-06-12] MEDS: HYDROmorphone 2 MG/ML 1 ML SYRINGE IVP STA (20:46)
--- NOTE | 2024-06-12 21:10 | XR ---
EXAMINATION TYPE: XR chest 1V DATE OF EXAM: 06/12/2024 8:56 PM COMPARISON: 02/15/2024 CLINICAL INDICATION: Male, 58 years old with history of left side chest pain, TECHNIQUE: XR chest 1V views of the chest are obtained. FINDINGS: Demonstrated are scattered senescent parenchymal change. There is no evidence for focal infiltrate. The heart is stable. Mediastinal prominence could be related to AP portable technique. Continued follow-up advised. Degenerative changes are seen of the dorsal spine. IMPRESSION: 1. Chronic changes without evidence for acute pulmonary disease. [facility], , 06/12/2024 9:07 PM
[2024-06-12 21:39] LABS: Glucose,Whole Blood 232 mg/dL (70-110)
[2024-06-12] MEDS ORDERED: LOSARTAN 25 MG TAB PO SCH (21:45)
[2024-06-12] MEDS: LOSARTAN 25 MG TAB PO STA (23:07)
--- NOTE | 2024-06-13 01:33 | P.PN ---
Subjective Progress Note Date: 06/12/24 This is a pleasant 58-year-old male with medical history significant for diabetes mellitus, fibromyalgia, acid reflux, hyperlipidemia, seizure disorder, sleep apnea. Patient also with history of narcolepsy and multiple orthopedic surgeries. Patient has had a pain pump implanted in his left lower back states that Dr. Varela did the surgery around 13 years ago. Patient was sent over to the hospital from his family doctor with concerns for redness and swelling at the pain pump implantation site with a area of induration towards the spine on the left lower back. There is tenderness to touch. Patient denies having any fever and chills. He does note that he has had numbness in his 5th and 4th digit on his right hand over the last week and states that he is having some difficulty with [id number] rotation of his neck. We will do an cervical x-ray to evaluate this. Dr. Jackson is his surgeon. Per medical records patient had his pain pump filled back in March [address] Varela there was evidence at that time per the note that the patient had redness on the skin area around the pump. Patient had soft tissue ultrasound of the left lower back showing a hypoechoic collection appears to fluid at the level of the pump site. Unsure whether this is normal for procedure or fluid from the pump itself versus other. Appears to be less likely of an abscess. White blood cell count is 7.50, BUN of 10 creatinine of 0.56. Blood glucose is significant elevated in the 200s lactic acid of 3.0. Urinalysis is not suggestive of infection. Patient was admitted to the hospital for consult placed to infectious disease and anesthesia services for evaluation of the pain pump. He was started empirically on IV antibiotics in the form of vancomycin. Patient did receive a dose of levoflo xacin while in the ER as well as a 1 L fluid bolus. 06/11/2024 Patient seen in follow-up sitting up in the chair at the medical floor. He was evaluated by anesthesia services and they are recommending for the pain pump to be removed. Dr. Jackson was consulted and is planning for surgical irrigation and debridement of left buttock with removal of pain pump. Lovenox will be discontinued. Patient continues on IV vancomycin with ID following closely. Blood cultures are negative so far. Hemoglobin A1c found to be 12.0. Patient is currently afebrile at this time. 06/12/2024 Patient seen and evaluated in follow-up this morning status post orthopedics intervention including debridement of the left buttock and removal of the pain pump. Patient is having significant amounts of pain today and pain management has been consulted making adjustments to medications although patient continues to report severe pain. Awaiting cultures with infectious disease following and patient is maintained on IV antibiotics and will continue. Patient does have significant fibromyalgia history with significant chronic pain. REVIEW OF SYSTEMS: CONSTITUTIONAL: No fever, no malaise, no fatigue. HEENT: No recent visual problems or hearing problems. Denied any sore throat. CARDIOVASCULAR: No chest pain, orthopnea, PND, no palpitations, no syncope. Reports of some intermittent chest pressure PULMONARY: No shortness of breath, no cough, no hemoptysis. GASTROINTESTINAL: No diarrhea, no nausea, no vomiting, no abdominal pain. NEUROLOGICAL: No headaches, reports of weakness, no numbness. Reports of severe pain PHYSICAL EXAMINATION: GENERAL: The patient is lethargic although arousable, alert and oriented x3. Well developed, well nourished. Obese. Appears older than stated age HEENT: Pupils are round and equally reacting to light. EOMI. No scleral icterus. No conjunctival pallor. Normocephalic, atraumatic. No pharyngeal erythema. No thyromegaly. CARDIOVASCULAR: S1 and S2 muffled PULMONARY: Diminished breath sounds bilaterally otherwise chest is clear to auscultation, no wheezing or crackles. ABDOMEN: Soft, nontender, nondistended, normoactive bowel sounds. No palpable organomegaly. MUSCULOSKELETAL: No joint swelling or deformity. EXTREMITIES: No cyanosis, clubbing, or pedal edema. NEUROLOGICAL: Gross neurological examination did not reveal any focal deficits. Diffusely weak SKIN: No rashes. Surgical site dressing at the previous pain pump site is currently dry and intact Assessment: Cellulitis of the left lower back at the site of pain pump, present on admission, awaiting cultures and is status post incision and drainage of that area as well as removal of the pain pump on 06/11/2024 Parasthesias of the right 4 and 5 digit likely a cervical radiculopathy hx of lumbar spine stenosis with failed lumbar surgery and continued pain Lactic acidosis, improved History of seizure disorder Diabetes Mellitus type 2, uncontrolled with hyperglycemia Fibromyalgia history History of bariatric surgery Gastroesophageal reflux disease Sleep apnea Narcolepsy Restless leg syndrome DVT prophylaxis Lovenox GI prophylaxis Full Code Plan: Continue humalog sliding scale insulin with scheduled meal time insulin and lantus 90 units at HS patients blood glucose remains elevated and hemoglobin A1C is 12.0. Will adjust insulins accordingly and recommend tight glycemic control. ID following and awaiting cultures and patient is status post incision and drainage as well as pain pump removal Pain management consulted as patient reports significant severe pain that is uncontrolled and also reporting some diffuse intermittent chest pain with pressure at the sternal area to cardiology was placed along with chest x-ray, EKG, troponin. Cervical neck xray reviewed and this can be follow up with Dr Jackson on an outpatient basis. resume home medications Patient has been started empirically on IV vancomycin Pending blood cultures Hold lovenox until cleared by orthopedics Repeat labs ordered for a.m. The impression and plan of care has been dictated by Sheila Greer, Nurse Practitioner as directed. Dr. Geronimo MD I have performed a history and physical examination and medical decision making of this patient, discussed the same with the dictator, and agree with the dictators assessment and plan as written, documented as a scribe. Based on total visit time, I have performed more than 50% of this visit. Objective - Vital Signs Vital signs: Vital Signs Temp 99.9 F H 06/12/24 08:10 Pulse 112 H 06/12/24 08:10 Resp 17 06/12/24 07:05 BP 183/83 06/12/24 08:10 Pulse Ox 98 06/12/24 08:10 FiO2 Intake & Output 06/11/24 06/12/24 06/12/24 18:59 06:59 18:59 Intake Total 1100 480 Output Total 50 500 Balance 1050 -20 Weight 113.398 kg 113.398 kg Intake: IV 900 Oral 200 480 Output: Urine 500 Estimated Blood Loss 50 Other: Voiding Method Toilet Toilet Urinal Urinal # Voids 1 2 - Labs CBC & Chem 7: 06/12/24 03:47 06/12/24 03:47 Labs: Abnormal Lab Results - Last 24 Hours (Table) 06/11/24 06/11/24 06/11/24 Range/Units 12:12 16:53 20:45 Hct (39.6-50.0) % MPV (9.5-12.2) fL Sodium (137-145) mmol/L Creatinine (0.66-1.25) mg/dL Glucose (74-99) mg/dL POC Glucose (mg/dL) 237 H 175 H 178 H (70-110) mg/dL 06/12/24 06/12/24 06/12/24 Range/Units 03:47 03:47 06:01 Hct 39.4 L (39.6-50.0) % MPV 9.1 L (9.5-12.2) fL Sodium 136 L (137-145) mmol/L Creatinine 0.53 L (0.66-1.25) mg/dL Glucose 255 H (74-99) mg/dL POC Glucose (mg/dL) 240 H (70-110) mg/dL Microbiology - Last 24 Hours (Table) 06/09/24 15:19 Blood Culture - Preliminary Blood
[2024-06-13 06:05] LABS: Glucose,Whole Blood 208 mg/dL (70-110)
[2024-06-13] MEDS: LOSARTAN 50 MG TAB PO STA (06:58)
[2024-06-13] MEDS: amLODIPine 5 MG TAB PO STA (08:01)
--- NOTE | 2024-06-13 09:48 | P.PN ---
Progress Note - Text Progress Note Date: 06/13/24 Postoperative day #2 Patient is seen and examined today at bedside. The patient has some pain around the surgical site as expected. The patient is on IV pain medication as per pain management. He denies any new changes in his lower extremities. Denies any specific positional headaches. He was unable to void on his own yesterday and had a Harry inserted. Physical Exam Afebrile with stable vital signs Abdomen is soft nontender. Chest has good excursion deep and space expiration The incision site at the midline is clean dry and intact. No erythema there is no purulence. The main surgical site of removal over the left gluteal area shows significantly improved erythema. There is still serosanguineous drainage as expected. The remainder of the packing has been removed. Jeovanny are intact. It is redressed with absorbent dressing. Extremities have not had neurologic change from prior to surgery. Calves and thighs were soft nontender without evidence of DVT. Assessment/Plan Postoperative day #2 status post removal of infected pain pump site at the left gluteal area Status post irrigation and debridement of left gluteal subcutaneous pain pump site Patient is progressing as expected from the surgery. The appearance of the site is much improved with significantly less erythema. The remainder of the packing has been removed. There is still serous sanguinous drainage as expected but there is no active purulence. He should continue local wound care and dry dressing changes at the area. The midline incision where we cut the pain pump tubing is clean dry and intact without any acute issue. The patient should continue his pain control as per pain management service. Hopefully he will get the Harry catheter out and he can void on his own and increase his mobility as well. We will continue to increase the patient's mobilization with therapy. We will continue pain control with oral or IV medications. We'll continue to follow patient closely.
[2024-06-13 09:49] LABS: Basophils # (A) 0.06 X 10*3/uL (0.00-0.10); Basophils % (A) 0.4 %; Eosinophils # (A) 0.11 X 10*3/uL (0.04-0.35); Eosinophils % (A) 0.8 %; HCT 44.4 % (39.6-50.0); HGB 15.4 g/dL (13.0-17.0); Lymphocytes # (A) 2.99 X 10*3/uL (0.90-5.00); MCHC 34.7 g/dL (32.0-37.0); MCV 86.5 FL (80.0-97.0); Mean Platelet Volume 9.2 FL (9.5-12.2); Monocytes # (A) 1.01 X 10*3/uL (0.20-1.00); Monocytes % (A) 7.1 %; NRBC Per 100 WBC 0 X 10*3/uL (0.00-0.01); Neutrophils # (A) 9.96 X 10*3/uL (1.80-7.70); Neutrophils % (A) 70.1 %; Platelet Count 335 X 10*3/uL (140-440); RBC 5.13 X 10*6/uL (4.40-5.60); RDW 12.8 % (11.5-14.5); WBC 14.21 X 10*3/uL (4.50-10.00)
[2024-06-13 11:31] LABS: Magnesium 1.3 mg/dL (1.5-2.4)
[2024-06-13 11:47] LABS: Glucose,Whole Blood 214 mg/dL (70-110)
[2024-06-13 12:21] LABS: ALT 28 U/L (10-49); AST 50 U/L (14-35); Albumin 4.2 g/dL (3.8-4.9); Alkaline Phosphatase 104 U/L (41-126); Blood Urea Nitrogen 5.7 mg/dL (9.0-27.0); Calcium 9.4 mg/dL (8.7-10.3); Carbon Dioxide 20.9 mmol/L (21.6-31.8); Chloride 94 mmol/L (96-109); Globulin 3.5 g/dL (1.6-3.3); Glucose 210 mg/dL (70-110); Potassium 3.6 mmol/L (3.5-5.5); Sodium 136 mmol/L (135-145); Total Bilirubin 0.7 mg/dL (0.3-1.2); Total Protein 7.7 g/dL (6.2-8.2)
--- NOTE | 2024-06-13 12:54 | P.PN ---
Progress Note - Text Patient's withdrawal symptom are better with morphine FINISH SANDER in addition to fentanyl patch and Percocet. Patient still complains of shaking secondary to opioid withdrawal. He was given extra dose of IV Dilaudid because of pain last night. Patient is also receiving Ativan. Patient also complained he could not sleep properly because of withdrawal symptoms in addition to pain. Increased morphine FINISH SANDER dose slightly. Discussed with the patient about the treatment plan.
--- NOTE | 2024-06-13 14:34 | P.PN ---
Subjective Progress Note Date: 06/13/24 Principal diagnosis: Reason for follow-up is pain pump site cellulitis abscess Patient is a 58-year-old male with a past medical history significant for Diabetes Mellitus, Fibromyalgia, GERD/Reflux, Hyperlipidemia, Seizure Disorder, Sleep Apnea/CPAP/BIPAP did have a pain pump to the lower back area previous admission to the hospital with cellulitis, now presenting back to the hospital with worsening pain swelling and redness concerning for pain pump site infection.Patient is status post removal of the pain pump procedure completed on 06/11/2024 On today's evaluation that is 06/13/2024, Patient is afebrile patient is currently on room air and denies having any shortness of breath, the patient denies any chest pain or cough, the patient denies any nausea vomiting did not have any abdominal pain and no diarrhea pain to the lower back is currently controlled. Patient white count is 14.21, creatinine 0.6 cultures currently pending Objective - Vital Signs Vital signs: Vital Signs Temp 99.9 F H 06/13/24 07:00 Pulse 93 06/13/24 07:30 Resp 18 06/13/24 07:30 BP 189/78 06/13/24 07:30 Pulse Ox 93 L 06/13/24 07:30 FiO2 Intake & Output 06/12/24 06/13/24 06/13/24 18:59 06:59 18:59 Output Total 3200 2000 Balance -3200 -2000 Weight 113.398 kg Output: Urine 3200 2000 Other: Voiding Method Indwelling Catheter Indwelling Catheter # Voids 1 - Exam GENERAL DESCRIPTION: An elderly male lying in bed in no distress RESPIRATORY SYSTEM: Unlabored breathing , decreased breath sounds at bases HEART: S1 S2 regular rate and rhythm , ABDOMEN: Soft , no tenderness Lower back pain pump extraction site is currently dressed - Labs CBC & Chem 7: 06/13/24 05:20 06/13/24 05:20 Labs: Abnormal Lab Results - Last 24 Hours (Table) 06/12/24 06/12/24 06/13/24 Range/Units 16:33 21:37 05:20 WBC 14.21 H (4.50-10.00) X 10*3/uL MPV 9.2 L (9.5-12.2) FL Immature Gran # 0.08 H (0.00-0.04) X 10*3/uL Neutrophils # 9.96 H (1.80-7.70) X 10*3/uL Monocytes # 1.01 H (0.20-1.00) X 10*3/uL Chloride (96-109) mmol/L Carbon Dioxide (21.6-31.8) mmol/L Anion Gap (4.00-12.00) mmol/L BUN (9.0-27.0) mg/dL BUN/Creatinine Ratio (12.00-20.00) Ratio Glucose (70-110) mg/dL POC Glucose (mg/dL) 224 H 232 H (70-110) mg/dL Magnesium (1.5-2.4) mg/dL AST (14-35) U/L Troponin I (0.000-0.034) ng/mL Globulin (1.6-3.3) g/dL Albumin/Globulin Ratio (1.60-3.17) Ratio 06/13/24 06/13/24 06/13/24 Range/Units 05:20 05:20 06:03 WBC (4.50-10.00) X 10*3/uL MPV (9.5-12.2) FL Immature Gran # (0.00-0.04) X 10*3/uL Neutrophils # (1.80-7.70) X 10*3/uL Monocytes # (0.20-1.00) X 10*3/uL Chloride 94 L (96-109) mmol/L Carbon Dioxide 20.9 L (21.6-31.8) mmol/L Anion Gap 21.10 H (4.00-12.00) mmol/L BUN 5.7 L (9.0-27.0) mg/dL BUN/Creatinine Ratio 9.50 L (12.00-20.00) Ratio Glucose 210 H (70-110) mg/dL POC Glucose (mg/dL) 208 H (70-110) mg/dL Magnesium 1.3 L (1.5-2.4) mg/dL AST 50 H (14-35) U/L Troponin I 0.046 H* (0.000-0.034) ng/mL Globulin 3.5 H (1.6-3.3) g/dL Albumin/Globulin Ratio 1.20 L (1.60-3.17) Ratio 06/13/24 Range/Units 11:46 WBC (4.50-10.00) X 10*3/uL MPV (9.5-12.2) FL Immature Gran # (0.00-0.04) X 10*3/uL Neutrophils # (1.80-7.70) X 10*3/uL Monocytes # (0.20-1.00) X 10*3/uL Chloride (96-109) mmol/L Carbon Dioxide (21.6-31.8) mmol/L Anion Gap (4.00-12.00) mmol/L BUN (9.0-27.0) mg/dL BUN/Creatinine Ratio (12.00-20.00) Ratio Glucose (70-110) mg/dL POC Glucose (mg/dL) 214 H (70-110) mg/dL Magnesium (1.5-2.4) mg/dL AST (14-35) U/L Troponin I (0.000-0.034) ng/mL Globulin (1.6-3.3) g/dL Albumin/Globulin Ratio (1.60-3.17) Ratio Microbiology - Last 24 Hours (Table) 06/11/24 18:16 Gram Stain - Preliminary Back Wound Culture - Preliminary 06/11/24 18:15 Gram Stain - Preliminary Back Wound Culture - Preliminary 06/09/24 15:19 Blood Culture - Preliminary Blood Assessment and Plan (1) Cellulitis of lower back Current Visit: Yes Status: Acute Code(s): L03.312 - CELLULITIS OF BACK [ANY PART EXCEPT BUTTOCK] SNOMED Code(s): 72389720 (2) Allergy to multiple antibiotics Current Visit: No Status: Acute Code(s): Z88.1 - ALLERGY STATUS TO OTHER ANTIBIOTIC AGENTS SNOMED Code(s): 748921413 Plan: 1patient presented to hospital with the pain swelling redness at the pain pump site and is also been complaining of fever at home in this patient who did have some fluctuation to the pinpoint site concerning for possible abscess likely from gram-positive skin wayne. 2patient with multiple antibiotic ALLERGIES that would limit the number of antibiotic safe to use. 3patient is status post removal of the infected pain pump and deep culture which are currently pending 4patient is currently being treated with vancomycin while waiting for the culture to finalize determine discharge antibiotics Dictation was produced using [employer] dictation software. please excuse any gramma tical, word or spelling errors. Time with Patient: Less than 30
[2024-06-13 16:48] LABS: Glucose,Whole Blood 218 mg/dL (70-110)
[2024-06-13 20:07] LABS: Glucose,Whole Blood 137 mg/dL (70-110)
[2024-06-13] MEDS: LOSARTAN 25 MG TAB PO SCH (20:30)
--- NOTE | 2024-06-13 22:38 | P.CRDCN ---
History of Present Illness Consult date: 06/13/24 History of present illness: HPI: The patient is a 58-year-old male with a history of type 2 diabetes, fibromyalgia, GERD, dyslipidemia, seizure disorder, and sleep apnea. He has a previous hospitalization for cellulitis and presented to the hospital with worsening pain, swelling, and redness at the site of a lower back pain pump infection. The pain pump was removed on 05/2024. On 06/12/2024, the patient was noted to be hypertensive and reported experiencing substantial chest heaviness, prompting a cardiology consultation. Pertinent Vitals: BP 182/74, heart rate 85 beats per minute, 91% on room air. Pertinent cardiac Labs: HB 15, WBC 14, sodium 136, potassium 3.6, BUN 5.7, creatinine 0.6, troponin 0.02, repeat 0.04, glucose 208. Cardiac home meds: Losartan 25 mg. Pertinent cardiac testing: - EK05/2024: Normal sinus rhythm, intermittent PAC, heart rate 84, normal QTC, normal axis. REVIEW OF SYSTEMS: 14-point review of systems is negative except what is mentioned above in HPI. PHYSICAL EXAMINATION: Neck: Brisk carotid upstroke, no jugular venous distention. Lungs: Clear to auscultation. Heart: Regular rate and rhythm, S1-S2, no murmur or rub. Abdomen: Soft, nontender, positive bowel sounds. Extremities: No edema, intact distal pulses. Neuro: Alert, oriented, no focal deficits. Detailed neuro exam was not performed. Detailed musculoskeletal exam was not performed ASSESSMENT: # Cellulitis of left lower back with pain pump infection status post pain pump removal # Essential hypertension, poorly controlled, likely from pain # Type 2 diabetes # Dyslipidemia # Morbid obesity PLAN: Continue losartan at 50 mg daily and amlodipine 5 mg daily Obtain echocardiogram Refrain from increasing blood pressure medications further as elevated blood pr essure is most likely because of uncontrolled pain. 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 RSD rt leg/feet, collapsed VERTEBRA back, STILL SOME REDNESS AROUND PAIN PUMP INSERTION SITE History of Any Multi-Drug Resistant Organisms: MRSA Date of last positivie culture/infection: 2008 MDRO Source:: wound in neck Past Surgical History: Adenoidectomy, Appendectomy, Back Surgery, Bariatric Surgery, Orthopedic Surgery, Tonsillectomy Additional Past Surgical History / Comment(s): Eyes/plastic surgery, tongue surgery, circumcision, Rt foot surgeries, neck fusion, pain pump, lap band/later removed. 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 PAIN CLINIC PROCEDURES, Past Anesthesia/Blood Transfusion Reactions: Previous Problems w/ Anesthesia Additional Past Anesthesia/Blood Transfusion Reaction / Comment(s): "slow to c ome out due to narcolepsy" comes out with low oxygen level-pt denies this. Never had blood transfusion. Past Psychological History: No Psychological Hx Reported Additional Psychological History / Comment(s): Pt resides alone. Smoking Status: Never smoker Past Alcohol Use History: None Reported Past Drug Use History: None Reported - Past Family History Father Family Medical History: CVA/TIA Additional Family Medical History / Comment(s): from "massive stroke" Mother Family Medical History: Cancer, Deep Vein Thrombosis (DVT), Pulmonary Embolus Brother(s) Family Medical History: Deep Vein Thrombosis (DVT) Medications and Allergies Home Medications Medication Instructions Recorded Confirmed Type Meclizine [Antivert] 12.5 mg PO TID 07/22/13 06/09/24 History LORazepam 0.5 mg PO TID 09/15/19 06/09/24 History carBAMazepine [TEGretol] 200 mg PO BID 09/15/19 06/09/24 History levETIRAcetam [Keppra] 1,000 mg PO BID 11/24/21 06/09/24 History DULoxetine HCL [Cymbalta] 60 mg PO BID 10/26/22 06/09/24 History Losartan [Cozaar] 25 mg PO HS 11/14/23 06/09/24 History Insulin Glargine,Hum.rec.anlog 90 units SQ HS@2230 12/26/23 06/09/24 History [Lantus Solostar Pen] Insulin Lispro [humaLOG Kwikpen] 30 unit SQ W/SUPPER@1730 12/26/23 06/09/24 History Linagliptin [Tradjenta] 5 mg PO DAILY 12/26/23 06/09/24 History Testosterone [Androgel 1.62%] 1 pump TRANSDERM DAILY 12/26/23 06/09/24 History Chlorhexidine Gluconate [Peridex] 15 ml PO BID 06/09/24 06/09/24 History Cyclobenzaprine [Flexeril] 5 mg PO TID 06/09/24 06/09/24 History Nystatin 100,000 Unit/gm Powd 1 applic TOPICAL BID 06/09/24 06/09/24 History [Mycostatin Powder] Patient Own Pump 0 bag 06/09/24 06/09/24 History oxyCODONE-APAP 10-325MG [Percocet 1 tab PO TID 06/09/24 06/09/24 History 10-325 mg] Gabapentin [Neurontin] 800 mg PO BID 30 Days #60 tab 06/12/24 Rx Ibuprofen [Motrin] 800 mg PO TID PRN #0 tab 06/12/24 Rx fentaNYL 50MCG/HR PATCH [Duragesic 1 patch TRANSDERM Q72H 30 Days #10 06/12/24 Rx 50MCG/HR] patch Allergies Allergy/AdvReac Type Severity Reaction Status Date / Time bupropion HCl Allergy Dyspnea Verified 06/09/24 17:44 [From Wellbutrin] cephalexin [Cephalexin] Allergy Dyspnea Verified 06/09/24 17:44 cephalexin monohydrate Allergy Dyspnea,hiv Verified 06/09/24 17:44 [From Keflex] es penicillin G Allergy Rash/Hives Verified 06/09/24 17:44 onion Allergy Dyspnea,hiv Uncoded 06/09/24 17:44 es Physical Exam Vitals: Vital Signs Temp Pulse Pulse Resp BP BP Pulse Ox 06/13/24 19:47 99.0 F 99 22 154/90 96 06/13/24 16:02 95 06/13/24 14:51 98.5 F 105 H 18 167/84 96 06/13/24 07:30 93 18 192/78 189/78 93 L 06/13/24 07:00 99.9 F H 111 H 17 186/96 95 06/13/24 06:19 82 18 183/80 94 L 06/13/24 02:51 99.3 F 85 17 182/74 91 L 06/13/24 01:03 78 17 170/91 93 L Intake and Output 06/13/24 06/13/24 06/13/24 06:59 14:59 22:59 Output Total 3200 2000 Balance -320 -1999 Output: Urine [id number] Other: Voiding Method Indwelling Catheter Results 06/13/24 05:20 06/13/24 05:20 Cardiac Enzymes 06/12/24 06/13/24 06/13/24 Range/Units 21:59 05:20 05:20 AST 50 H (14-35) U/L Troponin I 0.024 0.046 H* (0.000-0.034) ng/mL 06/13/24 Range/Units 16:18 AST (14-35) U/L Troponin I 0.029 (0.000-0.034) ng/mL CBC 06/13/24 Range/Units 05:20 WBC 14.21 H (4.50-10.00) X 10*3/uL RBC 5.13 (4.40-5.60) X 10*6/uL Hgb 15.4 (13.0-17.0) g/dL Hct 44.4 (39.6-50.0) % Plt Count 335 (140-440) X 10*3/uL Comprehensive Metabolic Panel 06/13/24 Range/Units 05:20 Sodium 136 (135-145) mmol/L Potassium 3.6 (3.5-5.5) mmol/L Chloride 94 L (96-109) mmol/L Carbon Dioxide 20.9 L (21.6-31.8) mmol/L BUN 5.7 L (9.0-27.0) mg/dL Creatinine 0.6 (0.6-1.5) mg/dL Glucose 210 H (70-110) mg/dL Calcium 9.4 (8.7-10.3) mg/dL AST 50 H (14-35) U/L ALT 28 (10-49) U/L Alkaline Phosphatase 104 (41-126) U/L Total Protein 7.7 (6.2-8.2) g/dL Albumin 4.2 (3.8-4.9) g/dL Current Medications Generic Name Dose Route Start Last Admin Trade Name Freq PRN Reason Stop Dose Admin Acetaminophen 650 mg 06/09/24 16:17 06/10/24 06:27 Acetaminophen Tab 325 Mg Tab PO 650 mg Q6HR PRN Administration Mild Pain or Fever > 100.5 Amlodipine Besylate 5 mg 06/14/24 09:00 Amlodipine 5 Mg Tab PO DAILY REJI Carbamazepine 200 mg 06/10/24 10:00 06/13/24 21:25 Carbamazepine 200 Mg Tab PO 200 mg BID REJI Administration Cyclobenzaprine HCl 5 mg 06/10/24 10:00 06/13/24 21:24 Cyclobenzaprine 5 Mg Tab PO 5 mg TID REJI Administration Dextrose/Water 25 ml 06/10/24 09:56 Dextrose 50% Syringe 50 Ml IVP PER PROTOCOL PRN Hypoglycemia Protocol Dextrose/Water 50 ml 06/10/24 09:56 Dextrose 50% Syringe 50 Ml IVP PER PROTOCOL PRN Hypoglycemia Protocol Duloxetine HCl 60 mg 06/10/24 10:00 06/13/24 20:30 Duloxetine Hcl 60 Mg Capsule.Dr PO 60 mg BID REJI Administration Fentanyl 1 patch 06/12/24 13:00 06/12/24 13:17 Fentanyl 50mcg/Hr Patch TRANSDERM 1 patch Q72H REJI Administration Protocol Gabapentin 800 mg 06/10/24 10:00 06/13/24 20:31 Gabapentin 400 Mg Cap PO 800 mg BID REJI Administration Vancomycin HCl 1,500 mg/ 500 mls @ 167 mls/hr 06/10/24 06:00 06/13/24 21:49 Sodium Chloride IVPB 167 mls/hr Q8H REJI Administration Sodium Chloride 1,000 mls @ 50 mls/hr 06/11/24 18:45 06/13/24 20:11 Saline 0.9% IV Not Given .Q20H [facility] Ibuprofen 800 mg 06/10/24 09:55 06/10/24 20:55 Ibuprofen 800 Mg Tab PO 800 mg TID PRN Administration Pain Scale 4 to 6 Insulin Glargine 90 unit 06/10/24 22:30 06/13/24 21:47 Insulin Glargine (Lantus) 100 Unit/Ml Syr SQ 90 unit HS@2230 REJI Administration Insulin Human Lispro 30 unit 06/10/24 17:30 06/13/24 17:11 Insulin Lispro (Humalog) 100 Unit/Ml 10 Ml Vl SQ 30 unit W/SUPPER@1730 REJI Administration Insulin Human Lispro 0 unit 06/10/24 12:30 06/13/24 20:26 Insulin Lispro (Humalog) 100 Unit/Ml 10 Ml Vl SQ Not Given ACHS [facility] Protocol Levetiracetam 1,000 mg 06/10/24 10:00 06/13/24 20:29 Levetiracetam 500 Mg Tab PO 1,000 mg BID REJI Administration Linagliptin 5 mg 06/10/24 10:00 06/13/24 08:00 Linagliptin 5 Mg Tablet PO 5 mg DAILY REJI Administration Lorazepam 0.5 mg 06/10/24 09:55 06/12/24 19:35 Lorazepam 0.5 Mg Tab PO 0.5 mg TID PRN Administration Anxiety Losartan Potassium 50 mg 06/13/24 21:00 06/13/24 20:30 Losartan 25 Mg Tab PO 50 mg HS REJI Administration Meclizine HCl 12.5 mg 06/10/24 09:55 Meclizine 12.5 Mg Tab PO TID PRN vertigo Miscellaneous Information 1 each 06/14/24 05:00 Vancomycin Trough Due 1 Each Misc MISCELLANE 06/14/24 05:01 ONCE ONE Morphine Sulfate 50 mg 06/12/24 17:30 06/13/24 20:12 Morphine Speech Pathology Teacher 50 Mg/50 Ml Bag IV 50 mg PER PROTOCOL PRN Administration Pain Control Protocol Naloxone HCl 0.2 mg 06/12/24 16:50 Naloxone 0.4 Mg/Ml 1 Ml Vial IV Q2M PRN Opioid Reversal Nystatin 1 applic 06/10/24 10:00 06/13/24 20:30 Nystatin 100,000 Unit/Gm Powd 15 Gm TOPICAL 1 applic BID REJI Administration Protocol Ondansetron HCl 4 mg 06/11/24 18:37 Ondansetron 4 Mg/2 Ml Vial IVP Q8HR PRN Nausea And Vomiting Oxycodone/Acetaminophen 1 each 06/10/24 09:55 06/13/24 20:29 Oxycodone-Apap 10-325mg 1 Each Tab PO 1 each TID PRN Administration pain Intake and Output 06/13/24 06/13/24 06/13/24 06:59 14:59 22:59 Output Total 3200 2000 Balance -3200 -2000 Output: Urine 3200 2000 Other: Voiding Method Indwelling Catheter 06/13/24 05:20 06/13/24 05:20
[2024-06-14] MEDS: ONDANSETRON 4 MG/2 ML VIAL IVP PRN (05:07)
[2024-06-14 05:39] LABS: African American GFR (CKD) >90 (>60 ml/min/1.73 sqM); Non-African American GFR(CKD) >90 (>60 ml/min/1.73 sqM)
[2024-06-14] MEDS: VANCOMYCIN TROUGH DUE 1 EACH MISC MISCELLANE ONE (05:56)
[2024-06-14 06:11] LABS: Glucose,Whole Blood 185 mg/dL (70-110)
[2024-06-14] MEDS: amLODIPine 5 MG TAB PO SCH (08:08)
--- NOTE | 2024-06-14 10:16 | P.PN ---
Progress Note - Text Progress Note Date: 06/14/24 Postoperative day #3 Patient is seen and examined today at bedside. The patient has some pain around the surgical site as expected. Pain is being controlled with medication. He has started to mobilize but still has a Harry catheter intact. He denies any fevers. He denies any neurologic changes. Physical Exam Afebrile with stable vital signs Abdomen is soft nontender. Chest has good excursion deep and space expiration The incision site is clean dry and intact. No erythema there is no purulence. The erythema is significantly improved. The midline incision is healing well. The left gluteal incision has some serosanguineous drainage as expected but it is clear and does not have any purulence. The site is looking better each day. Extremities have not had neurologic change from prior to surgery. Calves and thighs were soft nontender without evidence of DVT. Assessment/Plan Postoperative day #3 status post irrigation and debridement and removal of infected pain pump site at the left gluteal area Patient is progressing as expected from the surgery. The site looks good and I do not have any further plans for surgical intervention at this point. He should continue local wound care and dry dressing changes. We would expect third just continue to have some serosanguin eous drainage as expected as the void from the removal of the pain pump heals from the inside out. He will continue his IV antibiotics per infectious disease. We need to get the Harry catheter out and try to have him urinate on his own. We will continue to increase the patient's mobilization with therapy. We will continue pain control with oral or IV medications. We'll continue to follow patient closely.
--- NOTE | 2024-06-14 10:47 | P.PN ---
Progress Note - Text Withdrawal symptoms are slightly better. Will continue current treatment.
[2024-06-14 11:34] LABS: Glucose,Whole Blood 169 mg/dL (70-110)
--- NOTE | 2024-06-14 14:51 | P.PN ---
Subjective Progress Note Date: 06/14/24 Principal diagnosis: Reason for follow-up is pain pump site cellulitis abscess Patient is a 58-year-old male with a past medical history significant for Diabetes Mellitus, Fibromyalgia, GERD/Reflux, Hyperlipidemia, Seizure Disorder, Sleep Apnea/CPAP/BIPAP did have a pain pump to the lower back area previous admission to the hospital with cellulitis, now presenting back to the hospital with worsening pain swelling and redness concerning for pain pump site infection.Patient is status post removal of the pain pump procedure completed on 06/11/2024 On today's evaluation that is 06/14/2024, patient has been afebrile, patient is breathing comfortably and is currently on room air, patient denies having any chest pain and cough, patient denies nausea vomiting or diarrhea and no abdominal pain pain to his lower back is currently controlled. Patient did have a creatinine 0.42 Vanco trough is 11.3 culture negative so far Objective - Vital Signs Vital signs: Vital Signs Temp 98.4 F 06/14/24 07:15 Pulse 77 06/14/24 07:15 Resp 17 06/14/24 07:15 BP 146/73 06/14/24 07:15 Pulse Ox 92 L 06/14/24 07:15 FiO2 Intake & Output 06/13/24 06/14/24 06/14/24 18:59 06:59 18:59 Intake Total 220 Output Total 1999 1100 300 Balance -1999 -1099 -80 Intake: Intake, IV Titration 100 Amount Sodium Chloride 0.9% 100 100 ml @ 0 mls/hr IV .STK-MED ONE with ceFAZolin 3,000 mg Rx#:[id number] Oral 120 Output: Urine 1999 1100 300 Uretheral (Harry) 300 Other: Voiding Method Indwelling Catheter Indwelling Catheter - Exam GENERAL DESCRIPTION: An elderly male lying in bed in no distress RESPIRATORY SYSTEM: Unlabored breathing , decreased breath sounds at bases HEART: S1 S2 regular rate and rhythm , ABDOMEN: Soft , no tenderness Lower back pain pump extraction site is currently dressed - Labs CBC & Chem 7: 06/13/24 05:20 06/14/24 04:43 Labs: Abnormal Lab Results - Last 24 Hours (Table) 06/13/24 06/13/24 06/14/24 Range/Units 16:46 20:05 04:43 Creatinine 0.42 L (0.66-1.25) mg/dL POC Glucose (mg/dL) 218 H 137 H (70-110) mg/dL 06/14/24 06/14/24 Range/Units 06:10 11:33 Creatinine (0.66-1.25) mg/dL POC Glucose (mg/dL) 185 H 169 H (70-110) mg/dL Microbiology - Last 24 Hours (Table) 06/11/24 18:15 Anaerobic Culture - Preliminary Back 06/11/24 18:16 Anaerobic Culture - Preliminary Back 06/11/24 18:15 Gram Stain - Final Back Wound Culture - Final 06/11/24 18:16 Gram Stain - Final Back Wound Culture - Final Assessment and Plan (1) Cellulitis of lower back Current Visit: Yes Status: Acute Code(s): L03.312 - CELLULITIS OF BACK [ANY PART EXCEPT BUTTOCK] SNOMED Code(s): 17395221 (2) Allergy to multiple antibiotics Current Visit: No Status: Acute Code(s): Z88.1 - ALLERGY STATUS TO OTHER ANTIBIOTIC AGENTS SNOMED Code(s): 370361752 Plan: 1patient presented to hospital with the pain swelling redness at the pain pump site and is also been complaining of fever at home in this patient who did have some fluctuation to the pinpoint site concerning for possible abscess likely from gram-positive skin wayne. 2patient with multiple antibiotic ALLERGIES that would limit the number of antibiotic safe to use. 3patient is status post removal of the infected pain pump and deep culture which are currently pending 4patient will continue with vancomycin because of his cephalexin allergy while waiting for the cultures to be final Dictation was produced using [employer] dictation software. please excuse any grammatical, word or spelling errors. Time with Patient: Less than 30
--- NOTE | 2024-06-14 16:23 | P.PN ---
Subjective Progress Note Date: 06/14/24 This is a pleasant 58-year-old male with medical history significant for diabetes mellitus, fibromyalgia, acid reflux, hyperlipidemia, seizure disorder, sleep apnea. Patient also with history of narcolepsy and multiple orthopedic surgeries. Patient has had a pain pump implanted in his left lower back states that Dr. Varela did the surgery around 13 years ago. Patient was sent over to the hospital from his family doctor with concerns for redness and swelling at the pain pump implantation site with a area of induration towards the spine on the left lower back. There is tenderness to touch. Patient denies having any fever and chills. He does note that he has had numbness in his 5th and 4th di git on his right hand over the last week and states that he is having some difficulty with [id number] rotation of his neck. We will do an cervical x-ray to evaluate this. Dr. Jackson is his surgeon. Per medical records patient had his pain pump filled back in March [address] Varela there was evidence at that time per the note that the patient had redness on the skin area around the pump. Patient had soft tissue ultrasound of the left lower back showing a hypoechoic collection appears to fluid at the level of the pump site. Unsure whether this is normal for procedure or fluid from the pump itself versus other. Appears to be less likely of an abscess. White blood cell count is 7.50, BUN of 10 creatinine of 0.56. Blood glucose is significant elevated in the 200s lactic acid of 3.0. Urinalysis is not suggestive of infection. Patient was admitted to the hospital for consult placed to infectious disease and anesthesia services for evaluation of the pain pump. He was started empirically on IV antibiotics in the form of vancomycin. Patient did receive a dose of levofloxa darinel while in the ER as well as a 1 L fluid bolus. 06/11/2024 Patient seen in follow-up sitting up in the chair at the medical floor. He was evaluated by anesthesia services and they are recommending for the pain pump to be removed. Dr. Jackson was consulted and is planning for surgical irrigation and debridement of left buttock with removal of pain pump. Lovenox will be discontinued. Patient continues on IV vancomycin with ID following closely. Blood cultures are negative so far. Hemoglobin A1c found to be 12.0. Patient is currently afebrile at this time. 06/12/2024 Patient seen and evaluated in follow-up this morning status post orthopedics intervention including debridement of the left buttock and removal of the pain pump. Patient is having significant amounts of pain today and pain management has been consulted making adjustments to medications although patient continues to report severe pain. Awaiting cultures with infectious disease following and patient is maintained on IV antibiotics and will continue. Patient does have significant fibromyalgia history with significant chronic pain. 06/13. Patient seen and examined. Was complaining of chest pain overnight, tropes were ordered once that was elevated. . Patient seen examined. States pain is better controlled with DIP DYER pump. Denies any chest pain. States he feels a lot better compared to yesterday REVIEW OF SYSTEMS: CONSTITUTIONAL: No fever, no malaise,. CARDIOVASCULAR: No chest pain, no palpitations, no syncope. PULMONARY: No shortness of breath, no cough, GASTROINTESTINAL: No diarrhea, no nausea, no vomiting, no abdominal pain. NEUROLOGICAL: No headaches, no weakness, PHYSICAL EXAMINATION: GENERAL: The patient is alert and oriented x3, not in any acute distress. Well developed, well nourished. HEENT: Pupils are round and equally reacting to light. EOMI. No scleral icterus. No conjunctival pallor. Normocephalic, atraumatic. No pharyngeal erythema. No thyromegaly. CARDIOVASCULAR: S1 and S2 present. No murmurs, rubs, or gallops. PULMONARY: Chest is clear to auscultation, no wheezing or crackles. ABDOMEN: Soft, nontender, nondistended, normoactive bowel sounds. No palpable organomegaly. MUSCULOSKELETAL: No joint swelling or deformity. EXTREMITIES: No cyanosis, clubbing, or pedal edema. NEUROLOGICAL: Gross neurological examination did not reveal any focal deficits. SKIN: Bandage in place at the surgical site Assessment and plan Cellulitis of the left lower back at the site of pain pump, present on admission, awaiting cultures and is status post incision and drainage of that area as well as removal of the pain pump on 06/11/2024 Parasthesias of the right 4 and 5 digit likely a cervical radiculopathy hx of lumbar spine stenosis with failed lumbar surgery and continued pain Elevated troponin, most likely type II GA Lactic acidosis, improved History of seizure disorder Diabetes Mellitus type 2, uncontrolled with hyperglycemia Fibromyalgia history History of bariatric surgery Gastroesophageal reflux disease Sleep apnea Narcolepsy Restless leg syndrome Monitor vital signs Monitor CBC Monitor CMP status post incision and drainage of that area as well as removal of the pain pump on 06/11/2024 Continue pharmacy vancomycin Monitor blood sugar levels, continue current insulin regimen Continue Tegretol and Keppra Pain management team consulted for pain management ID following Cardiology evaluated, recommended keeping patient on losartan, Norvasc, ordered 2D Labs and medication were reviewed.. Continue same treatment. Continue with symptomatic treatment. Resume home medication. Monitor labs and vitals. DVT and GI prophylaxis. Further recommendations as per clinical course of the patient Dictation was produced using [employer] dictation software. please excuse any grammatical, word or spelling errors. Objective - Vital Signs Vital signs: Vital Signs Temp 98.4 F 06/14/24 07:15 Pulse 77 06/14/24 07:15 Resp 17 06/14/24 07:15 BP 146/73 06/14/24 07:15 Pulse Ox 92 L 06/14/24 07:15 FiO2 Intake & Output 06/13/24 06/14/24 06/14/24 18:59 06:59 18:59 Intake Total 220 Output Total 1999 1100 300 Balance -1999 -1100 -80 Intake: Intake, IV Titration 100 Amount Sodium Chloride 0.9% 100 100 ml @ 0 mls/hr IV .STK-MED ONE with ceFAZolin 3,000 mg Rx#:[id number] Oral 120 Output: Urine 1999 1100 300 Uretheral (Harry) 300 Other: Voiding Method Indwelling Catheter Indwelling Catheter - Labs CBC & Chem 7: 06/13/24 05:20 06/14/24 04:43 Labs: Abnormal Lab Results - Last 24 Hours (Table) 06/13/24 06/13/24 06/14/24 Range/Units 16:46 20:05 04:43 Creatinine 0.42 L (0.66-1.25) mg/dL POC Glucose (mg/dL) 218 H 137 H (70-110) mg/dL 06/14/24 06/14/24 Range/Units 06:10 11:33 Creatinine (0.66-1.25) mg/dL POC Glucose (mg/dL) 185 H 169 H (70-110) mg/dL Microbiology - Last 24 Hours (Table) 06/11/24 18:15 Anaerobic Culture - Preliminary Back 06/11/24 18:16 Anaerobic Culture - Preliminary Back 06/11/24 18:15 Gram Stain - Final Back Wound Culture - Final 06/11/24 18:16 Gram Stain - Final Back Wound Culture - Final
--- NOTE | 2024-06-14 16:52 | P.PN ---
Subjective Progress Note Date: 06/14/24 HPI: The patient is a 58-year-old male with a history of type 2 diabetes, fibromyalgia, GERD, dyslipidemia, seizure disorder, and sleep apnea. He has a previous hospitalization for cellulitis and presented to the hospital with worsening pain, swelling, and redness at the site of a lower back pain pump inf ection. The pain pump was removed on 05/2024. On 06/12/2024, the patient was noted to be hypertensive and reported experiencing substantial chest heaviness, prompting a cardiology consultation. Pertinent Vitals: BP 182/74, heart rate 85 beats per minute, 91% on room air. Pertinent cardiac Labs: HB 15, WBC 14, sodium 136, potassium 3.6, BUN 5.7, creatinine 0.6, troponin 0.02, repeat 0.04, glucose 208. Cardiac home meds: Losartan 25 mg. Pertinent cardiac testing: - EK05/2024: Normal sinus rhythm, intermittent PAC, heart rate 84, normal QTC, normal axis. Progress note 06/14/2024 Patient seen and examined at bedside this a.m. He denies having any active chest pain chest pressure shortness of breath. He reports his pain is better controlled BP is better controlled today as BP 146/82 PHYSICAL EXAMINATION: Neck: Brisk carotid upstroke, no jugular venous distention. Lungs: Clear to auscultation. Heart: Regular rate and rhythm, S1-S2, no murmur or rub. Abdomen: Soft, nontender, positive bowel sounds. Extremities: No edema, intact distal pulses. Neuro: Alert, oriented, no focal deficits. Detailed neuro exam was not performed. Detailed musculoskeletal exam was not performed ASSESSMENT: # Cellulitis of left lower back with pain pump infection status post pain pump removal # Essential hypertension, poorly controlled, likely from pain # Type 2 diabetes # Dyslipidemia # Morbid obesity PLAN: Continue losartan at 50 mg daily and amlodipine 5 mg daily Obtain echocardiogram Refrain from increasing blood pressure medications further as elevated blood pressure is most likely because of uncontrolled pain. Supportive care If echocardiogram is within normal limits, consider signing off Objective - Vital Signs Vital signs: Vital Signs Temp 98.1 F 06/14/24 13:55 Pulse 105 H 06/14/24 13:55 Resp 16 06/14/24 13:55 BP 146/82 06/14/24 13:55 Pulse Ox 94 L 06/14/24 13:55 FiO2 Intake & Output 06/13/24 06/14/24 06/14/24 18:59 06:59 18:59 Intake Total 220 Output Total 1999 1100 300 Balance -1999 Intake: Intake, IV Titration 100 Amount Sodium Chloride 0.9% 100 100 ml @ 0 mls/hr IV .STK-MED ONE with ceFAZolin 3,000 mg Rx#:[id number] Oral 120 Output: Urine 1999 1100 300 Uretheral (Harry) 300 Other: Voiding Method Indwelling Catheter Indwelling Catheter - Labs CBC & Chem 7: 06/13/24 05:20 06/14/24 04:43 Labs: Abnormal Lab Results - Last 24 Hours (Table) 06/13/24 06/14/24 06/14/24 Range/Units 20:05 04:43 06:10 Creatinine 0.42 L (0.66-1.25) mg/dL POC Glucose (mg/dL) 137 H 185 H (70-110) mg/dL 06/14/24 Range/Units 11:33 Creatinine (0.66-1.25) mg/dL POC Glucose (mg/dL) 169 H (70-110) mg/dL Microbiology - Last 24 Hours (Table) 06/11/24 18:15 Anaerobic Culture - Preliminary Back 06/11/24 18:16 Anaerobic Culture - Preliminary Back 06/11/24 18:15 Gram Stain - Final Back Wound Culture - Final 06/11/24 18:16 Gram Stain - Final Back Wound Culture - Final
[2024-06-14 16:54] LABS: Glucose,Whole Blood 200 mg/dL (70-110)
[2024-06-14 21:02] LABS: Glucose,Whole Blood 135 mg/dL (70-110)
[2024-06-15 06:10] LABS: Glucose,Whole Blood 102 mg/dL (70-110)
[2024-06-15 08:30] LABS: HCT 45.6 % (39.6-50.0); HGB 15.7 g/dL (13.0-17.0); MCH 30.8 pg (27.0-32.0); MCHC 34.4 g/dL (32.0-37.0); MCV 89.6 FL (80.0-97.0); Mean Platelet Volume 9.4 FL (9.5-12.2); NRBC Per 100 WBC 0 X 10*3/uL (0.00-0.01); Platelet Count 365 X 10*3/uL (140-440); RBC 5.09 X 10*6/uL (4.40-5.60); RDW 12.9 % (11.5-14.5); WBC 12.23 X 10*3/uL (4.50-10.00)
[2024-06-15 08:50] LABS: ALT 21 U/L (10-49); AST 32 U/L (14-35); Albumin 3.5 g/dL (3.8-4.9); Albumin/Globulin Ratio 1.09 Ratio (1.60-3.17); Alkaline Phosphatase 90 U/L (41-126); BUN/Creat Ratio 12.92 Ratio (12.00-20.00); Blood Urea Nitrogen 16.8 mg/dL (9.0-27.0); Carbon Dioxide 25.7 mmol/L (21.6-31.8); Chloride 100 mmol/L (96-109); Globulin 3.2 g/dL (1.6-3.3); Glucose 103 mg/dL (70-110); Potassium 3.6 mmol/L (3.5-5.5); Sodium 139 mmol/L (135-145); Total Bilirubin 0.4 mg/dL (0.3-1.2); Total Protein 6.7 g/dL (6.2-8.2)
--- NOTE | 2024-06-15 08:56 | P.PN ---
Progress Note - Text Progress Note Date: 06/15/24 Orthopedic spine: History of present illness: Patient is a pleasant 58-year-old male who is seen examined at the bedside for follow-up evaluation of his left buttock at placement of a pain pump. Patient is known to have an intrathecal pain pump implanted several years ago. He developed cellulitis a few months ago. He initially began on IV antibiotics and was later transitioned to oral antibiotics. Initially his condition had improved significantly over the past couple months. His pump was refilled last month and over the past few days the pump site has been red and indurated representing cellulitis and the patient has had a fever. He was admitted to [facility] for further evaluation due to the infection at the pump site. He has been following with Dr. Felix and infectious disease. He is currently on IV antibiotics with vancomycin. Dr. Reid contacted Dr. Tae Jackson today to discuss the patient in significant detail and to request proceeding forward with irrigation and debridement with removal of pain pump in the operating room. Patient does admit to pain at his left buttock at the pain pump location site. On 06/11/2024 he underwent incision and debridement with removal of pain pump with ligation of pain pump tubing. He currently has dressing intact at his lumbar spine. Iodoform gauze has been removed. [place] remain intact. Currently no active drainage. This morning the patient states he has some pain but that pain is controlled. His morphine withdrawals have been better controlled but he continues to have some difficulty with pain control. This is being managed by pain management. He has no neurovascular changes in his lower extremities. Patient continues with antibiotics per infectious disease. Cultures were taken during surgical intervention to remove his pain pump. Gram stain wound culture taken during surgical intervention have shown no organism growth after 48 hours. Anaerobic culture is still preliminary. Antibiotics may be changed based on recommendations by infectious disease. Patient has a history of multiple surgical interventions at his lumbar spine. He has followed with pain management at [facility]. He has ongoing chronic low back pain. He currently denies any lower extremity weakness or radiculopathy bilaterally. Patient states he does have RSD in his right lower extremity. Patient will continue be seen examined by medicine as well. His Harry catheter was discontinued yesterday. He has been unable to independently void since that time. He was straight catheterized this morning. We discussed if he is unable to urinate independently he will need his Harry catheter reinserted and consultation with urology. Physical exam: Postoperative day #4 Patient is awake, alert, and oriented 3 Good chest excursion with deep inspiration and expiration Examination of lumbar spine reveals skin is intact with no abrasions, lacerations, or bruises; no erythema, purulence or signs of infection Evidence of large well-healed midline incision lumbar spine Surgical jasmin remain intact over the midline of the lumbar spine and left upper buttock without current active drainage Continued some erythema with some bruising around the left upper buttock area Dressing is intact over the surgical sites Dorsiflexion, plantarflexion, and extensor hallucis longus positive sustained bilaterally Lower extremity strength 5/5 bilaterally Neurovascularly intact. Pertinent studies: Ultrasound of mass at the left low back/buttock area taken on 06/10/2024: Hypoechoic collection which appears to be fluid at the level of the pump site Assessment: Status post incision and debridement with removal of pain pump with tubal ligation of the pain pump performed on 06/11/2024 Morphine withdrawal currently better managed Pain pump infection Cellulitis of the left buttock area at the pain pump site Left buttock pain pump incision site pain Postoperative urinary retention Fever at presentation History of multiple surgical interventions at his lumbar spine History of seizure disorder Diabetes mellitus type 2 with hyperglycemia Fibromyalgia History of bariatric surgery Right lower extremity RSD Plan: 1. Patient is status post incision and debridement with removal of pain pump with tubal ligation of the pain pump. His postoperative pain is currently fairly well-controlled. Partial iodoform gauze has been removed. [place] remain intact. No active drainage currently. We will continue with dressing changes as needed over his surgical sites. We are not planning for any further surgical intervention currently in regards to his pain pump removal. Patient may ambulate to his tolerance. 2. Patient will continue with pain control per pain management. 3. Cultures were taken during surgical intervention. These results are pending. Patient will continue with antibiotics per infectious disease. These may be changed based upon culture results. 4. His Harry catheter was discontinued yesterday. He has been unable to independently void since that time. He was straight catheterized this morning. We discussed if he is unable to urinate independently he will need his Harry catheter reinserted and consultation with urology. 5. Patient will be cleared for discharge from an orthopedic spine standpoint once cleared by other providers. Patient may follow-up with Titus Ramey PA-C or Dr. Tae Jackson at [facility] in 1 week following discharge. 6. Patient will continue be seen and examined by medicine
[2024-06-15 09:39] LABS: Basophils # (M) 0.24 X 10*3/uL (0.00-0.10); Eosinophils # (M) 0.73 X 10*3/uL (0.04-0.35); Lymphocytes # (M) 5.87 X 10*3/uL (0.90-5.00); Metamyelocytes % 1 % (0-0); Monocytes # (M) 0.61 X 10*3/uL (0.20-1.00); Neutrophils # (M) 4.65 X 10*3/uL (1.80-7.70); Neutrophils % (M) 38 %
[2024-06-15 10:36] LABS: Erythrocyte Sedimentation Rate 36 mm/Hr (0-20)
[2024-06-15] MEDS: PSYLLIUM HUSK 100% 6 GM PACKET PO SCH (11:26)
[2024-06-15] MEDS: ENOXAPARIN 40 MG/0.4 ML SYRINGE SQ SCH (11:26)
[2024-06-15 11:52] LABS: Glucose,Whole Blood 191 mg/dL (70-110)
--- NOTE | 2024-06-15 12:11 | P.PN ---
Progress Note - Text Progress Note Date: 06/15/24 This is a pleasant 58-year-old male with medical history significant for diabetes mellitus, fibromyalgia, acid reflux, hyperlipidemia, seizure disorder, sleep apnea. Patient also with history of narcolepsy and multiple orthopedic surgeries. Patient has had a pain pump implanted in his left lower back states that Dr. Varela did the surgery around 13 years ago. Patient was sent over to the hospital from his family doctor with concerns for redness and swelling at the pain pump implantation site with a area of induration towards the spine on the left lower back. There is tenderness to touch. Patient denies having any fever and chills. He does note that he has had numbness in his 5th and 4th digit on his right hand over the last week and states that he is having some difficulty with [id number] rotation of his neck. We will do an cervical x-ray to evaluate this. Dr. Jackson is his surgeon. Per medical records patient had his pain pump filled back in March [address] Varela there was evidence at that time per the note that the patient had redness on the skin area around the pump. Patient had soft tissue ultrasound of the left lower back showing a hypoechoic collection appears to fluid at the level of the pump site. Unsure whether this is normal for procedure or fluid from the pump itself versus other. Appears to be less likely of an abscess. White blood cell count is 7.50, BUN of 10 creatinine of 0.56. Blood glucose is significant elevated in the 200s lac tic acid of 3.0. Urinalysis is not suggestive of infection. Patient was admitted to the hospital for consult placed to infectious disease and anesthesia services for evaluation of the pain pump. He was started empirically on IV antibiotics in the form of vancomycin. Patient did receive a dose of levofloxacin while in the ER as well as a 1 L fluid bolus. 06/11/2024 Patient seen in follow-up sitting up in the chair at the medical floor. He was evaluated by anesthesia services and they are recommending for the pain pump to be removed. Dr. Jackson was consulted and is planning for surgical irrigation and debridement of left buttock with removal of pain pump. Lovenox will be discontinued. Patient continues on IV vancomycin with ID following closely. Blood cultures are negative so far. Hemoglobin A1c found to be 12.0. Patient is currently afebrile at this time. 06/12/2024 Patient seen and evaluated in follow-up this morning status post orthopedics intervention including debridement of the left buttock and removal of the pain pump. Patient is having significant amounts of pain today and pain management has been consulted making adjustments to medications although patient continues to report severe pain. Awaiting cultures with infectious disease following and patient is maintained on IV antibiotics and will continue. Patient does have significant fibromyalgia history with significant chronic pain. 06/13. Patient seen and examined. Was complaining of chest pain overnight, tropes were ordered once that was elevated. . Patient seen examined. States pain is better controlled with DRY HOUSE WORKER pump. Denies any chest pain. States he feels a lot better compared to yesterday June 15: Up in a chair. Eating better. Has not had a bowel movement. Will add Metamucil twice daily. On DRY HOUSE WORKER pump. Harry catheter was taken out. No urine output. Urology consulted. On examination: VITAL SIGNS: [98.4, 69, 18, 93 x 55, 93% room air] GENERAL APPEARANCE: BMI 36.9, sitting up in the chair awake. HEENT: Normal external appearance of nose and ear. Oral cavity normal EYES: Pupils equal. Conjunctiva normal. NECK: JVD not raised. Mass not palpable. RESPIRATORY: Respiratory effort normal. Lungs clear to auscultation. CARDIOVASCULAR: First and second sounds normal. No edema. ABDOMEN: Soft. Liver and spleen not palpable. No tenderness. No mass palpable. Dressing over left gluteal area PSYCHIATRY: Alert and oriented x3. Mood and affect normal. INVESTIGATIONS, reviewed in the clinical context: June 07: White count 12.2 hemoglobin 15.7 platelets 365 potassium 3.6 creati nine 1.3 Assessment and plan -Acute cellulitis of the gluteal area site of pain pump, present on admission, awaiting cultures and is status post incision and drainage of that area as well as removal of the pain pump on 06/11/2024 IV vancomycin ID following -Parasthesias of the right 4 and 5 digit likely a cervical radiculopathy -Chronic pain lumbar spine stenosis with failed lumbar surgery and continued pain DRY HOUSE WORKER pump Pain specialist/anesthesia following -Elevated troponin, most likely type II AK -Lactic acidosis, improved -Chronic seizure disorder Tegretol. Keppra. -Diabetes Mellitus type 2, chronically on insulin Follow Accu-Cheks -Fibromyalgia, chronic On pain medications -History of bariatric surgery -Sleep apnea -Narcolepsy -Restless leg syndrome - Full code
--- NOTE | 2024-06-15 13:58 | P.PN ---
Progress Note - Text Progress Note Date: 06/15/24 Patient still complaining of severe pain, is currently on INSEMINATION WORKER morphine sulfate 2 mg q. 6 minutes about the maximum 36 mg of morphine sulfate per 4 hours, patient also constipated he had urinary retention, patient will be started on Flomax, 1 tablet p.o. daily, and also he will be started on Senokot twice a day, patient planing of pain I will increase the fentanyl patch to 75 mcg every 72 hours , will discontinue the INSEMINATION WORKER 8 hours after we start the fentanyl patch, we will continue the Percocet 10/325 every 4-6 hours as needed and patient can be discharged home on the medications mentioned above.
[2024-06-15 14:57] LABS: African American GFR (CKD) 53 (>60 ml/min/1.73 sqM); Non-African American GFR(CKD) 45 (>60 ml/min/1.73 sqM)
[2024-06-15] MEDS: [UNRECOGNIZED DRUG - REMARK] MISCELLANE ONE (15:00)
--- NOTE | 2024-06-15 15:12 | P.GSCN ---
History of Present Illness Consult date: 06/15/24 History of present illness: 58-year-old male with a history of severe back problems, failed spinal surgery and RSD. He is in the hospital with a pain pump infection. He is gone into urinary retention and we have been asked to see the patient. The patient also admits to constipation and difficulty with bowels during this period of time. He has not had a bowel movement since he has been in the hospital. The patient denies any problems urinating prior to coming into the hospital. There is no history of urine infections or incontinence. He has had back problems, RSD and the pain pump for many years. He has never seen a urologist. He has not been on alpha blockers. He has not had anything for his bowel movements. His urine on admission was clear. His catheter was pulled yesterday and eventually he had to be recathed for 500 mL. Review of Systems All systems: negative - Constitutional Denies fever, Denies weight loss - EENT Eyes: denies blurred vision Ears, nose, mouth and throat: Denies dysphagia - Cardiovascular Denies chest pain, Denies shortness of breath - Respiratory Denies cough, Denies 7 - Gastrointestinal Reports as per HPI - Genitourinary Denies dysuria, Denies hematuria - Integumentary Denies rash, Denies unusual bruising - Neurological Denies headaches, Denies syncope - Hematologic/Lymphatic Denies easy bleeding, Denies easy bruising Past Medical History Past Medical History: Diabetes Mellitus, Fibromyalgia, GERD/Reflux, Hyperlipidemia, Seizure Disorder, Sleep Apnea/CPAP/BIPAP Additional Past Medical History / Comment(s): bells palsy, 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 RSD rt leg/feet, collapsed VERTEBRA back, STILL SOME REDNESS AROUND PAIN PUMP INSERTION SITE History of Any Multi-Drug Resistant Organisms: MRSA Year Discovered:: 2008 MDRO Source:: wound in neck Past Surgical History: Adenoidectomy, Appendectomy, Back Surgery, Bariatric Surgery, Orthopedic Surgery, Tonsillectomy Additional Past Surgical History / Comment(s): Eyes/plastic surgery, tongue surgery, circumcision, Rt foot surgeries, neck fusion, pain pump, lap band/later removed. 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 PAIN CLINIC PROCEDURES, Past Anesthesia/Blood Transfusion Reactions: Previous Problems w/ Anesthesia Additional Past Anesthesia/Blood Transfusion Reaction / Comm: "slow to come out due to narcolepsy" comes out with low oxygen level-pt denies this. Never had blood transfusion. Past Psychological History: No Psychological Hx Reported Additional Psychological History / Comment(s): Pt resides alone. Smoking Status: Never smoker Past Alcohol Use History: None Reported Past Drug Use History: None Reported - Past Family History Father Family Medical History: CVA/TIA Additional Family Medical History / Comment(s): from "massive stroke" Mother Family Medical History: Cancer, Deep Vein Thrombosis (DVT), Pulmonary Embolus Brother(s) Family Medical History: Deep Vein Thrombosis (DVT) Medications and Allergies Home Medications Medication Instructions Recorded Confirmed Type Meclizine [Antivert] 12.5 mg PO TID 07/22/13 06/09/24 History LORazepam 0.5 mg PO TID 09/15/19 06/09/24 History carBAMazepine [TEGretol] 200 mg PO BID 09/15/19 06/09/24 History levETIRAcetam [Keppra] 1,000 mg PO BID 11/24/21 06/09/24 History DULoxetine HCL [Cymbalta] 60 mg PO BID 10/26/22 06/09/24 History Losartan [Cozaar] 25 mg PO HS 11/14/23 06/09/24 History Insulin Glargine,Hum.rec.anlog 90 units SQ HS@2230 12/26/23 06/09/24 History [Lantus Solostar Pen] Insulin Lispro [humaLOG Kwikpen] 30 unit SQ W/SUPPER@1730 12/26/23 06/09/24 History Linagliptin [Tradjenta] 5 mg PO DAILY 12/26/23 06/09/24 History Testosterone [Androgel 1.62%] 1 pump TRANSDERM DAILY 12/26/23 06/09/24 History Chlorhexidine Gluconate [Peridex] 15 ml PO BID 06/09/24 06/09/24 History Cyclobenzaprine [Flexeril] 5 mg PO TID 06/09/24 06/09/24 History Nystatin 100,000 Unit/gm Powd 1 applic TOPICAL BID 06/09/24 06/09/24 History [Mycostatin Powder] Patient Own Pump 0 bag 06/09/24 06/09/24 History oxyCODONE-APAP 10-325MG [Percocet 1 tab PO TID 06/09/24 06/09/24 History 10-325 mg] Gabapentin [Neurontin] 800 mg PO BID 30 Days #60 tab 06/12/24 Rx Ibuprofen [Motrin] 800 mg PO TID PRN #0 tab 06/12/24 Rx Vancomycin HCl in 5 % Dextrose 1.5 gm IV Q8HR #84 each 06/15/24 Rx [Vancomycin 1.5 Gram/300 ml-D5w] Allergies Allergy/AdvReac Type Severity Reaction Status Date / Time bupropion HCl Allergy Dyspnea Verified 06/09/24 17:44 [From Wellbutrin] cephalexin [Cephalexin] Allergy Dyspnea Verified 06/09/24 17:44 cephalexin monohydrate Allergy Dyspnea,hiv Verified 06/09/24 17:44 [From Keflex] es penicillin G Allergy Rash/Hives Verified 06/09/24 17:44 onion Allergy Dyspnea,hiv Uncoded 06/09/24 17:44 es Surgical - Exam Vital Signs Temp Pulse Resp BP Pulse Ox 98.5 F 105 H 18 135/84 96 06/09/24 14:20 06/09/24 14:20 06/09/24 14:20 06/09/24 14:20 06/09/24 14:20 Results - Labs 06/15/24 03:30 06/15/24 14:19 Abnormal Lab Results - Last 24 Hours (Table) 06/14/24 06/14/24 06/15/24 Range/Units 16:53 21:00 03:30 WBC 12.23 H (4.50-10.00) X 10*3/uL MPV 9.4 L (9.5-12.2) FL Lymphocytes # (Manual) 5.87 H (0.90-5.00) X 10*3/uL Eosinophils # (Manual) 0.73 H (0.04-0.35) X 10*3/uL Basophils # (Manual) 0.24 H (0.00-0.10) X 10*3/uL ESR 36 H (0-20) mm/Hr Anion Gap (4.00-12.00) mmol/L POC Glucose (mg/dL) 200 H 135 H (70-110) mg/dL C-Reactive Protein (0.00-0.80) mg/dL Albumin (3.8-4.9) g/dL Albumin/Globulin Ratio (1.60-3.17) Ratio 06/15/24 Range/Units 03:30 WBC (4.50-10.00) X 10*3/uL MPV (9.5-12.2) FL Lymphocytes # (Manual) (0.90-5.00) X 10*3/uL Eosinophils # (Manual) (0.04-0.35) X 10*3/uL Basophils # (Manual) (0.00-0.10) X 10*3/uL ESR (0-20) mm/Hr Anion Gap 13.30 H (4.00-12.00) mmol/L POC Glucose (mg/dL) (70-110) mg/dL C-Reactive Protein 2.60 H (0.00-0.80) mg/dL Albumin 3.5 L (3.8-4.9) g/dL Albumin/Globulin Ratio 1.09 L (1.60-3.17) Ratio Microbiology - Last 24 Hours (Table) 06/09/24 15:19 Blood Culture - Final Blood 06/11/24 18:15 Anaerobic Culture - Preliminary Back 06/11/24 18:16 Anaerobic Culture - Preliminary Back 06/11/24 18:15 Gram Stain - Final Back Wound Culture - Final 06/11/24 18:16 Gram Stain - Final Back Wound Culture - Final Diabetes panel 06/15/24 Range/Units 03:30 Sodium 139 (135-145) mmol/L Potassium 3.6 (3.5-5.5) mmol/L Chloride 100 (96-109) mmol/L Carbon Dioxide 25.7 (21.6-31.8) mmol/L BUN 16.8 (9.0-27.0) mg/dL Creatinine 1.3 (0.6-1.5) mg/dL Glucose 103 (70-110) mg/dL Calcium 9.0 (8.7-10.3) mg/dL AST 32 (14-35) U/L ALT 21 (10-49) U/L Alkaline Phosphatase 90 (41-126) U/L Total Protein 6.7 (6.2-8.2) g/dL Albumin 3.5 L (3.8-4.9) g/dL Calcium panel 06/15/24 Range/Units 03:30 Calcium 9.0 (8.7-10.3) mg/dL Albumin 3.5 L (3.8-4.9) g/dL Pituitary panel 06/15/24 Range/Units 03:30 Sodium 139 (135-145) mmol/L Potassium 3.6 (3.5-5.5) mmol/L Chloride 100 (96-109) mmol/L Carbon Dioxide 25.7 (21.6-31.8) mmol/L BUN 16.8 (9.0-27.0) mg/dL Creatinine 1.3 (0.6-1.5) mg/dL Glucose 103 (70-110) mg/dL Calcium 9.0 (8.7-10.3) mg/dL Adrenal panel 06/15/24 Range/Units 03:30 Sodium 139 (135-145) mmol/L Potassium 3.6 (3.5-5.5) mmol/L Chloride 100 (96-109) mmol/L Carbon Dioxide 25.7 (21.6-31.8) mmol/L BUN 16.8 (9.0-27.0) mg/dL Creatinine 1.3 (0.6-1.5) mg/dL Glucose 103 (70-110) mg/dL Calcium 9.0 (8.7-10.3) mg/dL Total Bilirubin 0.4 (0.3-1.2) mg/dL AST 32 (14-35) U/L ALT 21 (10-49) U/L Alkaline Phosphatase 90 (41-126) U/L Total Protein 6.7 (6.2-8.2) g/dL Albumin 3.5 L (3.8-4.9) g/dL Assessment and Plan Assessment: Impression urinary retention associated with pain pump infection of the pain pump and chronic back issues, perhaps aggravated by difficult bowel movements. Diabetes. Recommendations: The patient should be placed on an alpha-venessa, given something to evacuate his bowels (this was just done by Dr. Ferris). After he has been given this medicine, his bowels move, once he is more ambulatory and feeling better he should be given a voiding trial. I suspect he will move his bowels once this occurs. We will follow. Time with Patient: Greater than 30
[2024-06-15] MEDS: TAMSULOSIN 0.4 MG CAP.ER.24H PO STA (15:15)
--- NOTE | 2024-06-15 16:33 | CA ---
Transthoracic Echo Report Name: Dameon Magana Age: 58 Gender: M : 1965 Exam Date: 06/15/2024 12:54 Exam Location: [facility] Ht (in): 69 Wt (lb): 250 Ordering Physician: Guido Agrawal MD ([id number]) Attending/Referring Phys: Public Area Attendant Carly Montanez RDCS Procedure CPT: Indications: cardiogram/elevated trops Cardiac Hx: Technical Quality: Good Contrast 1: Total Dose (mL): Contrast 2: Total Dose (mL): MEASUREMENTS (Male / Female) Normal Values 2D ECHO LV Diastolic Diameter PLAX 4.6 cm 4.2 - 5.9 / 3.9 - 5.3 cm LV Systolic Diameter PLAX 2.9 cm IVS Diastolic Thickness 1.3 cm 0.6 - 1.0 / 0.6 - 0.9 cm LVPW Diastolic Thickness 1.3 cm 0.6 - 1.0 / 0.6 - 0.9 cm LV Relative Wall Thickness 0.6 RV Internal Dim ED PLAX 3.1 cm LA Systolic Diameter LX 4.3 cm 3.0 - 4.0 / 2.7 - 3.8 cm LV Diastolic Volume MOD BP 85.8 cm??? 67 - 155 / 56 - 104 cm??? LV Systolic Volume MOD BP 36.7 cm??? - 58 / 19 - 49 cm??? LV Ejection Fraction MOD BP 57.2 % >= 55 % LV Cardiac Index MOD BP 1476.6 cm???/min???m??? LV Diastolic Volume MOD 4C 101.6 cm??? LV Systolic Volume MOD 4C 42.1 cm??? LV Ejection Fraction MOD 4C 58.5 % LV Cardiac Index MOD 4C 1788.4 cm???/min???m??? LV Diastolic Length 4C 9.0 cm LV Systolic Length 4C 7.6 cm LV Diastolic Volume MOD 2C 65.0 cm??? LV Systolic Volume MOD 2C 28.3 cm??? LV Ejection Fraction MOD 2C 56.5 % LV Cardiac Index MOD 2C 1102.4 cm???/min???m??? LV Diastolic Length 2C 7.9 cm LV Systolic Length 2C 6.5 cm LA Volume 52.5 cm??? - 58 / 22 - 52 cm??? LA Volume Index 21.9 cm???/m??? 16 - 28 cm???/m??? M-MODE Aortic Root Diameter MM 3.7 cm AV Cusp Separation MM 2.3 cm DOPPLER AV Peak Velocity 209.9 cm/s AV Peak Gradient 17.6 mmHg AV Mean Velocity 140.2 cm/s AV Mean Gradient 9.3 mmHg AV Velocity Time Integral 42.7 cm LVOT Peak Velocity 190.0 cm/s LVOT Peak Gradient 14.4 mmHg LVOT Velocity Time Integral 32.9 cm MV Area PHT 3.3 cm??? Mitral E Point Velocity 95.0 cm/s Mitral A Point Velocity 87.0 cm/s Mitral E to A Ratio 1.1 MV Deceleration Time 232.7 ms TR Peak Velocity 198.2 cm/s TR Peak Gradient 15.7 mmHg Right Ventricular Systolic Press 20.1 mmHg FINDINGS Left Ventricle Left ventricular ejection fraction is estimated at 55-60 %. Left ventricular cavity size normal. Mildly increased septal wall thickness. Normal left ventricular wall motion. Right Ventricle Normal right ventricular size. Right ventricular systolic pressure within normal limits. Right Atrium Normal right atrial size. No right atrial thrombus or mass seen. Left Atrium Mildly increased left atrial diameter. No left atrial thrombus or mass present. Mitral Valve Structurally normal mitral valve. No mitral stenosis, regurgitation or prolapse. Aortic Valve Trileaflet aortic valve. Aortic valve sclerosis. Mild aortic regurgitation. Tricuspid Valve Structurally normal tricuspid valve. Mild tricuspid regurgitation. Pulmonic Valve Structurally normal pulmonic valve. No pulmonic regurgitation. Pericardium No pericardial effusion. Aorta Normal size aortic root and proximal ascending aorta. CONCLUSIONS Left ventricular ejection fraction 55 to 60% Mildly increased left ventricular thickness RVSP 20 Mild aortic regurgitation Mild tricuspid regurgitation No pericardial effusion Previewed by: Dr. Apolinar Howard DO (Electronically Signed) Final Date: 15 June 2024 16:33
[2024-06-15 16:51] LABS: Glucose,Whole Blood 239 mg/dL (70-110)
--- NOTE | 2024-06-15 19:51 | CDI ---
Documentation Clarification Form Date: 06/15/2024 07:47:53 PM From: Estela Sinclair RN, CCDS Phone: [phone] Admit Date: 06/09/2024 03:22:00 PM Patient Name: Dameon Magana Visit Number: [id number] Discharge Date: ATTENTION: The Clinical Documentation Specialists (CDI) and [facility] Coding Staff appreciate your assistance in clarifying documentation. Please respond to the clarification below the line at the bottom and electronically sign. The CDI & [facility] Coding staff will review the response and follow-up if needed. Please note: Queries are made part of the Legal Health Record. If you have any questions, please contact the author of this message via ITS. Doctor. Ligia Jackson Postoperative urinary retention is documented in the surgical assessment on 06/15/24 and the patient had incision and debridement with removal of pain pump with tubal ligation of the pain pump on 04/13/24. Additional clarification is requested regarding the relationship, if any, that exists between the diagnosis and the procedure. History/Risk Factors: failed back surgery syndrome, 12-year history of pain pump use with revision placed in 2019, lumbar spinal fusion L4-S1 Patients Admitting Diagnosis: Infected pain pump site at the left gluteal area Post-Operative Diagnosis: Same Procedure performed: Ligation and cutting of pain pump tubing at the subcutaneous tissue of L3 through a separate incision. Irrigation and extensive excisional debridement and removal of pain pump at the left gluteal area. Clinical Indicators: [id number] male had failed back surgery syndrome and was involved in interventional pain management. He had infected pain pump site at the left gluteal area. He had urinary retention, and a Harry catheter was inserted. He admits to constipation and difficulty with bowels. He has not had a bowel movement since he has been in the hospital. 06/15 Urology consult: Impression urinary retention associated with pain pump infection of the pain pump and chronic back issues, perhaps aggravated by difficult bowel movements. Treatment: Flomax 0.4 MG PO PC BRKFST Senokot-S 1 PO BID Metamucil 6 GM PO BID What relationship, if any, exists between the diagnosis of postoperative urinary retention and the procedure: [ ] Postoperative urinary retention is not clinically significant and not a complication [X ] Postoperative urinary retention is clinically significant and not a complication of the surgery itself [ ] Other please specify ____ [ ] Unable to determine (Template Last Revised: February 2024) MTDD
[2024-06-15 20:49] LABS: Glucose,Whole Blood 103 mg/dL (70-110)
[2024-06-15] MEDS: SENNOSIDES-DOCUSATE SODIUM 1 EACH TAB PO SCH (21:58)
[2024-06-16 06:29] LABS: Glucose,Whole Blood 136 mg/dL (70-110)
--- NOTE | 2024-06-16 08:23 | P.PN ---
Subjective Progress Note Date: 06/15/24 Principal diagnosis: Reason for follow-up is pain pump site cellulitis abscess Patient is a 58-year-old male with a past medical history significant for Diabetes Mellitus, Fibromyalgia, GERD/Reflux, Hyperlipidemia, Seizure Disorder, Sleep Apnea/CPAP/BIPAP did have a pain pump to the lower back area previous admission to the hospital with cellulitis, now presenting back to the hospital with worsening pain swelling and redness concerning for pain pump site infection.Patient is status post removal of the pain pump procedure completed on 06/11/2024 On today's evaluation that is 06/15/2024, Patient is afebrile this morning patient denies having any chest pain shortness of breath or cough, the patient is currently on room air, patient denies any abdominal pain no diarrhea no nausea no vomiting pain to the lower back is currently controlled. Patient did have creatinine 1.64 Vanco trough is elevated Objective - Vital Signs Vital signs: Vital Signs Temp 98.4 F 06/15/24 07:16 Pulse 69 06/15/24 07:16 Resp 18 06/15/24 07:16 BP 93/55 06/15/24 07:16 Pulse Ox 96 06/15/24 08:43 FiO2 Intake & Output 06/14/24 06/15/24 06/15/24 18:59 06:59 18:59 Intake Total 220 Output Total 300 800 Balance -80 -800 Intake: Intake, IV Titration 100 Amount Sodium Chloride 0.9% 100 100 ml @ 0 mls/hr IV .STK-MED ONE with ceFAZolin 3,000 mg Rx#:[id number] Oral 120 Output: Urine 300 800 Straight 400 Uretheral (Harry) 300 Other: Voiding Method Indwelling Catheter Indwelling Catheter # Voids 1 - Exam GENERAL DESCRIPTION: An elderly male lying in bed in no distress RESPIRATORY SYSTEM: Unlabored breathing , decreased breath sounds at bases HEART: S1 S2 regular rate and rhythm , ABDOMEN: Soft , no tenderness Lower back pain pump extraction site is currently dressed - Labs CBC & Chem 7: 06/15/24 03:30 06/15/24 14:19 Labs: Abnormal Lab Results - Last 24 Hours (Table) 06/14/24 06/14/24 06/15/24 Range/Units 16:53 21:00 03:30 WBC 12.23 H (4.50-10.00) X 10*3/uL MPV 9.4 L (9.5-12.2) FL Lymphocytes # (Manual) 5.87 H (0.90-5.00) X 10*3/uL Eosinophils # (Manual) 0.73 H (0.04-0.35) X 10*3/uL Basophils # (Manual) 0.24 H (0.00-0.10) X 10*3/uL ESR 36 H (0-20) mm/Hr Anion Gap (4.00-12.00) mmol/L POC Glucose (mg/dL) 200 H 135 H (70-110) mg/dL C-Reactive Protein (0.00-0.80) mg/dL Albumin (3.8-4.9) g/dL Albumin/Globulin Ratio (1.60-3.17) Ratio 06/15/24 06/15/24 Range/Units 03:30 11:51 WBC (4.50-10.00) X 10*3/uL MPV (9.5-12.2) FL Lymphocytes # (Manual) (0.90-5.00) X 10*3/uL Eosinophils # (Manual) (0.04-0.35) X 10*3/uL Basophils # (Manual) (0.00-0.10) X 10*3/uL ESR (0-20) mm/Hr Anion Gap 13.30 H (4.00-12.00) mmol/L POC Glucose (mg/dL) 191 H (70-110) mg/dL C-Reactive Protein 2.60 H (0.00-0.80) mg/dL Albumin 3.5 L (3.8-4.9) g/dL Albumin/Globulin Ratio 1.09 L (1.60-3.17) Ratio Microbiology - Last 24 Hours (Table) 06/09/24 15:19 Blood Culture - Final Blood 06/11/24 18:15 Anaerobic Culture - Preliminary Back 06/11/24 18:16 Anaerobic Culture - Preliminary Back Assessment and Plan (1) Cellulitis of lower back Current Visit: Yes Status: Acute Code(s): L03.312 - CELLULITIS OF BACK [ANY PART EXCEPT BUTTOCK] SNOMED Code(s): 57457973 (2) Allergy to multiple antibiotics Current Visit: No Status: Acute Code(s): Z88.1 - ALLERGY STATUS TO OTHER ANTIBIOTIC AGENTS SNOMED Code(s): 076360346 Plan: 1patient presented to hospital with the pain swelling redness at the pain pump site and is also been complaining of fever at home in this patient who did have some fluctuation to the pinpoint site concerning for possible abscess likely from gram-positive skin wayne. 2patient with multiple antibiotic ALLERGIES that would limit the number of antibiotic safe to use. 3patient is status post removal of the infected pain pump and deep culture which are so far negative 4patient did have cephalexin allergy we will recommend PICC line and 4-week course of IV vancomycin on discharge Vanco trough elevated dosing to be adjusted by the pharmacy Dictation was produced using [employer] dictation software. please excuse any grammatical, word or spelling errors. Time with Patient: Less than 30
[2024-06-16] MEDS: TAMSULOSIN 0.4 MG CAP.ER.24H PO SCH (08:24)
[2024-06-16 11:30] LABS: Blood Urea Nitrogen 23.3 mg/dL (9.0-27.0); Calcium 8.9 mg/dL (8.7-10.3); Carbon Dioxide 22.6 mmol/L (21.6-31.8); Chloride 101 mmol/L (96-109); Glucose 132 mg/dL (70-110); Potassium 3.8 mmol/L (3.5-5.5); Sodium 139 mmol/L (135-145)
[2024-06-16 11:32] LABS: Glucose,Whole Blood 209 mg/dL (70-110)
--- NOTE | 2024-06-16 14:45 | P.PN ---
Subjective Progress Note Date: 06/16/24 HPI: The patient is a 58-year-old male with a history of type 2 diabetes, fibromyalgia, GERD, dyslipidemia, seizure disorder, and sleep apnea. He has a previous hospitalization for cellulitis and presented to the hospital with worsening pain, swelling, and redness at the site of a lower back pain pump inf ection. The pain pump was removed on 05/2024. On 06/12/2024, the patient was noted to be hypertensive and reported experiencing substantial chest heaviness, prompting a cardiology consultation. Pertinent Vitals: BP 182/74, heart rate 85 beats per minute, 91% on room air. Pertinent cardiac Labs: HB 15, WBC 14, sodium 136, potassium 3.6, BUN 5.7, creatinine 0.6, troponin 0.02, repeat 0.04, glucose 208. Cardiac home meds: Losartan 25 mg. Pertinent cardiac testing: - EK05/2024: Normal sinus rhythm, intermittent PAC, heart rate 84, normal QTC, normal axis. Progress note 06/14/2024 Patient seen and examined at bedside this a.m. He denies having any active chest pain chest pressure shortness of breath. He reports his pain is better controlled BP is better controlled today as BP 146/82 06/15 Patient seen and examined. Patient denies having any lightheadedness or dizziness. He states he has ambulated in his room only. He states his only concern is withdrawal issues and is followed by pain management. Blood pressure 93/55, heart rate 69, pulse ox 89 to 96% on room air. Repeat blood work reveals WBC 12.2, hemoglobin 15.7, creatinine 1.3. Blood pressures are running on the lower side and patient may need to have medications decreased. Echocardiogram is pending. 06/16 Patient seen and examined. Patient denies new concerns today. He ambulates to bathroom only with no lightheadedness or dizziness. Echocardiogram results reviewed with the patient. Echocardiogram reveals EF 55 to 60%, RVSP 20, mild aortic regurgitation, mild tricuspid regurgitation, no pericardial effusion. Blood pressure 108/65, heart rate 76. PHYSICAL EXAMINATION: Neck: Brisk carotid upstroke, no jugular venous distention. Lungs: Clear to auscultation. Heart: Regular rate and rhythm, S1-S2, no murmur or rub. Abdomen: Soft, nontender, positive bowel sounds. Extremities: No edema, intact distal pulses. Neuro: Alert, oriented, no focal deficits. Detailed neuro exam was not performed. Detailed musculoskeletal exam was not performed ASSESSMENT: # Cellulitis of left lower back with pain pump infection status post pain pump removal # Essential hypertension, poorly controlled, likely from pain # Type 2 diabetes # Dyslipidemia # obesity PLAN: Continue losartan at 50 mg daily and amlodipine 5 mg daily No further cardiac workup at this time Patient is cleared for discharge from cardiology perspective Cardiology will sign off this case and follow on an as-needed basis. Please reconsult for any new concerns. Nurse practitioner note has been reviewed, I agree with documented findings and plan of care. Patient was seen and examined. Objective - Vital Signs Vital signs: Vital Signs Temp 96.7 F L 06/16/24 06:41 Pulse 71 06/16/24 06:41 Resp 18 06/16/24 06:41 BP 137/68 06/16/24 06:41 Pulse Ox 93 L 06/16/24 06:41 FiO2 Intake & Output 06/15/24 06/16/24 06/16/24 18:59 06:59 18:59 Output Total 350 600 Balance -350 -600 Output: Urine 350 600 Straight 350 Other: Voiding Method Indwelling Catheter Indwelling Catheter # Voids 1 - Labs CBC & Chem 7: 06/15/24 03:30 06/16/24 05:36 Labs: Abnormal Lab Results - Last 24 Hours (Table) 06/15/24 06/15/24 06/15/24 Range/Units 14:19 14:19 16:49 Anion Gap (4.00-12.00) mmol/L Creatinine 1.64 H (0.66-1.25) mg/dL Est GFR (CKD-EPI) (>=60) BUN/Creatinine Ratio (12.00-20.00) Ratio Glucose (70-110) mg/dL POC Glucose (mg/dL) 239 H (70-110) mg/dL Vancomycin Trough 36.2 H* ug/mL 06/16/24 06/16/24 06/16/24 Range/Units 05:36 06:28 11:30 Anion Gap 15.40 H (4.00-12.00) mmol/L Creatinine 2.1 H (0.66-1.25) mg/dL Est GFR (CKD-EPI) 36 L (>=60) BUN/Creatinine Ratio 11.10 L (12.00-20.00) Ratio Glucose 132 H (70-110) mg/dL POC Glucose (mg/dL) 136 H 209 H (70-110) mg/dL Vancomycin Trough ug/mL Microbiology - Last 24 Hours (Table) 06/11/24 18:16 Anaerobic Culture - Final Back
--- NOTE | 2024-06-16 15:25 | P.PN ---
Subjective Progress Note Date: 06/16/24 Principal diagnosis: Reason for follow-up is pain pump site cellulitis abscess Patient is a 58-year-old male with a past medical history significant for Diabetes Mellitus, Fibromyalgia, GERD/Reflux, Hyperlipidemia, Seizure Disorder, Sleep Apnea/CPAP/BIPAP did have a pain pump to the lower back area previous admission to the hospital with cellulitis, now presenting back to the hospital with worsening pain swelling and redness concerning for pain pump site infection.Patient is status post removal of the pain pump procedure completed on 06/11/2024 On today's evaluation that is 06/16/2024,the patient continues to be afebrile patient is breathing comfortably on room air sitting up in the chair sleepy did not wake up or answer any question no vomiting or diarrhea has been reported. Patient did have a worsening of his creatinine which is up to 2.1 culture remains to be negative Objective - Vital Signs Vital signs: Vital Signs Temp 96.7 F L 06/16/24 06:41 Pulse 71 06/16/24 06:41 Resp 18 06/16/24 06:41 BP 137/68 06/16/24 06:41 Pulse Ox 93 L 06/16/24 06:41 FiO2 Intake & Output 06/15/24 06/16/24 06/16/24 18:59 06:59 18:59 Output Total 350 600 Balance -350 -600 Output: Urine 350 600 Straight 350 Other: Voiding Method Indwelling Catheter Indwelling Catheter # Voids 1 - Exam GENERAL DESCRIPTION: An elderly male lying in bed in no distress RESPIRATORY SYSTEM: Unlabored breathing , decreased breath sounds at bases HEART: S1 S2 regular rate and rhythm , ABDOMEN: Soft , no tenderness Lower back pain pump extraction site is currently dressed - Labs CBC & Chem 7: 06/15/24 03:30 06/16/24 05:36 Labs: Abnormal Lab Results - Last 24 Hours (Table) 06/15/24 06/15/24 06/15/24 Range/Units 14:19 14:19 16:49 Anion Gap (4.00-12.00) mmol/L Creatinine 1.64 H (0.66-1.25) mg/dL Est GFR (CKD-EPI) (>=60) BUN/Creatinine Ratio (12.00-20.00) Ratio Glucose (70-110) mg/dL POC Glucose (mg/dL) 239 H (70-110) mg/dL Vancomycin Trough 36.2 H* ug/mL 06/16/24 06/16/24 06/16/24 Range/Units 05:36 06:28 11:30 Anion Gap 15.40 H (4.00-12.00) mmol/L Creatinine 2.1 H (0.66-1.25) mg/dL Est GFR (CKD-EPI) 36 L (>=60) BUN/Creatinine Ratio 11.10 L (12.00-20.00) Ratio Glucose 132 H (70-110) mg/dL POC Glucose (mg/dL) 136 H 209 H (70-110) mg/dL Vancomycin Trough ug/mL Assessment and Plan (1) Cellulitis of lower back Current Visit: Yes Status: Acute Code(s): L03.312 - CELLULITIS OF BACK [ANY PART EXCEPT BUTTOCK] SNOMED Code(s): 23398690 (2) Allergy to multiple antibiotics Current Visit: No Status: Acute Code(s): Z88.1 - ALLERGY STATUS TO OTHER ANTIBIOTIC AGENTS SNOMED Code(s): 530685153 Plan: 1patient presented to hospital with the pain swelling redness at the pain pump site and is also been complaining of fever at home in this patient who did have some fluctuation to the pinpoint site concerning for possible abscess likely from gram-positive skin wayne. 2patient with multiple antibiotic ALLERGIES that would limit the number of antibiotic safe to use. 3patient is status post removal of the infected pain pump and deep culture which are so far negative 4patient did have cephalexin allergy and now with worsening of his creatinine likely related to vancomycin which has been discontinued 5patient will be started on daptomycin and will wait for the improvement in his kidney function before discharge discussed with admitting physician Dictation was produced using [employer] dictation software. please excuse any gr ammatical, word or spelling errors. Time with Patient: Less than 30
[2024-06-16 16:52] LABS: Glucose,Whole Blood 250 mg/dL (70-110)
--- NOTE | 2024-06-16 17:22 | P.PN ---
Progress Note - Text Progress Note Date: 06/16/24 This is a pleasant 58-year-old male with medical history significant for diabetes mellitus, fibromyalgia, acid reflux, hyperlipidemia, seizure disorder, sleep apnea. Patient also with history of narcolepsy and multiple orthopedic surgeries. Patient has had a pain pump implanted in his left lower back states that Dr. Varela did the surgery around 13 years ago. Patient was sent over to the hospital from his family doctor with concerns for redness and swelling at the pain pump implantation site with a area of induration towards the spine on the left lower back. There is tenderness to touch. Patient denies having any fever and chills. He does note that he has had numbness in his 5th and 4th digit on his right hand over the last week and states that he is having some difficulty with [id number] rotation of his neck. We will do an cervical x-ray to evaluate this. Dr. Jackson is his surgeon. Per medical records patient had his pain pump filled back in March [address] Varela there was evidence at that time per the note that the patient had redness on the skin area around the pump. Patient had soft tissue ultrasound of the left lower back showing a hypoechoic collection appears to fluid at the level of the pump site. Unsure whether this is normal for procedure or fluid from the pump itself versus other. Appears to be less likely of an abscess. White blood cell count is 7.50, BUN of 10 creatinine of 0.56. Blood glucose is significant elevated in the 200s lac tic acid of 3.0. Urinalysis is not suggestive of infection. Patient was admitted to the hospital for consult placed to infectious disease and anesthesia services for evaluation of the pain pump. He was started empirically on IV antibiotics in the form of vancomycin. Patient did receive a dose of levofloxacin while in the ER as well as a 1 L fluid bolus. 06/11/2024 Patient seen in follow-up sitting up in the chair at the medical floor. He was evaluated by anesthesia services and they are recommending for the pain pump to be removed. Dr. Jackson was consulted and is planning for surgical irrigation and debridement of left buttock with removal of pain pump. Lovenox will be discontinued. Patient continues on IV vancomycin with ID following closely. Blood cultures are negative so far. Hemoglobin A1c found to be 12.0. Patient is currently afebrile at this time. 06/12/2024 Patient seen and evaluated in follow-up this morning status post orthopedics intervention including debridement of the left buttock and removal of the pain pump. Patient is having significant amounts of pain today and pain management has been consulted making adjustments to medications although patient continues to report severe pain. Awaiting cultures with infectious disease following and patient is maintained on IV antibiotics and will continue. Patient does have significant fibromyalgia history with significant chronic pain. 06/13. Patient seen and examined. Was complaining of chest pain overnight, tropes were ordered once that was elevated. . Patient seen examined. States pain is better controlled with ROUTE CARRIER pump. Denies any chest pain. States he feels a lot better compared to yesterday June 15: Up in a chair. Eating better. Has not had a bowel movement. Will add Metamucil twice daily. On ROUTE CARRIER pump. Harry catheter was taken out. No urine output. Urology consulted. June 16: Sleepy. Pain controlled. Off ROUTE CARRIER pump. Eating well. Creatinine up to 2.1. Discussed with Dr. Zamarripa from [place]. Will switch vancomycin to daptomycin. Told patient avoid NSAIDs. Repeat lab Active Medications Acetaminophen (Acetaminophen Tab 325 Mg Tab) 650 mg PO Q6HR PRN PRN Reason: Mild Pain or Fever > 100.5 Last Admin: 06/14/24 03:27 Dose: 650 mg Amlodipine Besylate (Amlodipine 5 Mg Tab) 5 mg PO DAILY [facility] Last Admin: 06/16/24 08:23 Dose: 5 mg Carbamazepine (Carbamazepine 200 Mg Tab) 200 mg PO BID [facility] Last Admin: 06/16/24 08:24 Dose: 200 mg Cyclobenzaprine HCl (Cyclobenzaprine 5 Mg Tab) 5 mg PO TID [facility] Last Admin: 06/16/24 08:23 Dose: 5 mg Dextrose/Water (Dextrose 50% Syringe 50 Ml) 25 ml IVP PER PROTOCOL PRN; Protocol PRN Reason: Hypoglycemia Dextrose/Water (Dextrose 50% Syringe 50 Ml) 50 ml IVP PER PROTOCOL PRN; Protocol PRN Reason: Hypoglycemia Duloxetine HCl (Duloxetine Hcl 60 Mg Capsule.) 60 mg PO BID [facility] Last Admin: 06/16/24 08:23 Dose: 60 mg Enoxaparin Sodium (Enoxaparin 40 Mg/0.4 Ml Syringe) 40 mg SQ DAILY [facility] Last Admin: 06/16/24 08:23 Dose: 40 mg Fentanyl (Fentanyl 75mcg/Hr Patch) 1 patch TRANSDERM Q72H [facility]; Protocol Last Admin: 06/15/24 15:15 Dose: 1 patch Gabapentin (Gabapentin 400 Mg Cap) 800 mg PO BID [facility] Last Admin: 06/16/24 08:23 Dose: 800 mg Sodium Chloride (Saline 0.9%) 1,000 mls @ 50 mls/hr IV .Q20H [facility] Last Admin: 06/15/24 21:59 Dose: 50 mls/hr Daptomycin 550 mg/ Sodium (Chloride) 50 mls @ 100 mls/hr IVPB Q24H [facility]; Protocol Insulin Glargine (Insulin Glargine (Lantus) 100 Unit/Ml Syr) 90 unit SQ HS@2230 [facility] Last Admin: 06/15/24 21:58 Dose: 90 unit Insulin Human Lispro (Insulin Lispro (Humalog) 100 Unit/Ml 10 Ml Vl) 30 unit SQ W/SUPPER@1730 [facility] Last Admin: 06/15/24 16:54 Dose: 30 unit Insulin Human Lispro (Insulin Lispro (Humalog) 100 Unit/Ml 10 Ml Vl) 0 unit SQ ACHS [facility]; Protocol Last Admin: 06/16/24 12:11 Dose: 2 unit Levetiracetam (Levetiracetam 500 Mg Tab) 1,000 mg PO BID [facility] Last Admin: 06/16/24 08:23 Dose: 1,000 mg Linagliptin (Linagliptin 5 Mg Tablet) 5 mg PO DAILY [facility] Last Admin: 06/16/24 08:24 Dose: 5 mg Lorazepam (Lorazepam 0.5 Mg Tab) 0.5 mg PO TID PRN PRN Reason: Anxiety Last Admin: 06/12/24 19:35 Dose: 0.5 mg Losartan Potassium (Losartan 25 Mg Tab) 50 mg PO HS [facility] Last Admin: 06/15/24 21:58 Dose: 50 mg Meclizine HCl (Meclizine 12.5 Mg Tab) 12.5 mg PO TID PRN PRN Reason: vertigo Naloxone HCl (Naloxone 0.4 Mg/Ml 1 Ml Vial) 0.2 mg IV Q2M PRN PRN Reason: Opioid Reversal Nystatin (Nystatin 100,000 Unit/Gm Powd 15 Gm) 1 applic TOPICAL BID [facility]; Protocol Last Admin: 06/16/24 08:25 Dose: Not Given Ondansetron HCl (Ondansetron 4 Mg/2 Ml Vial) 4 mg IVP Q8HR PRN PRN Reason: Nausea And Vomiting Last Admin: 06/14/24 14:21 Dose: 4 mg Oxycodone/Acetaminophen (Oxycodone-Apap 10-325mg 1 Each Tab) 1 each PO TID PRN PRN Reason: pain Last Admin: 06/16/24 02:02 Dose: 1 each Psyllium Hydrophilic Mucilloid (Psyllium Husk 100% 6 Gm Packet) 6 gm PO BID [facility] Last Admin: 06/16/24 08:24 Dose: 6 gm Senna/Docusate Sodium (Sennosides-Docusate Sodium 1 Each Tab) 1 each PO BID [facility] Last Admin: 06/16/24 08:24 Dose: 1 each Tamsulosin HCl (Tamsulosin 0.4 Mg Cap.Er.24h) 0.4 mg PO PC-BRKFST [facility] Last Admin: 06/16/24 08:24 Dose: 0.4 mg On examination: VITAL SIGNS: 98.1, 76, 18, 108 x 65, 98% room GENERAL APPEARANCE: BMI 36.9, sitting up in the chair sleepy HEENT: Normal external appearance of nose and ear. Oral cavity normal EYES: Pupils equal. Conjunctiva normal. NECK: JVD not raised. Mass not palpable. RESPIRATORY: Respiratory effort normal. Lungs clear to auscultation. CARDIOVASCULAR: First and second sounds normal. No edema. ABDOMEN: Soft. Liver and spleen not palpable. No tenderness. No mass palpable. Dressing over left gluteal area PSYCHIATRY: Answering questions appropriately mood and affect normal. INVESTIGATIONS, reviewed in the clinical context: June 16: Potassium 3.8 creatinine 2.1 June 15: White count 12.2 hemoglobin 15.7 platelets 365 potassium 3.6 creatinine 1.3 Assessment and plan: -Acute cellulitis of the gluteal area site of pain pump, present on admission, awaiting cultures and is status post incision and drainage of that area as well as removal of the pain pump on 06/11/2024 IV vancomycin being switched over to daptomycin because of renal function ID following - Acute kidney injury likely ATN, possibly from vancomycin: New diagnosis Follow renal function. Discussed with ID antibiotic being changed IV fluids -Parasthesias of the right 4 and 5 digit likely a cervical radiculopathy -Chronic pain lumbar spine stenosis with failed lumbar surgery and continued pain ROUTE CARRIER pump Pain specialist/anesthesia following -Elevated troponin, most likely type II AL -Lactic acidosis, improved -Chronic seizure disorder Tegretol. Bradra. -Diabetes Mellitus type 2, chronically on insulin Follow Accu-Cheks -Fibromyalgia, chronic On pain medications -History of bariatric surgery -Sleep apnea -Narcolepsy -Restless leg syndrome - Full code
[2024-06-16] MEDS: SODIUM CHLORIDE 0.45% 1,000 ML IV SCH (20:02)
[2024-06-16 20:36] LABS: Glucose,Whole Blood 183 mg/dL (70-110)
[2024-06-17 04:33] LABS: African American GFR (CKD) 42 (>60 ml/min/1.73 sqM); Anion Gap 11 mmol/L; Blood Urea Nitrogen 26 mg/dL (9-20); Calcium 9.1 mg/dL (8.4-10.2); Carbon Dioxide 22 mmol/L (22-30); Chloride 101 mmol/L (98-107); Glucose 205 mg/dL (74-99); Non-African American GFR(CKD) 36 (>60 ml/min/1.73 sqM); Potassium 3.4 mmol/L (3.5-5.1); Sodium 134 mmol/L (137-145)
[2024-06-17 06:10] LABS: Glucose,Whole Blood 241 mg/dL (70-110)
--- NOTE | 2024-06-17 09:42 | P.PN ---
Progress Note - Text Progress Note Date: 06/17/24 Orthopedic spine: History of present illness: Patient is a pleasant 58-year-old male who is seen examined at the bedside for follow-up evaluation of his left buttock at placement of a pain pump. Patient is known to have an intrathecal pain pump implanted several years ago. He developed cellulitis a few months ago. He initially began on IV antibiotics and was later transitioned to oral antibiotics. Initially his condition had improved significantly over the past couple months. His pump was refilled last month and over the past few days the pump site has been red and indurated representing cellulitis and the patient has had a fever. He was admitted to [facility] for further evaluation due to the infection at the pump site. He has been following with Dr. Felix in infectious disease. He is currently on IV antibiotics with antibiotics. Vancomycin was discontinued after worsening kidney function. Dr. Reid previously contacted Dr. Tae Jackson today to discuss the patient in significant detail and t proceeded forward with irrigation and debridement with removal of pain pump in the operating room. Patient does admit to pain at his left buttock at the pain pump location site. On 06/11/2024 he underwent incision and debridement with removal of pain pump with ligation of pain pump tubing. He currently has dressing intact at his lumbar spine. Iodoform gauze has been removed. Jasmin remain intact. His dressings have been removed. No active drainage. His morphine withdrawals have been better controlled but he continues to have some difficulty with pain control. This is being managed by pain management. He has no neurovascular changes in his lower extremities. Today he states, though, he has had more difficulty with his pain control. Patient continues with antibiotics per infectious disease. Cultures were taken during surgical intervention to remove his pain pump. Gram stain wound culture taken during surgical intervention have shown no organism growth after 48 hours. Anaerobic culture is still preliminary. Antibiotics may be changed based on recommendations by infectious disease. He is having difficulty with urinary retention. He has been seen by urology. Harry catheter is currently intact. Patient has a history of multiple surgical interventions at his lumbar spine. He has followed with pain management at [facility]. He has ongoing chronic low back pain. He currently denies any lower extremity weakness or radiculopathy bilaterally. Patient states he does have RSD in his right lower extremity. Patient will continue be seen examined by medicine as well. Physical exam: Postoperative day #6 Patient is awake, alert, and oriented 3 Good chest excursion with deep inspiration and expiration Examination of lumbar spine reveals skin is intact with no abrasions, lacerations, or bruises; no erythema, purulence or signs of infection Evidence of large well-healed midline incision lumbar spine Surgical jasmin remain intact over the midline of the lumbar spine and left upper buttock without current active drainage Improved erythema with some bruising around the left upper buttock area Surgical dressings are removed and not reapplied Dorsiflexion, plantarflexion, and extensor hallucis longus positive sustained bilaterally Lower extremity strength 5/5 bilaterally Neurovascularly intact. Pertinent studies: Ultrasound of mass at the left low back/buttock area taken on 06/10/2024: Hypoechoic collection which appears to be fluid at the level of the pump site Assessment: Status post incision and debridement with removal of pain pump with tubal ligation of the pain pump performed on 06/11/2024 Morphine withdrawal currently better managed Pain pump infection Cellulitis of the left buttock area at the pain pump site Left buttock pain pump incision site pain Postoperative urinary retention Fever at presentation History of multiple surgical interventions at his lumbar spine History of seizure disorder Diabetes mellitus type 2 with hyperglycemia Fibromyalgia History of bariatric surgery Right lower extremity RSD Plan: 1. Patient is status post incision and debridement with removal of pain pump with tubal ligation of the pain pump. His postoperative pain is currently fairly well-controlled in regards to his surgical sites but he does have diffic ulty with pain control for his chronic pain following discontinuation of the pain pump. Jasmin remain intact. No active drainage currently. He currently does not need a dressing. They may do dressing changes as needed. We are not planning for any further surgical intervention currently in regards to his pain pump removal. Patient may ambulate to his tolerance. Patient is cleared for discharge from an orthopedic spine standpoint. Patient may follow-up with Titus Ramey PA-C or Dr. Tae Jackson at [facility] in 1 week following discharge. 2. Patient will continue with pain control per pain management. 3. Cultures were taken during surgical intervention. These results are pending. Patient will continue with antibiotics per infectious disease. These may be changed based upon culture results. 4. Will continue be seen and examined by urology. He continues to have difficulty with urinary retention. Harry catheter is intact. 5. Patient will be cleared for discharge from an orthopedic spine standpoint once cleared by other providers. Patient may follow-up with Titus Ramey PA-C or Dr. Tae Jackson at [facility] in 1 week following discharge. 6. Patient will continue be seen and examined by medicine
--- NOTE | 2024-06-17 10:05 | P.PN ---
Subjective Progress Note Date: 06/17/24 The patient is in the hospital for an infected pain pump. He had urine retention for which we are asked see the patient. The catheter is still in place. He did not have any problems prior to this. Objective - Vital Signs Vital signs: Vital Signs Temp 98.0 F 06/17/24 05:58 Pulse 63 06/17/24 05:58 Resp 18 06/17/24 05:58 BP 147/80 06/17/24 05:58 Pulse Ox 98 06/17/24 05:58 FiO2 Intake & Output 06/16/24 06/17/24 06/17/24 18:59 06:59 18:59 Output Total 1900 2750 Balance -1900 -2750 Output: Urine 1900 2750 Other: Voiding Method Indwelling Catheter Indwelling Catheter # Voids 1 # Bowel Movements 1 - Labs CBC & Chem 7: 06/15/24 03:30 06/17/24 04:06 Labs: Abnormal Lab Results - Last 24 Hours (Table) 06/16/24 06/16/24 06/16/24 Range/Units 05:36 11:30 16:49 Sodium (137-145) mmol/L Potassium (3.5-5.1) mmol/L Anion Gap 15.40 H (4.00-12.00) mmol/L BUN (9-20) mg/dL Creatinine 2.1 H (0.6-1.5) mg/dL Est GFR (CKD-EPI) 36 L (>=60) BUN/Creatinine Ratio 11.10 L (12.00-20.00) Ratio Glucose 132 H (70-110) mg/dL POC Glucose (mg/dL) 209 H 250 H (70-110) mg/dL 06/16/24 06/17/24 06/17/24 Range/Units 20:33 04:06 06:04 Sodium 134 L (137-145) mmol/L Potassium 3.4 L (3.5-5.1) mmol/L Anion Gap (4.00-12.00) mmol/L BUN 26 H (9-20) mg/dL Creatinine 1.99 H (0.6-1.5) mg/dL Est GFR (CKD-EPI) (>=60) BUN/Creatinine Ratio (12.00-20.00) Ratio Glucose 205 H (70-110) mg/dL POC Glucose (mg/dL) 183 H 241 H (70-110) mg/dL Microbiology - Last 24 Hours (Table) 06/11/24 18:16 Anaerobic Culture - Final Back Assessment and Plan Assessment: Impression: Urine retention probably situational. Recommendations: The patient has been started on Flomax. When the patient is ambulatory can have the catheter removed. If he voids he can go home without the catheter if he does not void he should go home with a catheter and then follow in our office.
[2024-06-17 10:21] LABS: Glucose,Whole Blood 208 mg/dL (70-110)
--- NOTE | 2024-06-17 15:40 | P.PN ---
Progress Note - Text Progress Note Date: 06/17/24 This is a pleasant 58-year-old male with medical history significant for diabetes mellitus, fibromyalgia, acid reflux, hyperlipidemia, seizure disorder, sleep apnea. Patient also with history of narcolepsy and multiple orthopedic surgeries. Patient has had a pain pump implanted in his left lower back states that Dr. Varela did the surgery around 13 years ago. Patient was sent over to the hospital from his family doctor with concerns for redness and swelling at the pain pump implantation site with a area of induration towards the spine on the left lower back. There is tenderness to touch. Patient denies having any fever and chills. He does note that he has had numbness in his 5th and 4th digit on his right hand over the last week and states that he is having some difficulty with emke-li-gawz rotation of his neck. We will do an cervical x-ray to evaluate this. Dr. Jackson is his surgeon. Per medical records patient had his pain pump filled back in [address] Varela there was evidence at that time per the note that the patient had redness on the skin area around the pump. Patient had soft tissue ultrasound of the left lower back showing a hypoechoic collection appears to fluid at the level of the pump site. Unsure whether this is normal for procedure or fluid from the pump itself versus other. Appears to be less likely of an abscess. White blood cell count is 7.50, BUN of 10 creatinine of 0.56. Blood glucose is significant elevated in the 200s lac tic acid of 3.0. Urinalysis is not suggestive of infection. Patient was admitted to the hospital for consult placed to infectious disease and anesthesia services for evaluation of the pain pump. He was started empirically on IV antibiotics in the form of vancomycin. Patient did receive a dose of levofloxacin while in the ER as well as a 1 L fluid bolus. 06/11/2024 Patient seen in follow-up sitting up in the chair at the medical floor. He was evaluated by anesthesia services and they are recommending for the pain pump to be removed. Dr. Jackson was consulted and is planning for surgical irrigation and debridement of left buttock with removal of pain pump. Lovenox will be discontinued. Patient continues on IV vancomycin with ID following closely. Blood cultures are negative so far. Hemoglobin A1c found to be 12.0. Patient is currently afebrile at this time. 06/12/2024 Patient seen and evaluated in follow-up this morning status post orthopedics intervention including debridement of the left buttock and removal of the pain pump. Patient is having significant amounts of pain today and pain management has been consulted making adjustments to medications although patient continues to report severe pain. Awaiting cultures with infectious disease following and patient is maintained on IV antibiotics and will continue. Patient does have significant fibromyalgia history with significant chronic pain. 06/13. Patient seen and examined. Was complaining of chest pain overnight, tropes were ordered once that was elevated. . Patient seen examined. States pain is better controlled with ENGINEERING [employer] LIAISON pump. Denies any chest pain. States he feels a lot better compared to yesterday June 15: Up in a chair. Eating better. Has not had a bowel movement. Will add Metamucil twice daily. On ENGINE[employer]ING [employer] LIAISON pump. Harry catheter was taken out. No urine output. Urology consulted. June 16: Sleepy. Pain controlled. Off ENGINEERING [employer] LIAISON pump. Eating well. Creatinine up to 2.1. Discussed with Dr. Zamarripa from [place]. Will switch vancomycin to daptomycin. Told patient avoid NSAIDs. Repeat lab June 17: Patient switched over to daptomycin yesterday. IV fluids were increased. Creatinine 1.9 today. Will watch for another to make sure it is coming down significantly. Pain controlled. Eating well. Active Medications Acetaminophen (Acetaminophen Tab 325 Mg Tab) 650 mg PO Q6HR PRN PRN Reason: Mild Pain or Fever > 100.5 Last Admin: 06/14/24 03:27 Dose: 650 mg Amlodipine Besylate (Amlodipine 5 Mg Tab) 5 mg PO DAILY [facility] Last Admin: 06/17/24 08:46 Dose: 5 mg Carbamazepine (Carbamazepine 200 Mg Tab) 200 mg PO BID [facility] Last Admin: 06/17/24 08:48 Dose: 200 mg Cyclobenzaprine HCl (Cyclobenzaprine 5 Mg Tab) 5 mg PO TID [facility] Last Admin: 06/17/24 15:08 Dose: 5 mg Dextrose/Water (Dextrose 50% Syringe 50 Ml) 25 ml IVP PER PROTOCOL PRN; Protocol PRN Reason: Hypoglycemia Dextrose/Water (Dextrose 50% Syringe 50 Ml) 50 ml IVP PER PROTOCOL PRN; Protocol PRN Reason: Hypoglycemia Duloxetine HCl (Duloxetine Hcl 60 Mg Makenzie.) 60 mg PO BID [facility] Last Admin: 06/17/24 08:47 Dose: 60 mg Enoxaparin Sodium (Enoxaparin 40 Mg/0.4 Ml Syringe) 40 mg SQ DAILY [facility] Last Admin: 06/17/24 08:48 Dose: 40 mg Fentanyl (Fentanyl 75mcg/Hr Patch) 1 patch TRANSDERM Q72H [facility]; Protocol Last Admin: 06/15/24 15:15 Dose: 1 patch Gabapentin (Gabapentin 400 Mg Cap) 800 mg PO BID [facility] Last Admin: 06/17/24 08:47 Dose: 800 mg Daptomycin 550 mg/ Sodium (Chloride) 50 mls @ 100 mls/hr IVPB Q24H [facility]; Protocol Last Admin: 06/17/24 09:01 Dose: 100 mls/hr Sodium Chloride (Saline 0.45%) 1,000 mls @ 130 mls/hr IV .Q7H42M [facility] Last Admin: 06/17/24 13:03 Dose: 130 mls/hr Insulin Glargine (Insulin Glargine (Lantus) 100 Unit/Ml Syr) 90 unit SQ HS@2230 [facility] Last Admin: 06/16/24 21:23 Dose: 90 unit Insulin Human Lispro (Insulin Lispro (Humalog) 100 Unit/Ml 10 Ml Vl) 30 unit SQ W/SUPPER@1730 [facility] Last Admin: 06/16/24 17:30 Dose: 30 unit Insulin Human Lispro (Insulin Lispro (Humalog) 100 Unit/Ml 10 Ml Vl) 0 unit SQ ACHS [facility]; Protocol Last Admin: 06/17/24 13:02 Dose: 2 unit Levetiracetam (Levetiracetam 500 Mg Tab) 1,000 mg PO BID [facility] Last Admin: 06/17/24 08:47 Dose: 1,000 mg Linagliptin (Linagliptin 5 Mg Tablet) 5 mg PO DAILY [facility] Last Admin: 06/17/24 08:47 Dose: 5 mg Lorazepam (Lorazepam 0.5 Mg Tab) 0.5 mg PO TID PRN PRN Reason: Anxiety Last Admin: 06/17/24 15:08 Dose: 0.5 mg Losartan Potassium (Losartan 25 Mg Tab) 50 mg PO HS [facility] Last Admin: 06/16/24 20:07 Dose: 50 mg Meclizine HCl (Meclizine 12.5 Mg Tab) 12.5 mg PO TID PRN PRN Reason: vertigo Naloxone HCl (Naloxone 0.4 Mg/Ml 1 Ml Vial) 0.2 mg IV Q2M PRN PRN Reason: Opioid Reversal Nystatin (Nystatin 100,000 Unit/Gm Powd 15 Gm) 1 applic TOPICAL BID [facility]; Protocol Last Admin: 06/17/24 08:49 Dose: 1 applic Ondansetron HCl (Ondansetron 4 Mg/2 Ml Vial) 4 mg IVP Q8HR PRN PRN Reason: Nausea And Vomiting Last Admin: 06/14/24 14:21 Dose: 4 mg Oxycodone/Acetaminophen (Oxycodone-Apap 10-325mg 1 Each Tab) 1 each PO TID PRN PRN Reason: pain Last Admin: 06/17/24 15:08 Dose: 1 each Psyllium Hydrophilic Mucilloid (Psyllium Husk 100% 6 Gm Packet) 6 gm PO BID [facility] Last Admin: 06/17/24 08:48 Dose: 6 gm Senna/Docusate Sodium (Sennosides-Docusate Sodium 1 Each Tab) 1 each PO BID [facility] Last Admin: 06/17/24 08:47 Dose: 1 each Tamsulosin HCl (Tamsulosin 0.4 Mg Cap.Er.24h) 0.4 mg PO PC-BRKFST [facility] Last Admin: 06/17/24 08:46 Dose: 0.4 mg On examination: VITAL SIGNS: 98.1, 77, 18, 151 x 89, 96% room air GENERAL APPEARANCE: BMI 36.9, sitting up in the chair comfortable HEENT: Normal external appearance of nose and ear. Oral cavity normal EYES: Pupils equal. Conjunctiva normal. NECK: JVD not raised. Mass not palpable. RESPIRATORY: Respiratory effort normal. Lungs clear to auscultation. CARDIOVASCULAR: First and second sounds normal. No edema. ABDOMEN: Soft. Liver and spleen not palpable. No tenderness. No mass palpable. Dressing over left gluteal area PSYCHIATRY: Answering questions appropriately mood and affect normal. INVESTIGATIONS, reviewed in the clinical context: June 17: Potassium 3.4 creatinine 1.99 June 16: Potassium 3.8 creatinine 2.1 June 15: White count 12.2 hemoglobin 15.7 platelets 365 potassium 3.6 creatinine 1.3 Assessment and plan: -Acute cellulitis of the gluteal area site of pain pump, present on admission, awaiting cultures and is status post incision and drainage of that area as well as removal of the pain pump on 06/11/2024 IV vancomycin being switched over to daptomycin because of renal function ID following - Acute kidney injury likely ATN, possibly from vancomycin: Not worsening Follow renal function. IV fluids continue -Parasthesias of the right 4 and 5 digit likely a cervical radiculopathy -Chronic pain lumbar spine stenosis with failed lumbar surgery and continued pain [employer] LIAISON pump Pain specialist/anesthesia following -Elevated troponin, most likely type II [place] -Lactic acidosis, improved -Chronic seizure disorder Tegretol. Keppra. -Diabetes Mellitus type 2, chronically on insulin Follow Accu-Cheks -Fibromyalgia, chronic On pain medications -History of bariatric surgery -Sleep apnea -Narcolepsy -Restless leg syndrome - Full code
[2024-06-17 16:39] LABS: Glucose,Whole Blood 207 mg/dL (70-110)
--- NOTE | 2024-06-17 17:25 | P.PN ---
Subjective Progress Note Date: 06/17/24 Principal diagnosis: Reason for follow-up is pain pump site cellulitis abscess Patient is a 58-year-old male with a past medical history significant for Diabetes Mellitus, Fibromyalgia, GERD/Reflux, Hyperlipidemia, Seizure Disorder, Sleep Apnea/CPAP/BIPAP did have a pain pump to the lower back area previous admission to the hospital with cellulitis, now presenting back to the hospital with worsening pain swelling and redness concerning for pain pump site infection.Patient is status post removal of the pain pump procedure completed on 06/11/2024 On today's evaluation that is 06/17/2024,the patient remains to be afebrile, patient is on room air not requiring supplemental oxygen and denies any shortness of breath no chest pain or cough.Patient denies having any nausea or vomiting, no abdominal pain and no diarrhea has been reported. The patient creatinine is down to 1.99 Objective - Vital Signs Vital signs: Vital Signs Temp 98.1 F 06/17/24 14:51 Pulse 77 06/17/24 14:51 Resp 18 06/17/24 14:51 BP 151/89 06/17/24 14:51 Pulse Ox 96 06/17/24 14:51 FiO2 Intake & Output 06/16/24 06/17/24 06/17/24 18:59 06:59 18:59 Output Total 1900 2750 Balance -1900 -2750 Output: Urine 1900 2750 Other: Voiding Method Indwelling Catheter Indwelling Catheter Indwelling Catheter # Voids 1 # Bowel Movements 1 - Exam GENERAL DESCRIPTION: An elderly male lying in bed in no distress RESPIRATORY SYSTEM: Unlabored breathing , decreased breath sounds at bases HEART: S1 S2 regular rate and rhythm , ABDOMEN: Soft , no tenderness Lower back pain pump extraction site is currently dressed - Labs CBC & Chem 7: 06/15/24 03:30 06/17/24 04:06 Labs: Abnormal Lab Results - Last 24 Hours (Table) 06/16/24 06/17/24 06/17/24 Range/Units 20:33 04:06 06:04 Sodium 134 L (137-145) mmol/L Potassium 3.4 L (3.5-5.1) mmol/L BUN 26 H (9-20) mg/dL Creatinine 1.99 H (0.66-1.25) mg/dL Glucose 205 H (74-99) mg/dL POC Glucose (mg/dL) 183 H 241 H (70-110) mg/dL 06/17/24 06/17/24 Range/Units 10:17 16:36 Sodium (137-145) mmol/L Potassium (3.5-5.1) mmol/L BUN (9-20) mg/dL Creatinine (0.66-1.25) mg/dL Glucose (74-99) mg/dL POC Glucose (mg/dL) 208 H 207 H (70-110) mg/dL Microbiology - Last 24 Hours (Table) 06/11/24 18:15 Anaerobic Culture - Final Back 06/11/24 18:16 Anaerobic Culture - Final Back Assessment and Plan (1) Cellulitis of lower back Current Visit: Yes Status: Acute Code(s): L03.312 - CELLULITIS OF BACK [ANY PART EXCEPT BUTTOCK] SNOMED Code(s): 38844812 (2) Allergy to multiple antibiotics Current Visit: No Status: Acute Code(s): Z88.1 - ALLERGY STATUS TO OTHER ANTIBIOTIC AGENTS SNOMED Code(s): 926469304 Plan: 1patient presented to hospital with the pain swelling redness at the pain pump site and is also been complaining of fever at home in this patient who did have some fluctuation to the pinpoint site concerning for possible abscess likely from gram-positive skin wayne. 2patient with multiple antibiotic ALLERGIES that would limit the number of antibiotic safe to use. 3patient is status post removal of the infected pain pump and deep culture which are so far negative 4patient did have cephalexin allergy and now with worsening of his creatinine likely related to vancomycin which has been discontinued 5patient did have improvement his creatinine down to 1.99 continue with the daptomycin that would be the antibiotic on discharge Dictation was produced using [employer] dictation software. please excuse any grammatical, word or spelling errors. Time with Patient: Less than 30
[2024-06-17 20:38] LABS: Glucose,Whole Blood 149 mg/dL (70-110)
[2024-06-18] MEDS: MECLIZINE 12.5 MG TAB PO PRN (01:57)
[2024-06-18] MEDS: cloNIDine HCL 0.1 MG TAB PO STA (03:24)
[2024-06-18 06:14] LABS: African American GFR (CKD) 43 (>60 ml/min/1.73 sqM); Anion Gap 9 mmol/L; Blood Urea Nitrogen 22 mg/dL (9-20); Calcium 9.5 mg/dL (8.4-10.2); Carbon Dioxide 24 mmol/L (22-30); Chloride 105 mmol/L (98-107); Glucose 132 mg/dL (74-99); Non-African American GFR(CKD) 37 (>60 ml/min/1.73 sqM); Potassium 3.8 mmol/L (3.5-5.1); Sodium 138 mmol/L (137-145)
[2024-06-18 06:29] LABS: Glucose,Whole Blood 135 mg/dL (70-110)
[2024-06-18 11:32] LABS: Glucose,Whole Blood 141 mg/dL (70-110)
[2024-06-18 17:18] LABS: Glucose,Whole Blood 182 mg/dL (70-110)
--- NOTE | 2024-06-18 20:53 | P.PN ---
Progress Note - Text Progress Note Date: 06/18/24 This is a pleasant 58-year-old male with medical history significant for diabetes mellitus, fibromyalgia, acid reflux, hyperlipidemia, seizure disorder, sleep apnea. Patient also with history of narcolepsy and multiple orthopedic surgeries. Patient has had a pain pump implanted in his left lower back states that Dr. Varela did the surgery around 13 years ago. Patient was sent over to the hospital from his family doctor with concerns for redness and swelling at the pain pump implantation site with a area of induration towards the spine on the left lower back. There is tenderness to touch. Patient denies having any fever and chills. He does note that he has had numbness in his 5th and 4th digit on his right hand over the last week and states that he is having some difficulty with vecz-ge-bsxy rotation of his neck. We will do an cervical x-ray to evaluate this. Dr. Jackson is his surgeon. Per medical records patient had his pain pump filled back in [address] Varela there was evidence at that time per the note that the patient had redness on the skin area around the pump. Patient had soft tissue ultrasound of the left lower back showing a hypoechoic collection appears to fluid at the level of the pump site. Unsure whether this is normal for procedure or fluid from the pump itself versus other. Appears to be less likely of an abscess. White blood cell count is 7.50, BUN of 10 creatinine of 0.56. Blood glucose is significant elevated in the 200s lac tic acid of 3.0. Urinalysis is not suggestive of infection. Patient was admitted to the hospital for consult placed to infectious disease and anesthesia services for evaluation of the pain pump. He was started empirically on IV antibiotics in the form of vancomycin. Patient did receive a dose of levofloxacin while in the ER as well as a 1 L fluid bolus. 06/11/2024 Patient seen in follow-up sitting up in the chair at the medical floor. He was evaluated by anesthesia services and they are recommending for the pain pump to be removed. Dr. Jackson was consulted and is planning for surgical irrigation and debridement of left buttock with removal of pain pump. Lovenox will be discontinued. Patient continues on IV vancomycin with ID following closely. Blood cultures are negative so far. Hemoglobin A1c found to be 12.0. Patient is currently afebrile at this time. 06/12/2024 Patient seen and evaluated in follow-up this morning status post orthopedics intervention including debridement of the left buttock and removal of the pain pump. Patient is having significant amounts of pain today and pain management has been consulted making adjustments to medications although patient continues to report severe pain. Awaiting cultures with infectious disease following and patient is maintained on IV antibiotics and will continue. Patient does have significant fibromyalgia history with significant chronic pain. 06/13. Patient seen and examined. Was complaining of chest pain overnight, tropes were ordered once that was elevated. . Patient seen examined. States pain is better controlled with [employer]IC [employer]MI[employer] TEACHER pump. Denies any chest pain. States he feels a lot better compared to yesterday June 15: Up in a chair. Eating better. Has not had a bowel movement. Will add Metamucil twice daily. On [employer]IC [employer]MI[employer] TEACHER pump. Harry catheter was taken out. No urine output. Urology consulted. June 16: Sleepy. Pain controlled. Off OR[employer]IC [employer]MI[employer] TEACHER pump. Eating well. Creatinine up to 2.1. Discussed with Dr. Zamarripa from [place]. Will switch vancomycin to daptomycin. Told patient avoid NSAIDs. Repeat lab June 17: Patient switched over to daptomycin yesterday. IV fluids were increased. Creatinine 1.9 today. Will watch for another to make sure it is coming down significantly. Pain controlled. Eating well. June 18: Patient is somewhat sleepy today. Had received Ativan earlier. Will change baclofen to as needed. Ativan is being discontinued. There is issue with authorization for Duragesic patch. His discharge is being held. Continue IV fluids. On examination: VITAL SIGNS: 98.1, 69, 17, 140 x 92, 95% room air GENERAL APPEARANCE: BMI 36.9, sitting up in the chair with sleep HEENT: Normal external appearance of nose and ear. Oral cavity normal EYES: Pupils equal. Conjunctiva normal. NECK: JVD not raised. Mass not palpable. RESPIRATORY: Respiratory effort normal. Lungs clear to auscultation. CARDIOVASCULAR: First and second sounds normal. No edema. ABDOMEN: Soft. Liver and spleen not palpable. No tenderness. No mass palpable. Dressing over left gluteal area PSYCHIATRY: Answering questions but sleepy INVESTIGATIONS, reviewed in the clinical context: June 17: Potassium 3.4 creatinine 1.99 June 16: Potassium 3.8 creatinine 2.1 June 15: White count 12.2 hemoglobin 15.7 platelets 365 potassium 3.6 creatinine 1.3 Assessment and plan: -Acute cellulitis of the gluteal area site of pain pump, present on admission, awaiting cultures and is status post incision and drainage of that area as well as removal of the pain pump on 06/11/2024 IV vancomycin being switched over to daptomycin because of renal function ID following - Acute kidney injury likely ATN, possibly from vancomycin: Follow renal function. 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 Keppra. -Diabetes Mellitus type 2, chronically on insulin Follow Accu-Cheks -Fibromyalgia, chronic On pain medications -History of bariatric surgery -Sleep apnea -Narcolepsy -Restless leg syndrome - Full code Change baclofen to as needed. Will KADIE Chisholm
--- NOTE | 2024-06-18 21:48 | P.PN ---
Subjective Progress Note Date: 06/18/24 Principal diagnosis: Reason for follow-up is pain pump site cellulitis abscess Patient is a 58-year-old male with a past medical history significant for Diabetes Mellitus, Fibromyalgia, GERD/Reflux, Hyperlipidemia, Seizure Disorder, Sleep Apnea/CPAP/BIPAP did have a pain pump to the lower back area previous admission to the hospital with cellulitis, now presenting back to the hospital with worsening pain swelling and redness concerning for pain pump site infection.Patient is status post removal of the pain pump procedure completed on 06/11/2024 On today's evaluation that is 06/18/2024, the patient continues to be afebrile, the patient is on room air and breathing comfortably, the Pt has been complaining of more withdrawal symptoms seem to be slightly restless agitated no vomiting or worsening pain to the lower back. Patient creatinine is down to 1.93 Objective - Vital Signs Vital signs: Vital Signs Temp 98.1 F 06/18/24 07:11 Pulse 69 06/18/24 07:11 Resp 17 06/18/24 07:11 BP 140/92 06/18/24 07:11 Pulse Ox 95 06/18/24 07:11 FiO2 Intake & Output 06/17/24 06/18/24 06/18/24 18:59 06:59 18:59 Intake Total 1610 780 Output Total 3100 1650 1999 Balance -8993 -870 Intake: Intake, IV Titration 1610 Amount DAPTOmycin 550 mg In 50 Sodium Chloride 0.9% 50 ml @ 100 mls/hr IVPB Q24H [facility] Rx#:[id number] Sodium Chloride 0.45% 1, 1560 000 ml @ 130 mls/hr IV . Q7H42M [facility] Rx#:[id number] Oral 780 Output: Urine 3100 1650 1999 Other: Voiding Method Indwelling Catheter Indwelling Catheter Indwelling Catheter # Voids 1 # Bowel Movements 0 - Exam GENERAL DESCRIPTION: An elderly male lying in bed in no distress RESPIRATORY SYSTEM: Unlabored breathing , decreased breath sounds at bases HEART: S1 S2 regular rate and rhythm , ABDOMEN: Soft , no tenderness Lower back pain pump extraction site is currently dressed - Labs CBC & Chem 7: 06/15/24 03:30 06/18/24 05:18 Labs: Abnormal Lab Results - Last 24 Hours (Table) 04/06/17/24 06/18/24 Range/Units 16:36 20:35 05:18 BUN 22 H (9-20) mg/dL Creatinine 1.93 H (0.66-1.25) mg/dL Glucose 132 H (74-99) mg/dL POC Glucose (mg/dL) 207 H 149 H (70-110) mg/dL 06/18/24 06/18/24 Range/Units 06:27 11:31 BUN (9-20) mg/dL Creatinine (0.66-1.25) mg/dL Glucose (74-99) mg/dL POC Glucose (mg/dL) 135 H 141 H (70-110) mg/dL Microbiology - Last 24 Hours (Table) 06/11/24 18:15 Anaerobic Culture - Final Back Assessment and Plan (1) Cellulitis of lower back Current Visit: Yes Status: Acute Code(s): L03.312 - CELLULITIS OF BACK [ANY PART EXCEPT BUTTOCK] SNOMED Code(s): 66914841 (2) Allergy to multiple antibiotics Current Visit: No Status: Acute Code(s): Z88.1 - ALLERGY STATUS TO OTHER ANTIBIOTIC AGENTS SNOMED Code(s): 864459459 Plan: 1patient presented to hospital with the pain swelling redness at the pain pump site and is also been complaining of fever at home in this patient who did have some fluctuation to the pinpoint site concerning for possible abscess likely from gram-positive skin wayne. 2patient with multiple antibiotic ALLERGIES that would limit the number of antibiotic safe to use. 3patient is status post removal of the infected pain pump and deep culture which are so far negative 4patient did have cephalexin allergy and patient also have worsening of his creatinine likely related to vancomycin which has been discontinued 5patient currently being treated with the daptomycin and did have improvement in his creatinine Dictation was produced using [employer] dictation software. please excuse any grammatical, word or spelling errors. Time with Patient: Less than 30
[2024-06-18 22:05] LABS: Glucose,Whole Blood 98 mg/dL (70-110)
[2024-06-18] MEDS: CYCLOBENZAPRINE 5 MG TAB PO PRN (22:16)
[2024-06-19 04:02] LABS: African American GFR (CKD) 42 (>60 ml/min/1.73 sqM); Anion Gap 10 mmol/L; Blood Urea Nitrogen 22 mg/dL (9-20); Calcium 9.9 mg/dL (8.4-10.2); Carbon Dioxide 29 mmol/L (22-30); Chloride 100 mmol/L (98-107); Glucose 177 mg/dL (74-99); Non-African American GFR(CKD) 36 (>60 ml/min/1.73 sqM); Potassium 4.2 mmol/L (3.5-5.1); Sodium 139 mmol/L (137-145)
[2024-06-19 06:03] LABS: Glucose,Whole Blood 137 mg/dL (70-110)
--- NOTE | 2024-06-19 10:39 | P.PN ---
Subjective Progress Note Date: 06/19/24 Principal diagnosis: Reason for follow-up is pain pump site cellulitis abscess Patient is a 58-year-old male with a past medical history significant for Diabetes Mellitus, Fibromyalgia, GERD/Reflux, Hyperlipidemia, Seizure Disorder, Sleep Apnea/CPAP/BIPAP did have a pain pump to the lower back area previous admission to the hospital with cellulitis, now presenting back to the hospital with worsening pain swelling and redness concerning for pain pump site infection.Patient is status post removal of the pain pump procedure completed on 06/11/2024 On today's evaluation that is 06/19/2024, Patient is afebrile patient is currently on room air and denies having any shortness of breath, the patient denies any chest pain or cough, the patient denies any nausea vomiting did not have any abdominal pain and no diarrhea still complaining of some lower back pain but no worsening. Patient creatinine is 1.98 culture remains to be negative Objective - Vital Signs Vital signs: Vital Signs Temp 97.6 F 06/19/24 07:03 Pulse 64 06/19/24 07:03 Resp 17 06/19/24 07:03 BP 132/82 06/19/24 07:03 Pulse Ox 96 06/19/24 07:03 FiO2 Intake & Output 06/18/24 06/19/24 06/19/24 18:59 06:59 18:59 Intake Total 980 Output Total 3600 1800 Balance -3600 -820 Intake: Oral 980 Output: Urine 3600 1800 Other: Voiding Method Indwelling Catheter Indwelling Catheter Indwelling Catheter - Exam GENERAL DESCRIPTION: An elderly male lying in bed in no distress RESPIRATORY SYSTEM: Unlabored breathing , decreased breath sounds at bases HEART: S1 S2 regular rate and rhythm , ABDOMEN: Soft , no tenderness Lower back pain pump extraction site is currently dressed - Labs CBC & Chem 7: 06/15/24 03:30 06/19/24 02:58 Labs: Abnormal Lab Results - Last 24 Hours (Table) 06/18/24 06/18/24 06/19/24 Range/Units 11:31 17:17 02:58 BUN 22 H (9-20) mg/dL Creatinine 1.98 H (0.66-1.25) mg/dL Glucose 177 H (74-99) mg/dL POC Glucose (mg/dL) 141 H 182 H (70-110) mg/dL 06/19/24 Range/Units 06:02 BUN (9-20) mg/dL Creatinine (0.66-1.25) mg/dL Glucose (74-99) mg/dL POC Glucose (mg/dL) 137 H (70-110) mg/dL Assessment and Plan (1) Cellulitis of lower back Current Visit: Yes Status: Acute Code(s): L03.312 - CELLULITIS OF BACK [ANY PART EXCEPT BUTTOCK] SNOMED Code(s): 37466470 (2) Allergy to multiple antibiotics Current Visit: No Status: Acute Code(s): Z88.1 - ALLERGY STATUS TO OTHER ANTIBIOTIC AGENTS SNOMED Code(s): 502278268 Plan: 1patient presented to hospital with the pain swelling redness at the pain pump site and is also been complaining of fever at home in this patient who did have some fluctuation to the pinpoint site concerning for possible abscess likely from gram-positive skin wayne. 2patient with multiple antibiotic ALLERGIES that would limit the number of antibiotic safe to use. 3patient is status post removal of the infected pain pump and deep culture which are so far negative 4patient did have cephalexin allergy and patient also have worsening of his creatinine likely related to vancomycin which has been discontinued 5patient creatinine slightly improved he is currently being treated with the daptomycin that he will continue for a 4-week on discharge prescription was provided to the catalytic case operator Dictation was produced using [employer] software. please excuse any grammatical, word or spelling errors.
[2024-06-19 12:00] LABS: Glucose,Whole Blood 252 mg/dL (70-110)
[2024-06-19 14:31] VITALS: BP 160/90; PULSE 71; RESP 18; TEMP 98.1
--- NOTE | 2024-06-19 17:17 | P.DS ---
Providers Date of admission: 06/09/24 15:22 Expected date of discharge: 06/19/24 Attending physician: Lukas Westfall Consults: 06/09/24 16:20 Consult Physician Routine Consulting Provider: Austin Varela Consult Reason/Comments: Known patient, swelling & pain around pump site Do you want consulting provider notified?: Yes 06/09/24 16:21 Consult Physician Routine Consulting Provider: Alise Felix Consult Reason/Comments: Cellulitis around pain pump Do you want consulting provider notified?: Yes 06/11/24 07:56 Consult Physician Urgent Consulting Provider: Ligia Jackson Consult Reason/Comments: infected intrathecal pain pump site Do you want consulting provider notified?: Yes 06/12/24 21:35 Consult Physician Urgent Consulting Provider: Tobi Lewis Consult Reason/Comments: chest pain, htn Do you want consulting provider notified?: Yes 06/15/24 11:35 Consult Physician Routine Consulting Provider: Arun Benson Consult Reason/Comments: urinary retention Do you want consulting provider notified?: Yes Primary care physician: James Figueroa [facility] Course: This is a pleasant 58-year-old male with medical history significant for diabetes mellitus, fibromyalgia, acid reflux, hyperlipidemia, seizure disorder, sleep apnea. Patient also with history of narcolepsy and multiple orthopedic surgeries. Patient has had a pain pump implanted in his left lower back states that Dr. Varela did the surgery around 13 years ago. Patient was sent over to the hospital from his family doctor with concerns for redness and swelling at the pain pump implantation site with a area of induration towards the spine on the left lower back. There is tenderness to touch. Patient denies having any fever and chills. He does note that he has had numbness in his 5th and 4th digit on his right hand over the last week and states that he is having some difficulty with [id number] rotation of his neck. We will do an cervical x-ray to evaluate this. Dr. Jackson is his surgeon. Per medical records patient had his pain pump filled back in March [address] Varela there was evidence at that time per the note that the patient had redness on the skin area around the pump. Patient had soft tissue ultrasound of the left lower back showing a hypoechoic collection appears to fluid at the level of the pump site. Unsure whether this is normal for procedure or fluid from the pump itself versus other. Appears to be less likely of an abscess. White blood cell count is 7.50, BUN of 10 creatinine of 0.56. Blood glucose is significant elevated in the 200s lactic acid of 3.0. Urinalysis is not suggestive of infection. Patient was admitted to the hospital for consult placed to infectious disease and anesthesia services for evaluation of the pain pump. He was started empirically on IV antibiotics in the form of vancomycin. Patient did receive a dose of levofloxacin while in the ER as well as a 1 L fluid bolus. 06/11/2024 Patient seen in follow-up sitting up in the chair at the medical floor. He was evaluated by anesthesia services and they are recommending for the pain pump to be removed. Dr. Jackson was consulted and is planning for surgical irrigation and debridement of left buttock with removal of pain pump. Lovenox will be discontinued. Patient continues on IV vancomycin with ID following closely. Blood cultures are negative so far. Hemoglobin A1c found to be 12.0. Patient is currently afebrile at this time. 06/12/2024 Patient seen and evaluated in follow-up this morning status post orthopedics intervention including debridement of the left buttock and removal of the pain pump. Patient is having significant amounts of pain today and pain management has been consulted making adjustments to medications although patient continues to report severe pain. Awaiting cultures with infectious disease following and patient is maintained on IV antibiotics and will continue. Patient does have significant fibromyalgia history with significant chronic pain. 06/13. Patient seen and examined. Was complaining of chest pain overnight, tropes were ordered once that was elevated. . Patient seen examined. 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 Denies any chest pain. States he feels a lot better compared to yesterday June 15: Up in a chair. Eating better. Has not had a bowel movement. Will add Metamucil twice daily. On [employer] pump. Harry catheter was taken out. No urine output. Urology consulted. June 16: Sleepy. Pain controlled. Off [employer] pump. Eating well. Creatinine up to 2.1. Discussed with Dr. Zamarripa from ID. Will switch vancomycin to daptomycin. Told patient avoid NSAIDs. Repeat lab June 17: Patient switched over to daptomycin yesterday. IV fluids were increased. Creatinine 1.9 today. Will watch for another to make sure it is coming down significantly. Pain controlled. Eating well. June 18: Patient is somewhat sleepy today. Had received Ativan earlier. Will change baclofen to as needed. Ativan is being discontinued. There is issue with authorization for Duragesic patch. His discharge is being held. Continue IV fluids. June 19: Creatinine has plateaued off. Follow-up with nephrology outpatient. Both Ativan and baclofen to be used as needed. No NSAIDs. Harry catheter in place. Will follow-up with pain services, urology, surgical team outpatient. On examination: VITAL SIGNS: 98.1, 71, 18, 160/90, 95% room air GENERAL APPEARANCE: BMI 36.9, sitting up in the chair, sleepy but easily arousable HEENT: Normal external appearance of nose and ear. Oral cavity normal EYES: Pupils equal. Conjunctiva normal. NECK: JVD not raised. Mass not palpable. RESPIRATORY: Respiratory effort normal. Lungs clear to auscultation. CARDIOVASCULAR: First and second sounds normal. No edema. ABDOMEN: Soft. Liver and spleen not palpable. No tenderness. No mass palpable. Dressing over left gluteal area PSYCHIATRY: Answering questions appropriately INVESTIGATIONS, reviewed in the clinical context: June 19: BUN 22 creatinine 1.98 June 17: Potassium 3.4 creatinine 1.99 June 16: Potassium 3.8 creatinine 2.1 June 15: White count 12.2 hemoglobin 15.7 platelets 365 potassium 3.6 creatinine 1.3 Assessment and plan: -Acute cellulitis of the gluteal area site of pain pump, present on admission, awaiting cultures and is status post incision and drainage of that area as well as removal of the pain pump on 06/11/2024 IV vancomycin being switched over to daptomycin because of renal function ID following. Patient been discharged on IV daptomycin at least for 4 weeks - Acute kidney injury likely ATN, possibly from vancomycin: Follow renal function. Received IV fluids. Follow-up with Dr. Abebe outpatient -Parasthesias of the right 4 and 5 digit likely a cervical radiculopathy -Chronic pain lumbar spine stenosis with failed lumbar surgery and continued pain [employer]PER[employer] pump-discontinued Pain specialist/anesthesia following -Elevated troponin, most likely type II CO -Lactic acidosis, improved -Chronic seizure disorder Tegretol. Keppra. -Diabetes Mellitus type 2, chronically on insulin Follow Accu-Cheks -Fibromyalgia, chronic On pain medications -History of bariatric surgery -Sleep apnea -Narcolepsy -Restless leg syndrome - Full code Disposition: Home Plan - Discharge Summary Discharge Rx Participant: Yes New Discharge Prescriptions: New Losartan [Cozaar] 50 mg PO HS #30 tab Tamsulosin [Flomax] 0.4 mg PO PC-BRKFST #30 cap Ibuprofen [Motrin] 800 mg PO TID PRN #0 tab PRN Reason: Pain Scale 4 To 6 fentaNYL 75MCG/HR PATCH [Duragesic 75MCG/HR] 75 mcg TRANSDERM Q72H 3 Days #10 patch Psyllium Husk 100% [Metamucil Packet] 6 gm PO BID #60 packet amLODIPine [Norvasc] 5 mg PO DAILY #30 tab Continue carBAMazepine [TEGretol] 200 mg PO BID levETIRAcetam [Keppra] 1,000 mg PO BID DULoxetine HCL [Cymbalta] 60 mg PO BID Linagliptin [Tradjenta] 5 mg PO DAILY Testosterone [Androgel 1.62%] 1 pump TRANSDERM DAILY Insulin Glargine,Hum.rec.anlog [Lantus Solostar Pen] 90 units SQ HS@2230 Insulin Lispro [humaLOG Kwikpen] 30 unit SQ W/SUPPER@1730 Chlorhexidine Gluconate [Peridex] 15 ml PO BID Nystatin 100,000 Unit/gm Powd [Mycostatin Powder] 1 applic TOPICAL BID Cyclobenzaprine [Flexeril] 5 mg PO TID PRN #0 PRN Reason: Spasms Gabapentin [Neurontin] 800 mg PO BID 30 Days #60 tab Changed LORazepam 0.5 mg PO TID PRN #0 PRN Reason: Anxiety oxyCODONE-APAP 10-325MG [Percocet 10-325 mg] 1 tab PO TID PRN #0 PRN Reason: Pain Discontinued Meclizine [Antivert] 12.5 mg PO TID Losartan [Cozaar] 25 mg PO HS Ibuprofen 800 mg PO TID Patient Own Pump 0 bag Discharge Medication List carBAMazepine [TEGretol] 200 mg PO BID 09/15/19 [History] levETIRAcetam [Keppra] 1,000 mg PO BID 11/24/21 [History] DULoxetine HCL [Cymbalta] 60 mg PO BID 10/26/22 [History] Insulin Glargine,Hum.rec.anlog [Lantus Solostar Pen] 90 units SQ HS@2230 12/26/23 [History] Insulin Lispro [humaLOG Kwikpen] 30 unit SQ W/SUPPER@1730 12/26/23 [History] Linagliptin [Tradjenta] 5 mg PO DAILY 12/26/23 [History] Testosterone [Androgel 1.62%] 1 pump TRANSDERM DAILY 12/26/23 [History] Chlorhexidine Gluconate [Peridex] 15 ml PO BID 06/09/24 [History] Nystatin 100,000 Unit/gm Powd [Mycostatin Powder] 1 applic TOPICAL BID 06/09/24 [History] Gabapentin [Neurontin] 800 mg PO BID 30 Days #60 tab 06/12/24 [Rx] Ibuprofen [Motrin] 800 mg PO TID PRN #0 tab 06/12/24 [Rx] fentaNYL 75MCG/HR PATCH [Duragesic 75MCG/HR] 75 mcg TRANSDERM Q72H 3 Days #10 patch 06/16/24 [Rx] Cyclobenzaprine [Flexeril] 5 mg PO TID PRN #0 06/18/24 [Rx] LORazepam 0.5 mg PO TID PRN #0 06/18/24 [Rx] Losartan [Cozaar] 50 mg PO HS #30 tab 06/18/24 [Rx] Psyllium Husk 100% [Metamucil Packet] 6 gm PO BID #60 packet 06/18/24 [Rx] Tamsulosin [Flomax] 0.4 mg PO PC-BRKFST #30 cap 06/18/24 [Rx] amLODIPine [Norvasc] 5 mg PO DAILY #30 tab 06/18/24 [Rx] oxyCODONE-APAP 10-325MG [Percocet 10-325 mg] 1 tab PO TID PRN #0 06/18/24 [Rx] Follow up Appointment(s)/Referral(s): Raegan Abebe MD [STAFF PHYSICIAN] - 1 Week Titus Ramey PAC [PHYSICIAN TERRAZZO TILE MAKER] - 06/26/24 1:30 pm (Patient may follow-up with Titus Ramey PA-C or Dr. Tae Jackson at [facility] in 1 week following discharge. ) James Figueroa MD [Primary Care Provider] - 06/22/24 1:00 pm (in [place]) [facility] [NON-STAFF] - 06/23/24 11:30 am (Please call pain clinic once discharged for a follow up appt 5-7 days post being discharged from the hospital.come to the third floor ) [facility], [REFERRING] - As Needed ([facility] will deliver IV antibiotic supplies to your house tonight between 6-8pm. ) [facility] [NON-STAFF] - As Needed ([facility] will call you to schedule your in home visits. Your first visit will be tomorrow. ) Alise Felix MD [STAFF PHYSICIAN] - 07/01/24 3:15 pm Jas Maharaj MD [STAFF PHYSICIAN] - 1 Week (office will call with appointment time) Ambulatory/Diagnostic Orders: Basic Metabolic Panel [LAB.AMB] Location: None Selected C Reactive Protein [LAB.AMB] Location: None Selected Complete Blood Count w/diff [LAB.AMB] Location: None Selected Erythrocyte Sedimentation Rate [LAB.AMB] Location: None Selected Patient Instructions/Handouts: Harry Catheter Placement and Care (DC) Activity/Diet/Wound Care/Special Instructions: 1. Dressing changes over the lumbar incision site and left buttock pain pump removal site as needed 2. Keep jasmin at the surgical sites intact; will be removed in the outpatient setting Discharge Disposition: HOME WITH HOME HEALTH SERVICES
== END 2024-06-19 16:02 | disposition home health service (06) | DRG 40 ==
LOC: EC 14:04 → 5NMEDONC 15:22 → 4SSUR 19:17
PROVIDERS: ADMIT Hospitalist; ATTEND Hospitalist
PROC: 0JPT0VZ Removal of Infusion Pump from Trunk Subcutaneous Tissue and Fascia, Open Approach (ICD-10-PCS; principal; 2024-06-11 08:50)
PROC: 0JB90ZZ Excision of Buttock Subcutaneous Tissue and Fascia, Open Approach (ICD-10-PCS; principal; 2024-06-11 08:50)
DX: T85.738A Infection and inflammatory reaction due to other nervous system device, implant or graft, initial encounter (principal); I21.A1 Myocardial infarction type 2; N17.0 Acute kidney failure with tubular necrosis; E87.20 Acidosis, unspecified; G90.521 Complex regional pain syndrome I of right lower limb; L03.317 Cellulitis of buttock; E11.65 Type 2 diabetes mellitus with hyperglycemia; F11.23 Opioid dependence with withdrawal; E66.01 Morbid (severe) obesity due to excess calories; G40.A09 Absence epileptic syndrome, not intractable, without status epilepticus; I10 Essential (primary) hypertension; G25.81 Restless legs syndrome; G47.419 Narcolepsy without cataplexy; L03.312 Cellulitis of back [any part except buttock and flank]; Z79.4 Long term (current) use of insulin; Y83.1 Surgical operation with implant of artificial internal device as the cause of abnormal reaction of the patient, or of later complication, without mention of misadventure at the time of the procedure; E78.5 Hyperlipidemia, unspecified; R33.9 Retention of urine, unspecified; G47.30 Sleep apnea, unspecified; K21.9 Gastro-esophageal reflux disease without esophagitis; K59.00 Constipation, unspecified; M48.061 Spinal stenosis, lumbar region without neurogenic claudication; M54.12 Radiculopathy, cervical region; M79.7 Fibromyalgia; R04.0 Epistaxis; Z79.84 Long term (current) use of oral hypoglycemic drugs; Z79.899 Other long term (current) drug therapy; Z88.1 Allergy status to other antibiotic agents; Z96.89 Presence of other specified functional implants; Z98.1 Arthrodesis status; Z98.84 Bariatric surgery status; Z86.14 Personal history of Methicillin resistant Staphylococcus aureus infection; Z88.0 Allergy status to penicillin; Z88.8 Allergy status to other drugs, medicaments and biological substances
CPT/HCPCS: 36415; 36573; 71045; 72050; 80048; 80053; 80202; 81001; 82565; 83036; 83605; 83690; 83735; 84145; 84484; 85025; 85610; 85652; 86140; 87040; 87070; 87075; 87205; 88304; 93306; 94760; 96361; 96365; 96366; 96367; 99285

== ENCOUNTER → 2024-06-23 | Outpatient (CLI) | payer MEDICARE, OTHER ==
[2024-06-23 12:06] VITALS: BP 161/108; PULSE 89; RESP 18; TEMP 96.8
--- NOTE | 2024-06-23 12:21 | P.PN ---
Subjective Progress Note Date: 06/23/24 This is 58 years old male , history of chronic pain syndrome, back surgery syndrome, had endolitis at the creation of the intrathecal pain pump and it has to be removed which was done more week ago, the patient currently on fentanyl patch 75 mcg/h and also he is on Neurontin 800 mg twice a day and Percocet 10/325 3 times daily PRN, patient reported the current regimen controlling his pain appropriately he denies any side effect of the medication he denies any excessive drowsiness or sleepiness, and he reported he has no fever, Objective - Vital Signs Vital signs: Vital Signs Temp 96.8 F L 06/23/24 12:01 Pulse 89 06/23/24 12:01 Resp 18 06/23/24 12:01 BP 161/108 06/23/24 12:01 Pulse Ox 72 L 06/23/24 12:01 FiO2 Intake & Output 06/22/24 06/23/24 06/23/24 18:59 06:59 18:59 Weight 113.398 kg - Exam Physical Examinations : -Constitutiona : Cooperative , not in acute distress . -HEENT : nech : supple , no Lymphadenopathy , normal thyroid size . : eyes : no ptosis , no icterus, no photophobia . - neurologic : Cranial nerve II to XII intact , no focal neurological deffecit . -psychatric : alert , oriented X 3 , appropriate affect , intact judgment and insight . -Lymphatic : no Lymphadenopathy . - musculoskeltal : Cervical Spine motor stregnth in the deltoid and biceps, normal right side , normal Left side motor stregnth biceps and the wrist extensors normal right side ,normal left side . motor stregnth in the triceps muscle . normal Right side , normal Left side deep tendon reflexes normal at the biceps , normal at Brachioradialis , normal at triceps. cervical facet loading test: Positive Bilaterally Spurling test= positive Right , positive left. Neck distraction test= positive Right , positive left. Adri sign= positive right, positive left . Lumber spine moter stegnth lower extremities ,thigh and legs 5/5 Right side , 5/5 Left side Left buttock area at the location of the surgical site look good no discharge , no swelling, minimal erythema(improved from previously) Assessment and Plan Plan: Assessment and plan= Failed back surgery syndrome lumbar area. Infected intrathecal pain pump site status post explantation of intrathecal pain pump which was done more than a week ago chronic and current use of high-risk medication (opioids) Patient denies any side effects of the current pain medication and the current treatment/medication helping the patient to do activity of daily living . he is currently on the patch 75 mcg/h and Neurontin 800 mg twice a day and [place] 10/325 every 8 hours as needed he denies any side effect of the medication. incision healed appropriately. Today I removed Harry catheter patient tolerated the procedure well. And patient urinating appropriately, patient had appropriate urine output. Will follow-up in the pain clinic in 1 month Time with Patient: Less than 30
== END ==
LOC: PNWHC3 11:25
PROVIDERS: ATTEND Anesthesiology
DX: M96.1 Postlaminectomy syndrome, not elsewhere classified (principal); G89.4 Chronic pain syndrome; T85.738A Infection and inflammatory reaction due to other nervous system device, implant or graft, initial encounter; Z88.0 Allergy status to penicillin; Z91.018 Allergy to other foods; Z88.1 Allergy status to other antibiotic agents; Z98.890 Other specified postprocedural states
CPT/HCPCS: 99211